=== PATIENT | male | born 1965 | race Caucasian/White ===

== ENCOUNTER → 2019-11-09 10:27 | Outpatient (BNVA) | payer MEDICARE, MEDICAID, SELFPAY | PROVIDERS: Family Provider Internal Medicine; PCP Internal Medicine; Visit Provider Nurse Practitioner | DX: G89.29 Other chronic pain (principal); M54.5 Low back pain; F17.290 Nicotine dependence, other tobacco product, uncomplicated; Z79.891 Long term (current) use of opiate analgesic; Z71.6 Tobacco abuse counseling | CPT/HCPCS: 99215 ==

== ENCOUNTER 2019-11-17 16:16 | Outpatient (REF) | payer MEDICARE, MEDICAID, SELFPAY ==
[2019-11-17 16:27] LABS: Basophils # 0.1 10^3/uL (0.0-0.1); Basophils % 0.8 %; Eosinophils # 0.1 10^3/uL (0.0-0.8); Eosinophils % 2.2 %; Hemoglobin 8.8 g/dL (11.7-16.6); Lymphocytes # 1.2 10^3/uL (0.8-4.8); Mean Corpuscular HGB Conc 28.4 g/dL (30.0-36.0); Mean Corpuscular Hemoglobin 22.7 pg (28.0-34.0); Mean Corpuscular Volume 79.9 fL (80-94); Mean Platelet Volume 8.8 fL (7.4-10.4); Monocytes # 0.3 10^3/uL (0.2-0.9); Monocytes % 4.3 %; Neutrophils # 4.6 10^3/uL (1.8-7.7); Neutrophils % 73.4 %; Nucleated Red Blood Cells % 0 %; Platelet Count 466 10^3/cmm (130-400); Red Blood Count 3.88 10^6/uL (4.1-5.3); Red Cell Distribution Width 21.4 % (12.1-15.1); White Blood Count 6.3 10^3/uL (4.0-10.0)
[2019-11-17 16:45] LABS: INR 1.06 (0.8-1.2)
[2019-11-17 18:12] LABS: Alanine Aminotransferase < 5 U/L (0-41); Albumin Level 2.9 g/dL (3.5-5.2); Alkaline Phosphatase 93 IU/L (40-130); Anion Gap 15.5 (5-19); Aspartate Amino Transferase 6 U/L (0-40); Blood Urea Nitrogen 9 mg/dL (6-20); Calcium 9.3 mg/dL (8.5-10.5); Carbon Dioxide 22 mmol/L (22-29); Chloride 102 mmol/L (98-107); Glomerular Filtration Rate 117.5 mL/min (90-130); Glucose 99 mg/dL (65-115); Potassium 4.5 mmol/L (3.5-5.1); Sodium 135 mmol/L (136-145); Total Bilirubin 0.2 mg/dL (0.15-1.2); Total Protein 7.9 g/dL (6.6-8.7)
[2019-11-17 21:22] LABS: Estmated Average Glucose 94; Hemoglobin A1C 4.9 % (4.0-6.0)
== END 2019-11-17 16:17 | disposition home or self-care (01) ==
LOC: LAB 16:16
PROVIDERS: Family Provider Internal Medicine; PCP Internal Medicine; Visit Provider Internal Medicine
DX: Z01.89 Encounter for other specified special examinations (principal)
CPT/HCPCS: 80053; 83036; 85025; 85610

== ENCOUNTER 2020-01-18 15:11 | Outpatient (CLI) | payer MEDICARE, MEDICAID, SELFPAY ==
[2020-01-18 17:14] LABS: Bilirubin Urine Neg (NEGATIVE); Blood Urine 2+ (Negative); Glucose Urine UA Norm (Normal); Ketones Urine Negative (Negative); Nitrate Urine Positive (Negative); Protein Urine Neg (Negative); Sulfosalicylic Acid Urine Positive (Negative); Urine Appearance Cloudy (CLEAR); Urine Color Yellow (Yellow); pH Urine 9 (5-7)
[2020-01-18 17:15] LABS: Add Urine Microscopic? YES; Leukocyte Esterase Urine 2+ (Negative); Urobilinogen Urine Norm (Negative)
[2020-01-18 17:18] LABS: Add Urine Culture? Yes; Amorphous Sediment Urine 4+; Bacteria Urine 2+; RBC Urine 0-4 /hpf (0-2); Squamous Epithelial Cell Urine 0-4 (0-5)
== END 2020-01-18 15:12 | disposition home or self-care (01) ==
LOC: LAB 15:14
PROVIDERS: Family Provider Internal Medicine; PCP Internal Medicine; Visit Provider Internal Medicine
DX: N39.0 Urinary tract infection, site not specified (principal)
CPT/HCPCS: 81001; 87086

== ENCOUNTER → 2020-02-22 13:38 | Outpatient (BNVA) | payer MEDICARE, MEDICAID, SELFPAY | PROVIDERS: Family Provider Internal Medicine; PCP Internal Medicine; Visit Provider Nurse Practitioner | DX: G89.29 Other chronic pain (principal); M54.5 Low back pain; F17.290 Nicotine dependence, other tobacco product, uncomplicated; Z79.891 Long term (current) use of opiate analgesic | CPT/HCPCS: 99213 ==

== ENCOUNTER 2020-03-14 11:02 | Outpatient (CLI) | payer MEDICARE, MEDICAID, SELFPAY ==
[2020-03-14 23:22] LABS: Add Urine Microscopic? YES; Bilirubin Urine Neg (NEGATIVE); Blood Urine 3+ (Negative); Glucose Urine UA Norm (Normal); Ketones Urine Negative (Negative); Leukocyte Esterase Urine 2+ (Negative); Nitrate Urine Negative (Negative); Protein Urine 1+ (Negative); Urine Appearance Cloudy (CLEAR); Urine Color Dark Yellow (Yellow); Urobilinogen Urine Norm (Negative); pH Urine 7 (5-7)
[2020-03-14 23:23] LABS: Bacteria Urine 2+; RBC Urine 0-4 /hpf (0-2); Squamous Epithelial Cell Urine 0-4 (0-5); WBC Urine 55-80 /hpf (0-5)
== END 2020-03-14 11:03 | disposition home or self-care (01) ==
PROVIDERS: Family Provider Internal Medicine; PCP Internal Medicine; Visit Provider Internal Medicine
DX: N39.0 Urinary tract infection, site not specified (principal); Z96.0 Presence of urogenital implants; Z79.899 Other long term (current) drug therapy
CPT/HCPCS: 81001; 87077; 87086; 87186

== ENCOUNTER 2020-03-28 13:50 | Outpatient (CLI) | payer MEDICARE, MEDICAID, SELFPAY ==
--- NOTE | 2020-03-28 13:30 | XRR_ITS ---
PROCEDURE INFORMATION: Exam: XR Abdomen, 1 View Exam date and time: 03/28/2020 2:29 PM Age: 55 years old Clinical indication: Condition or disease; Other: HX of staghorn calculus; Prior surgery; Surgery type: Bowel TECHNIQUE: Imaging protocol: XR of the abdomen. Views: Frontal supine view of the abdomen. 1 View. COMPARISON: [facility] KUB [id number] 11/19/2016 8:09 AM FINDINGS: Tubes, catheters and devices: A urinary bladder catheter is in place Gastrointestinal tract: Normal. No bowel dilation. Intraperitoneal space: Multiple densities seen in the right lower quadrant new since prior examination. Vasculature: There is a metallic aortic stent in place. The aorta is ectatic. There is a vena cava filter in place in good position. Bones/joints: Unremarkable. XR/XR KUB [id number] IMPRESSION: 1. No acute findings. 2. Ectatic aorta status post vascular stent placement. 3. IVC filter in good position 4. Multiple densities right lower quadrant. 5. Urinary bladder catheter in place.
== END 2020-03-28 13:51 | disposition home or self-care (01) ==
LOC: RAD 13:54
PROVIDERS: PCP Internal Medicine; Visit Provider Urology
DX: Z87.442 Personal history of urinary calculi (principal); Z96.0 Presence of urogenital implants
CPT/HCPCS: 74018

== ENCOUNTER → 2020-05-01 10:07 | Outpatient (BNVA) | payer MEDICARE, MEDICAID, SELFPAY | PROVIDERS: PCP Internal Medicine; Visit Provider Anesthesiology | DX: G89.29 Other chronic pain (principal); M54.41 Lumbago with sciatica, right side; M54.42 Lumbago with sciatica, left side; G54.6 Phantom limb syndrome with pain; R10.9 Unspecified abdominal pain; G25.81 Restless legs syndrome; F17.290 Nicotine dependence, other tobacco product, uncomplicated; Z79.891 Long term (current) use of opiate analgesic | CPT/HCPCS: 99214 ==

== ENCOUNTER 2020-05-11 21:56 | Inpatient (IN) | payer MEDICARE, MEDICAID, SELFPAY ==
[2020-05-11 22:11] VITALS: RESP 20; TEMP 36.6; BMI 25.0
[2020-05-11] MEDS: sodium chloride 0.9% 500 ML IV (22:30)
[2020-05-11 22:54] LABS: Basophils # 0.1 10^3/uL (0.0-0.1); Basophils % 0.5 %; Eosinophils # 0.1 10^3/uL (0.0-0.8); Eosinophils % 1.2 %; Hematocrit 34.8 % (42.0-52.0); Hemoglobin 10.7 g/dL (11.7-16.6); Lymphocytes # 1.4 10^3/uL (0.8-4.8); Lymphocytes % 12.8 %; Mean Corpuscular HGB Conc 30.7 g/dL (30.0-36.0); Mean Corpuscular Hemoglobin 22.2 pg (28.0-34.0); Mean Corpuscular Volume 72.2 fL (80-94); Mean Platelet Volume 8.6 fL (7.4-10.4); Monocytes # 0.6 10^3/uL (0.2-0.9); Neutrophils # 8.86 10^3/uL (1.8-7.7); Neutrophils % 80.2 %; Nucleated Red Blood Cells % 0 %; Platelet Count 472 10^3/cmm (130-400); Red Blood Count 4.82 10^6/uL (4.1-5.3)
--- NOTE | 2020-05-11 23:00 | CTR_ITS ---
PROCEDURE INFORMATION: Exam: CT Abdomen And Pelvis With Contrast Exam date and time: 05/11/2020 11:16 PM Age: 55 years old Clinical indication: Vomiting and other: Abd distention; Prior surgery; Surgery type: Colon, colostomy; Additional info: Abdominal distension, vomiting TECHNIQUE: Imaging protocol: Computed tomography of the abdomen and pelvis with intravenous contrast. Radiation optimization: All CT scans at this facility use at least one of these dose optimization techniques: automated exposure control; mA and/or kV adjustment per patient size (includes targeted exams where dose is matched to clinical indication); or iterative reconstruction. Contrast material: OMNI 300; Contrast volume: 95 ml; Contrast route: INTRAVENOUS (IV); COMPARISON: 1. CT abdomen pelvis w con* [id number] 10/12/2017 7:22:[address] abdomen pelvis w con* [id number] 09/08/2018 5:10:32 AM RADIATION DOSE METRICS: Total DLP (mGy-cm): 461.75 FINDINGS: Tubes, catheters and devices: Suprapubic catheter is in place draining the urinary bladder. Liver: There is no focal abnormality within the liver. Gallbladder and bile ducts: Multiple calcified gallstones are present. There is IVC filter in place with its tip in the intrahepatic IVC. This is higher than usual position for IVC filters but this is not changed from previous. Pancreas: Normal. No ductal dilation. Spleen: Normal. No splenomegaly. Adrenals: Normal. No mass. Kidneys and ureters: There is nonobstructing stone in the lower pole of the right kidney. Kidneys are otherwise unremarkable. There is no hydronephrosis. Stomach and bowel: There is colostomy in the left lower quadrant of the abdomen. Parastomal hernia is again identified. Without evidence for incarceration. There is fluid distention of proximal small bowel loops. There is some distal small bowel loops in the right lower quadrant which are nondilated. The exact point of transition is not identified but this does appear to be in the mid abdomen. There is some fluid distending the colon. These findings are concerning for the possibility of partial small bowel obstruction. Correlation with clinical findings is suggested. Appendix: No evidence of appendicitis. Intraperitoneal space: There is no evidence of free intraperitoneal fluid. Vasculature: Abdominal aortic aneurysm is again identified with maximum diameter approximately 8.5 cm not significantly changed from the previous examination. Some calcification is again seen in the wall of the aneurysm. There is aorta iliac stent graft repair unchanged from the prior study without evidence for endoleak. Lymph nodes: Unremarkable. No enlarged lymph nodes. Bladder: Unremarkable as visualized. Reproductive: Unremarkable as visualized. Bones/joints: Compared with 10/12/2017, there has been partial resection of the distal sacrum at the S3-S4 level. Soft tissues: Sacral decubitus ulcer is again identified. CT/CT abdomen pelvis w con* [id number] IMPRESSION: 1. Findings worrisome for small bowel obstruction. 2. No change in abdominal aortic aneurysm. 3. Decubitus ulcer with postsurgical changes in the sacrum. 4. Cholelithiasis 5. Right nephrolithiasis. 6. Parastomal hernia not significantly changed. Radiation Dose CTDIVOL = (mGy): DLP = 461.75 (mGy-cm)
[2020-05-11 23:01] LABS: Bilirubin Urine Neg (NEGATIVE); Blood Urine 3+ (Negative); Glucose Urine UA Norm (Normal); Ketones Urine Negative (Negative); Leukocyte Esterase Urine 2+ (Negative); Nitrate Urine Negative (Negative); Protein Urine Trace (Negative); Specific Gravity, Urine 1.005 (1.005-1.030); Urine Color Yellow (Yellow); Urobilinogen Urine Norm (Negative); pH Urine 8 (5-7)
[2020-05-11 23:10] LABS: Add Urine Microscopic? YES; Sulfosalicylic Acid Urine Positive (Negative)
[2020-05-11 23:12] LABS: Amorphous Sediment Urine 1+; Bacteria Urine 2+; Squamous Epithelial Cell Urine 0-4 (0-5); WBC Urine 15-25 /hpf (0-5)
[2020-05-11 23:13] LABS: Add Urine Culture? Yes
[2020-05-11 23:17] LABS: Lactate (Lactic Acid level) 0.7 mmol/L (0.5-2.2)
[2020-05-11 23:18] LABS: Alanine Aminotransferase < 5 U/L (0-41); Albumin Level 3.4 g/dL (3.5-5.2); Alkaline Phosphatase 95 IU/L (40-130); Anion Gap 15.2 (5-19); Aspartate Amino Transferase 5 U/L (0-40); Blood Urea Nitrogen 6 mg/dL (6-20); Calcium 8.6 mg/dL (8.5-10.5); Carbon Dioxide 21 mmol/L (22-29); Chloride 95 mmol/L (98-107); Globulin 5.2 g/dL (1.3-4.6); Glomerular Filtration Rate 139.9 mL/min (90-130); Glucose 109 mg/dL (65-115); Lipase 59 U/L (13-60); Osmolality Calculated 262 mOsm/kg (285-295); Potassium 3.2 mmol/L (3.5-5.1); Sodium 128 mmol/L (136-145); Total Bilirubin 0.2 mg/dL (0.15-1.2); Total Protein 8.6 g/dL (6.6-8.7)
[2020-05-12] VITALS (12 sets, daily range): BP systolic 102–142; BP diastolic 63–88; PULSE 64–92; RESP 18–20; TEMP 36.5–36.8; O2SAT 93–99
[2020-05-12] MEDS: iohexol 300 mg/mL 100 mL Btl IV (00:13)
--- NOTE | 2020-05-12 01:34 | ED_ITS ---
HPI - General Adult General: Chief complaint: General Medical Stated complaint: abd pain Time Seen by Provider: 05/11/20 22:15 History of Present Illness: HPI narrative: 55-year-old male with a history of partial quadriplegia. He has a chronic indwelling Shore catheter, and a colostomy in the left lower quadrant. He presents with episodes of vomiting, some nausea, and a change in his stool output over the last 3 days or so. He notes some hard pellets . He saw his doctor on Thursday, and was given lactulose, and has had some liquid creamy output through the ostomy today. He does not have good sensation to his abdomen, so he cannot tell us about pain. Associated symptoms: Reports nausea and vomiting; Deny chest pain, confusion, dyspnea, headache(s), rash or palpitations Review of Systems Const: Denies: fever(s) or chills Eyes: Denies: change in vision or blurry vision ENMT: Denies: swelling of lips/tongue or sinus pain Card: Denies: chest pain, palpitations or irregular heart rhythm Resp: Denies: dyspnea, productive cough, non-productive cough or wheezing GI: Reports: nausea and vomiting; Denies: abdominal pain or melena : Denies: hematuria Musc: Denies: neck pain or joint warmth Skin/Breast: Denies: rash, pruritus or erythema Neuro: Denies: headache(s), dizziness, vertigo, confusion or seizure-like activity Psych: Denies: anxiety, visual hallucinations or auditory hallucinations PFS ED PFSH: Medical History (Updated 05/12/20 @ 03:13 by Chris Stock DO) Chronic abdominal pain Chronic indwelling Shore catheter Chronic pain of lower extremity, bilateral Decubitus ulcer Encounter for long-term opiate analgesic use Foot amputation status Bilateral forefoot amputation History of amputation of toe (~02/2015) LEFT FOOT/ TOES RIGHT FOOT TOES History of uric acid staghorn calculus 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 Long-term use of high-risk medication Neurogenic bladder Phantom pain Restless leg syndrome Tobacco use disorder Surgical History (Updated 05/12/20 @ 01:46 by Lorna Fenton MD) Hx of resection of large bowel (~01/2015) S/P abdominal aortic aneurysm repair Family History Unknown Anesthesia complication Denies family history of Bleeding disorder Social History (Updated 05/01/20 @ 10:27 by Alicia Delgado LPN) Smoking and tobacco status: current every day smoker cigars Alcohol intake: current Alcohol intake frequency: holidays/special occasions only Adopted: Yes Lives independently: Yes Household members: spouse Marital status: Current occupational status: disabled History of recent travel: No Physical Exam Const: GENERAL APPEARANCE: well developed ORIENTATION/CONSCIOUSNESS: Yes oriented to person, Yes oriented to place and Yes oriented to time HENMT: COMMON NORMALS: normocephalic, external ears normal and Normal external nose present HEAD & SCALP: normocephalic FACE & SINUS: normal facial exam NOSE: Normal external nose present and No nasal discharge present EXTERNAL EAR: Yes external ears normal Eye: COMMON NORMALS: Equal, round and reactive pupils present, EOMs intact bilaterally and conjunctivae normal EYELID: eyelids normal CONJUNCTIVA: Yes conjunctivae normal PUPIL: Yes Equal, round and reactive pupils present Neck/C-Spine: GENERAL: No tracheal deviation Chest: COMMONS NORMALS: normal inspection of the chest CHEST: No tenderness Resp: COMMON NORMALS: clear to auscultation bilaterally EFFORT & INSPECTION: No tachypneic, No respiratory distress, No retractions, No uses accessory muscles and No tracheal deviation AUSCULTATION: clear to auscultation bilaterally, no rhonchi, no wheezes and lung sounds not diminished Cardio: COMMON NORMALS: regular rhythm RATE: tachycardic RHYTHM: regular rhythm HEART SOUNDS: no murmurs PERIPHERAL PULSES: radial pulses present GI: INSPECTION: No abdominal distension AUSCULTATION: No Hyperactive bowel sounds present and No Hypoactive bowel sounds present PALPATION: No Guarding due to palpation present (GI) and Yes Rigid due to palpation PERCUSSION: no dullness to percussion and tympanic to percussion Neuro: SENSORIUM/ORIENTATION: Yes oriented to person, Yes oriented to place and Yes oriented to time Psych: COMMON NORMALS: mental status grossly normal Course Vital Signs: Vital signs: Vital Signs Temperature 97.9 F 05/11/20 22:11 Pulse Rate 66 05/12/20 02:37 Respiratory Rate 18 05/12/20 02:37 Blood Pressure 116/79 05/12/20 02:37 Pulse Oximetry 97 08/22/20 02:37 MDM - General Adult MDM Narrative: Medical decision making narrative: 55-year-old male with abdominal distention, change in ostomy output, and vomiting. He is a mild leukocytosis. His potassium is down. His bicarbonate is down. He has distention with some rigidity. On CT, he has distended loops of small bowel with collapse more distally. An NG tube is placed in the ER. He will come in for small bowel obstruction. Lab Data: Labs: Lab Results 05/11/20 05/11/20 05/11/20 Range/Units 22:45 22:48 22:48 WBC 11.0 H (4.0-10.0) 10^3/ uL RBC 4.82 (4.1-5.3) 10^6/u L Hgb 10.7 L (11.7-16.6) g/dL Hct 34.8 L (42.0-52.0) % MCV 72.2 L (80-94) fL MCH 22.2 L (28.0-34.0) pg MCHC 30.7 (30.0-36.0) g/dL RDW 19.0 H (12.1-15.1) % Plt Count 472 H (130-400) 10^3/c mm MPV 8.6 (7.4-10.4) fL Neut % (Auto) 80.2 % Lymph % (Auto) 12.8 % [place] % (Auto) 5.0 % Eos % (Auto) 1.2 % Baso % (Auto) 0.5 % Neut # (Auto) 8.86 H (1.8-7.7) 10^3/u L Lymph # (Auto) 1.4 (0.8-4.8) 10^3/u L [place] # (Auto) 0.6 (0.2-0.9) 10^3/u L Eos # (Auto) 0.1 (0.0-0.8) 10^3/u L Baso # (Auto) 0.1 (0.0-0.1) 10^3/u L Nucleated RBC % (a uto) 0 % Nucleated RBCs # 0.0 /100WBC Sodium 128 L (136-145) mmol/L Potassium 3.2 L (3.5-5.1) mmol/L Chloride 95 L (98-107) mmol/L Carbon Dioxide 21 L (22-29) mmol/L Anion Gap 15.2 (5-19) BUN 6 (6-20) mg/dL Creatinine 0.6 L (0.7-1.2) mg/dL GFR Calculation 139.9 H (90-130) mL/min Glucose 109 (65-115) mg/dL Calculated Osmolal ity 262 L (285-295) mOsm/k g Lactate (0.5-2.2) mmol/L Calcium 8.6 (8.5-10.5) mg/dL Total Bilirubin 0.2 (0.15-1.2) mg/dL AST 5 (0-40) U/L ALT < 5 (0-41) U/L Alkaline Phosphata se 95 (40-130) IU/L C-Reactive Protein 149.0 H (0.0-4.9) mg/L Total Protein 8.6 (6.6-8.7) g/dL Albumin 3.4 L (3.5-5.2) g/dL Globulin 5.2 H (1.3-4.6) g/dL Lipase 59 (13-60) U/L Urine Color Yellow (Yellow) Urine Appearance Sl cloudy A (CLEAR) Urine pH 8 H (5-7) Ur Specific Gravit y 1.005 (1.005-1.030) Urine Protein Trace (Negative) Urine Glucose (UA) Norm (Normal) Urine Ketones Negative (Negative) Urine Blood 3+ H (Negative) Urine Nitrate Negative (Negative) Urine Bilirubin Neg (NEGATIVE) Prot Sulfosalicyli c Acd Positive (Negative) Urine Urobilinogen Norm (Negative) mg/dL Ur Leukocyte Jimena ase 2+ H (Negative) Urine RBC 10-15 H (0-2) /hpf Urine WBC 15-25 H (0-5) /hpf Ur Squamous Epith Cells 0-4 H (0-5) Amorphous Sediment 1+ Urine Bacteria 2+ H (NONE) 05/11/20 Range/Units 22:48 WBC (4.0-10.0) 10^3/ uL RBC (4.1-5.3) 10^6/u L Hgb (11.7-16.6) g/dL Hct (42.0-52.0) % MCV (80-94) fL MCH (28.0-34.0) pg MCHC (30.0-36.0) g/dL RDW (12.1-15.1) % Plt Count (130-400) 10^3/c mm MPV (7.4-10.4) fL Neut % (Auto) % Lymph % (Auto) % [place] % (Auto) % Eos % (Auto) % Baso % (Auto) % Neut # (Auto) (1.8-7.7) 10^3/u L Lymph # (Auto) (0.8-4.8) 10^3/u L [place] # (Auto) (0.2-0.9) 10^3/u L Eos # (Auto) (0.0-0.8) 10^3/u L Baso # (Auto) (0.0-0.1) 10^3/u L Nucleated RBC % (a uto) % Nucleated RBCs # /100WBC Sodium (136-145) mmol/L Potassium (3.5-5.1) mmol/L Chloride (98-107) mmol/L Carbon Dioxide (22-29) mmol/L Anion Gap (5-19) BUN (6-20) mg/dL Creatinine (0.7-1.2) mg/dL GFR Calculation (90-130) mL/min Glucose (65-115) mg/dL Calculated Osmolal ity (285-295) mOsm/k g Lactate 0.7 (0.5-2.2) mmol/L Calcium (8.5-10.5) mg/dL Total Bilirubin (0.15-1.2) mg/dL AST (0-40) U/L ALT (0-41) U/L Alkaline Phosphata se (40-130) IU/L C-Reactive Protein (0.0-4.9) mg/L Total Protein (6.6-8.7) g/dL Albumin (3.5-5.2) g/dL Globulin (1.3-4.6) g/dL Lipase (13-60) U/L Urine Color (Yellow) Urine Appearance (CLEAR) Urine pH (5-7) Ur Specific Gravit y (1.005-1.030) Urine Protein (Negative) Urine Glucose (UA) (Normal) Urine Ketones (Negative) Urine Blood (Negative) Urine Nitrate (Negative) Urine Bilirubin (NEGATIVE) Prot Sulfosalicyli c Acd (Negative) Urine Urobilinogen (Negative) mg/dL Ur Leukocyte Jimena ase (Negative) Urine RBC (0-2) /hpf Urine WBC (0-5) /hpf Ur Squamous Epith Cells (0-5) Amorphous Sediment Urine Bacteria (NONE) Discharge Plan Discharge Patient Disposition: Admitted As Inpatient Admit Provider: Lorna Fenton Clinical Impression: Small bowel obstruction Condition: Stable Coding Level of Care Code ED Welding Machine Tender for Chg Fwd Exam Comprehensive
--- NOTE | 2020-05-12 01:42 | PM.HP ---
Providers/Chief Complaint Primary Care Provider: Jacoby Jon DO Chief Complaint: abd pain History of Present Illness Maicol Reid is a 55 year old male who carries history of paraplegia after development of complications with abdominal aortic aneurysm repair with showering of embolism to spine and lower extremity vasculature, DVT, chronic anticoagulation, colostomy versus colectomy, chronic indwelling catheterization for neurogenic bladder came in for chief complaint of abdominal pain and vomiting. Patient is stating that his symptoms started on Thursday when he noticed that he was not getting enough output through his colostomy bag, before Thursday he was very constipated but was able to tolerate p.o. diet, on Thursday he started getting abdominal pain with excessive belching and cramping. He has tried lactulose which improved some output from his colostomy bag but he is still experiencing intractable nausea vomiting, hence decided to come to the hospital for further evaluation. Diagnostics in the ER revealed small bowel obstruction. Patient is denying recent use of antibiotics, fever, blood in the colostomy bag, dysuria. His Shore catheter gets changed every 3 weeks. Diagnosis in the ER revealed normal hemodynamics, white count 11, no active signs of sepsis, CT abdomen revealed small bowel obstruction, hyponatremia, hypokalemia, lactic 0.7, CT abdomen pelvis with contrast: IMPRESSION: 1. Findings worrisome for small bowel obstruction. 2. No change in abdominal aortic aneurysm. 3. Decubitus ulcer with postsurgical changes in the sacrum. 4. Cholelithiasis 5. Right nephrolithiasis. 6. Parastomal hernia not significantly changed. Review of Systems Const: Reports: chills, body aches and fatigue; Denies: fever(s) Eyes: Denies: change in vision ENMT: Denies: throat pain Card: Denies: chest pain Resp: Denies: dyspnea GI: Reports: abdominal pain, nausea, vomiting and constipation : Denies: flank pain Musc: Denies: neck pain Skin/Breast: Reports: rash and lesions (Decubitus ulcer) Neuro: Reports: weakness in extremities; Denies: headache(s) Psych: Denies: anxiety Endo: Denies: polyuria Justice/Lymph: Denies: easy bruising All/Imm: Denies: urticaria Medications/Allergies Home Medications Medication Instructions Recorded Confirmed Last Taken Type apixaban 2.5 mg tablet 2.5 mg PO BID 10/17/19 05/01/20 Unknown History levothyroxine 88 mcg tablet 88 mcg PO QDAY 10/17/19 05/01/20 Unknown History metformin 500 mg tablet 1,000 mg PO QDAY tab 10/17/19 05/01/20 Unknown History ondansetron HCl 8 mg tablet 8 mg PO QDAY PRN tab 10/17/19 05/01/20 Unknown History citric ac 1980.6 mg-glucono 59.4 30 ml IRRIGATION TID #900 ml 03/28/20 05/01/20 Unknown Rx mg-mag carb 980.4 mg/30 mL irrig.soln docusate sodium 100 mg capsule 100 mg PO BID PRN 03/28/20 05/01/20 Unknown History omeprazole 20 mg capsule,delayed 20 mg PO DAILY 03/28/20 05/01/20 Unknown History release oxybutynin chloride 5 mg tablet 5 mg PO BID #60 tab 03/28/20 05/01/20 Unknown Rx oxycodone 10 mg tablet 10 - 15 mg PO QID PRN 30 Days #180 05/01/20 05/01/20 Unknown Rx tab ropinirole 0.5 mg tablet 0.5 mg PO .HS 30 Days #60 tab 05/01/20 05/01/20 Unknown Rx tizanidine 4 mg tablet 4 mg PO TID PRN #90 tab 05/01/20 05/01/20 Unknown Rx zonisamide 100 mg capsule 400 mg PO .Q HS #120 cap 05/01/20 05/01/20 Unknown Rx Allergies Allergy/AdvReac Type Severity Reaction Status Date / Time aspirin Allergy ALGY-Anaphy Verified 05/01/20 10:22 laxis meropenem Allergy SWELLING/ Verified 05/01/20 10:22 HIVES cefixime AdvReac UNKNOWN Verified 05/01/20 10:22 vancomycin AdvReac ADR-Itching Verified 05/01/20 10:22 PFSH Acute PFSH: Medical History Chronic abdominal pain Chronic indwelling Shore catheter Chronic pain of lower extremity, bilateral Decubitus ulcer Encounter for long-term opiate analgesic use Foot amputation status Bilateral forefoot amputation History of amputation of toe (~02/2015) LEFT FOOT/ TOES RIGHT FOOT TOES History of uric acid staghorn calculus 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 Long-term use of high-risk medication Neurogenic bladder Phantom pain Restless leg syndrome Tobacco use disorder Surgical History Hx of resection of large bowel (~01/2015) S/P abdominal aortic aneurysm repair Family History Unknown Anesthesia complication Denies family history of Bleeding disorder Social History Smoking and tobacco status: current every day smoker cigars Alcohol intake: current Alcohol intake frequency: holidays/special occasions only Adopted: Yes Lives independently: Yes Household members: spouse Marital status: Current occupational status: disabled History of recent travel: No Vitals/I&O/Wt Last Vital Signs Temp 97.9 F 05/11/20 22:11 Pulse 92 05/12/20 00:30 Resp 18 05/12/20 00:30 BP 109/63 05/12/20 00:30 Pulse Ox 98 05/12/20 00:30 Weight last 48 hrs Weight 74.843 kg Physical Exam Narrative: EXAM NARRATIVE: Mr. Reid is a paraplegic who is currently laying comfortable in his bed saturating well on room air Colostomy bag is draining semisolid brown feculent material No active abdominal pain S1, S2 no tachycardia or heart failure Clinically dehydrated Awake alert oriented x3, Bilateral forefoot amputation Decubitus ulcer around lower buttocks area grade 2 decubitus ulcer with exposure to fat layer without tunneling Appropriate mood and affect Shore catheter draining cloudy urine Data : 05/11/20 22:48 05/11/20 22:48 A&P Assessment and plan (1) Small bowel obstruction: Status: Acute (2) Hyponatremia: Status: Acute (3) Hypokalemia: Status: Acute (4) Dehydration: Status: Acute Additional A&P Information Small bowel obstruction N.p.o., NG to suction Morphine for analgesia Colostomy bag is draining feculent material Distended small bowel loops noted on CT abdomen, I do suspect partial small bowel obstruction because of output from his colostomy bag, No acute indication for surgical intervention Kindly consult general surgery in the morning Abdominal aortic aneurysm 8.5 cm same as the last CT scan findings, no vascular compromise Parastomal hernia without incarceration, cholelithiasis noted without signs of cholecystitis Hyponatremia/hypokalemia secondary to dehydration Fluid resuscitation, electrolyte replenishment Paraplegia after abdominal aortic aneurysm repair Decubitus ulcer, follows up with wound care, Neurogenic bladder with chronic indwelling Shore catheter Abnormal UA without active symptoms, For DVT he is on Eliquis 2.5 mg twice a day DVT prophylaxis not needed as he is on Eliquis N.p.o. Full code Attestations Medical Necessity Statement*: Anticipating stay in the hospital cross more than 2 midnights continue monitoring for small bowel obstruction, need IV fluids agitation for dehydration and electrolyte imbalance Time Spent in Patient Care: (>than 50% of time spent in counselling and/or direct pt care on unit). 40mins Coding Level of Care Code Acute Communications Systems Engineer for Chg Fwd Diagnoses Small bowel obstruction K56.609 Hyponatremia E87.1 Hypokalemia E87.6 Dehydration E86.0
--- NOTE | 2020-05-12 02:33 | XR_ITS ---
WS: [id number] EXAM: AP CHEST: PORTABLE UPRIGHT DATE OF EXAM: 05/12/2020, 0327 hours COMPARISON: Chest x-ray from 02/04/2018 HISTORY: Patient is 55 years old with nasogastric tube placement. FINDINGS: The cardiac silhouette is normal in size. The mediastinal contours show calcified plaque in the ao rta. Enteric tube has been placed crossing the thoracic esophagus and coiled in the left upper abdome n felt to be ending in the stomach. IVC filter is in place in the abdomen. There appears to be endova scular stenting overlying the distal aorta. The pulmonary vascularity is normal. The lungs are louise ar of infiltrate. No effusion is seen. Top of the lungs have been excluded from the image. No pneumo thorax as visualized. No acute bony abnormality is seen. XR/XR chest 1V portable [id number] IMPRESSION: Enteric tube ends in the area of the stomach. No pulmonary infiltrate.
[2020-05-12] MEDS: ondansetron 2 mg/ML SDV 2 mL 4 MG IVP (03:10)
[2020-05-12] MEDS: HYDROmorphone 1 mg/mL INJ 1 mL IVP (03:15)
--- NOTE | 2020-05-12 03:28 | PC.NURSE ---
pt refusing morphine due to causing vomiting. Dr notified, vo obtained for 4mg of zofran and 1mg of dilaudid IVP
[2020-05-12] MEDS: sodium chlor 0.9% + KCl 20 mEq 20 MEQ/1,000 ML BAG 30 MEQ IV (06:25)
[2020-05-12] MEDS: lactulose oral liq 20 gm/30 mL UDC NG-TUBE (06:40)
[2020-05-12] MEDS: pantoprazole 40 mg SDV IVP (09:31)
[2020-05-12] MEDS: HYDROcodone-acetaminophen 10-325 mg Tablet 1.5 TAB PO (15:12)
--- NOTE | 2020-05-12 15:24 | PC.CHAP ---
Pastoral Care Encounter/Spiritual Assessment Type of Contact [] Declined varnish maker helper visit [] Patient/Family/Request visit [] Outpatient visit [] Follow-up visit [] Physician referral [] Code/Alert [X] Routine visit [] Staff referral [] Actively dying [] Patient sleeping [] Family support [] [] Out of room [] Palliative care [] [] Receiving care in room [] Pre-surgical visit [] Trauma [] Long length of stay [] ICU visit [] Other: Relational/Emotional Strength [X] Patient feels connected with others/family/visitors/staff [] Distress [] Loneliness/isolation [] Abandonment Spirituality of Patient [] Person of Ivelisse [] Attends Sikhism of their Ivelisse [X] Believes in Prayer [] Reads Bible or Mosque materials [] There are Spiritual issues to be addressed Levers Lace Machine Operator Interventions [X] Prayer [X] Active listening [X] Non-anxious presence [] Spiritual/emotional support [] Crisis/trauma care [] Spiritual counseling [] Bereavement support [] Provided bereavement packet [] Provided Bible/devotional materials [] Provided toy/stuffed animal, coloring book to patient or family member [] Provided Communion [] Anointing/[place] [] Salvation [X] Completed spiritual assessment [X] Other: requested nurse because suction tube became disconnected Impact on Illness or Injury [] Angry [] Fearful [] Anxious [] Often cries [] Exhaustion [] Unable to work [] Unable to attend jainism [] Unable to walk/stand [] Unable to read [] Unable to drive [] Unable to eat/drink [] Unable to sleep [] Unable to be with family [] Patient intubated [] Other: Summary: Pt is paralyzed (I could not understand what he was describing as the source of his paralysis). He informed his physician that he had not had a bowel movement in several days (he has a colostomy bag), so he was brought in and determined to have a bowel blockage. He has a at home. It was effortful for him to speak because of the NG tube, but he wanted to visit. We had prayer, and I'll stop by to visit again tomorrow. Time spent with patient: 10 mins
--- NOTE | 2020-05-12 16:28 | PM.PN ---
Subjective Subjective: Interval history: Patient reports feeling okay. Denies shortness of breath or chest pain. Denies abdominal pain. It appears that the patient's ostomy started to work. His nasogastric tube was clamped after patient was given laxative. Several hours after he developed nausea and had 100 mL out when tube was unclamped. Vitals/I&O/Wt Last Vital Signs Temp 98.1 F 05/12/20 15:35 Pulse 84 05/12/20 15:35 Resp 18 05/12/20 15:35 BP 103/70 05/12/20 15:35 Pulse Ox 99 05/12/20 15:35 05/12/20 05/12/20 05/12/20 06:59 14:59 22:59 Intake Total 0 / 0 480 / 480 Output Total 1000 / 1000 Balance 0 / 0 -520 / -520 Weight last 48 hrs Weight 74.843 kg Physical Exam Const: COMMON NORMALS: no acute distress and patient oriented x3 Resp: COMMON NORMALS: normal respiratory effort and clear to auscultation bilaterally AUSCULTATION: clear to auscultation bilaterally Cardio: COMMON NORMALS: regular rate, regular rhythm and S2 normal heart sound present RATE: regular rate RHYTHM: regular rhythm HEART SOUNDS: S2 normal heart sound present OTHER: No lower extremity edema GI: COMMON NORMALS: Normal to inspection, nondistended, normoactive bowel sounds present, Soft to palpation and non-tender PALPATION: Yes Soft to palpation OTHER: Ostomy with light brown liquid stool. Neuro: COMMON NORMALS: patient oriented x3 Data : 05/11/20 22:48 05/11/20 22:48 A&P Assessment and plan (1) Small bowel obstruction: Status: Acute (2) Hyponatremia: Status: Acute (3) Hypokalemia: Status: Acute (4) Dehydration: Status: Acute Additional A&P Information Small bowel obstruction N.p.o., NG to suction Morphine for analgesia Colostomy bag is draining feculent material Distended small bowel loops noted on CT abdomen, I do suspect partial small bowel obstruction because of output from his colostomy bag, No acute indication for surgical intervention Kindly consult general surgery in the morning Abdominal aortic aneurysm 8.5 cm same as the last CT scan findings, no vascular compromise 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 UA is not helpful but if white blood cell count continues to increase or he becomes febrile we will start empiric antibiotics. Check iron studies in a.m. DVT prophylaxis not needed as he is on Eliquis N.p.o. Full code Attestations Medical Necessity Statement*: Patient with signs and symptoms of small bowel obstruction requires close inpatient monitoring and treatment. Time Spent in Patient Care: 16 - 35 minutes Coding Level of Care Code Acute Coding File Clerk for [facility] Diagnoses Small bowel obstruction K56.609 Hyponatremia E87.1 Hypokalemia E87.6 Dehydration E86.0
[2020-05-12] MEDS: magnesium citrate Btl 296 mL 150 ML PO ×2 (17:33→22:49)
[2020-05-13 03:00] VITALS: BP 126/80; PULSE 76; RESP 20; TEMP 36.7; O2SAT 94
[2020-05-13 03:56] LABS: Basophils % 0.4 %; Eosinophils # 0.2 10^3/uL (0.0-0.8); Eosinophils % 1.7 %; Hematocrit 30.9 % (42.0-52.0); Hemoglobin 9.5 g/dL (11.7-16.6); Lymphocytes # 1.3 10^3/uL (0.8-4.8); Lymphocytes % 14.1 %; Mean Corpuscular HGB Conc 30.7 g/dL (30.0-36.0); Mean Corpuscular Hemoglobin 22.1 pg (28.0-34.0); Mean Corpuscular Volume 71.9 fL (80-94); Monocytes # 0.5 10^3/uL (0.2-0.9); Monocytes % 5.6 %; Neutrophils # 7.25 10^3/uL (1.8-7.7); Nucleated Red Blood Cells % 0 %; Platelet Count 445 10^3/cmm (130-400); Red Cell Distribution Width 18.8 % (12.1-15.1); White Blood Count 9.3 10^3/uL (4.0-10.0)
[2020-05-13 04:17] LABS: Alanine Aminotransferase < 5 U/L (0-41); Alkaline Phosphatase 79 IU/L (40-130); Anion Gap 12.3 (5-19); Aspartate Amino Transferase 5 U/L (0-40); Blood Urea Nitrogen 5 mg/dL (6-20); Calcium 8.1 mg/dL (8.5-10.5); Carbon Dioxide 23 mmol/L (22-29); Chloride 104 mmol/L (98-107); Ferritin 146 ng/mL (30-400); Globulin 3.9 g/dL (1.3-4.6); Glomerular Filtration Rate 172.6 mL/min (90-130); Glucose 115 mg/dL (65-115); Iron 17 ug/dL (59-158); Magnesium 1.9 mg/dL (1.7-2.3); Osmolality Calculated 279 mOsm/kg (285-295); Percent Saturation 12.1 % (20-50); Potassium 3.3 mmol/L (3.5-5.1); Sodium 136 mmol/L (136-145); Total Bilirubin 0.2 mg/dL (0.15-1.2); Total Iron Binding Capacity 140 mcg/dl; Total Protein 6.9 g/dL (6.6-8.7); Unsaturated Iron Binding 123 ug/dL (112-347)
[2020-05-13] MEDS: magnesium citrate Btl 296 mL 150 ML PO ×2 (05:25→11:00)
[2020-05-13 06:23] LABS: Glucose Point of Care 160 mg/dL (70-110)
[2020-05-13 07:00] VITALS: BP 107/71; PULSE 87; RESP 18; TEMP 37.2; O2SAT 98
[2020-05-13] MEDS: pantoprazole 40 mg SDV IVP (08:10)
--- NOTE | 2020-05-13 09:59 | P.CONIM_ITS ---
Providers/Reason For Consult Consulting Physican/Specialty*: Handy Bhatia MD Reason for Consult*: Concern for bowel obstruction Attending Physician: Demond Harding MD Primary Care Provider: Jacoby Jon DO History of Present Illness History of Present Illness Chief Complaint: I have loose stools History of present illness: Mr. Maicol Reid is a 55 year old male with history of paraplegia after development of complications with abdominal aortic aneurysm repair with showering of embolism to spine and lower extremity vasculature, DVT, chronic anticoagulation, colostomy versus colectomy, chronic indwelling catheterization for neurogenic bladder had previous AAA aneurysm repair back in 2014 and did develop bowel ischemia ended up by a diverting colostomy and patient in the interim developed pressure injury stage IV ulcers occupying bilateral gluteal and lower back regions.Patient has been having alternating bowel habits whenever he gets iron supplements he gets constipated and when he uses laxatives to get loose stools, apparently the patient has been admitted to the hospitalist service and a CT scan of the abdomen pelvis was done that showed; CT abdomen pelvis with contrast: IMPRESSION: 1. Findings worrisome for small bowel obstruction. 2. No change in abdominal aortic aneurysm. 3. Decubitus ulcer with postsurgical changes in the sacrum. 4. Cholelithiasis 5. Right nephrolithiasis. 6. Parastomal hernia not significantly changed. General surgery was consulted for further evaluation and potential management, patient had an NG and was clamped since yesterday and has been tolerating clear liquid diet and having looser stools per stoma in addition to passage of gas. Review of Systems General: Reports: 10 or more systems reviewed and unremarkable except in HPI and below Meds/Allergies Home Medications and Allergies Home Medications Medication Instructions Recorded Confirmed Last Taken Type apixaban 2.5 mg tablet 2.5 mg PO BID 10/17/19 05/12/20 05/11/20 08:00 History levothyroxine 88 mcg tablet 88 mcg PO QDAY 10/17/19 05/12/20 05/11/20 08:00 History ondansetron HCl 8 mg tablet 8 mg PO QID PRN tab 10/17/19 05/12/20 Unknown History docusate sodium 100 mg capsule 100 mg PO BID PRN 03/28/20 05/12/20 05/11/20 History omeprazole 20 mg capsule,delayed 20 mg PO DAILY 03/28/20 05/12/20 05/11/20 08:00 History release oxycodone 10 mg tablet 10 - 15 mg PO QID PRN 30 Days #180 05/01/20 05/12/20 05/11/20 Rx tab ropinirole 0.5 mg tablet 0.5 mg PO .HS 30 Days #60 tab 05/01/20 05/12/20 05/11/20 Rx tizanidine 4 mg tablet 4 mg PO TID PRN #90 tab 05/01/20 05/12/20 05/11/20 Rx zonisamide 100 mg capsule 400 mg PO .Q HS #120 cap 05/01/20 05/12/20 05/10/20 20:00 Rx oxycodone 10 - 15 mg PO QID PRN 05/13/20 05/13/20 05/11/20 History senna leaf extract 10 ml PO BID PRN #237 ml 05/13/20 Unknown Rx Allergies Allergy/AdvReac Type Severity Reaction Status Date / Time aspirin Allergy ALGY-Anaphy Verified 05/13/20 10:16 laxis meropenem Allergy SWELLING/ Verified 05/13/20 10:16 HIVES cefixime AdvReac UNKNOWN Verified 05/13/20 10:16 vancomycin AdvReac ADR-Itching Verified 05/13/20 10:16 Current Medications Current Medications Generic Name Dose Route Start Last Admin Trade Name Freq PRN Reason Stop Dose Admin Potassium Chloride/Sodium Chloride 20 meq in 1,000 mls @ 30 mls/hr 05/12/20 05:08 05/12/20 06:25 Sodium Chlor 0.9% + Kcl 20 Meq IV 30 mls/hr .Q24H FUENTES Administration Magnesium Citrate 150 ml 05/12/20 16:45 05/13/20 05:25 Magnesium Citrate PO 05/13/20 16:44 150 ml Q6H FUENTES Administration Pantoprazole Sodium 40 mg 05/12/20 09:00 05/13/20 08:10 Protonix IVP 40 mg DAILY FUENTES Administration PFSH Acute PFSH: Medical History Chronic abdominal pain Chronic indwelling Shore catheter Chronic pain of lower extremity, bilateral Decubitus ulcer Encounter for long-term opiate analgesic use Foot amputation status Bilateral forefoot amputation History of amputation of toe (~02/2015) LEFT FOOT/ TOES RIGHT FOOT TOES History of uric acid staghorn calculus 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 Long-term use of high-risk medication Neurogenic bladder Phantom pain Restless leg syndrome Tobacco use disorder Surgical History Hx of resection of large bowel (~01/2015) S/P abdominal aortic aneurysm repair Family History Unknown Anesthesia complication Denies family history of Bleeding disorder Social History Smoking and tobacco status: current every day smoker cigars Alcohol intake: current Alcohol intake frequency: holidays/special occasions only Adopted: Yes Lives independently: Yes Household members: spouse Marital status: Current occupational status: disabled History of recent travel: No Vitals/I&O/Wt Last Vital Signs Temp 98.9 F 05/13/20 07:00 Pulse 87 05/13/20 07:00 Resp 18 05/13/20 07:00 BP 107/71 05/13/20 07:00 Pulse Ox 98 05/13/20 07:00 05/12/20 05/13/20 05/13/20 22:59 06:59 14:59 Intake Total 550 / 1030 480 / 1510 640 / 640 Output Total 200 / 1200 1290 / 2490 900 / 900 Balance 350 / -170 -810 / -980 -260 / -260 Weight last 48 hrs Weight 165 lb Physical Exam Narrative: EXAM NARRATIVE: Patient is conscious alert oriented X3 BMI 25 Head and neck examination PERRLA no masses no cervical lymphadenopathy no jaundice NG in place clamped Cardiac examination audible S1-S2 no murmurs no gallops no arrhythmias Chest is clear bilateral,abscence of Rhonchi or wheezes,no surgical emphysema Abdomen nontender nondistended soft no organomegaly guarding or rigidity/no signs of peritonitis Colostomy at the left side of the abdomen with functioning loose stools and passage of gas Extensive pressure injury ulcers located on bilateral gluteal and lower back w ith no evidence of necrotic tissue Chronic indwelling catheter Data Micro: Micro: Microbiology 05/11/20 22:45 Urine Culture - Pr eliminary Urine Catheterize d Gram Negative R ods Gram Negative R ods#2 A&P Assessment and plan (1) Small bowel obstruction: From surgical standpoint of view after history taking physical examination and reviewing the chart and images with my personal interpretation, my recommendation to DC NG tube and advance diet as tolerated. Patient does have a chronic parastomal hernia I do not believe that is causing his current problem Local wound care Optimize nutrition by focus on protein shakes No acute surgical intervention indicated at this point. Assurance and education All questions have been answered and all concerns have been addressed to stevan salazar's satisfaction. Thank you for consulting general surgery to participate taking care Mr. Reid Status: Resolved Consult Attestations Medical Necessity Statement: Per hospitalist service Time Spent in Patient Care: (>than 50% of time spent in counselling and/or direct pt care on unit) . Coding Level of Care Code Acute General Worker for [facility] Diagnoses Small bowel obstruction K56.609
--- NOTE | 2020-05-13 10:49 | P.DS_ITS ---
Discharge Providers Date of Admission: 05/12/20 01:49 Date of Discharge: May 13, 2020 Attending Provider at Admission: Lorna Fenton MD Attending Provider at Discharge: Demond Harding MD Primary Care Provider: Jacoby Jon DO Diagnoses at Discharge Discharge Diagnosis (1) Small bowel obstruction: Status: Resolved Reason for Visit Reason for Visit: abd pain Hospital Course Discharge Summary: Patient presented with concern for partial small bowel obstruction. This appears to be related to medications including oxybutynin and opioids. Patient was given magnesium citrate and had good ostomy output. This morning patient denies any complaints including shortness of breath or chest pain. Denies being nauseous. He was seen by Dr. Garcia and NG tube was removed. If patient tolerates oral intake we will dismiss patient home. Patient will need to continue with wound care by home health. Oxybutynin will be discontinued as it could possibly cause decreased peristalsis and will request senna to be used as needed for constipation. Physical Exam Const: COMMON NORMALS: no acute distress, patient oriented x3 and alert Resp: COMMON NORMALS: No use of accessory muscles and clear to auscultation bilaterally AUSCULTATION: clear to auscultation bilaterally Cardio: COMMON NORMALS: regular rate, regular rhythm and No murmurs present (Cardio) RATE: regular rate RHYTHM: regular rhythm OTHER: No lower extremity edema GI: COMMON NORMALS: Soft to palpation and non-tender PALPATION: Yes Soft to palpation RECTAL EXAM: Yes deferred OTHER: Ostomy is functioning. Neuro: COMMON NORMALS: patient oriented x3 and no focal motor deficits SENSORIUM/ORIENTATION: Yes alert Psych: COMMON NORMALS: mental status grossly normal, Normal thought process present and cooperative THOUGHT PROCESS: Normal thought process present Discharge Data Data Completed and Pending: Completed Studies During Hospitalization Category Date Time Status CT abdomen pelvis w con* [id number] Urge nt Cat Scan 05/11/20 23:00 Completed XR chest 1V mitchell ble [id number] Routine Exams 05/12/20 02:33 Completed Pending at discharge Category Date Time Status Complete Blood Co unt w/Auto AM LABS Lab 05/14/20 04:00 Ordered Complete Blood Co unt w/Auto AM LABS Lab 05/15/20 04:00 Ordered Comprehensive Met abolic Panel AM LA BS Lab 05/14/20 04:00 Ordered Comprehensive Met abolic Panel AM LA BS Lab 05/15/20 04:00 Ordered Magnesium AM LABS Lab 05/14/20 04:00 Ordered Magnesium AM LABS Lab 05/15/20 04:00 Ordered Urine Culture Sta t Lab 05/11/20 22:45 Results Labs from last 24 hours 05/13/20 05/13/20 05/13/20 06:15 03:32 03:32 WBC 9.3 RBC 4.30 Hgb 9.5 L Hct 30.9 L MCV 71.9 L MCH 22.1 L MCHC 30.7 RDW 18.8 H Plt Count 445 H MPV 9.0 Neut % (Auto) 78.0 Lymph % (Auto) 14.1 [place] % (Auto) 5.6 Eos % (Auto) 1.7 Baso % (Auto) 0.4 Neut # (Auto) 7.25 Lymph # (Auto) 1.3 [place] # (Auto) 0.5 Eos # (Auto) 0.2 Baso # (Auto) 0.0 Nucleated RBC % (a uto) 0 Nucleated RBCs # 0.0 Sodium 136 Potassium 3.3 L Chloride 104 Carbon Dioxide 23 Anion Gap 12.3 BUN 5 L Creatinine 0.5 L GFR Calculation 172.6 H Glucose 115 POC Glucose 160 Calculated Osmolal ity 279 L Calcium 8.1 L Magnesium 1.9 Iron TIBC % Saturation Unsat Iron Binding Ferritin Total Bilirubin 0.2 AST 5 ALT < 5 Alkaline Phosphata se 79 Total Protein 6.9 Albumin 3.0 L Globulin 3.9 05/13/20 03:32 WBC RBC Hgb Hct MCV MCH MCHC RDW Plt Count MPV Neut % (Auto) Lymph % (Auto) [place] % (Auto) Eos % (Auto) Baso % (Auto) Neut # (Auto) Lymph # (Auto) [place] # (Auto) Eos # (Auto) Baso # (Auto) Nucleated RBC % (a uto) Nucleated RBCs # Sodium Potassium Chloride Carbon Dioxide Anion Gap BUN Creatinine GFR Calculation Glucose POC Glucose Calculated Osmolal ity Calcium Magnesium Iron 17 L TIBC 140 % Saturation 12.1 L Unsat Iron Binding 123 Ferritin 146 Total Bilirubin AST ALT Alkaline Phosphata se Total Protein Albumin Globulin Vitals: Last Vital Signs Temp 98.9 F 05/13/20 07:00 Pulse 87 05/13/20 07:00 Resp 18 05/13/20 07:00 BP 107/71 05/13/20 07:00 Pulse Ox 98 05/13/20 07:00 Discharge Plan Discharge Patient Disposition: Home Health Service Condition: Stable Prescriptions: New senna leaf extract 176 mg/5 mL syrup 10 ml PO BID PRN (Reason: constipation) Qty: 237 RF: 0 Continued Eliquis 2.5 mg tablet 2.5 mg PO BID RF: 0 levothyroxine 88 mcg tablet 88 mcg PO QDAY RF: 0 ondansetron HCl [Zofran] 8 mg tablet 8 mg PO QID PRN (Reason: Nausea) RF: 0 docusate sodium [Colace] 100 mg capsule 100 mg PO BID PRN (Reason: consstipation) RF: 0 omeprazole 20 mg capsule,delayed release(DR/EC) 20 mg PO DAILY RF: 0 oxycodone 10 mg tablet 10 - 15 mg PO QID PRN (Reason: pain) 30 Days Qty: 180 RF: 0 zonisamide [Zonegran] 100 mg capsule 400 mg PO .Q HS Qty: 120 RF: 0 tizanidine 4 mg tablet 4 mg PO TID PRN (Reason: muscle spasticity) Qty: 90 RF: 0 ropinirole 0.5 mg tablet 0.5 mg PO .HS 30 Days Qty: 60 RF: 0 oxycodone 10 mg Tablet 10 - 15 mg PO QID PRN (Reason: Pain) RF: 0 Discontinued oxybutynin chloride 5 mg tablet 5 mg PO BID Qty: 60 RF: 3 Discharge Orders: Discharge Order (Routine); Ordered 05/13/20 Ordered By: Demond Harding Referrals: Jacoby Jon DO [Primary Care Provider] - 4-7 days Discharge Diet: Advance as tolerated Discharge Activity: Increase activity as tolerated Activity Restrictions/Additional Instructions: Please call your doctor or present to emergency department if your condition worsens. Please continue with wound care. Please note that the oxybutynin is discontinued as it could possibly cause decreased bowel peristalsis potentially presenting as partial small bowel obstruction. Discharge Attestations Time Spent in Discharge Care*: greater than 30 min Quality Metrics Clinical Quality Measures During this hospital stay, did patient experience: None Coding Level of Care Code Acute Automotive Tire Technician for [facility] Diagnoses Small bowel obstruction K56.609
[2020-05-13 10:57] LABS: Glucose Point of Care 128 mg/dL (70-110)
[2020-05-13 11:00] VITALS: BP 109/71; PULSE 68; RESP 22; TEMP 36.8; O2SAT 98
[2020-05-13] MEDS: potassium chloride premix 40 MEQ/100 ML PREMIX 25 MEQ IV (11:00)
[2020-05-13 11:09] VITALS: BP 107/71; PULSE 87; RESP 18; TEMP 37.2; O2SAT 98
[2020-05-13] MEDS: lidocaine 1% INJ 20 mL 5 ML IV (11:41)
[2020-05-13 15:00] VITALS: BP 108/60; PULSE 64; RESP 20; TEMP 37.1; O2SAT 95
--- NOTE | 2020-05-14 12:47 | PC.SOCIAL ---
Cindy called micro report on urine culture to this nurse. This nurse updated Dr Harding via [email or web address] secure message elsi regarding the two different organisms. Proteus Mirabilis ESBL and Pseudomonas Aeruginosa. Per Dr Harding no further orders at this time has chronic indwelling jameson and likely contaminant. Was asked by provider to follow up to ensure patient not having symptoms such as N/V and/ or fever. indicates none of those symptoms however very little urine output and feels tube may be clogged. She attempted flushing the catheter with no improvement. She will call nurse to try and obtain order to change out jameson. Was advised whether this is done or not if patient continues to have little output will need to get in with Dr Gomez within in next 1-2 days or come to ED if starts showing more symptoms. Provided this nurse phone number and also sent Dr Gomez, housing assistant property manager Melissa Shoemaker and Dr Harding an email with this updated information.
--- NOTE | 2020-05-14 16:03 | PC.RESP ---
SMOKING CESSATION INFORMATION SENT TO PATIENT.
== END 2020-05-13 16:10 | disposition home health service (06) | DRG 389 ==
LOC: ER 22:15 → MEDSURG 05-12 02:10
PROVIDERS: Emergency Medicine; Admitting Provider Internal Medicine; PCP Internal Medicine; Visit Provider Internal Medicine
DX: K56.609 Unspecified intestinal obstruction, unspecified as to partial versus complete obstruction (principal); G82.20 Paraplegia, unspecified; E87.1 Hypo-osmolality and hyponatremia; Z86.718 Personal history of other venous thrombosis and embolism; Z79.01 Long term (current) use of anticoagulants; Z93.3 Colostomy status; Z96.0 Presence of urogenital implants; N31.8 Other neuromuscular dysfunction of bladder; K80.20 Calculus of gallbladder without cholecystitis without obstruction; N20.0 Calculus of kidney; K43.5 Parastomal hernia without obstruction or gangrene; G89.29 Other chronic pain; Z89.432 Acquired absence of left foot; Z89.431 Acquired absence of right foot; G25.81 Restless legs syndrome; F17.210 Nicotine dependence, cigarettes, uncomplicated; E87.6 Hypokalemia; E86.0 Dehydration; Z79.891 Long term (current) use of opiate analgesic; L89.159 Pressure ulcer of sacral region, unspecified stage
CPT/HCPCS: 12345; 36415; 36416; 71045; 74177; 80053; 81001; 82728; 82962; 83540; 83550; 83605; 83690; 83735; 85025; 86140; 87077; 87086; 87186; 96375; 99283; C9113; J1170; J2405; J3480; J7040; Q9967

== ENCOUNTER 2020-06-04 15:54 | Inpatient (IN) | payer MEDICARE, MEDICAID, SELFPAY ==
[2020-06-04 15:54] VITALS: BP 95/53; PULSE 125; RESP 12; TEMP 37.1; O2SAT 98; BMI 19.8
--- NOTE | 2020-06-04 16:11 | ED_ITS ---
HPI - Overdose General: Chief Complaint: Overdose Stated Complaint: accidental overdose Time Seen by Provider: 06/04/20 15:57 History of Present Illness: HPI Narrative: 55-year-old male presents emergency room after having taken 2 doses approximately 2 and half hours apart of his oxycodone usually takes 15 mg every 6 hours today he took a dose at 1115 and another at 115. He is a little bit drowsy but otherwise he has been doing well he thought his blood pressure dropped for short time but it is better now he denies any discomfort he is awake and alert answers all questions appropriately complaint: accidental overdose Onset (ago): hour(s) Timing confirmed by: spouse Review of Systems Const: Denies: fever(s), chills, body aches, change in appetite, fatigue or malaise ENMT: Denies: throat pain, ear or mastoid pain, nasal discharge or nasal congestion Card: Denies: chest pain, edema, dyspnea on exertion or orthopnea Resp: Denies: dyspnea, productive cough or non-productive cough GI: Denies: abdominal pain, nausea, vomiting, hematemesis, coffee ground emesis, diarrhea, constipation, bloating, hematochezia or melena : Denies: flank pain, dysuria, urinary frequency or urinary urgency Skin/Breast: Denies: rash or pruritus PFSH ED PFSH: Medical History (Updated 06/06/20 @ 06:26 by Ryan Rivera DO) Cholelithiasis Chronic abdominal pain Chronic indwelling Shore catheter Chronic pain of lower extremity, bilateral Decubitus ulcer Encounter for long-term opiate analgesic use Foot amputation status Bilateral forefoot amputation History of amputation of toe (~02/2015) LEFT FOOT/ TOES RIGHT FOOT TOES History of uric acid staghorn calculus 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 Long-term use of high-risk medication Neurogenic bladder Parastomal hernia Phantom pain Restless leg syndrome Tobacco use disorder Surgical History Hx of resection of large bowel (~01/2015) My colon S/P abdominal aortic aneurysm repair Family History Unknown Anesthesia complication Denies family history of Bleeding disorder Social History Smoking and tobacco status: current every day smoker cigars Alcohol intake: current Alcohol intake frequency: holidays/special occasions only Adopted: Yes Lives independently: Yes Household members: spouse Marital status: Current occupational status: disabled History of recent travel: No Physical Exam Const: COMMON NORMALS: no acute distress GENERAL APPEARANCE: cooperative and comfortable ORIENTATION/CONSCIOUSNESS: Yes awake, Yes oriented to person, Yes oriented to place and Yes oriented to time HENMT: COMMON NORMALS: normocephalic, atraumatic and hearing grossly normal bilaterally HEAD & SCALP: normocephalic and atraumatic Eye: COMMON NORMALS: Equal, round and reactive pupils present, EOMs intact bilaterally, conjunctivae normal and no scleral icterus CONJUNCTIVA: Yes conjunctivae normal PUPIL: Yes Equal, round and reactive pupils present Neck/C-Spine: COMMON NORMALS: full ROM, no lymphadenopathy, supple and no JVD Lymph: LYMPHATIC: no lymphadenopathy noted and no lymphedema noted Resp: COMMON NORMALS: normal respiratory effort, No retractions, No use of accessory muscles and clear to auscultation bilaterally AUSCULTATION: clear to auscultation bilaterally Cardio: COMMON NORMALS: no JVD, regular rate, regular rhythm and No murmurs present (Cardio) RATE: regular rate RHYTHM: regular rhythm GI: COMMON NORMALS: Soft to palpation and No hepatosplenomegaly present AUSCULTATION: Yes normoactive bowel sounds PALPATION: Yes Soft to palpation, No Tenderness to palpation present (GI), No Guarding due to palpation present (GI) and Yes No hepatosplenomegaly present Neuro: SENSORIUM/ORIENTATION: Yes oriented to person, Yes oriented to place and Yes oriented to time Skin: COMMON NORMALS: no rashes or lesions noted GENERAL SKIN EXAM: no rashes or lesions noted Course Vital Signs: Vital signs: Vital Signs Temperature 98.7 F 06/06/20 03:00 Pulse Rate 61 06/06/20 03:00 Respiratory Rate 18 06/06/20 03:00 Blood Pressure 131/71 06/06/20 03:00 Pulse Oximetry 97 06/06/20 03:00 MDM - Overdose MDM Narrative: Medical decision making narrative: Patient awake and warm doing well we will give him a small normal saline bolus. Reviewed labs the fine he has pretty significant hypokalemia as well as new progressive anemia. He probably will need an EGD as well as resuscitation and supplementation of his potassium. Discussed with him and I think any of this is related to his taking the extra dose of narcotics. Discussed with the hospitalist will place on observation. Lab Data: Labs: Lab Results 06/04/20 06/04/20 06/04/20 Range/Units 16:18 16:18 16:32 WBC 15.4 H (4.0-10.0) 10^3/ uL RBC 3.37 L (4.1-5.3) 10^6/u L Hgb 7.8 L (11.7-16.6) g/dL Hct 24.9 L (42.0-52.0) % MCV 73.9 L (80-94) fL MCH 23.1 L (28.0-34.0) pg MCHC 31.3 (30.0-36.0) g/dL RDW 21.8 H (12.1-15.1) % Plt Count 412 H (130-400) 10^3/c mm MPV 8.7 (7.4-10.4) fL Neut % (Auto) 87.4 % Lymph % (Auto) 7.7 % [place] % (Auto) 4.0 % Eos % (Auto) 0.2 % Baso % (Auto) 0.3 % Neut # (Auto) 13.48 H (1.8-7.7) 10^3/u L Lymph # (Auto) 1.2 (0.8-4.8) 10^3/u L [place] # (Auto) 0.6 (0.2-0.9) 10^3/u L Eos # (Auto) 0.0 (0.0-0.8) 10^3/u L Baso # (Auto) 0.1 (0.0-0.1) 10^3/u L Nucleated RBC % (a uto) 0 % Nucleated RBCs # 0.0 /100WBC Sodium (136-145) mmol/L Potassium (3.5-5.1) mmol/L Chloride (98-107) mmol/L Carbon Dioxide (22-29) mmol/L Anion Gap (5-19) BUN (6-20) mg/dL Creatinine (0.7-1.2) mg/dL GFR Calculation (90-130) mL/min Glucose (65-115) mg/dL Calculated Osmolal ity (285-295) mOsm/k g Calcium (8.5-10.5) mg/dL Urine Color Yellow (Yellow) Urine Appearance Cloudy (CLEAR) Urine pH 8 H (5-7) Ur Specific Gravit y 1.015 (1.005-1.030) Urine Protein 1+ H (Negative) Urine Glucose (UA) Norm (Normal) Urine Ketones Negative (Negative) Urine Blood 3+ H (Negative) Urine Nitrate Negative (Negative) Urine Bilirubin Neg (Negative) Prot Sulfosalicyli c Acd Positive (Negative) Urine Urobilinogen Norm (Negative) mg/dL Ur Leukocyte Jimena ase 2+ H (Negative) Urine RBC 80-100 H (0-2) /hpf Urine WBC Too numerous to c nt H (0-5) /hpf Ur Squamous Epith Cells 5-10 H (0-5) /hpf Amorphous Sediment Not Reportable Urine Bacteria 3+ H (NONE) /hpf Salicylates (3-10) mg/dL Urine Opiates Scre en Negative (Negative) ng/mL Acetaminophen (10-30) ug/mL Ur Barbiturates Sc reen Negative (Negative) ng/mL Ur Phencyclidine S crn Negative (Negative) ng/mL Ur Amphetamines Sc reen Negative (Negative) ng/mL U Benzodiazepines Scrn Negative (Negative) ng/mL Urine Cocaine Scre en Negative (Negative) ng/mL U Marijuana (THC) Screen Negative (Negative) ng/mL Ethyl Alcohol (0-10) mg/dL Blood Type Rho(D) Type Antibody Screen Crossmatch 06/04/20 06/04/20 06/05/20 Range/Units 16:32 22:49 05:04 WBC 14.0 H (4.0-10.0) 10^3/ uL RBC 3.03 L (4.1-5.3) 10^6/u L Hgb 6.9 L (11.7-16.6) g/dL Hct 22.5 L (42.0-52.0) % MCV 74.3 L (80-94) fL MCH 22.8 L (28.0-34.0) pg MCHC 30.7 (30.0-36.0) g/dL RDW 21.8 H (12.1-15.1) % Plt Count 398 (130-400) 10^3/c mm MPV 9.0 (7.4-10.4) fL Neut % (Auto) 88.4 % Lymph % (Auto) 6.8 % [place] % (Auto) 4.0 % Eos % (Auto) 0.0 % Baso % (Auto) 0.2 % Neut # (Auto) 12.40 H (1.8-7.7) 10^3/u L Lymph # (Auto) 1.0 (0.8-4.8) 10^3/u L [place] # (Auto) 0.6 (0.2-0.9) 10^3/u L Eos # (Auto) 0.0 (0.0-0.8) 10^3/u L Baso # (Auto) 0.0 (0.0-0.1) 10^3/u L Nucleated RBC % (a uto) 0 % Nucleated RBCs # 0.0 /100WBC Sodium 131 L (136-145) mmol/L Potassium 2.6 L* (3.5-5.1) mmol/L Chloride 98 (98-107) mmol/L Carbon Dioxide 23 (22-29) mmol/L Anion Gap 12.6 (5-19) BUN 9 (6-20) mg/dL Creatinine 0.8 (0.7-1.2) mg/dL GFR Calculation 100.4 (90-130) mL/min Glucose 127 H (65-115) mg/dL Calculated Osmolal ity 270 L (285-295) mOsm/k g Calcium 7.0 L (8.5-10.5) mg/dL Urine Color (Yellow) Urine Appearance (CLEAR) Urine pH (5-7) Ur Specific Gravit y (1.005-1.030) Urine Protein (Negative) Urine Glucose (UA) (Normal) Urine Ketones (Negative) Urine Blood (Negative) Urine Nitrate (Negative) Urine Bilirubin (Negative) Prot Sulfosalicyli c Acd (Negative) Urine Urobilinogen (Negative) mg/dL Ur Leukocyte Jimena ase (Negative) Urine RBC (0-2) /hpf Urine WBC (0-5) /hpf Ur Squamous Epith Cells (0-5) /hpf Amorphous Sediment Urine Bacteria (NONE) /hpf Salicylates < 0.3 L (3-10) mg/dL Urine Opiates Scre en (Negative) ng/mL Acetaminophen < 5.0 L (10-30) ug/mL Ur Barbiturates Sc reen (Negative) ng/mL Ur Phencyclidine S crn (Negative) ng/mL Ur Amphetamines Sc reen (Negative) ng/mL U Benzodiazepines Scrn (Negative) ng/mL Urine Cocaine Scre en (Negative) ng/mL U Marijuana (THC) Screen (Negative) ng/mL Ethyl Alcohol < 10 (0-10) mg/dL Blood Type O Negative Rho(D) Type Negative Antibody Screen Negative Crossmatch See Detail 06/05/20 06/05/20 Range/Units 05:04 12:58 WBC 13.6 H (4.0-10.0) 10^3/ uL RBC 3.60 L (4.1-5.3) 10^6/u L Hgb 8.6 L (11.7-16.6) g/dL Hct 27.2 L (42.0-52.0) % MCV 75.6 L (80-94) fL MCH 23.9 L (28.0-34.0) pg MCHC 31.6 (30.0-36.0) g/dL RDW 22.6 H (12.1-15.1) % Plt Count 390 (130-400) 10^3/c mm MPV 8.7 (7.4-10.4) fL Neut % (Auto) 87.3 % Lymph % (Auto) 7.2 % [place] % (Auto) 4.7 % Eos % (Auto) 0.1 % Baso % (Auto) 0.3 % Neut # (Auto) 11.90 H (1.8-7.7) 10^3/u L Lymph # (Auto) 1.0 (0.8-4.8) 10^3/u L [place] # (Auto) 0.6 (0.2-0.9) 10^3/u L Eos # (Auto) 0.0 (0.0-0.8) 10^3/u L Baso # (Auto) 0.0 (0.0-0.1) 10^3/u L Nucleated RBC % (a uto) 0 % Nucleated RBCs # 0.0 /100WBC Sodium 134 L (136-145) mmol/L Potassium 2.9 L (3.5-5.1) mmol/L Chloride 103 (98-107) mmol/L Carbon Dioxide 20 L (22-29) mmol/L Anion Gap 13.9 (5-19) BUN 8 (6-20) mg/dL Creatinine 0.7 (0.7-1.2) mg/dL GFR Calculation 117.1 (90-130) mL/min Glucose 132 H (65-115) mg/dL Calculated Osmolal ity 276 L (285-295) mOsm/k g Calcium 6.7 L (8.5-10.5) mg/dL Urine Color (Yellow) Urine Appearance (CLEAR) Urine pH (5-7) Ur Specific Gravit y (1.005-1.030) Urine Protein (Negative) Urine Glucose (UA) (Normal) Urine Ketones (Negative) Urine Blood (Negative) Urine Nitrate (Negative) Urine Bilirubin (Negative) Prot Sulfosalicyli c Acd (Negative) Urine Urobilinogen (Negative) mg/dL Ur Leukocyte Jimena ase (Negative) Urine RBC (0-2) /hpf Urine WBC (0-5) /hpf Ur Squamous Epith Cells (0-5) /hpf Amorphous Sediment Urine Bacteria (NONE) /hpf Salicylates (3-10) mg/dL Urine Opiates Scre en (Negative) ng/mL Acetaminophen (10-30) ug/mL Ur Barbiturates Sc reen (Negative) ng/mL Ur Phencyclidine S crn (Negative) ng/mL Ur Amphetamines Sc reen (Negative) ng/mL U Benzodiazepines Scrn (Negative) ng/mL Urine Cocaine Scre en (Negative) ng/mL U Marijuana (THC) Screen (Negative) ng/mL Ethyl Alcohol (0-10) mg/dL Blood Type Rho(D) Type Antibody Screen Crossmatch Discharge Plan Discharge Patient Disposition: Placed in Observation Admit Provider: Lorna Fenton Clinical Impression: Acute blood loss anemia, Accidental overdose, Hypokalemia, Iron deficiency anemia, Heme positive stool Condition: Stable Referrals: Jacoby Jon DO [Primary Care Provider] - Interventions: ED Discharge Assessment Last Done: 06/04/20 22:10 ED Charges Last Done: 06/04/20 22:10 Discharge Date/Time: 06/04/20 22:12 Coding Level of Care Code ED Body Engineer for Chg Fwd Exam Comprehensive
[2020-06-04 16:53] LABS: Basophils # 0.1 10^3/uL (0.0-0.1); Basophils % 0.3 %; Eosinophils % 0.2 %; Hematocrit 24.9 % (42.0-52.0); Hemoglobin 7.8 g/dL (11.7-16.6); Lymphocytes # 1.2 10^3/uL (0.8-4.8); Lymphocytes % 7.7 %; Mean Corpuscular HGB Conc 31.3 g/dL (30.0-36.0); Mean Corpuscular Hemoglobin 23.1 pg (28.0-34.0); Mean Corpuscular Volume 73.9 fL (80-94); Mean Platelet Volume 8.7 fL (7.4-10.4); Monocytes # 0.6 10^3/uL (0.2-0.9); Neutrophils # 13.48 10^3/uL (1.8-7.7); Neutrophils % 87.4 %; Nucleated Red Blood Cells % 0 %; Platelet Count 412 10^3/cmm (130-400); Red Blood Count 3.37 10^6/uL (4.1-5.3); Red Cell Distribution Width 21.8 % (12.1-15.1); White Blood Count 15.4 10^3/uL (4.0-10.0)
[2020-06-04 17:17] LABS: Anion Gap 12.6 (5-19); Blood Urea Nitrogen 9 mg/dL (6-20); Carbon Dioxide 23 mmol/L (22-29); Chloride 98 mmol/L (98-107); Glomerular Filtration Rate 100.4 mL/min (90-130); Glucose 127 mg/dL (65-115); Osmolality Calculated 270 mOsm/kg (285-295); Sodium 131 mmol/L (136-145)
[2020-06-04 17:24] LABS: Acetaminophen < 5.0 ug/mL (10-30); Alcohol Level < 10 mg/dL (0-10); Potassium 2.6 mmol/L (3.5-5.1); Salicylate < 0.3 mg/dL (3-10)
[2020-06-04 17:34] LABS: Amphetamines Screen Urine Negative (Negative); Barbiturates Screen Urine Negative (Negative); Benzodiazepines Screen Urine Negative (Negative); Cocaine Screen Urine Negative (Negative); Opiate Screen Urine Negative (Negative); PCP Screen Urine Negative (Negative); THC Screen Urine Negative (Negative)
[2020-06-04 17:37] LABS: Bilirubin Urine Neg (Negative); Blood Urine 3+ (Negative); Glucose Urine UA Norm (Normal); Ketones Urine Negative (Negative); Nitrate Urine Negative (Negative); Protein Urine 1+ (Negative); Specific Gravity, Urine 1.015 (1.005-1.030); Sulfosalicylic Acid Urine Positive (Negative); Urine Appearance Cloudy (CLEAR); Urine Color Yellow (Yellow); Urobilinogen Urine Norm (Negative); pH Urine 8 (5-7)
[2020-06-04 17:38] LABS: Add Urine Microscopic? YES; Leukocyte Esterase Urine 2+ (Negative)
[2020-06-04 17:53] LABS: Add Urine Culture? Yes; Bacteria Urine 3+ /hpf; RBC Urine 80-100 /hpf (0-2); WBC Urine TOO NUMEROUS TO CNT /hpf (0-5)
--- NOTE | 2020-06-04 17:54 | XR_ITS ---
WS: [id number] EXAM: AP CHEST: PORTABLE UPRIGHT DATE OF EXAM: 06/04/2020, 1813 hours COMPARISON: Chest x-ray from 05/12/2020. HISTORY: Patient is 55 years old with cough and dyspnea. FINDINGS: The cardiac silhouette is normal in size. The mediastinal contours are normal. The pulmonary vas cularity is normal. The lungs are clear of infiltrate. There is no effusion or pneumothorax. No ac [place] bony abnormality is seen. IVC filter again demonstrated within the upper abdomen. XR/XR chest 1V portable [id number] IMPRESSION: No acute pulmonary disease.
[2020-06-04] MEDS: potassium chloride premix 40 MEQ/100 ML PREMIX 25 MEQ IV (18:25)
[2020-06-04] MEDS: sodium chloride 0.9% 1,000 ML 999 ML IV (18:26)
[2020-06-04 18:37] VITALS: BP 105/60; PULSE 60; RESP 14; O2SAT 96
[2020-06-04] MEDS: lidocaine 1% INJ 20 mL INJECTION (19:10)
--- NOTE | 2020-06-04 19:22 | P.HP_ITS ---
Providers/Chief Complaint Primary Care Provider: Jacoby Jon DO Chief Complaint: accidental overdose History of Present Illness Maicol Reid is a 55 year old male who carries history of paraplegia after development of complications with abdominal aortic aneurysm repair with showering of embolism to spine and lower extremity vasculature, DVT, chronic anticoagulation with eliquis, s/p colectomy, chronic indwelling catheterization for neurogenic bladder, recently got discharged after medical management of partial small bowel obstruction came in for chief complaint of lethargy, generalized weakness. Patient came to the hospital today after overdosing on his oxycodone. He took first dose at 11 AM and then second 1 around 1 PM, after that he became really lethargic and confused, nurse was notified, he was asked to go to the ER for further evaluation. He was hypotensive 95/53mmhg, received 2 L of normal saline in the ER at the time of my evaluation blood pressure was 102/61, he was awake alert and oriented was able to give me above-mentioned details. is at the bedside. Is denying fever, chest pain. He is stating that every time his Shore catheter gets changed there is ample amount of blood which collects in the urine bag. He has been compliant with his Eliquis for DVT. He has not noticed any active bleeding from his stoma. On previous visit oxybutynin was discontinued because of partial small bowel obstruction and bowel regimen was added. He thinks he is constipated because he is only emptying his colostomy bag once a day instead of 3-4 times a day which was his routine in the past. Diagnosis in the ER revealed fluid responsive hypotension, anemia microcytic hemoglobin 7.8 Patient awake alert, occult blood test from colostomy output was positive Hypokalemia potassium 2.6 Gross hematuria He was given 2 L of normal saline along 40 mEq of potassium Review of Systems Const: Reports: body aches; Denies: fever(s) or chills Eyes: Denies: change in vision ENMT: Denies: throat pain Card: Denies: chest pain Resp: Reports: productive cough GI: Reports: abdominal pain and constipation; Denies: nausea or vomiting : Reports: hematuria; Denies: flank pain Musc: Reports: limited range of motion, muscle cramps, muscle weakness, d ecrease in muscle mass and deformity; Denies: neck pain or extremity swelling Skin/Breast: Reports: lesions (decubitus sacral ulcer, muscle exposure without active drainage) Neuro: Denies: headache(s) Psych: Reports: anxiety and depression Endo: Denies: polyuria Justice/Lymph: Denies: easy bruising All/Imm: Denies: urticaria Medications/Allergies Home Medications Medication Instructions Recorded Confirmed Last Taken Type apixaban 2.5 mg tablet 2.5 mg PO BID 10/17/19 06/04/20 06/04/20 History levothyroxine 88 mcg tablet 88 mcg PO DAILY 10/17/19 06/04/20 06/04/20 History docusate sodium 100 mg capsule 100 mg PO BID PRN 03/28/20 06/04/20 05/11/20 History omeprazole 20 mg capsule,delayed 20 mg PO DAILY 03/28/20 06/04/20 06/04/20 History release tizanidine 4 mg tablet 4 mg PO TID PRN #90 tab 05/01/20 06/04/20 06/04/20 Rx oxycodone 10 - 15 mg PO QID PRN 05/13/20 06/04/20 06/04/20 History senna leaf extract 10 ml PO BID PRN #237 ml 05/13/20 06/04/20 06/04/20 Rx Zonegran 400 mg PO BEDTIME 06/04/20 06/04/20 06/03/20 History Allergies Allergy/AdvReac Type Severity Reaction Status Date / Time aspirin Allergy ALGY-Anaphy Verified 06/04/20 15:59 laxis meropenem Allergy SWELLING/ Verified 06/04/20 15:59 HIVES cefixime AdvReac UNKNOWN Verified 06/04/20 15:59 vancomycin AdvReac ADR-Itching Verified 06/04/20 15:59 PFSH Acute PFSH: Medical History Chronic abdominal pain Chronic indwelling Shore catheter Chronic pain of lower extremity, bilateral Decubitus ulcer Encounter for long-term opiate analgesic use Foot amputation status Bilateral forefoot amputation History of amputation of toe (~02/2015) LEFT FOOT/ TOES RIGHT FOOT TOES History of uric acid staghorn calculus 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 Long-term use of high-risk medication Neurogenic bladder Phantom pain Restless leg syndrome Tobacco use disorder Surgical History Hx of resection of large bowel (~01/2015) S/P abdominal aortic aneurysm repair Family History Unknown Anesthesia complication Denies family history of Bleeding disorder Social History Smoking and tobacco status: current every day smoker cigars Alcohol intake: current Alcohol intake frequency: holidays/special occasions only Adopted: Yes Lives independently: Yes Household members: spouse Marital status: Current occupational status: disabled History of recent travel: No Vitals/I&O/Wt Last Vital Signs Temp 98.8 F 06/04/20 15:54 Pulse 60 06/04/20 18:37 Resp 14 06/04/20 18:37 BP 105/60 06/04/20 18:37 Pulse Ox 96 06/04/20 18:37 Weight last 48 hrs Weight 58.967 kg Physical Exam Narrative: EXAM NARRATIVE: Malnourished male currently lying comfortable in his bed Able to give me above-mentioned detail Clinically looks dehydrated He has been spitting up green-colored sputum since he has quit smoking No active respiratory distress S1, S2 no tachycardia heart failure Mild abdominal tenderness to deep palpation around right lower quadrant area however colostomy output does not show any gross blood in it, positive occult blood test, semisolid colostomy output Chronic indwelling catheter draining blood-tinged urine Lower extremity muscle mass loss Bilateral foot amputation Chronic stasis dermatitis Chronic decubitus ulcer, no active drainage, dressing is soaked with mild blood- tinged drainage, muscle & bone exposed, Hyperkeratosis dermatitis of left thigh area Data : 06/04/20 16:32 06/04/20 16:32 A&P Assessment and plan (1) Acute blood loss anemia: Status: Acute (2) Accidental overdose: Status: Acute (3) Hypokalemia: Status: Acute (4) Hypotension: Status: Acute (5) Therapeutic opioid induced constipation: Status: Acute (6) Colostomy in place: Status: Acute (7) Chronic indwelling Shore catheter: Status: Acute (8) Microcytic anemia: Status: Acute Additional A&P Information Accidental overdose on oxycodone Patient did not require Narcan, he is endorsing to taking oxycodone 15 mg 4 times a day He did experience one episode of confusion after taking his oxycodone this morning, currently he is awake alert oriented x3 GCS 15, systolic blood pressure around 110 mmHg Required 2 L of normal saline which improved his blood pressure No suicidal attempt or thoughts Acute on chronic blood loss anemia Occult blood test positive from the colostomy bag stool sample Chronic hematuria I will give him 1 unit of PRBC because of significant blood loss, on last admission his hemoglobin was 9.5, current hemoglobin 7.8, I will repeat his urinalysis in the morning for hematuria, will keep him n.p.o. after midnight in case he would require an EGD to look for other potential sources of anemia Hold Eliquis Hypokalemia: Patient is endorsing constipation, he is not endorsing high output from his colostomy Potassium repleted Chronic decubitus ulcer Stage IV Following up with wound care, no profuse bleeding however dressing is soaked with blood tinged drainage Chronic indwelling Shore catheter in place, diverting colostomy without any acute decompensation Opioid-induced constipation Because of his multiple comorbid conditions and large decubitus ulcer he requires opioids, will continue his home regimen for now and titrate according to his tolerability, use senna S, currently evaluate if he would benefit from methylnaltrexone Full code DVT prophylaxis: Eliquis on hold, SCDs N.p.o. Attestations Medical Necessity Statement*: I am anticipating he will be discharged in less than 48 hours currently requires blood transfusion for acute blood loss anemia Overnight monitoring in case he requires any further investigation such as endoscopy Time Spent in Patient Care: (>than 50% of time spent in counselling and/or direct pt care on unit) . 50mins Coding Level of Care Code Acute Billet Bed Operator for Chg Fwd Diagnoses Acute blood loss anemia D62 Accidental overdose T50.901A Hypokalemia E87.6 Hypotension I95.9 Therapeutic opioid induced constipation K59.03; T40.2X5A Colostomy in place Z93.3 Chronic indwelling Shore catheter Z97.8 Microcytic anemia D50.9
[2020-06-04 20:06] VITALS: BP 105/59; PULSE 66; RESP 18; O2SAT 99
[2020-06-04 21:20] VITALS: BP 102/61; PULSE 78; RESP 14; O2SAT 99
[2020-06-04 22:10] VITALS: BP 102/61; PULSE 78; RESP 14; TEMP 36.8; O2SAT 99
[2020-06-04 22:40] VITALS: BP 94/59; PULSE 87; RESP 19; TEMP 37.8; O2SAT 99
[2020-06-04] MEDS: zonisamide 100 MG Capsule 400 MG PO (23:47)
[2020-06-04] MEDS: D5-NS 0.45% + KCL 20 mEq 20 MEQ/1,000 ML BAG 150 MEQ IV (23:47)
[2020-06-05] VITALS (16 sets, daily range): BP systolic 110–127; BP diastolic 64–79; PULSE 74–105; RESP 16–20; TEMP 36.7–37.5; O2SAT 97–100
[2020-06-05] MEDS: oxyCODONE 5 mg IR Tab/Cap 15 MG PO ×3 (00:03→19:26)
[2020-06-05] MEDS: sodium chloride 0.9% 1,000 ML 999 ML IV (00:19)
[2020-06-05 05:45] LABS: Basophils % 0.2 %; Hematocrit 22.5 % (42.0-52.0); Hemoglobin 6.9 g/dL (11.7-16.6); Lymphocytes % 6.8 %; Mean Corpuscular HGB Conc 30.7 g/dL (30.0-36.0); Mean Corpuscular Hemoglobin 22.8 pg (28.0-34.0); Mean Corpuscular Volume 74.3 fL (80-94); Monocytes # 0.6 10^3/uL (0.2-0.9); Neutrophils % 88.4 %; Nucleated Red Blood Cells % 0 %; Platelet Count 398 10^3/cmm (130-400); Red Blood Count 3.03 10^6/uL (4.1-5.3); Red Cell Distribution Width 21.8 % (12.1-15.1)
[2020-06-05 06:14] LABS: Anion Gap 13.9 (5-19); Blood Urea Nitrogen 8 mg/dL (6-20); Calcium 6.7 mg/dL (8.5-10.5); Carbon Dioxide 20 mmol/L (22-29); Chloride 103 mmol/L (98-107); Glomerular Filtration Rate 117.1 mL/min (90-130); Glucose 132 mg/dL (65-115); Osmolality Calculated 276 mOsm/kg (285-295); Sodium 134 mmol/L (136-145)
[2020-06-05 06:22] LABS: Potassium 2.9 mmol/L (3.5-5.1)
[2020-06-05] MEDS: sennosides-docusate Tablet 1 TAB PO ×2 (09:22→18:46)
[2020-06-05] MEDS: sodium chloride 0.9% (100 ml) 100 ML 50 ML (09:22)
[2020-06-05] MEDS: pantoprazole 40 mg SDV IVP ×2 (09:22→18:46)
[2020-06-05] MEDS: levothyroxine 88 mcg Tablet PO (09:22)
--- NOTE | 2020-06-05 09:45 | PM.PN ---
Subjective Subjective: Interval history: Patient was alert oriented x3 this morning. His vitals and labs were reviewed. He received 1 unit PRBC today and status post 1 unit PRBC transfusion his hemoglobin is 8.6. Gokul Crowell was consult evaluate him for possible EGD and colonoscopy in the view of possible chronic anemia due to chronic blood. Patient has agreed to this and Gokul Crowell has dicussed in detail with the patient and the plan is to go ahead with EGD and colonoscopy. Patient is n.p.o. Vitals/I&O/Wt Last Vital Signs Temp 98.6 F 06/05/20 09:29 Pulse 87 06/05/20 09:29 Resp 18 06/05/20 09:29 BP 123/71 06/05/20 09:29 Pulse Ox 100 06/05/20 09:29 06/04/20 06/05/20 06/05/20 22:59 06:59 14:59 Intake Total 0 / 0 Output Total 250 / 250 Balance -250 / -250 0 / 0 Weight last 48 hrs Weight 58.967 kg Physical Exam Narrative: EXAM NARRATIVE: The pupils seem equal. No carotid bruits are heard. Lungs are clear anteriorly. The heart seems regular. The abdomen is soft. There is a stoma in the left lower quadrant that is draining liquid stool into his appliance bag. The extremities are somewhat pigmented and the skin has some early woody changes. Data : 06/05/20 12:58 06/05/20 05:04 A&P Assessment and plan (1) Acute blood loss anemia: Status: Acute (2) Accidental overdose: Status: Acute (3) Hypokalemia: Status: Acute (4) Hypotension: Status: Acute (5) Therapeutic opioid induced constipation: Status: Acute (6) Colostomy in place: Status: Acute (7) Chronic indwelling Shore catheter: Status: Acute (8) Microcytic anemia: Status: Acute Additional A&P Information Accidental overdose on oxycodone Patient did not require Narcan, he is endorsing to taking oxycodone 15 mg 4 times a day He did experience one episode of confusion after taking his oxycodone this morning, currently he is awake alert oriented x3 GCS 15, systolic blood pressure around 110 mmHg Required 2 L of normal saline which improved his blood pressure No suicidal attempt or thoughts Acute on chronic blood loss anemia Occult blood test positive from the colostomy bag stool sample Chronic hematuria I will give him 1 unit of PRBC because of significant blood loss, on last admission his hemoglobin was 9.5, current hemoglobin 7.8, I will repeat his urinalysis in the morning for hematuria, will keep him n.p.o. after midnight in case he would require an EGD to look for other potential sources of anemia Hold Eliquis Hypokalemia: Patient is endorsing constipation, he is not endorsing high output from his colostomy Potassium repleted Chronic decubitus ulcer Stage IV Following up with wound care, no profuse bleeding however dressing is soaked with blood tinged drainage Chronic indwelling Shore catheter in place, diverting colostomy without any acute decompensation Opioid-induced constipation Because of his multiple comorbid conditions and large decubitus ulcer he requires opioids, will continue his home regimen for now and titrate according to his tolerability, use senna S, currently evaluate if he would benefit from methylnaltrexone Full code DVT prophylaxis: Eliquis on hold, SCDs N.p.o. Attestations Medical Necessity Statement*: Patient needs to be in hospital for management chronic anemia likely due to chronic blood loss. Coding Level of Care Code Acute Exhaust Equipment Operator for [facility] Fwcatalino Diagnoses Acute blood loss anemia D62 Accidental overdose T50.901A Hypokalemia E87.6 Hypotension I95.9 Therapeutic opioid induced constipation K59.03; T40.2X5A Colostomy in place Z93.3 Chronic indwelling Shore catheter Z97.8 Microcytic anemia D50.9
--- NOTE | 2020-06-05 11:22 | PC.NURSE ---
This nurse notified pt temp 99.0 during blood transfusion. This nurse reassessed temp, which was 98.4. Vital signs documented in [facility].
[2020-06-05 13:08] LABS: Basophils % 0.3 %; Eosinophils % 0.1 %; Hematocrit 27.2 % (42.0-52.0); Hemoglobin 8.6 g/dL (11.7-16.6); Lymphocytes % 7.2 %; Mean Corpuscular HGB Conc 31.6 g/dL (30.0-36.0); Mean Corpuscular Hemoglobin 23.9 pg (28.0-34.0); Mean Corpuscular Volume 75.6 fL (80-94); Mean Platelet Volume 8.7 fL (7.4-10.4); Monocytes # 0.6 10^3/uL (0.2-0.9); Monocytes % 4.7 %; Neutrophils % 87.3 %; Nucleated Red Blood Cells % 0 %; Platelet Count 390 10^3/cmm (130-400); Red Cell Distribution Width 22.6 % (12.1-15.1); White Blood Count 13.6 10^3/uL (4.0-10.0)
[2020-06-05] MEDS: magnesium citrate Btl 296 mL PO (13:35)
[2020-06-05] MEDS: D5-NS 0.45% + KCL 20 mEq 20 MEQ/1,000 ML BAG 150 MEQ IV ×2 (13:37→22:28)
--- NOTE | 2020-06-05 16:30 | PM.CONSULT ---
Providers/Reason For Consult Consulting Physican/Specialty*: General Surgery Gokul Skinner MD Reason for Consult*: Iron deficiency anemia with heme positive stool. Attending Physician: Juan Jones MD Primary Care Provider: Jacoby Jon DO History of Present Illness History of Present Illness Maicol Reid is a 55 year old male admitted recently which is what was felt to be prescription medication (narcotic) overdose. He apparently is much better from that, but he was scheduled to see me in the office next week for an ongoing history of iron deficiency anemia; his hospitalist contacted me and asked if I wanted to evaluate him while he was in the hospital. His stool has also now been found to be heme positive. He denies any evidence of melena, hematochezia, hematemesis, etc. He has never had endoscopy before. He has never been diagnosed with peptic ulcer disease or gastritis, but does have a history of PPI use for nausea and vomiting. 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 He has no known family history of upper or lower GI neoplasia. He is normally on Eliquis for his history of his embolisms. Review of Systems General: Reports: 10 or more systems reviewed and unremarkable except in HPI and below Const: Denies: fever(s) Resp: Reports: productive cough GI: Reports: abdominal pain, nausea, vomiting (Chronic) and constipation : Reports: hematuria (Chronic, patient has indwelling Shore catheter and is following up with Dr. Gomez next month) Psych: Reports: anxiety and depression Meds/Allergies Home Medications and Allergies Home Medications Medication Instructions Recorded Confirmed Last Taken Type apixaban 2.5 mg tablet 2.5 mg PO BID 10/17/19 06/04/20 06/04/20 History levothyroxine 88 mcg tablet 88 mcg PO DAILY 10/17/19 06/04/20 06/04/20 History docusate sodium 100 mg capsule 100 mg PO BID PRN 03/28/20 06/04/20 05/11/20 History omeprazole 20 mg capsule,delayed 20 mg PO DAILY 03/28/20 06/04/20 06/04/20 History release tizanidine 4 mg tablet 4 mg PO TID PRN #90 tab 08/08/1006/04/20 06/04/20 Rx oxycodone 10 - 15 mg PO QID PRN 05/13/20 06/04/20 06/04/20 History senna leaf extract 10 ml PO BID PRN #237 ml 05/13/20 06/04/20 06/04/20 Rx Zonegran 400 mg PO BEDTIME 06/04/20 06/04/20 06/03/20 History Allergies Allergy/AdvReac Type Severity Reaction Status Date / Time aspirin Allergy ALGY-Anaphy Verified 06/04/20 15:59 laxis meropenem Allergy SWELLING/ Verified 06/04/20 15:59 HIVES cefixime AdvReac UNKNOWN Verified 06/04/20 15:59 vancomycin AdvReac ADR-Itching Verified 06/04/20 15:59 Current Medications Current Medications Generic Name Dose Route Start Last Admin Trade Name Freq PRN Reason Stop Dose Admin Potassium Chloride/Dextrose/Sod Cl 20 meq in 1,000 mls @ 150 mls/hr 06/04/20 22:35 06/05/20 13:37 D5-Ns 0.45% + Kcl 20 Meq IV 150 mls/hr .Q6H40M FUENTES Administration Levothyroxine Sodium 88 mcg 06/05/20 09:00 06/05/20 09:22 Synthroid PO 88 mcg DAILY FUENTES Administration Oxycodone HCl 15 mg 06/04/20 22:35 06/05/20 10:01 Oxycodone Ir PO 15 mg QID PRN Administration Pain Pantoprazole Sodium 40 mg 06/05/20 09:00 06/05/20 09:22 Protonix IVP 40 mg BID FUENTES Administration Senna/Docusate Sodium 1 tab 06/05/20 09:00 06/05/20 09:22 Senna-S PO 1 tab BID FUENTES Administration Zonisamide 400 mg 06/04/20 22:35 06/04/20 23:47 Zonegran PO 400 mg BEDTIME FUENTES Administration PFSH Acute PFSH: Medical History (Updated 06/05/20 @ 16:45 by Gokul Skinner MD) Cholelithiasis Chronic abdominal pain Chronic indwelling [place] catheter Chronic pain of lower extremity, bilateral Decubitus ulcer Encounter for long-term opiate analgesic use Foot amputation status Bilateral forefoot amputation History of amputation of toe (~02/2015) LEFT FOOT/ TOES RIGHT FOOT TOES History of uric acid staghorn calculus 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 Long-term use of high-risk medication Neurogenic bladder Parastomal hernia Phantom pain Restless leg syndrome Tobacco use disorder Surgical History Hx of resection of large bowel (~01/2015) My colon S/P abdominal aortic aneurysm repair Family History Unknown Anesthesia complication Denies family history of Bleeding disorder Social History Smoking and tobacco status: current every day smoker cigars Alcohol intake: current Alcohol intake frequency: holidays/special occasions only Adopted: Yes Lives independently: Yes Household members: spouse Marital status: Current occupational status: disabled History of recent travel: No Vitals/I&O/Wt Last Vital Signs Temp 99.5 F 06/05/20 15:00 Pulse 83 06/05/20 15:00 Resp 18 06/05/20 15:00 BP 115/68 06/05/20 15:00 Pulse Ox 99 06/05/20 15:00 06/05/20 06/05/20 06/05/20 06:59 14:59 22:59 Intake Total 1000 / 1000 2550 / 2550 Output Total 250 / 250 Balance 750 / 750 2550 / 2550 Weight last 48 hrs Weight 130 lb Physical Exam Narrative: EXAM NARRATIVE: The patient was encountered in his hospital room. He does not appear to be in any distress. The pupils seem equal. No carotid bruits are heard. Lungs are clear anteriorly. The heart seems regular. The abdomen is soft. There is a stoma in the left lower quadrant that is draining liquid stool into his appliance bag. The extremities are somewhat pigmented and the skin has some early woody changes. Data Imaging^: CT Abd/Pel: Radiologist's impression: CT abdomen/pelvis 05/11/2020 iMPRESSION: 1. Findings worrisome for small bowel obstruction. 2. No change in abdominal aortic aneurysm. 3. Decubitus ulcer with postsurgical changes in the sacrum. 4. Cholelithiasis 5. Right nephrolithiasis. 6. Parastomal hernia not significantly changed. A&P Assessment and plan (1) Heme positive stool: We discussed EGDs and colonoscopy. Endoscopic risks of bleeding, perforation, possible need for surgical intervention, etc. were all gone over. The patient seems to understand and would like to proceed with upper and lower endoscopy tomorrow morning. The patient seems to be under the impression that he had part of his colon and part of his small intestine removed during surgery. I do not know how much of his colon he has left, but his CAT scan last month appears to show a surgical staple line in the right upper quadrant with apparent remaining colon distally to his stoma, so I suspect he has had a right hemicolectomy. The patient drank some magnesium citrate earlier today, but it made him nauseated and he said he vomited afterwards. It appears as if his stoma is emptying very well currently, but I am going to give the patient some Dulcolax tablets to see if we can get him better prepped without having to use more magnesium citrate. He is agreeable. Status: Acute (2) Iron deficiency anemia: Status: Acute Consult Attestations Medical Necessity Statement: See admitting service's notation. Coding Level of Care Code Acute Supervisor [employer] Education for g Fwd Diagnoses Heme positive stool R19.5 Iron deficiency anemia D50.9
[2020-06-05] MEDS: bisacodyl 5 mg Tablet 50 MG PO (18:46)
[2020-06-05] MEDS: zonisamide 100 MG Capsule 400 MG PO (22:29)
[2020-06-06] VITALS (7 sets, daily range): BP systolic 115–141; BP diastolic 61–76; PULSE 61–111; RESP 16–20; TEMP 36.9–38.8; O2SAT 91–100
[2020-06-06] MEDS: oxyCODONE 5 mg IR Tab/Cap 15 MG PO ×3 (02:53→16:54)
--- NOTE | 2020-06-06 03:16 | PC.NURSE ---
Jameson. Pt stats that when he coughs he leaks from around his jameson . Applied brief to keep pt wounds dry.
--- NOTE | 2020-06-06 06:44 | P.PN_ITS ---
Subjective Subjective: Interval history: The patient was scheduled for endoscopy this morning but he has a significant fever, is coughing, still vomiting, and is COVID status is still pending. The decision has been made to postpone his endoscopy until tomorrow pending his clinical status at that time. Vitals/I&O/Wt Last Vital Signs Temp 98.7 F 06/06/20 03:00 Pulse 61 06/06/20 03:00 Resp 18 06/06/20 03:00 BP 131/71 06/06/20 03:00 Pulse Ox 97 06/06/20 03:00 06/05/20 06/05/20 06/06/20 14:59 22:59 06:59 Intake Total 2550 / 3910 1360 / 3910 Output Total 300 / 800 500 / 800 Balance 2550 / 3110 1060 / 3110 -500 / 3110 Weight last 48 hrs Weight 130 lb Physical Exam Narrative: EXAM NARRATIVE: The contents of the patient's colostomy bag are fairly watery, but still has significant color. Data : 06/05/20 12:58 06/05/20 05:04 Micro: Microbiology 06/06/20 02:35 Occult Blood (FIT) - Final Stool - Stool Aspirate A&P Assessment and plan (1) Heme positive stool: We discussed EGDs and colonoscopy. Endoscopic risks of bleeding, perforation, possible need for surgical intervention, etc. were all gone over. The patient seems to understand and would like to proceed with upper and lower endoscopy tomorrow morning. The patient seems to be under the impression that he had part of his colon and part of his small intestine removed during surgery. I do not know how much of his colon he has left, but his CAT scan last month appears to show a surgical staple line in the right upper quadrant with apparent remaining colon distally to his stoma, so I suspect he has had a right hemicolectomy. COVID status pending. Reschedule endoscopy for tomorrow pending the patient's clinical status at that time. Continue slow bowel prep today, clear liquid diet, etc. Status: Acute (2) Iron deficiency anemia: Status: Acute Attestations Medical Necessity Statement*: See admitting service's notation. Coding Level of Care Code Acute Scudding Inspector for Chg Fwd Diagnoses Heme positive stool R19.5 Iron deficiency anemia D50.9
[2020-06-06 10:04] LABS: Basophils # 0.1 10^3/uL (0.0-0.1); Basophils % 0.3 %; Eosinophils # 0.3 10^3/uL (0.0-0.8); Eosinophils % 1.3 %; Hematocrit 32.3 % (42.0-52.0); Hemoglobin 10.3 g/dL (11.7-16.6); Lymphocytes # 0.5 10^3/uL (0.8-4.8); Lymphocytes % 2.7 %; Mean Corpuscular HGB Conc 31.9 g/dL (30.0-36.0); Mean Corpuscular Hemoglobin 23.8 pg (28.0-34.0); Mean Corpuscular Volume 74.6 fL (80-94); Mean Platelet Volume 8.5 fL (7.4-10.4); Monocytes # 0.4 10^3/uL (0.2-0.9); Monocytes % 1.9 %; Neutrophils # 17.27 10^3/uL (1.8-7.7); Neutrophils % 93.2 %; Nucleated Red Blood Cells % 0 %; Platelet Count 365 10^3/cmm (130-400); Red Blood Count 4.33 10^6/uL (4.1-5.3); Red Cell Distribution Width 22.5 % (12.1-15.1); White Blood Count 18.6 10^3/uL (4.0-10.0)
[2020-06-06 10:23] LABS: Anion Gap 13.8 (5-19); Blood Urea Nitrogen 5 mg/dL (6-20); Carbon Dioxide 18 mmol/L (22-29); Chloride 105 mmol/L (98-107); Glomerular Filtration Rate 100.4 mL/min (90-130); Glucose 132 mg/dL (65-115); Osmolality Calculated 276 mOsm/kg (285-295); Sodium 134 mmol/L (136-145)
[2020-06-06 10:31] LABS: Magnesium 0.8 mg/dL (1.7-2.3); Potassium 2.8 mmol/L (3.5-5.1)
[2020-06-06] MEDS: pantoprazole 40 mg SDV IVP ×2 (10:35→18:16)
[2020-06-06] MEDS: sennosides-docusate Tablet 1 TAB PO (10:35)
[2020-06-06] MEDS: levothyroxine 88 mcg Tablet PO (10:36)
--- NOTE | 2020-06-06 10:45 | XR_ITS ---
WS: [id number] EXAM: AP CHEST: PORTABLE UPRIGHT DATE OF EXAM: 06/06/2020, 1111 hours COMPARISON: Chest x-ray from 06/04/2020 HISTORY: Patient is 55 years old with a fever. FINDINGS: The cardiac silhouette is normal in size. The mediastinal contours are similar. Slight calcified p laque in the aorta. The pulmonary vascularity is normal. Calcified calcified granulomatous changes seen in the left lung and right lung base. Lungs are clear of consolidation. There is no effusion o r pneumothorax. No acute bony abnormality is seen. XR/XR chest 1V portable [id number] IMPRESSION: No acute pulmonary disease.
[2020-06-06] MEDS: magnesium sulfate premix 2 GM/50 ML PIGGYBACK IV (11:50)
--- NOTE | 2020-06-06 14:10 | PC.RESP ---
Smoking Cessation information sent to patient.
--- NOTE | 2020-06-06 14:12 | PM.PN ---
Subjective Subjective: Interval history: History and physical and progress notes reviewed. Apparently upon arrival to GI lab for procedure he had a temperature of 102 ?F. When brought back up to the floor no temperature was noted. From my understanding they are awaiting COVID testing. Patient reports he has a cough, but this is been chronic for the last 2 to 3 weeks after stopping smoking. Of note, urinalysis is growing 2 gram-negative rods and he has a past history of ESBL. Medications: Reviewed: Yes Vitals/I&O/Wt Last Vital Signs Temp 98.7 F 06/06/20 11:21 Pulse 77 06/06/20 11:21 Resp 18 06/06/20 11:21 BP 119/76 06/06/20 11:21 Pulse Ox 94 06/06/20 11:21 06/05/20 06/06/20 06/06/20 22:59 06:59 14:59 Intake Total 1360 / 3910 240 / 240 Output Total 300 / 300 500 / 800 Balance 1060 / 3610 -500 / 3110 240 / 240 Weight last 48 hrs Weight 58.967 kg Physical Exam Narrative: EXAM NARRATIVE: General exam no apparent distress Cardiovascular regular rate and rhythm without murmur Lungs slightly coarse bibasilar Abdomen is soft with positive bowel sounds Extremities no cyanosis., Clubbing Data : 06/06/20 09:47 06/06/20 09:47 Micro: Microbiology 06/04/20 16:18 Urine Culture - Preliminary Urine,Clean Catch 06/06/20 00:30 Gram Stain - Final Sputum - Expectorated Sputum 06/06/20 02:35 Occult Blood (FIT) - Final Stool - Stool Aspirate A&P Assessment and plan (1) Acute blood loss anemia: EGD and colonoscopy planned. Febrile today so this was canceled until his COVID PCR has returned Status: Acute (2) Accidental overdose: Resolved. Secondary to oxycodone Status: Acute (3) Hypokalemia: Still present. Supplement today. Status: Acute (4) Hypotension: Resolved Status: Acute (5) Therapeutic opioid induced constipation: Status: Acute (6) Colostomy in place: Status: Acute (7) Chronic indwelling Shore catheter: With fever noted in the GI lab, and organisms growing on culture will initiate carboplatinum. Urine culture last month demonstrated ESBL and Pseudomonas. There was some question of allergy to this in [place] so monitoring closely for any allergy with the initiation of Primaxin. Status: Acute (8) Microcytic anemia: Hemoglobin currently stable. Awaiting EGD and colonoscopy Heme positive Status: Acute Additional A&P Information Leukocytosis. Concern exists for symptomatic UTI with his development of fever.. I will also visualize his decubiti today. Chest x-ray negative for infiltrate. Hypomagnesemia, supplement History of DVT. Holding Eliquis currently secondary to anemia. He reports significantly large burden of clot but does not specifically remember pulmonary embolism. Chronic decubitus ulcer stage IV. Continue dressing changes SCDs for DVT prophylaxis. Anticoagulation currently on hold pending EGD and colonoscopy Full code Attestations Medical Necessity Statement*: Needs continued hospitalization for definitive evaluation of anemia. Coding Level of Care Code Acute Sap Payroll Consultant for g Fwd Diagnoses Acute blood loss anemia D62 Accidental overdose T50.901A Hypokalemia E87.6 Hypotension I95.9 Therapeutic opioid induced constipation K59.03; T40.2X5A Colostomy in place Z93.3 Chronic indwelling Shore catheter Z97.8 Microcytic anemia D50.9
--- NOTE | 2020-06-06 14:15 | PC.NURSE ---
Dr Montague ordered for pt to have benadryl 25mg prn one time incase of a reaction to antibiotic.
[2020-06-06] MEDS: potassium chloride premix 40 MEQ/100 ML PREMIX 25 MEQ IV ×2 (15:06→20:25)
[2020-06-06] MEDS: lidocaine 1% INJ 20 mL 5 ML IV ×2 (15:16→22:37)
[2020-06-06] MEDS: D5-NS 0.45% + KCL 20 mEq 20 MEQ/1,000 ML BAG 150 MEQ IV (16:57)
[2020-06-06] MEDS: lidocaine 1% INJ 20 mL 10 ML INJECTION (20:25)
[2020-06-06 21:00] LABS: Coronavirus Lab Test PTC Negative
[2020-06-06] MEDS: zonisamide 100 MG Capsule 400 MG PO (22:38)
[2020-06-07 00:16] VITALS: RESP 16
[2020-06-07] MEDS: oxyCODONE 5 mg IR Tab/Cap 15 MG PO ×2 (00:16→12:51)
[2020-06-07] MEDS: D5-NS 0.45% + KCL 20 mEq 20 MEQ/1,000 ML BAG 150 MEQ IV (00:17)
[2020-06-07 02:33] LABS: Basophils % 0.2 %; Eosinophils # 0.2 10^3/uL (0.0-0.8); Eosinophils % 0.9 %; Hematocrit 33.9 % (42.0-52.0); Hemoglobin 10.5 g/dL (11.7-16.6); Lymphocytes # 0.3 10^3/uL (0.8-4.8); Lymphocytes % 1.3 %; Mean Corpuscular Hemoglobin 23.8 pg (28.0-34.0); Mean Corpuscular Volume 76.7 fL (80-94); Mean Platelet Volume 8.7 fL (7.4-10.4); Monocytes # 0.2 10^3/uL (0.2-0.9); Neutrophils # 18.85 10^3/uL (1.8-7.7); Nucleated Red Blood Cells % 0 %; Platelet Count 371 10^3/cmm (130-400); Red Blood Count 4.42 10^6/uL (4.1-5.3); Red Cell Distribution Width 22.4 % (12.1-15.1); White Blood Count 19.6 10^3/uL (4.0-10.0)
[2020-06-07] MEDS: ondansetron 2 mg/ML SDV 2 mL 4 MG IVP (02:55)
[2020-06-07 02:59] LABS: Alanine Aminotransferase < 5 U/L (0-41); Alkaline Phosphatase 136 IU/L (40-130); Aspartate Amino Transferase 5 U/L (0-40); Blood Urea Nitrogen 7 mg/dL (6-20); Calcium 7.3 mg/dL (8.5-10.5); Carbon Dioxide 17 mmol/L (22-29); Chloride 106 mmol/L (98-107); Globulin 4.4 g/dL (1.3-4.6); Glomerular Filtration Rate 69.5 mL/min (90-130); Glucose 188 mg/dL (65-115); Magnesium 1.4 mg/dL (1.7-2.3); Osmolality Calculated 275 mOsm/kg (285-295); Sodium 131 mmol/L (136-145); Total Bilirubin 0.3 mg/dL (0.15-1.2); Total Protein 6.4 g/dL (6.6-8.7)
[2020-06-07] MEDS: LORazepam 2 mg/mL INJ 1 mL IVP (03:22)
--- NOTE | 2020-06-07 03:28 | CTR_ITS ---
PROCEDURE INFORMATION: Exam: CT Abdomen And Pelvis Without Contrast Exam date and time: 06/07/2020 3:29 AM Age: 55 years old Clinical indication: Abdominal pain; Generalized; Prior surgery; Surgery type: Colostomy; Additional info: Abd pain TECHNIQUE: Imaging protocol: Computed tomography of the abdomen and pelvis without contrast. Radiation optimization: All CT scans at this facility use at least one of these dose optimization techniques: automated exposure control; mA and/or kV adjustment per patient size (includes targeted exams where dose is matched to clinical indication); or iterative reconstruction. COMPARISON: CT abdomen pelvis w con* [id number] 05/12/2020 12:01 AM RADIATION DOSE METRICS: Total DLP (mGy-cm): 651.84 FINDINGS: Lungs: Mild dependent atelectasis posterior right lower lobe and to a lesser extent left lower lobe. Liver: Normal. No mass. Gallbladder and bile ducts: Cholelithiasis. Pancreas: Normal. No ductal dilation. Spleen: Normal. No splenomegaly. Adrenals: Normal. No mass. Kidneys and ureters: Interval development of bilateral moderate hydronephrosis with pelvicaliectasis and bilateral ureterectasis. Right intrarenal calculus. Stomach and bowel: Moderate distension with air-fluid level in the stomach. Ostomy left abdomen with peristomal herniation of bowel segments with questionable partial involvement of wall thickening of bowel within the peristomal hernia. Abnormal fluid collection in the pelvis and surrounding bowel entering the left ostomy site. There is significant soft tissue inflammatory stranding in the pelvis. Incompletely included at the lower pelvis are abnormal soft tissue collections of gas with fluid levels caudad 2 and surrounding presumed bladder catheter. There is collection of debris and gas within the bladder with thickening of the bladder wall and indistinction superiorly. Due to the lack of contrast media confirmation of air collections in the low pelvis within the lumen of bowel cannot be ascertained. There is suspected wall thickening of several partially confluent bowel segments positioned in the pelvis. Small collection of hyperdense material is contained within the partially visualized abnormal gas and fluid collection low within the pelvis or perineum. Scattered intraluminal bowel gas with mild fluid expansion of bowel in the right upper quadrant containing residual small collection of gastrointestinal contrast media. There is moderate gaseous distention of a segment of bowel transversely in the upper abdomen probably transverse colon with focal area of narrowing of the midportion probably nonpathologic which was not present on the prior comparison CT. Appendix: No evidence of appendicitis. The appendix is not visualized. Intraperitoneal space: As discussed above. Vasculature: Aortoiliac endovascular graft with aneurysmal dilatation of the [place] abdominal aorta maximum diameter 8.5 by 5.0 cm which is of similar diameter compared to previous with thickening of the aortic wall. Inferior vena cava stent is positioned cranial to the renal veins near the hepatic IVC. Lymph nodes: Unremarkable. No enlarged lymph nodes. Bladder: See Stomach and bowel finding. Reproductive: Unremarkable as visualized. Bones/joints: Degenerative change of the spine. Diastasis of the symphysis pubis. Soft tissues: Subcutaneous soft tissue stranding of the suprapubic soft tissues. There is prominent subcutaneous soft tissue stranding of the included proximal lower extremities. Resection of the distal sacrum with posterior low pelvic superficial soft tissue thickening/stranding and suspected decubitus ulceration. CT/CT abdomen pelvis wo con [id number] IMPRESSION: 1. Low perineal incompletely included collections of fluid in gas are suspicious for peroneal or scrotal abscess. Findings raises the possibility of underlying condition of necrotizing fasciitis Suspected small amount of hyperdense material or contrast media is unclear as to the origin and enterocutaneous or entero-soft tissue fistulous communication of previously administered bowel contrast is not excluded. 2. Interval development of diffuse abdominal wall, pelvic superficial soft tissue and proximal by stranding which could reflect edema related anasarca versus infection origin of cellulitis. 3. Segment of moderate to prominent gas distended bowel transversely in the upper abdomen possibly containing focal short segment of peristalsis. Abnormal narrowing is less likely consideration as this finding was not demonstrated on the recent CT comparison. 4. [place] of multiple bowel segments low within the pelvis with multiple collections of fluid and gas which are difficult to ascertain as origin of location and could not be confirmed as intraluminal within bowel. 5. Peristomal hernia with development of wall thickening of portions of bowel incorporated within the stoma which could be secondary to enteritis, infectious origin versus development of incarceration or strangulated bowel. 6. Development of bilateral hydronephrosis and ureterectasis to the level of the pelvis inflammatory process. 7. Prominent bladder wall thickening and prominent collection of debris and gas within the bladder which could be catheter related although the integrity of the superior bladder is in question and findings could reflect enterovesical or vesical- enteric or vesical-peritoneal fistulous communication. 8. Likely surgical absence of the lower portion of the sacrum with superficial soft tissue thickening and decubitus changes of the posterior low pelvis. The extent of involvement and soft tissue destruction extends to the posterior bone margin of the posterior diastatic symphysis and the posterior acetabular iliac bones with underlying sclerosis suspicious for osteomyelitis. 9. Aneurysmal dilatation of [place] abdominal aorta is similar. 10. Right intrarenal calculus. 11. Cholelithiasis. Radiation Dose CTDIVOL = (mGy): DLP = 651.84 (mGy-cm)
--- NOTE | 2020-06-07 05:40 | PC.NURSE ---
time Temp resp o2 bp hr 1999 98.3 18 90 169/99 114 000 98.3 18 93 107/68 114 0400 98.2 18 97 111/73 99
--- NOTE | 2020-06-07 06:19 | PM.EVENT ---
Event Note Event Note: Overnight patient developed recurrent episode of emesis which was not being relieved by antiemetics, abdomen was tender and getting rigid hence CT abdomen was obtained he could not tolerate oral contrast, radiologist called me regarding significant findings on the CT abdomen and pelvis which I have relayed to Dr. Skinner and Dr. Garcia. NG tube has been placed
--- NOTE | 2020-06-07 06:49 | PM.PN ---
Subjective Subjective: Interval history: The patient's endoscopy was postponed yesterday morning due to the fact that he had a fever and his COVID-19 test was still pending. This turned out to be negative. Unfortunately, the patient continued to have problems with vomiting yesterday and into the night. Even though this is not a new problem for him overall, as he says he does this outside of the hospital frequently, a CAT scan was performed in the night and showed several changes of concern. 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 Vitals/I&O/Wt Last Vital Signs Temp 98.7 F 06/06/20 11:21 Pulse 77 06/06/20 11:21 Resp 16 06/07/20 00:16 BP 119/76 06/06/20 11:21 Pulse Ox 94 06/06/20 11:21 06/06/20 06/06/20 06/07/20 14:59 22:59 06:59 Intake Total 240 / 1780 440 / 1780 1100 / 1780 Balance 240 / 1780 440 / 1780 1100 / 1780 Physical Exam Narrative: EXAM NARRATIVE: On exam, the patient has a nasogastric tube in place which is draining some thin bilious colored material. Bowel sounds seem to be hypoactive. He has some bilious watery fluid in his colostomy bag but there still appears to be some more solid stool at the stoma itself. He has some mild scattered tenderness, including the parastomal hernia contents but this area does not seem to be tense. The patient's scrotum shows no evidence of crepitus or tenderness. He has some very superficial but small abrasions present. Data : 06/07/20 02:15 06/07/20 02:15 Micro: Microbiology 06/04/20 16:18 Urine Culture - Preliminary Urine,Clean Catch 06/06/20 00:30 Gram Stain - Final Sputum - Expectorated Sputum 06/06/20 02:35 Occult Blood (FIT) - Final Stool - Stool Aspirate CT Abd/Pel: Radiologist's impression: CT scan abdomen/pelvis 06/07/2020 IMPRESSION: 1. Low perineal incompletely included collections of fluid in gas are suspicious for peroneal or scrotal abscess. Findings raises the possibility of underlying condition of necrotizing fasciitis Suspected small amount of hyperdense material or contrast media is unclear as to the origin and enterocutaneous or entero-soft tissue fistulous communication of previously administered bowel contrast is not excluded. 2. Interval development of diffuse abdominal wall, pelvic superficial soft tissue and proximal by stranding which could reflect edema related anasarca versus infection origin of cellulitis. 3. Segment of moderate to prominent gas distended bowel transversely in the upper abdomen possibly containing focal short segment of peristalsis. Abnormal narrowing is less likely consideration as this finding was not demonstrated on the recent CT comparison. 4. [place] of multiple bowel segments low within the pelvis with multiple collections of fluid and gas which are difficult to ascertain as origin of location and could not be confirmed as intraluminal within bowel. 5. Peristomal hernia with development of wall thickening of portions of bowel incorporated within the stoma which could be secondary to enteritis, infectious origin versus development of incarceration or strangulated bowel. 6. Development of bilateral hydronephrosis and ureterectasis to the level of the pelvis inflammatory process. 7. Prominent bladder wall thickening and prominent collection of debris and gas within the bladder which could be catheter related although the integrity of the superior bladder is in question and findings could reflect enterovesical or vesical- enteric or vesical-peritoneal fistulous communication. 8. Likely surgical absence of the lower portion of the sacrum with superficial soft tissue thickening and decubitus changes of the posterior low pelvis. The extent of involvement and soft tissue destruction extends to the posterior bone margin of the posterior diastatic symphysis and the posterior acetabular iliac bones with underlying sclerosis suspicious for osteomyelitis. 9. 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 10. Right intrarenal calculus. 11. Cholelithiasis. A&P Assessment and plan (1) Heme positive stool: Endoscopy has been canceled again, this time indefinitely. The patient appears to be having some obstructive symptoms again (he was hospitalized for the same thing several weeks ago) but also has some findings on his CAT scan that may indicate other developing issues. I suspect the perineal/scrotal changes have more to do with his stage IV decubitus ulcers then necrotizing fasciitis, etc. I am afraid I have to be away intermittently over the next couple of days. Dr. Bhatia is aware of the patient and will follow in my absence for these newly developed issues. Status: Acute (2) Iron deficiency anemia: Status: Acute Attestations Medical Necessity Statement*: See admitting service's notation. Coding Level of Care Code Acute Purchasing Contracting Clerk for Allan Rosalesd Diagnoses Heme positive stool R19.5 Iron deficiency anemia D50.9
[2020-06-07 07:44] VITALS: BP 118/80; PULSE 99; RESP 14; TEMP 36.9; O2SAT 100
--- NOTE | 2020-06-07 08:39 | P.PN_ITS ---
Subjective Subjective: Interval history: Overall patient is stable had nausea and vomiting and required an NG tube placement overnight shift. Apparently the patient had worsening abdominal pain and undergone a CT scan of the abdomen and pelvis that showed concerning for necrotizing soft tissue infection of the perineal area involving the scrotum as well. I was asked to see the patient as Dr. Skinner my partner is going to be out of town today, yet he did evaluate the patient earlier. Vitals/I&O/Wt Last Vital Signs Temp 98.4 F 06/07/20 07:44 Pulse 99 06/07/20 07:44 Resp 14 06/07/20 07:44 BP 118/80 06/07/20 07:44 Pulse Ox 100 06/07/20 07:44 06/06/20 06/07/20 06/07/20 22:59 06:59 14:59 Intake Total 440 / 680 1100 / 1780 Balance 440 / 680 1100 / 1780 Physical Exam Narrative: EXAM NARRATIVE: Patient is conscious alert oriented X3 BMI 20 Head and neck examination PERRLA no masses no cervical lymphadenopathy no jaundice Cardiac examination audible S1-S2 no murmurs no gallops no arrhythmias Chest fair air entry bilateral Abdomen diffusely tender particularly on the right side nondistended soft no organomegaly guarding or rigidity/no signs of peritonitis. Parastomal hernia chronically incarcerated and stomal contents showing nonbloody enteric contents light brown liquidy stool Lower back multiple and extensive pressure injury ulcers stage IV with no evidence of pus at the wound bed or necrotic tissues. The perineum is swollen but no evidence of crepitus yet there is cellulitic changes of the scrotum with a bleb about 2 cm in diameter created at the base of the scrotum(cannot evaluate for any tenderness as the patient does not have much of sensation over this area) Data : 06/07/20 02:15 06/07/20 02:15 Micro: Microbiology 06/04/20 16:18 Urine Culture - Preliminary Urine,Clean Catch 06/06/20 00:30 Gram Stain - Final Sputum - Expectorated Sputum 06/06/20 02:35 Occult Blood (FIT) - Final Stool - Stool Aspirate A&P Assessment and plan (1) Decubitus ulcer: After history taking physical examination and reviewing the chart and images with my personal interpretation, with regard to the pressure injury ulcers the do look clean there is no indication for surgical debridement at this point yet there is a concerning swelling of the scrotal area with evidence of bilateral hydrocele that likely would warrant further urological evaluation. I do not see an evidence of crepitus at this point or clear signs for necrotizing soft tissue infection, as the evidence of gas in the perineum likely due to the open pressure decubitus injury ulcers. Also the patient does have developing hydronephrosis which is new per CT scan description and this would warrant urology evaluation. For the time being continue daily dressing change using Xeroform of the wound beds of the pressure injury ulcers and followed by ABDs Status: Chronic (2) Chronic abdominal pain: Continue NG to low intermittent wall suction likely the patient does have chronic partial small bowel obstruction. Patient should get the benefit of endoscopies as planned by Dr. Skinner before at some point but I do not see an urgency for it at this point Optimize nutrition Status: Chronic Attestations Medical Necessity Statement*: Patient will require continues hospitalization past 2 midnights for medical optimization and surgical care of patient's press ure injury ulcer also will require urology consultation Time Spent in Patient Care: (>than 50% of time spent in counselling and/or direct pt care on unit) . Coding Level of Care Code Acute General Service Technician for Allan Blanco Diagnoses Decubitus ulcer L89.90 Chronic abdominal pain R10.9; G89.29
--- NOTE | 2020-06-07 09:49 | PC.NURSE ---
Due to pt having decreasing urine output, pt jameson catheter is to be flushed per Dr. Montague.
--- NOTE | 2020-06-07 09:58 | P.TS_ITS ---
Transfer Summary Providers Date of Admission: 06/05/20 18:28 Date of Discharge: 06/07/20 Attending Provider at Admission: Lorna Fenton MD Attending Provider at Transfer: Ramin Montague MD Primary Care Provider: Jacoby Jon DO Anticipated Date of Transfer: Anticipated date of transfer: 06/07/20 Receiving Facility & Provider: Receiving Provider: [] Receiving facility: [] Diagnoses at Discharge Discharge Diagnosis (1) Decubitus ulcer: Status: Chronic (2) Chronic abdominal pain: Status: Chronic Reason for Visit Reason for Visit: accidental overdose Hospital Course Hospital Course: Maicol is a 55-year-old white male with history of abdominal aortic aneurysm repair, with showering during the procedure causing paraplegia, ischemic bowel requiring colostomy, subsequent DVTs, neurogenic bladder causing need for chronic [place] admitted June 04 for concern of lethargy following oxycodone, within a 2-hour period where he usually takes it every 6-8 hours. This was deemed to be an accidental overdose. It was noted on his arrival that hemoglobin was low. Stool was heme positive in his ostomy bag. He has been on Eliquis long-term for history of DVT. In the emergency department his hemoglobin was 7.8. He received a blood transfusion. This prompted surgical consultation and EGD and colonoscopy was planned. When he went down for procedure on June 06 he was found to have a temperature of 102 ?F. Chest x-ray did not show any infiltrate. Urinalysis from admission was growing 2 organisms(not unexpected as patient has chronic indwelling catheter). Antibiotics were started consisting of Primaxin, and linezolid was later added. Laboratory demonstrated elevated white blood cell count. Surgery reviewed his multiple decubiti, and did not believe they were likely a source of infection. That night he developed a vomiting, and a CT scan of abdomen and pelvis was obtained. This was concerning for small bowel obstruction and an NG was placed. Other findings included hydronephrosis, bilateral and multiple low peritoneal gas and fluid collections suspicious for peritoneal abscess. Christiano's gangrene could not be ruled out. Surgery evaluated the patient scrotum regarding this and found to have some edema and cellulitic changes with a small bleb at the base. They believed urology evaluation was needed to clarify these conditions. Therefore transfer was arranged to [facility], care of Dr. Bao who graciously accepted the patient. Physical Exam Narrative: EXAM NARRATIVE: General exam no apparent distress Cardiovascular regular rate and rhythm Lungs clear Abdomen is soft and positive bowel sounds Back demonstrates multiple decubiti, many of which are stage IV. Scrotum demonstrates edema, erythema of the base of the scrotum and a small bleb. Extremities atrophy, amputations of the feet bilaterally TS Data Data Completed and Pending: Completed Studies During Hospitalization Category Date Time Status CT abdomen pelvis wo con [id number] Stat Cat Scan 06/07/20 03:28 Completed XR chest 1V mitchell ble [id number] Routine Exams 06/06/20 10:45 Completed XR chest 1V mitchell ble [id number] Stat Exams 06/04/20 17:54 Completed Pending at discharge Category Date Time Status Sputum Culture an d Gram Stain Stat Lab 06/06/20 00:30 Results Urine Culture Sta t Lab 06/04/20 16:18 Results Labs from last 24 hours 06/07/20 06/07/20 06/06/20 02:15 02:15 09:47 WBC 19.6 H RBC 4.42 Hgb 10.5 L Hct 33.9 L MCV 76.7 L MCH 23.8 L MCHC 31.0 RDW 22.4 H Plt Count 371 MPV 8.7 Neut % (Auto) 96.0 Lymph % (Auto) 1.3 Mcleod % (Auto) 1.0 Eos % (Auto) 0.9 Baso % (Auto) 0.2 Neut # (Auto) 18.85 H Lymph # (Auto) 0.3 L Mcleod # (Auto) 0.2 Eos # (Auto) 0.2 Baso # (Auto) 0.0 Nucleated RBC % (a uto) 0 Nucleated RBCs # 0.0 Sodium 131 L 134 L Potassium 4.0 2.8 L* Chloride 106 105 Carbon Dioxide 17 L 18 L Anion Gap 12.0 13.8 BUN 7 5 L Creatinine 1.1 0.8 GFR Calculation 69.5 L 100.4 Glucose 188 H 132 H Calculated Osmolal ity 275 L 276 L Calcium 7.3 L 7.0 L Magnesium 1.4 L 0.8 L* Total Bilirubin 0.3 AST 5 ALT < 5 Alkaline Phosphata se 136 H Total Protein 6.4 L Albumin 2.0 L Globulin 4.4 Nasal/Oral COVID-1 9 PCR 06/06/20 06/05/20 09:47 15:34 WBC 18.6 H RBC 4.33 Hgb 10.3 L Hct 32.3 L MCV 74.6 L MCH 23.8 L MCHC 31.9 RDW 22.5 H Plt Count 365 MPV 8.5 Neut % (Auto) 93.2 Lymph % (Auto) 2.7 Mcleod % (Auto) 1.9 Eos % (Auto) 1.3 Baso % (Auto) 0.3 Neut # (Auto) 17.27 H Lymph # (Auto) 0.5 L Mcleod # (Auto) 0.4 Eos # (Auto) 0.3 Baso # (Auto) 0.1 Nucleated RBC % (a uto) 0 Nucleated RBCs # 0.0 Sodium Potassium Chloride Carbon Dioxide Anion Gap BUN Creatinine GFR Calculation Glucose Calculated Osmolal ity Calcium Magnesium Total Bilirubin AST ALT Alkaline Phosphata se Total Protein Albumin Globulin Nasal/Oral COVID-1 9 PCR Negative Vitals: Last Vital Signs Temp 98.4 F 06/07/20 07:44 Pulse 99 06/07/20 07:44 Resp 14 06/07/20 07:44 BP 118/80 06/07/20 07:44 Pulse Ox 100 06/07/20 07:44 TS Medications Medications Home Medications apixaban 2.5 mg tablet 2.5 mg PO BID 10/17/19 [History Confirmed 06/04/20] levothyroxine 88 mcg tablet 88 mcg PO DAILY 10/17/19 [History Confirmed 06/04/20] docusate sodium 100 mg capsule 100 mg PO BID PRN 03/28/20 [History Confirmed 06/04/20] omeprazole 20 mg capsule,delayed release 20 mg PO DAILY 03/28/20 [History Confirmed 06/04/20] tizanidine 4 mg tablet 4 mg PO TID PRN #90 tab 05/01/20 [Rx Confirmed 06/04/20] oxycodone 10 - 15 mg PO QID PRN 05/13/20 [History Confirmed 06/04/20] senna leaf extract 10 ml PO BID PRN #237 ml 05/13/20 [Rx Confirmed 06/04/20] Zonegran 400 mg PO BEDTIME 06/04/20 [History Confirmed 06/04/20] Active Medications Diphenhydramine HCl (Benadryl) 25 mg PO NOW PRN PRN Reason: ALLERGIC REACTION Imipenem/Cilastatin Sodium 500 (mg/ Sodium Chloride) 100 mls @ 100 mls/hr IV Q8H [facility] Last Admin: 06/07/20 04:54 Dose: 100 mls/hr Documented by: Sodium Chloride (Sodium Chloride 0.9%) 1,000 mls @ 75 mls/hr IV .[id number] [facility] Linezolid (Zyvox Premix) 600 mg in 300 mls @ 300 mls/hr IV Q12H [facility]; Protocol Levothyroxine Sodium (Synthroid) 88 mcg PO DAILY [facility] Last Admin: 06/07/20 07:53 Dose: Not Given Documented by: Ondansetron HCl (Zofran) 4 mg IVP Q6H PRN PRN Reason: NAUSEA AND VOMITING Last Admin: 06/07/20 02:55 Dose: 4 mg Documented by: Oxycodone HCl (Oxycodone Ir) 15 mg PO QID PRN PRN Reason: Pain Last Admin: 06/07/20 00:16 Dose: 15 mg Documented by: Pantoprazole Sodium (Protonix) 40 mg IVP BID [facility] Last Admin: 06/06/20 18:16 Dose: 40 mg Documented by: Phenol (Phenaseptic) 3 spray MUCOUS MEM Q2H PRN PRN Reason: SORE THROAT Senna/Docusate Sodium (Senna-S) 1 tab PO BID [facility] Last Admin: 06/07/20 07:53 Dose: Not Given Documented by: Tizanidine HCl (Zanaflex) 4 mg PO TID PRN PRN Reason: muscle spasticity Zonisamide (Zonegran) 400 mg PO BEDTIME [facility] Last Admin: 06/06/20 22:38 Dose: 400 mg Documented by: Discharge Plan Discharge Patient Disposition: Home Condition: Stable Prescriptions: No Action Eliquis 2.5 mg tablet 2.5 mg PO BID RF: 0 levothyroxine 88 mcg tablet 88 mcg PO DAILY RF: 0 docusate sodium [Colace] 100 mg capsule 100 mg PO BID PRN (Reason: consstipation) RF: 0 omeprazole 20 mg capsule,delayed release(DR/EC) 20 mg PO DAILY RF: 0 tizanidine 4 mg tablet 4 mg PO TID PRN (Reason: muscle spasticity) Qty: 90 RF: 0 oxycodone 10 mg Tablet 10 - 15 mg PO QID PRN (Reason: Pain) RF: 0 senna leaf extract 176 mg/5 mL syrup 10 ml PO BID PRN (Reason: constipation) Qty: 237 RF: 0 Zonegran 100 mg capsule 400 mg PO BEDTIME RF: 0 Discharge Orders: Transfer Out of Facility (Order); Ordered 06/07/20 Ordered By: Ramin Montague Referrals: Jacoby Jon, [Primary Care Provider] - Transfer Attestations Time Spent in Transfer Care*: greater than 30 min Quality Metrics Clinical Quality Measures: During this hospital stay, did patient experience: None Coding Level of Care Code Acute City Driver for g Fwd Diagnoses Decubitus ulcer L89.90 Chronic abdominal pain R10.9; G89.29
[2020-06-07] MEDS: sodium chloride 0.9% 1,000 ML 75 ML IV (10:15)
[2020-06-07] MEDS: linezolid premix 600 MG/300 ML PREMIX 300 MG IV (10:18)
[2020-06-07 11:11] VITALS: BP 128/78; PULSE 87; RESP 16; TEMP 37.1; O2SAT 92
[2020-06-07] MEDS: pantoprazole 40 mg SDV IVP (11:22)
[2020-06-07 12:51] VITALS: RESP 18
--- NOTE | 2020-06-07 14:37 | PC.NURSE ---
report given to katherine holland RN, pt left to [facility] via transport at 1220 pm. pt medicated before transport for pain. all belongings taken with pt in blue personal bag per pt request.
[2020-06-07 14:40] VITALS: RESP 18
== END 2020-06-07 12:30 | disposition short-term general hospital (02) | DRG 917 ==
LOC: ER 19:02 → MEDSURG 21:11
PROVIDERS: Family Medicine; Internal Medicine; Admitting Provider Internal Medicine; PCP Internal Medicine; Visit Provider Internal Medicine
DX: T40.2X1A Poisoning by other opioids, accidental (unintentional), initial encounter (principal); L89.314 Pressure ulcer of right buttock, stage 4; L89.324 Pressure ulcer of left buttock, stage 4; L89.154 Pressure ulcer of sacral region, stage 4; D62 Acute posthemorrhagic anemia; G82.20 Paraplegia, unspecified; T40.2X5A Adverse effect of other opioids, initial encounter; Y92.009 Unspecified place in unspecified non-institutional (private) residence as the place of occurrence of the external cause; Z79.899 Other long term (current) drug therapy; E87.6 Hypokalemia; R19.5 Other fecal abnormalities; Z97.8 Presence of other specified devices; Z93.3 Colostomy status; K59.03 Drug induced constipation; I95.9 Hypotension, unspecified; Z79.01 Long term (current) use of anticoagulants; G89.29 Other chronic pain; R10.9 Unspecified abdominal pain; Z89.422 Acquired absence of other left toe(s); Z89.421 Acquired absence of other right toe(s); G25.81 Restless legs syndrome; F17.210 Nicotine dependence, cigarettes, uncomplicated
CPT/HCPCS: 12345; 36415; 36430; 71045; 74176; 80048; 80053; 80306; 80307; 81001; 82274; 83735; 85025; 86850; 86900; 86920; 87070; 87077; 87086; 87186; 87205; 87635; 96375; 99283; C9113; G0378; J0743; J2020; J2060; J2405; J3475; J3480; J7030; P9016

== ENCOUNTER 2020-06-26 19:15 | Outpatient (CLI) | payer MEDICARE, MEDICAID, SELFPAY ==
[2020-06-26 19:35] LABS: Basophils # 0.1 10^3/uL (0.0-0.1); Basophils % 0.9 %; Eosinophils # 0.3 10^3/uL (0.0-0.8); Hematocrit 27.5 % (42.0-52.0); Hemoglobin 8.1 g/dL (11.7-16.6); Lymphocytes # 1.6 10^3/uL (0.8-4.8); Lymphocytes % 24.8 %; Mean Corpuscular HGB Conc 29.5 g/dL (30.0-36.0); Mean Corpuscular Hemoglobin 25.9 pg (28.0-34.0); Mean Corpuscular Volume 87.9 fL (80-94); Mean Platelet Volume 9.7 fL (7.4-10.4); Monocytes # 0.5 10^3/uL (0.2-0.9); Monocytes % 8.2 %; Neutrophils # 3.98 10^3/uL (1.8-7.7); Neutrophils % 61.3 %; Nucleated Red Blood Cells % 0 %; Platelet Count 319 10^3/cmm (130-400); Red Blood Count 3.13 10^6/uL (4.1-5.3); Red Cell Distribution Width 25.6 % (12.1-15.1); White Blood Count 6.5 10^3/uL (4.0-10.0)
[2020-06-26 19:46] LABS: Alanine Aminotransferase 7 U/L (0-41); Alkaline Phosphatase 128 IU/L (40-130); Anion Gap 11.8 (5-19); Aspartate Amino Transferase 8 U/L (0-40); Blood Urea Nitrogen 16 mg/dL (6-20); Calcium 8.2 mg/dL (8.5-10.5); Carbon Dioxide 23 mmol/L (22-29); Chloride 102 mmol/L (98-107); Globulin 5.1 g/dL (1.3-4.6); Glomerular Filtration Rate 117.1 mL/min (90-130); Glucose 77 mg/dL (65-115); Osmolality Calculated 276 mOsm/kg (285-295); Potassium 3.8 mmol/L (3.5-5.1); Sodium 133 mmol/L (136-145); Total Bilirubin 0.2 mg/dL (0.15-1.2); Total Protein 8.1 g/dL (6.6-8.7)
== END 2020-06-26 19:16 | disposition home or self-care (01) ==
LOC: LAB 19:18
PROVIDERS: PCP Internal Medicine; Visit Provider Internal Medicine Infectious Disease
DX: Z45.2 Encounter for adjustment and management of vascular access device (principal)
CPT/HCPCS: 80053; 85025

== ENCOUNTER 2020-07-03 15:45 | Outpatient (CLI) | payer MEDICARE, MEDICAID, SELFPAY ==
[2020-07-03 16:28] LABS: Basophils # 0.1 10^3/uL (0.0-0.1); Basophils % 0.9 %; Eosinophils # 0.4 10^3/uL (0.0-0.8); Eosinophils % 6.3 %; Hematocrit 37.1 % (42.0-52.0); Hemoglobin 11.1 g/dL (11.7-16.6); Lymphocytes # 1.4 10^3/uL (0.8-4.8); Lymphocytes % 20.8 %; Mean Corpuscular HGB Conc 29.9 g/dL (30.0-36.0); Mean Corpuscular Hemoglobin 26.4 pg (28.0-34.0); Mean Corpuscular Volume 88.3 fL (80-94); Mean Platelet Volume 9.7 fL (7.4-10.4); Monocytes # 0.3 10^3/uL (0.2-0.9); Monocytes % 4.4 %; Neutrophils # 4.59 10^3/uL (1.8-7.7); Neutrophils % 67.3 %; Nucleated Red Blood Cells % 0 %; Platelet Count 669 10^3/cmm (130-400); Red Cell Distribution Width 25.8 % (12.1-15.1); White Blood Count 6.8 10^3/uL (4.0-10.0)
[2020-07-03 16:43] LABS: Alanine Aminotransferase 7 U/L (0-41); Alkaline Phosphatase 147 IU/L (40-130); Anion Gap 16.1 (5-19); Aspartate Amino Transferase 13 U/L (0-40); Blood Urea Nitrogen 12 mg/dL (6-20); Calcium 9.4 mg/dL (8.5-10.5); Carbon Dioxide 20 mmol/L (22-29); Chloride 100 mmol/L (98-107); Globulin 6.1 g/dL (1.3-4.6); Glomerular Filtration Rate 100.4 mL/min (90-130); Glucose 79 mg/dL (65-115); Osmolality Calculated 273 mOsm/kg (285-295); Potassium 4.1 mmol/L (3.5-5.1); Sodium 132 mmol/L (136-145); Total Bilirubin 0.3 mg/dL (0.15-1.2); Total Protein 9.1 g/dL (6.6-8.7)
== END 2020-07-03 15:46 | disposition home or self-care (01) ==
LOC: LAB 15:48
PROVIDERS: PCP Internal Medicine; Visit Provider Internal Medicine
DX: Z45.2 Encounter for adjustment and management of vascular access device (principal)
CPT/HCPCS: 80053; 85025

== ENCOUNTER → 2020-07-11 09:54 | Outpatient (BNVA) | payer MEDICARE, MEDICAID, SELFPAY | PROVIDERS: PCP Internal Medicine; Visit Provider Anesthesiology | DX: G89.29 Other chronic pain (principal); M54.5 Low back pain; G54.6 Phantom limb syndrome with pain; F17.210 Nicotine dependence, cigarettes, uncomplicated; Z79.891 Long term (current) use of opiate analgesic | CPT/HCPCS: 99213; 99214 ==

== ENCOUNTER 2020-07-12 13:26 | Outpatient (CLI) | payer MEDICARE, MEDICAID, SELFPAY ==
[2020-07-12 13:59] LABS: Basophils % 0.6 %; Eosinophils # 0.7 10^3/uL (0.0-0.8); Eosinophils % 10.4 %; Hematocrit 33.6 % (42.0-52.0); Hemoglobin 10.4 g/dL (11.7-16.6); Lymphocytes # 1.5 10^3/uL (0.8-4.8); Lymphocytes % 23.6 %; Mean Corpuscular Hemoglobin 27.7 pg (28.0-34.0); Mean Corpuscular Volume 89.4 fL (80-94); Mean Platelet Volume 10.3 fL (7.4-10.4); Monocytes # 0.4 10^3/uL (0.2-0.9); Monocytes % 5.9 %; Neutrophils % 59.2 %; Nucleated Red Blood Cells % 0 %; Platelet Count 301 10^3/cmm (130-400); Red Blood Count 3.76 10^6/uL (4.1-5.3); Red Cell Distribution Width 23.2 % (12.1-15.1); White Blood Count 6.3 10^3/uL (4.0-10.0)
[2020-07-12 14:20] LABS: Alanine Aminotransferase 13 U/L (0-41); Albumin Level 2.4 g/dL (3.5-5.2); Alkaline Phosphatase 158 IU/L (40-130); Anion Gap 10.5 (5-19); Aspartate Amino Transferase 12 U/L (0-40); Blood Urea Nitrogen 16 mg/dL (6-20); Calcium 8.3 mg/dL (8.5-10.5); Carbon Dioxide 23 mmol/L (22-29); Chloride 104 mmol/L (98-107); Globulin 4.5 g/dL (1.3-4.6); Glomerular Filtration Rate 117.1 mL/min (90-130); Glucose 144 mg/dL (65-115); Osmolality Calculated 280 mOsm/kg (285-295); Potassium 4.5 mmol/L (3.5-5.1); Sodium 133 mmol/L (136-145); Total Bilirubin 0.2 mg/dL (0.15-1.2); Total Protein 6.9 g/dL (6.6-8.7)
== END 2020-07-12 13:27 | disposition home or self-care (01) ==
LOC: LAB 13:30
PROVIDERS: PCP Internal Medicine; Visit Provider Internal Medicine Infectious Disease
DX: Z45.2 Encounter for adjustment and management of vascular access device (principal)
CPT/HCPCS: 80053; 85025

== ENCOUNTER → 2020-07-13 12:33 | Outpatient (BNVA) | payer MEDICARE, MEDICAID, SELFPAY | PROVIDERS: PCP Internal Medicine; Visit Provider Urology | DX: Z11.59 Encounter for screening for other viral diseases (principal); Z97.8 Presence of other specified devices | CPT/HCPCS: 87635 ==

== ENCOUNTER 2020-07-15 13:32 | Inpatient (IN) | payer MEDICARE, MEDICAID, SELFPAY ==
[2020-07-15] VITALS (11 sets, daily range): BP systolic 126–153; BP diastolic 63–81; PULSE 70–88; RESP 12–22; TEMP 36.8–37.1; O2SAT 96–100; BMI 23.5
--- NOTE | 2020-07-15 13:53 | ECG_ITS ---
[facility] Test Date: 2020-07-15 Pat Name: Maicol Reid Department: Room: Gender: Male Scrub Tech: : 1965 Requested By: Obdulio Vick I Order Number: [id number] Veronika MD: Rody Corbin M.D. Measurements Intervals [place] Rate: 87 P: 65 [place]: 178 QRS: 105 QRSD: 102 T: 69 QT: 350 QTc: 422 Interpretive Statements SINUS RHYTHM WITH FREQUENT SUPRAVENTRICULAR PREMATURE COMPLEXES IN A BIGEMINAL PATTERN RIGHT AXIS DEVIATION [QRS AXIS > 100] Compared to ECG 01/29/2018 11:29:33 Right-axis deviation now present Ventricular premature complex(es) no longer present Electronically Signed On 07-17-2020 7:23:04 CDT by Rody Corbin M.D. [email or web address]
--- NOTE | 2020-07-15 14:01 | ED_ITS ---
HPI - Chest Pain General: Chief Complaint: Chest Pain Stated Complaint: BURNING CHEST PAIN Time Seen by Provider: 07/15/20 13:36 Source: patient Mode of arrival: EMS Limitations: no limitations History of Present Illness: HPI narrative: Patient is a 55-year-old paraplegic with a chronic indwelling catheter and is on current treatment for osteomyelitis of the sacral region. He presents to the emergency department with chest pain that started last night. The chest pain is retrosternal and radiates to the back. There is associated nausea and vomiting. No diaphoresis, he does have some dizziness. Chest pain started at rest and no known aggravating or relieving factors. He still has pain at 8/10. He is allergic to aspirin so he cannot take aspirin and in the ambulance he received 2 doses of sublingual nitroglycerin which did not help his pain. complaint: chest pain Onset (ago): hour(s) (18) Timing of current episode: constant Prior episodes: No Onset: during rest Pain location: substernal Pain radiation: back Severity: severe Quality: sharp Relieving factors: nothing Exacerbating factors: nothing Associated symptoms: Reports nausea and vomiting; Deny abdominal pain, diaphoresis, dyspnea, fever(s), leg edema, palpitations, sense of impending doom or syncope Treatment prior to arrival: nitroglycerin Review of Systems General: Reports: 10 or more systems reviewed and unremarkable except in HPI and below Const: Denies: fever(s) or diaphoresis Eyes: Denies: change in vision or blurry vision ENMT: Denies: throat pain, enlarged tonsils, odynophagia, hoarseness, mouth pain or swelling of lips/tongue Card: Denies: palpitations or syncope Resp: Denies: dyspnea GI: Reports: nausea and vomiting; Denies: abdominal pain : Denies: flank pain, dysuria, urinary frequency, urinary urgency or urinary hesitancy Musc: Denies: neck pain, back pain or extremity swelling Skin/Breast: Denies: rash, pruritus or erythema Neuro: Denies: headache(s), numbness in extremities or weakness in extremities Endo: Denies: polyuria, polydipsia or tired all the time PFS ED PFSH: Medical History (Updated 07/15/20 @ 22:44 by Obdulio Vick MD, [facility] [place]) Accidental overdose Cholelithiasis Chronic abdominal pain Chronic indwelling [place] catheter Suprapubic catheter placed 06/07 [facility] after incision and drainage of uretheral abscess Chronic pain of lower extremity, bilateral Decubitus ulcer Encounter for long-term opiate analgesic use Foot amputation status Bilateral forefoot amputation History of amputation of toe (~02/2015) LEFT FOOT/ TOES RIGHT FOOT TOES History of uric acid staghorn calculus 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 Long-term use of high-risk medication Neurogenic bladder Parastomal hernia Periurethral abscess Phantom pain Restless leg syndrome Tobacco use disorder Surgical History (Updated 07/15/20 @ 21:15 by Lorna Fenton MD) Hx of resection of large bowel (~01/2015) My colon S/P abdominal aortic aneurysm repair S/P PICC central line placement PICC line placement for sacral osteomyelitis, placed 06/21/2020 Family History Unknown Anesthesia complication Denies family history of Bleeding disorder Social History Smoking and tobacco status: current every day smoker cigars Alcohol intake: current Alcohol intake frequency: holidays/special occasions only Adopted: Yes Lives independently: Yes Household members: spouse Marital status: Current occupational status: disabled History of recent travel: No Physical Exam Const: COMMON NORMALS: no acute distress, average body habitus, patient oriented x3, no limitations, healthy appearing, alert and well nourished HENMT: COMMON NORMALS: normocephalic, atraumatic and moist oral mucous membranes HEAD & SCALP: normocephalic and atraumatic Eye: COMMON NORMALS: Equal, round and reactive pupils present, EOMs intact bilaterally, conjunctivae normal and no scleral icterus CONJUNCTIVA: Yes conjunctivae normal PUPIL: Yes Equal, round and reactive pupils present Neck/C-Spine: COMMON NORMALS: no meningeal signs and no JVD Resp: COMMON NORMALS: normal respiratory effort, No retractions, No use of accessory muscles, clear to auscultation bilaterally and percussion normal AUSCULTATION: clear to auscultation bilaterally PERCUSSION: percussion normal Cardio: COMMON NORMALS: no JVD, regular rate, regular rhythm, S1 normal heart sound present, S2 normal heart sound present, No gallops present (Cardio), No clicks present (Cardio), No murmurs present (Cardio), No rub (Cardio) and Peripheral pulses 2+ throughout RATE: regular rate RHYTHM: regular rhythm HEART SOUNDS: S1 normal heart sound present and S2 normal heart sound present PERIPHERAL PULSES: Peripheral pulses 2+ throughout GI: COMMON NORMALS: Normal to inspection, nondistended, normoactive bowel sounds present, Soft to palpation, No hepatosplenomegaly present, no masses and no bruits PALPATION: Yes Soft to palpation, Yes Tenderness to palpation present (GI) (epigastric) and Yes No hepatosplenomegaly present OTHER: Colostomy and suprapubic cystostomy site is clean and dry Extremity: COMMON NORMALS: normal to inspection, full ROM, capillary refill normal, no calf tenderness and no pedal edema Neuro: COMMON NORMALS: patient oriented x3 SENSORIUM/ORIENTATION: Yes alert MENINGEAL SIGNS: Yes no meningeal signs Skin: COMMON NORMALS: no rashes or lesions noted, no wounds, turgor normal, no jaundice, no petechiae and no mottling GENERAL SKIN EXAM: no rashes or lesions noted and turgor normal Course ED course: 55 year old male who presented with what he describes as substernal chest pain. On evaluation he had epigastric tenderness and evaluation was consistent with acute pancreatitis. CT scan did not show any complications of the pancreatitis. He however had several episodes of vomiting in the ED and required multiple doses of IV narcotics because of ongoing pain. He is admitted to the hospital for further evaluation and management. Consultations: Consultation #1: Dr. Fenton, hospitalist. He kindly accepted the patient to his service. Time: 19:15 Vital Signs: Vital signs: Vital Signs Temperature 98.2 F 07/15/20 21:49 Pulse Rate 75 07/15/20 21:49 Respiratory Rate 17 07/15/20 21:51 Blood Pressure 131/75 07/15/20 21:49 Pulse Oximetry 100 07/15/20 21:49 MDM - Chest Pain MDM Narrative: Medical decision making narrative: Patient with acute pancreatitis. He is requiring multiple doses of IV narcotics and he also had several episodes of vomiting. 2 hour delta troponin was flat. He is admitted to the hospital for further evaluation and management Medical Records: Attestation: I reviewed the patient's medical records. Lab Data: Attestation: I reviewed the patient's lab results. Labs: Lab Results 07/15/20 07/15/20 07/15/20 Range/Units 14:20 14:20 14:20 WBC 8.9 (4.0-10.0) 10^3/ uL RBC 3.87 L (4.1-5.3) 10^6/u L Hgb 10.7 L (11.7-16.6) g/dL Hct 33.6 L (42.0-52.0) % MCV 86.8 (80-94) fL MCH 27.6 L (28.0-34.0) pg MCHC 31.8 (30.0-36.0) g/dL RDW 22.0 H (12.1-15.1) % Plt Count 256 (130-400) 10^3/c mm MPV 10.1 (7.4-10.4) fL Neut % (Auto) 85.2 % Lymph % (Auto) 9.9 % [place] % (Auto) 3.7 % Eos % (Auto) 0.6 % Baso % (Auto) 0.3 % Neut # (Auto) 7.59 (1.8-7.7) 10^3/u L Lymph # (Auto) 0.9 (0.8-4.8) 10^3/u L [place] # (Auto) 0.3 (0.2-0.9) 10^3/u L Eos # (Auto) 0.1 (0.0-0.8) 10^3/u L Baso # (Auto) 0.0 (0.0-0.1) 10^3/u L Nucleated RBC % (a uto) 0 % Nucleated RBCs # 0.0 /100WBC D-Dimer 2.48 H (0-0.59) ug/mIFE U Sodium 135 L (136-145) mmol/L Potassium 3.6 (3.5-5.1) mmol/L Chloride 105 (98-107) mmol/L Carbon Dioxide 21 L (22-29) mmol/L Anion Gap 12.6 (5-19) BUN 14 (6-20) mg/dL Creatinine 0.8 (0.7-1.2) mg/dL GFR Calculation 100.4 (90-130) mL/min Glucose 121 H (65-115) mg/dL Calculated Osmolal ity 282 L (285-295) mOsm/k g Calcium 8.7 (8.5-10.5) mg/dL Total Bilirubin 0.2 (0.15-1.2) mg/dL AST 8 (0-40) U/L ALT 13 (0-41) U/L Alkaline Phosphata se 161 H (40-130) IU/L Troponin T Baselin e (0-15) ng/L Troponin T 120 Min [place] (0-15) ng/L Delta Troponin T (0-10) ABS# NT-Pro-B Natriuret Pep 352 H (0-125) pg/mL Total Protein 6.9 (6.6-8.7) g/dL Albumin 2.5 L (3.5-5.2) g/dL Globulin 4.4 (1.3-4.6) g/dL Lipase 360 H (13-60) U/L 07/15/2007/15/ Range/Units 14:20 14:30 WBC (4.0-10.0) 10^3/ uL RBC (4.1-5.3) 10^6/u L Hgb (11.7-16.6) g/dL Hct (42.0-52.0) % MCV (80-94) fL MCH (28.0-34.0) pg MCHC (30.0-36.0) g/dL RDW (12.1-15.1) % Plt Count (130-400) 10^3/c mm MPV (7.4-10.4) fL Neut % (Auto) % Lymph % (Auto) % [place] % (Auto) % Eos % (Auto) % Baso % (Auto) % Neut # (Auto) (1.8-7.7) 10^3/u L Lymph # (Auto) (0.8-4.8) 10^3/u L [place] # (Auto) (0.2-0.9) 10^3/u L Eos # (Auto) (0.0-0.8) 10^3/u L Baso # (Auto) (0.0-0.1) 10^3/u L Nucleated RBC % (a uto) % Nucleated RBCs # /100WBC D-Dimer (0-0.59) ug/mIFE U Sodium (136-145) mmol/L Potassium (3.5-5.1) mmol/L Chloride (98-107) mmol/L Carbon Dioxide (22-29) mmol/L Anion Gap (5-19) BUN (6-20) mg/dL Creatinine (0.7-1.2) mg/dL GFR Calculation (90-130) mL/min Glucose (65-115) mg/dL Calculated Osmolal ity (285-295) mOsm/k g Calcium (8.5-10.5) mg/dL Total Bilirubin (0.15-1.2) mg/dL AST (0-40) U/L ALT (0-41) U/L Alkaline Phosphata se (40-130) IU/L Troponin T Baselin e 21 H (0-15) ng/L Troponin T 120 Min [place] 20.16 H (0-15) ng/L Delta Troponin T -0.84 L (0-10) ABS# NT-Pro-B Natriuret Pep (0-125) pg/mL Total Protein (6.6-8.7) g/dL Albumin (3.5-5.2) g/dL Globulin (1.3-4.6) g/dL Lipase (13-60) U/L Imaging Data^: Other CT: Attestation: I personally reviewed and interpreted this imaging study as follows: Radiologist's impression: [address] [address] [address] Scan Report Signed Patient: Maicol Reid #: [id number] : 1965Acct#:[id number] Age/Sex: 55 / MADM Date: 07/15/20 Loc: ERRoom/Bed: Attending Dr: Ordering Provider/Ordering MD: Obdulio Vick MD, [facility] [place] Date of Service: 07/15/20 Procedure(s): CT angio chest w abd pel w con Accession Number(s): [id number] Report Number: [id number] PROCEDURE INFORMATION: Exam: CT Angiography Chest With Contrast Exam date and time: 07/15/2020 3:49 PM Age: 55 years old Clinical indication: Abdominal pain; Epigastric; Chest pain; Prior surgery; Surgery date: 6+ months; Surgery type: Multiple; Patient HX: Paraplegic PT C/O central cp w n/v and HX of pancreatitis; Additional info: Chest pain radiating to his back, between shoulder blades TECHNIQUE: Imaging protocol: Computed tomographic angiography of the chest with intravenous contrast. 3D rendering (Not supervised by radiologist): MIP and/or 3D reconstructed images were created by the technologist. Radiation optimization: All CT scans at this facility use at least one of these dose optimization techniques: automated exposure control; mA and/or kV adjustment per patient size (includes targeted exams where dose is matched to clinical indication); or iterative reconstruction. Contrast material: OMNI 350; Contrast volume: 95 ml; Contrast route: INTRAVENOUS (IV); COMPARISON: CTA Chest-Pulmonary Emb [id number] 10/22/2016 8:35 AM RADIATION DOSE METRICS: Total DLP (mGy-cm): 1123.91 FINDINGS: Pulmonary arteries: Normal. No pulmonary emboli. Aorta: Unremarkable. No aortic aneurysm. No aortic dissection. Lungs: Unremarkable. No consolidation. No masses. There is subpleural atelectasis of the dependent portions of the lungs. Pleural space: Unremarkable. No pneumothorax. No pleural effusion. Heart: Unremarkable. No cardiomegaly. No pericardial effusion. Lymph nodes: Unremarkable. No enlarged lymph nodes. Bones/joints: Unremarkable. No acute fracture. Soft tissues: Unremarkable. IMPRESSION: No acute findings. PROCEDURE INFORMATION: Exam: CT Abdomen And Pelvis With Contrast Exam date and time: 07/15/2020 3:49 PM Age: 55 years old Clinical indication: Abdominal pain; Epigastric; Chest pain; Prior surgery; Surgery date: 6+ months; Surgery type: Multiple; Patient HX: Paraplegic PT C/O central cp w n/v and HX of pancreatitis; Additional info: Chest pain radiating to his back, between shoulder blades TECHNIQUE: Imaging protocol: Computed tomography of the abdomen and pelvis with intravenous contrast. Radiation optimization: All CT scans at this facility use at least one of these dose optimization techniques: automated exposure control; mA and/or kV adjustment per patient size (includes targeted exams where dose is matched to clinical indication); or iterative reconstruction. Contrast material: OMNI 350; Contrast volume: 95 ml; Contrast route: INTRAVENOUS (IV); COMPARISON: CTA Chest-Pulmonary Emb [id number] 10/22/2016 8:35 AM RADIATION DOSE METRICS: Total DLP (mGy-cm): 1123.91 FINDINGS: Tubes, catheters and devices: A suprapubic catheter is present. Mediastinal space: A small hiatal hernia is present. Liver: Unremarkable.No mass. Gallbladder and bile ducts: Multiple calcified gallstones are present. There is no common bile duct dilation. Pancreas: The head of the pancreas is enlarged and there is haziness of the fat adjacent to the head of the pancreas concerning for acute pancreatitis. Spleen: Normal. No splenomegaly. Adrenals: Normal. No mass. Kidneys and ureters: There is no evidence of hydronephrosis. There is no evidence of renal calcifications. Stomach and bowel: There is no evidence of intestinal perforation or obstruction. There is no evidence of colitis/diverticulitis. Appendix: No evidence of appendicitis. Intraperitoneal space: Unremarkable. No free air. No significant fluid collection. Vasculature: An inferior vena cava filter lies in appropriate position. There is an aortic stent graft within an aortic aneurysm that measures 5.9 by 8.5 cm. No endoleak. Lymph nodes: Unremarkable.No enlarged lymph nodes. Urinary bladder: There is nonspecific bladder wall thickening. This may be related to incomplete distention. Reproductive: Unremarkable as visualized. Bones/joints: Osteopenia in the pelvis with sclerosis of the remaining ischial tuberosities is unchanged in appearance. There has been partial resection of the sacrum and ischial tuberosities. Soft tissues: There is a left ostomy site with peristomal hernia. Bilateral decubitus ulcers are unchanged in appearance. Other findings: No fluid collection or abscess. CT/CT angio chest w abd pel w con IMPRESSION: 1. The head of the pancreas is enlarged and there is haziness of the fat adjacent to the head of the pancreas concerning for acute pancreatitis. No pseudocyst. 2. Unchanged aortic aneurysm and stent graft. No endoleak. 3. Unchanged decubitus ulcer with postoperative changes. 4. Cholelithiasis. The gallbladder is distended with no duct dilatation. No definite cholecystitis. 5. Unchanged left peristomal hernia. Radiation Dose CTDIVOL = (mGy): DLP = 1123.91~1123.91 (mGy-cm) Dictated By:Ni Zelaya Signed By:Fatoumata Zelaya Date/Time:07/15/201655 DD/ 55 Discharge Plan Discharge Patient Disposition: Admitted As Inpatient Admit Provider: Lorna Fenton Clinical Impression: Acute pancreatitis Condition: Stable Interventions: ED Discharge Assessment Last Done: 07/15/20 20:41 ED Charges Last Done: 07/15/20 20:41 Coding Level of Care Code ED [employer] Technician for Chg Fwd Exam Comprehensive
[2020-07-15] MEDS: ondansetron 2 mg/ML SDV 2 mL 4 MG IVP ×3 (14:23→21:52)
[2020-07-15] MEDS: morphine 4 mg/mL SDV 1 mL IVP (14:26)
[2020-07-15 14:44] LABS: Basophils % 0.3 %; Eosinophils # 0.1 10^3/uL (0.0-0.8); Eosinophils % 0.6 %; Hematocrit 33.6 % (42.0-52.0); Hemoglobin 10.7 g/dL (11.7-16.6); Lymphocytes # 0.9 10^3/uL (0.8-4.8); Lymphocytes % 9.9 %; Mean Corpuscular HGB Conc 31.8 g/dL (30.0-36.0); Mean Corpuscular Hemoglobin 27.6 pg (28.0-34.0); Mean Corpuscular Volume 86.8 fL (80-94); Mean Platelet Volume 10.1 fL (7.4-10.4); Monocytes # 0.3 10^3/uL (0.2-0.9); Monocytes % 3.7 %; Neutrophils # 7.59 10^3/uL (1.8-7.7); Neutrophils % 85.2 %; Nucleated Red Blood Cells % 0 %; Platelet Count 256 10^3/cmm (130-400); Red Blood Count 3.87 10^6/uL (4.1-5.3); White Blood Count 8.9 10^3/uL (4.0-10.0)
--- NOTE | 2020-07-15 14:50 | PC.NURSE ---
Pt resting in bed at this time with spouse at bedside. Pt had an episode of emesis but denies any further needs.
[2020-07-15] MEDS: fentaNYL 50 mcg/mL INJ 2mL IVP (15:02)
[2020-07-15 15:06] LABS: D Dimer 2.48 ug/mIFEU (0-0.59)
[2020-07-15 15:19] LABS: Troponin(5th) Baseline 21 ng/L (0-15)
--- NOTE | 2020-07-15 15:23 | CTR_ITS ---
PROCEDURE INFORMATION: Exam: CT Angiography Chest With Contrast Exam date and time: 07/15/2020 3:49 PM Age: 55 years old Clinical indication: Abdominal pain; Epigastric; Chest pain; Prior surgery; Surgery date: 6+ months; Surgery type: Multiple; Patient HX: Paraplegic PT C/O central cp w n/v and HX of pancreatitis; Additional info: Chest pain radiating to his back, between shoulder blades TECHNIQUE: Imaging protocol: Computed tomographic angiography of the chest with intravenous contrast. 3D rendering (Not supervised by radiologist): MIP and/or 3D reconstructed images were created by the technologist. Radiation optimization: All CT scans at this facility use at least one of these dose optimization techniques: automated exposure control; mA and/or kV adjustment per patient size (includes targeted exams where dose is matched to clinical indication); or iterative reconstruction. Contrast material: OMNI 350; Contrast volume: 95 ml; Contrast route: INTRAVENOUS (IV); COMPARISON: CTA Chest-Pulmonary Emb [id number] 10/22/2016 8:35 AM RADIATION DOSE METRICS: Total DLP (mGy-cm): 1123.91 FINDINGS: Pulmonary arteries: Normal. No pulmonary emboli. Aorta: Unremarkable. No aortic aneurysm. No aortic dissection. Lungs: Unremarkable. No consolidation. No masses. There is subpleural atelectasis of the dependent portions of the lungs. Pleural space: Unremarkable. No pneumothorax. No pleural effusion. Heart: Unremarkable. No cardiomegaly. No pericardial effusion. Lymph nodes: Unremarkable. No enlarged lymph nodes. Bones/joints: Unremarkable. No acute fracture. Soft tissues: Unremarkable. IMPRESSION: No acute findings. PROCEDURE INFORMATION: Exam: CT Abdomen And Pelvis With Contrast Exam date and time: 07/15/2020 3:49 PM Age: 55 years old Clinical indication: Abdominal pain; Epigastric; Chest pain; Prior surgery; Surgery date: 6+ months; Surgery type: Multiple; Patient HX: Paraplegic PT C/O central cp w n/v and HX of pancreatitis; Additional info: Chest pain radiating to his back, between shoulder blades TECHNIQUE: Imaging protocol: Computed tomography of the abdomen and pelvis with intravenous contrast. Radiation optimization: All CT scans at this facility use at least one of these dose optimization techniques: automated exposure control; mA and/or kV adjustment per patient size (includes targeted exams where dose is matched to clinical indication); or iterative reconstruction. Contrast material: OMNI 350; Contrast volume: 95 ml; Contrast route: INTRAVENOUS (IV); COMPARISON: CTA Chest-Pulmonary Emb [id number] 10/22/2016 8:35 AM RADIATION DOSE METRICS: Total DLP (mGy-cm): 1123.91 FINDINGS: Tubes, catheters and devices: A suprapubic catheter is present. Mediastinal space: A small hiatal hernia is present. Liver: Unremarkable.No mass. Gallbladder and bile ducts: Multiple calcified gallstones are present. There is no common bile duct dilation. Pancreas: The head of the pancreas is enlarged and there is haziness of the fat adjacent to the head of the pancreas concerning for acute pancreatitis. Spleen: Normal. No splenomegaly. Adrenals: Normal. No mass. Kidneys and ureters: There is no evidence of hydronephrosis. There is no evidence of renal calcifications. Stomach and bowel: There is no evidence of intestinal perforation or obstruction. There is no evidence of colitis/diverticulitis. Appendix: No evidence of appendicitis. Intraperitoneal space: Unremarkable. No free air. No significant fluid collection. Vasculature: An inferior vena cava filter lies in appropriate position. There is an aortic stent graft within an aortic aneurysm that measures 5.9 by 8.5 cm. No endoleak. Lymph nodes: Unremarkable.No enlarged lymph nodes. Urinary bladder: There is nonspecific bladder wall thickening. This may be related to incomplete distention. Reproductive: Unremarkable as visualized. Bones/joints: Osteopenia in the pelvis with sclerosis of the remaining ischial tuberosities is unchanged in appearance. There has been partial resection of the sacrum and ischial tuberosities. Soft tissues: There is a left ostomy site with peristomal hernia. Bilateral decubitus ulcers are unchanged in appearance. Other findings: No fluid collection or abscess. CT/CT angio chest w abd pel w con IMPRESSION: 1. The head of the pancreas is enlarged and there is haziness of the fat adjacent to the head of the pancreas concerning for acute pancreatitis. No pseudocyst. 2. Unchanged aortic aneurysm and stent graft. No endoleak. 3. Unchanged decubitus ulcer with postoperative changes. 4. Cholelithiasis. The gallbladder is distended with no duct dilatation. No definite cholecystitis. 5. Unchanged left peristomal hernia. Radiation Dose CTDIVOL = (mGy): DLP = 1123.91~1123.91 (mGy-cm)
[2020-07-15 15:29] LABS: Alanine Aminotransferase 13 U/L (0-41); Albumin Level 2.5 g/dL (3.5-5.2); Alkaline Phosphatase 161 IU/L (40-130); Anion Gap 12.6 (5-19); Aspartate Amino Transferase 8 U/L (0-40); Blood Urea Nitrogen 14 mg/dL (6-20); Calcium 8.7 mg/dL (8.5-10.5); Carbon Dioxide 21 mmol/L (22-29); Chloride 105 mmol/L (98-107); Globulin 4.4 g/dL (1.3-4.6); Glomerular Filtration Rate 100.4 mL/min (90-130); Glucose 121 mg/dL (65-115); NT Pro B Type Natriuretic Pept 352 pg/mL (0-125); Osmolality Calculated 282 mOsm/kg (285-295); Potassium 3.6 mmol/L (3.5-5.1); Sodium 135 mmol/L (136-145); Total Bilirubin 0.2 mg/dL (0.15-1.2); Total Protein 6.9 g/dL (6.6-8.7)
[2020-07-15 15:38] LABS: Lipase 360 U/L (13-60)
[2020-07-15] MEDS: iohexol 350 mg/mL 100 mL Btl IV (16:19)
[2020-07-15 17:04] LABS: Troponin 5 2HR 20.16 ng/L (0-15)
[2020-07-15 17:06] LABS: Troponin 5 2HR Delta -0.84 ABS# (0-10)
[2020-07-15] MEDS: HYDROmorphone 1 mg/mL INJ 1 mL 0.5 MG IVP (18:41)
--- NOTE | 2020-07-15 19:59 | PM.HP ---
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 At the [facility] patient had incision and drainage of scrotal abscess, there was no evidence of Christiano's gangrene, he had erosion of urethral erosion into the scrotum which was identified on cystoscopy, status post suprapubic catheter, imaging was also concerning for osteomyelitis of sacrum, he was evaluated by infectious disease, PICC line was placed 06/21/2020, he was discharged home on doxycycline and Zosyn every 8 hour, he was instructed to go to the [place] for diversion if fistula does not seal in 1 to 2 months, recently his suprapubic catheter has been replaced by Dr. Gomez 2 days ago. Patient is stating that his symptoms started about 3 days ago, he start experiencing intractable nausea vomiting, symptoms were associated with epigastric discomfort which he is describing as severe burning sensation. He has not noticed any fever, headaches, neck pain. He has been changing his sacral wound dressing every day, a lot of purulent drainage has been noted, suprapubic catheter draining without any issues. No active bleeding. Diagnostics in the ER revealed acute pancreatitis, high D-dimer, CTA negative for PE, lipase 360, positive gallstones, requested gallbladder ultrasound, I received multiple doses of antiemetics in the ER, received fentanyl 50 mg IV, morphine 4 mg, Zofran 4 mg twice, I would start him on dextrose LR maintenance rate At the time my evaluation he was experiencing emesis, bilious content, abdominal pain 8/10, colostomy bag with feculent material, patient is endorsing adequate output via colostomy. Review of Systems Const: Reports: chills, body aches and malaise; Denies: fever(s) Eyes: Denies: change in vision ENMT: Denies: throat pain Card: Reports: chest pain Resp: Denies: dyspnea GI: Reports: abdominal pain, nausea and vomiting : Denies: flank pain Musc: Reports: back pain, limited range of motion, decrease in muscle mass and deformity; Denies: neck pain or joint redness Skin/Breast: Reports: non-healing lesions, lesions, dry skin and nail changes Neuro: Denies: headache(s) Psych: Reports: anxiety and irritability Endo: Denies: polyuria Justice/Lymph: Denies: easy bruising All/Imm: Denies: urticaria Medications/Allergies Home Medications Medication Instructions Recorded Confirmed Last Taken Type apixaban 2.5 mg tablet 2.5 mg PO BID 10/17/19 07/15/20 07/15/20 History levothyroxine 88 mcg tablet 88 mcg PO DAILY 10/17/19 07/15/20 07/15/20 History docusate sodium 100 mg capsule 100 mg PO BID PRN 03/28/20 07/15/20 05/11/20 History omeprazole 20 mg capsule,delayed 20 mg PO DAILY 03/28/20 07/15/20 07/15/20 History release senna leaf extract 10 ml PO BID PRN #237 ml 05/13/20 07/15/20 07/14/20 Rx doxycycline hyclate 100 mg capsule 100 mg PO BID cap 07/11/20 07/15/20 07/15/20 History oxycodone 10 mg tablet 10 - 15 mg PO QID PRN 30 Days #120 07/11/20 07/15/20 07/15/20 10:00 Rx tab 10 mg piperacillin-tazobactam 4.5 gram 4.5 gm IVP Q8H 07/11/20 07/15/20 07/15/20 08:00 History intravenous solution tizanidine 4 mg tablet 4 mg PO TID PRN #90 tab 07/11/20 07/15/20 07/14/20 Rx oxybutynin chloride 5 mg tablet 5 mg PO BID #60 tab 07/13/20 07/15/20 Unknown Rx Heparin Flush-0 See Rx Instructions .ROUTE .COMPLEX 07/15/20 07/15/20 Unknown History magnesium 1 tab PO DAILY 07/15/20 07/15/20 Unknown History multivitamin [Multiple Vitamins] 1 tab PO DAILY 07/15/20 07/15/20 Unknown History sodium chloride 0.9 % See Rx Instructions .ROUTE .COMPLEX 07/15/20 07/15/20 Unknown History zonisamide [Zonegran] 400 mg PO BEDTIME 07/15/20 07/15/20 07/14/20 History Allergies Allergy/AdvReac Type Severity Reaction Status Date / Time cefepime Allergy Unknown Unknown Verified 07/11/20 10:25 lactose Allergy Unknown Unknown Verified 07/11/20 10:25 aspirin Allergy ALGY-Anaphy Verified 07/11/20 10:25 laxis meropenem Allergy SWELLING/ Verified 07/11/20 10:25 HIVES cefixime AdvReac Unknown Verified 07/11/20 10:25 vancomycin AdvReac ADR-Itching Verified 07/11/20 10:25 PFSH Acute PFSH: Medical History Accidental overdose Cholelithiasis Chronic abdominal pain Chronic indwelling [place] catheter Chronic pain of lower extremity, bilateral Decubitus ulcer Encounter for long-term opiate analgesic use Foot amputation status Bilateral forefoot amputation History of amputation of toe (~02/2015) LEFT FOOT/ TOES RIGHT FOOT TOES History of uric acid staghorn calculus 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 Long-term use of high-risk medication Neurogenic bladder Parastomal hernia Periurethral abscess Phantom pain Restless leg syndrome Tobacco use disorder Surgical History Hx of resection of large bowel (~01/2015) My colon S/P abdominal aortic aneurysm repair Family History Unknown Anesthesia complication Denies family history of Bleeding disorder Social History Smoking and tobacco status: current every day smoker cigars Alcohol intake: current Alcohol intake frequency: holidays/special occasions only Adopted: Yes Lives independently: Yes Household members: spouse Marital status: Current occupational status: disabled History of recent travel: No Vitals/I&O/Wt Last Vital Signs Temp 98.2 F 07/15/20 13:34 Pulse 77 07/15/20 19:33 Resp 18 07/15/20 19:33 BP 139/80 07/15/20 19:33 Pulse Ox 98 07/15/20 19:33 Weight last 48 hrs Weight 68.039 kg Physical Exam Narrative: EXAM NARRATIVE: Middle-aged male When entered the room he was in distress secondary to emesis He was experiencing bilious emesis, Abdominal pain 8/10, tender epigastric area, Colostomy bag draining feculent material Suprapubic catheter draining clear urine Sacral ulcer stage IV, dressing is soaked with purulent drainage Lower extremity muscle mass loss, contracture, dry skin without edema Variable S1-S2, tachycardia Clinically looks dehydrated No acute respiratory distress Awake alert oriented x3 GCS 15 Irritable mood Reyes and luz elena's sign negative Data : 07/15/20 14:20 07/15/20 14:20 A&P Assessment and plan (1) Periurethral abscess: Status: Acute (2) Decubitus ulcer: Status: Chronic (3) Acute pancreatitis: Status: Acute (4) Cholelithiasis: Status: Acute (5) Osteomyelitis: Status: Acute (6) Hypokalemia: Status: Acute Additional A&P Information Acute pancreatitis Afebrile, no signs of sepsis, CT abdomen revealed cholelithiasis without cholecystitis High lipase Bilirubin normal, normal transaminases, Will obtain ultrasound gallbladder to rule out cholecystitis, However CT abdomen is not revealing distended gallbladder or wall thickening, I do suspect antibiotics as well for this episode of pancreatitis, he was discharged on doxycycline and Zosyn N.p.o. D5 LR maintenance rate Dilaudid for analgesia Monitor for signs of pancreatic abscess/necrosis, currently afebrile no organ failure Osteomyelitis of sacral area I would continue Zosyn along linezolid he has been reported to have allergy to vancomycin(which I think could be controlled with Benadryl), for now continue linezolid and Zosyn Obtain blood culture Stage IV sacral ulcer, dressing soaked with purulent drainage no active bleeding Periurethral abscess status post incision and drainage Status post suprapubic catheter placement Following up with Dr. Gomez, Dr. Gomez has scheduled him to be evaluated in 2 days, monitoring fistula repair History of recurrent UTIs, currently not septic, No hydronephrosis on CT abdomen/pelvis, creatinine normal Suprapubic catheter draining clear urine, catheter was changed 2 days ago I have updated Dr. Gomez about this admission, (he was planning for reassessment of urethra on 07/19/2020) Iron deficiency anemia: Hemoglobin stable, no active bleeding On last visit he was Hemoccult positive Hypokalemia: Repleted Atypical chest pain: Negative delta troponin, EKG without ischemic or infarctive changes, most likely epigastric discomfort was secondary to pancreatitis, monitor overnight CODE STATUS: Full code N.p.o. DVT prophylaxis: He cannot take p.o. medication at this point I would use Lovenox for DVT prophylaxis, at home he was taking Eliquis 2.5 mg twice a day, kindly switch him back to Eliquis once he is able to tolerate diet Attestations Medical Necessity Statement*: Anticipating stay in the hospital cross more than 2 midnights currently need management for acute pancreatitis with continuation of IV antibiotics for osteomyelitis of sacral Time Spent in Patient Care: (>than 50% of time spent in counselling and/or direct pt care on unit). 35 minutes Coding Level of Care Code Acute Tangible Personal Property Appraiser for [facility] Fwd Diagnoses Periurethral abscess N34.0 Decubitus ulcer L89.90 Acute pancreatitis K85.90 Cholelithiasis K80.20 Osteomyelitis M86.9 Hypokalemia E87.6
[2020-07-15] MEDS: HYDROmorphone 1 mg/mL INJ 1 mL 2 MG IVP (21:51)
[2020-07-15] MEDS: dextrose 5%-lactated ringers 1,000 ML 100 ML IV (23:07)
[2020-07-15] MEDS: lidocaine 1% 5 ML in potassium chloride premix 100 ML 25 ML IV (23:07)
[2020-07-15] MEDS: enoxaparin 40 mg/0.4 mL Syringe SUBCUT (23:10)
[2020-07-15] MEDS: piperacillin-tazobactam 4.5 GM in sodium chloride 0.9% (plus) 50 ML IV (23:11)
[2020-07-16] VITALS (13 sets, daily range): BP systolic 137–154; BP diastolic 68–97; PULSE 63–76; RESP 16–20; TEMP 36.6–36.8; O2SAT 95–100
[2020-07-16] MEDS: HYDROmorphone 1 mg/mL INJ 1 mL 2 MG IVP ×5 (02:57→21:18)
[2020-07-16] MEDS: linezolid premix 600 MG/300 ML PREMIX 300 MG IV ×2 (03:17→14:04)
[2020-07-16 05:49] LABS: Basophils % 0.2 %; Eosinophils % 0.2 %; Hematocrit 33.5 % (42.0-52.0); Hemoglobin 10.6 g/dL (11.7-16.6); Lymphocytes # 1.1 10^3/uL (0.8-4.8); Lymphocytes % 10.8 %; Mean Corpuscular HGB Conc 31.6 g/dL (30.0-36.0); Mean Corpuscular Hemoglobin 27.6 pg (28.0-34.0); Mean Corpuscular Volume 87.2 fL (80-94); Mean Platelet Volume 10.3 fL (7.4-10.4); Monocytes # 0.5 10^3/uL (0.2-0.9); Monocytes % 4.4 %; Neutrophils # 8.55 10^3/uL (1.8-7.7); Neutrophils % 84.2 %; Nucleated Red Blood Cells % 0 %; Platelet Count 258 10^3/cmm (130-400); Red Blood Count 3.84 10^6/uL (4.1-5.3); Red Cell Distribution Width 21.9 % (12.1-15.1); White Blood Count 10.2 10^3/uL (4.0-10.0)
[2020-07-16 06:13] LABS: Alanine Aminotransferase 12 U/L (0-41); Albumin Level 2.3 g/dL (3.5-5.2); Alkaline Phosphatase 145 IU/L (40-130); Anion Gap 9.5 (5-19); Aspartate Amino Transferase 9 U/L (0-40); Blood Urea Nitrogen 12 mg/dL (6-20); Calcium 8.7 mg/dL (8.5-10.5); Carbon Dioxide 22 mmol/L (22-29); Chloride 106 mmol/L (98-107); Globulin 4.6 g/dL (1.3-4.6); Glomerular Filtration Rate 117.1 mL/min (90-130); Glucose 155 mg/dL (65-115); Osmolality Calculated 281 mOsm/kg (285-295); Potassium 3.5 mmol/L (3.5-5.1); Sodium 134 mmol/L (136-145); Total Bilirubin 0.2 mg/dL (0.15-1.2); Total Protein 6.9 g/dL (6.6-8.7)
[2020-07-16 06:24] LABS: Lipase 685 U/L (13-60)
[2020-07-16] MEDS: piperacillin-tazobactam 4.5 GM in sodium chloride 0.9% (plus) 50 ML IV ×3 (06:36→21:19)
[2020-07-16] MEDS: dextrose 5%-lactated ringers 1,000 ML 100 ML IV ×2 (08:12→21:22)
--- NOTE | 2020-07-16 09:42 | PC.CHAP ---
Pastoral Care Encounter/Spiritual Assessment Type of Contact [] Declined meat stocker visit [] Patient/Family/Request visit [] Outpatient visit [] Follow-up visit [] Physician referral [] Code/Alert [x] Routine visit [] Staff referral [] Actively dying [] Patient sleeping [] Family support [] [] Out of room [] Palliative care [] [] Receiving care in room [] Pre-surgical visit [] Trauma [] Long length of stay [] ICU visit [] Other: Relational/Emotional Strength [] Patient feels connected with others/family/visitors/staff [] Distress [] Loneliness/isolation [] Abandonment Spirituality of Patient [] Person of Ivelisse [] Attends Christian of their Ivelisse [] Believes in Prayer [] Reads Bible or Cheondoism materials [] There are Spiritual issues to be addressed Rn Transitional Interventions [x] Prayer [] Active listening [x] Non-anxious presence [] Spiritual/emotional support [] Crisis/trauma care [] Spiritual counseling [] Bereavement support [] Provided bereavement packet [] Provided Bible/devotional materials [] Provided toy/stuffed animal, coloring book to patient or family member [] Provided Communion [] Anointing/[place] [] Salvation [x] Completed spiritual assessment [] Other: Impact on Illness or Injury [] Angry [] Fearful [] Anxious [] Often cries [] Exhaustion [] Unable to work [] Unable to attend mandaen [] Unable to walk/stand [] Unable to read [] Unable to drive [] Unable to eat/drink [] Unable to sleep [] Unable to be with family [] Patient intubated [] Other: Summary patient not feeling stronger. patient kind of down Time spent with patient 5 min
--- NOTE | 2020-07-16 10:55 | PC.RESP ---
SMOKING CESSATION INFORMATION SENT TO PATIENT.
[2020-07-16] MEDS: ondansetron 2 mg/ML SDV 2 mL 4 MG IVP (12:52)
--- NOTE | 2020-07-16 14:38 | US_ITS ---
WS: [id number] TESTICULAR ULTRASOUND HISTORY: assess for any abscess COMPARISON: None available. Evaluation is limited due to patient's condition. TECHNIQUE: Real-time and color Doppler imaging or utilized to perform a testicular ultrasound. Right testicle: 3.1 cm x 1.9 cm x 1.7 cm. Normal size and echogenicity. No mass or torsion. Normal color Doppler is present throughout. Systolic and diastolic velocities are both present. Diffuse scrotal wall thickening and edema. No focal abscess. Right epididymis: Normal epididymis with no increased vascularity. Left testicle: 3.2 cm x 2.0 cm x 1.7 cm. Normal size and echogenicity. No mass or torsion. Normal color Doppler is present throughout. Systolic and diastolic velocities are both present. No significant hydrocele. There is a large inflammatory collection surrounding the LEFT testicle whic h is probably the epididymis. Favor this is acute epididymitis. No scrotal wall abscess is identified although there is marked thickening and edema present. US/US scrotum [id number] IMPRESSION: 1. Significant, acute hypervascular process in the LEFT scrotum which is proba radha severe LEFT epididymitis. 2. Diffuse scrotal wall thickening. No scrotal wall abscess identified. 3. No testicular torsion.
--- NOTE | 2020-07-16 19:21 | P.PN_ITS ---
Subjective Subjective: Interval history: Pain reports is little bit better when he gets pain medications. At the time of the visit at about 8.5 out of 10. Reports pain is in a band across his mid abdomen. Has no appetite. Vitals/I&O/Wt Last Vital Signs Temp 98.2 F 07/16/20 16:00 Pulse 76 07/16/20 16:00 Resp 18 07/16/20 16:58 BP 137/79 07/16/20 16:00 Pulse Ox 100 07/16/20 16:00 07/16/20 07/16/20 07/16/20 06:59 14:59 22:59 Intake Total 350 / 350 958.333 / 958.333 350 / 1308.333 Balance 350 / 350 958.333 / 958.333 350 / 1308.333 Weight last 48 hrs Weight 68.039 kg Physical Exam Const: COMMON NORMALS: no acute distress and patient oriented x3 OTHER: Paraplegic HENMT: COMMON NORMALS: oropharynx normal Neck/C-Spine: COMMON NORMALS: no JVD Resp: COMMON NORMALS: normal respiratory effort and clear to auscultation bilaterally AUSCULTATION: clear to auscultation bilaterally Cardio: COMMON NORMALS: no JVD, regular rhythm, S1 normal heart sound present, S2 normal heart sound present and No murmurs present (Cardio) RHYTHM: regular rhythm HEART SOUNDS: S1 normal heart sound present and S2 normal heart sound present GI: COMMON NORMALS: Normal to inspection, nondistended, normoactive bowel sounds present, Soft to palpation and non-tender PALPATION: Yes Soft to palpation : OTHER: Minimal scrotal erythema, no significant swelling, no purulent drainage. Posterior scrotum small opening where the drain was placed previously, no purulent discharge. Very posterior/perineum is eroded with subcutaneous/fat tissue exposure. No necrosis or purulent drainage. Extremity: COMMON NORMALS: no joint enlargement and no pedal edema OTHER: Distal lower extremity amputations Neuro: COMMON NORMALS: patient oriented x3 and moves all extremities Skin: GENERAL SKIN EXAM: dry skin WOUNDS: Yes wounds noted (Very extensive pressure ulcers over multiple areas of posterior pelvis, sacrum, hips, with exposure of muscle tissue as well as bone, without areas of significant necrosis, no purulent discharge) Data : 07/16/20 05:00 07/16/20 05:00 A&P Assessment and plan (1) Acute pancreatitis: Rise of lipase this morning. Still having pain. Continue bowel rest, supportive care. Gallbladder ultrasound has been reportedly requested, but I do not see it done. Will reorder. Status: Acute Qualifiers: Acute pancreatitis complication: no infection or necrosis Pancreatitis type: unspecified pancreatitis type Qualified Code(s): K85.90 - Acute panc reatitis without necrosis or infection, unspecified (2) Periurethral abscess: Previously scrotal abscess requiring I&D, suprapubic catheter placement last month. Currently scrotum mildly erythematous, no swelling noted. No purulent discharge. Ultrasound obtained. Appears to show acute hypervascular process in left scrotum probably severe left epididymitis. At this time continue broad-spectrum IV antibiotics. Follow-up cultures. We will scheduled for outpatient evaluation with Dr. Gomez on the of progress of healing of urethral fistula. Depending on his progress, if he is not improving enough in time for the procedure would reach out to urology again given epididymitis to see if this is something that he may benefit from being performed during the same hospitalization. Status: Acute (3) Decubitus ulcer: Ulcers are quite extensive, with muscle tissue, bone exposure, however, no significant necrosis to require debridement, no purulent discharge. Wound care orders will be continued with silver sorb, ABD pads. Continue repositioning. Add protein supplementation after diet resumed. We will need to reestablish follow-up with wound care clinic. Status: Chronic (4) Cholelithiasis: Requested additional evaluation by gallbladder ultrasound. On CT no signs of cholecystitis. Has had no signs of cholangitis. Status: Acute (5) Osteomyelitis: Currently continuing on Zosyn, linezolid. Status: Acute (6) Hypokalemia: Replaced Status: Acute Additional A&P Information Iron deficiency anemia: Hemoglobin stable, no active bleeding On last visit he was Hemoccult positive Atypical chest pain: Negative delta troponin, EKG without ischemic or infarctive changes, most likely epigastric discomfort was secondary to pancreatitis, monitor. CT chest with contrast without acute findings. Aortic aneurysm noted on CT abdomen, unchanged, no endoleak. Cholelithiasis. Pancreatitis. Unchanged left parastomal hernia. CODE STATUS: Full code N.p.o. DVT prophylaxis: He cannot take p.o. medication at this point I would use Lovenox for DVT prophylaxis, at home he was taking Eliquis 2.5 mg twice a day, kindly switch him back to Eliquis once he is able to tolerate diet Attestations Medical Necessity Statement*: Continue admission for assessment and management of acute pancreatitis. Coding Level of Care Code Acute Deputy District Customs Director for [facility] Fwd Diagnoses Acute pancreatitis K85.90 Acute pancreatitis complication: no infection or necrosis Pancreatitis type: unspecified pancreatitis type Periurethral abscess N34.0 Decubitus ulcer L89.90 Cholelithiasis K80.20 Osteomyelitis M86.9 Hypokalemia E87.6
[2020-07-16] MEDS: enoxaparin 40 mg/0.4 mL Syringe SUBCUT (21:21)
[2020-07-17] VITALS (11 sets, daily range): BP systolic 127–163; BP diastolic 68–83; PULSE 62–93; RESP 14–18; TEMP 36.5–36.9; O2SAT 96–100
[2020-07-17] MEDS: linezolid premix 600 MG/300 ML PREMIX 300 MG IV ×2 (01:47→17:06)
[2020-07-17] MEDS: HYDROmorphone 1 mg/mL INJ 1 mL 2 MG IVP (01:48)
[2020-07-17] MEDS: ondansetron 2 mg/ML SDV 2 mL 4 MG IVP (01:50)
[2020-07-17] MEDS: piperacillin-tazobactam 4.5 GM in sodium chloride 0.9% (plus) 50 ML IV ×3 (04:56→21:46)
[2020-07-17 05:39] LABS: Basophils # 0.1 10^3/uL (0.0-0.1); Basophils % 0.8 %; Eosinophils # 0.4 10^3/uL (0.0-0.8); Eosinophils % 4.6 %; Hematocrit 30.9 % (42.0-52.0); Hemoglobin 9.7 g/dL (11.7-16.6); Lymphocytes # 1.5 10^3/uL (0.8-4.8); Lymphocytes % 19.5 %; Mean Corpuscular HGB Conc 31.4 g/dL (30.0-36.0); Mean Corpuscular Hemoglobin 28.1 pg (28.0-34.0); Mean Corpuscular Volume 89.6 fL (80-94); Mean Platelet Volume 9.9 fL (7.4-10.4); Monocytes # 0.5 10^3/uL (0.2-0.9); Neutrophils # 5.27 10^3/uL (1.8-7.7); Neutrophils % 67.8 %; Nucleated Red Blood Cells % 0 %; Platelet Count 213 10^3/cmm (130-400); Red Blood Count 3.45 10^6/uL (4.1-5.3); Red Cell Distribution Width 22.2 % (12.1-15.1); White Blood Count 7.8 10^3/uL (4.0-10.0)
[2020-07-17 06:22] LABS: Alanine Aminotransferase 11 U/L (0-41); Albumin Level 2.2 g/dL (3.5-5.2); Alkaline Phosphatase 129 IU/L (40-130); Anion Gap 8.3 (5-19); Aspartate Amino Transferase 9 U/L (0-40); Blood Urea Nitrogen 8 mg/dL (6-20); Calcium 8.4 mg/dL (8.5-10.5); Carbon Dioxide 24 mmol/L (22-29); Chloride 109 mmol/L (98-107); Globulin 4.1 g/dL (1.3-4.6); Glomerular Filtration Rate 139.9 mL/min (90-130); Glucose 86 mg/dL (65-115); Osmolality Calculated 284 mOsm/kg (285-295); Potassium 3.3 mmol/L (3.5-5.1); Sodium 138 mmol/L (136-145); Total Bilirubin 0.2 mg/dL (0.15-1.2); Total Protein 6.3 g/dL (6.6-8.7)
[2020-07-17 06:38] LABS: Creatinine Clr Calc Pharmacy 131.5839; Lipase 361 U/L (13-60)
--- NOTE | 2020-07-17 08:24 | PM.PN ---
Subjective Subjective: Interval history: Pain reports is little bit better when he gets pain medications. At the time of the visit at about 8.5 out of 10. Reports pain is in a band across his mid abdomen. Has no appetite. Vitals/I&O/Wt Last Vital Signs Temp 98 F 07/17/20 07:57 Pulse 70 07/17/20 07:57 Resp 18 07/17/20 07:57 BP 127/68 07/17/20 07:57 Pulse Ox 99 07/17/20 07:57 07/16/20 07/17/20 07/17/20 22:59 06:59 14:59 Intake Total 1350 / 2308.333 50 / 2358.333 Output Total 400 / 400 Balance 950 / 1908.333 50 / 1958.333 Weight last 48 hrs Weight 68.039 kg Data : 07/17/20 05:01 07/17/20 05:01 A&P Assessment and plan (1) Abdominal pain: Status: Acute (2) Acute pancreatitis: Rise of lipase this morning. Status: Acute Qualifiers: Acute pancreatitis complication: no infection or necrosis Pancreatitis type: unspecified pancreatitis type Qualified Code(s): K85.90 - Acute pancreatitis without necrosis or infection, unspecified (3) Cholelithiasis: Status: Acute (4) Periurethral abscess: Previously scrotal abscess requiring I&D, suprapubic catheter placement last month at [facility]. Currently scrotum mildly erythematous, no swelling noted. No purulent discharge. Ultrasound obtained. Appears to show acute hypervascular process in left scrotum probably severe left epididymitis. At this time continue broad-spectrum IV antibiotics. No cultures sent from the ER on this admission. We will send urine culture and blood cultures. Patient is scheduled to see Dr. Gomez on as an outpatient to monitor for urethral fistula healing. If patient remains in the hospital will most likely consult Dr. Gomez for further treatment given epididymitis to see if this is something that he may benefit from being performed during the same hospitalization. Continue with suprapubic catheter for now. Status: Acute (5) Decubitus ulcer: Ulcers are quite extensive, with muscle tissue, bone exposure, however, no significant necrosis to require debridement, no purulent discharge. Wound care orders will be continued with silver sorb, ABD pads. Continue repositioning. Add protein supplementation after diet resumed. We will need to reestablish follow-up with wound care clinic. Status: Chronic (6) Osteomyelitis: Currently continuing on Zosyn, linezolid. Status: Acute (7) Hypokalemia: Replaced Status: Acute (8) Iron deficiency anemia: Status: Acute (9) Hx of abdominal aortic aneurysm: Status: Acute (10) Protein-energy malnutrition: Status: Acute Additional A&P Information Abdominal pain: Most likely secondary to acute pancreatitis. Given his history of mesenteric ischemia in the past cannot rule that out. Patient is extremely tender in right upper quadrant and hypochondrium which is out of proportion for his pancreatitis. CT scan discussed in detail with Dr. Todd. She states patient does not have any ascites, bowel thickening chances of ischemia are less. Will add lactate to morning labs. Abdominal ultrasound suggestive of hydropic gallbladder. Will do MRCP. On review of labs alkaline phosphatase was elevated on admission and trending down to normal level. It is quite possible that patient had a gallstone which he passed leading to transient pancreatitis. We will advance her diet to clear liquid diet. Will advance further depending on how he tolerates. Zofran as needed. Protonix twice daily for now. 1 mg IV every 6 hours as needed for pain Iron deficiency anemia: Hemoglobin stable, no active bleeding On last visit he was Hemoccult positive. Check Iron panel. Will start on iron supplementation accordingly. Periurethral abscess/left epididymitis/decubitus ulcer/sacral osteomyelitis: Will request documents from [facility] including the cultures and ID documentation. Culture results from the past had Klebsiella, E. coli, Pseudomonas in urine with Proteus and Enterococcus in February. Patient was discharged on Zosyn every 8 hourly IV through PICC line and oral doxycycline. Most likely patient requires further follow-up as an outpatient both with ID and wound care. We will consult ID. Patient has a follow-up appointment with Dr. Gomez on July 19 for further evaluation and monitoring of urethral fistula. If patient is still here we will consult Dr. Gomez. For now continue the Zosyn and linezolid which was started on admission. Severe protein energy malnutrition: Replete electrolytes. Patient is at high risk of developing refeeding syndrome. Continue to monitor magnesium and phosphorus levels as well. Will replete accordingly. History of DVT: Patient is paraplegic. At home on Eliquis 2.5 mg twice daily. Also has an IVC filter which was reseen on the CTA. For now was switched over to Lovenox at prophylactic dose. We will continue as patient already has IVC filter. Atypical chest pain: Negative delta troponin, EKG without ischemic or infarctive changes, most likely epigastric discomfort was secondary to pancreatitis, monitor. CT chest with contrast without acute findings. Aortic aneurysm noted on CT abdomen, unchanged, no endoleak. Cholelithiasis. Pancreatitis. Unchanged left parastomal hernia. CODE STATUS: Full code Clear liquid diet. DVT prophylaxis: Lovenox for DVT prophylaxis. Discharge planning: If patient is able to tolerate diet well most likely will discharge home with current home health. Patient would most likely require continued follow-up as an outpatient with urology, ID, wound care. Attestations Medical Necessity Statement*: Patient requires further hospitalization for management of acute pancreatitis leading to poor oral intake, extensive periurethral abscess, sacral osteomyelitis, protein energy malnutrition. Time Spent in Patient Care: Greater than 35 minutes (>than 50% of time spent in counselling and/or direct pt care on unit). Coding Level of Care Code Acute Woods Overseer for Chg Fwd Diagnoses Abdominal pain R10.9 Acute pancreatitis K85.90 Acute pancreatitis complication: no infection or necrosis Pancreatitis type: unspecified pancreatitis type Cholelithiasis K80.20 Periurethral abscess N34.0 Decubitus ulcer L89.90 Osteomyelitis M86.9 Hypokalemia E87.6 Iron deficiency anemia D50.9 Hx of abdominal aortic aneurysm Z86.79 Protein-energy malnutrition E46
[2020-07-17 09:17] LABS: Procalcitonin 0.08 ng/mL (0-0.5)
[2020-07-17] MEDS: dextrose 5%-lactated ringers 1,000 ML 100 ML IV ×2 (09:23→14:08)
[2020-07-17 09:37] LABS: Iron 68 ug/dL (59-158)
[2020-07-17 09:40] LABS: Magnesium 1.3 mg/dL (1.7-2.3); Phosphorus 2.1 mg/dL (2.5-4.5)
--- NOTE | 2020-07-17 09:46 | MR_ITS ---
WS: [id number] MRCP (MAGNETIC RESONANCE CHOLANGIOPANCREATOGRAPHY) HISTORY: pancreatitis, gall stones COMPARISON: 07/15/2020 TECHNIQUE: Multiple sequences are performed to evaluate the intra and extrahepatic ducts. This study is limited by motion. Gallbladder is moderately distended. Patient has known cholelithiasi s. There is no common bile duct dilatation. The common bile duct is normal size measuring 5 mm. There is no fluid adjacent to the gallbladder or wall thickening. Pancreas was better evaluated on the CT from 07/15/2020. Pancreatic duct is not dilated. Patient is status post endovascular repair of a large abdominal aortic aneurysm. No periaortic hemato ma. Mild dilatation of the RIGHT colon at the level of the anastomotic sutures. MR/MR MRCP [id number] IMPRESSION: 1. Mildly hydropic gallbladder with stones. No evidence for acute cholecystiti s. 2. Normal common bile duct. 3. Ectatic dilated loop of colon in the RIGHT abdomen near the anastomotic sut ures. No obstructive site is identified.
[2020-07-17 09:51] LABS: Percent Saturation 71.5 % (20-50); Total Iron Binding Capacity 95 mcg/dl; Unsaturated Iron Binding 27 ug/dL (112-347)
[2020-07-17] MEDS: magnesium sulfate premix 2 GM/50 ML PIGGYBACK IV (10:41)
[2020-07-17] MEDS: pantoprazole 40 mg SDV IVP ×2 (10:41→21:31)
[2020-07-17] MEDS: iron sucrose 200 MG in sodium chloride 0.9% (100 ml) 100 ML 220 MG IV (10:43)
[2020-07-17 10:50] LABS: Lactate (Lactic Acid level) 0.5 mmol/L (0.5-2.2)
[2020-07-17] MEDS: HYDROmorphone 1 mg/mL INJ 1 mL IVP ×3 (10:53→22:52)
[2020-07-17 11:46] LABS: Bilirubin Urine Neg (Negative); Blood Urine 3+ (Negative); Glucose Urine UA Norm (Normal); Ketones Urine Negative (Negative); Leukocyte Esterase Urine 2+ (Negative); Nitrate Urine Negative (Negative); Protein Urine Neg (Negative); Specific Gravity, Urine 1.015 (1.005-1.030); Sulfosalicylic Acid Urine Positive (Negative); Urine Appearance Cloudy (CLEAR); Urine Color Yellow (Yellow); Urobilinogen Urine Norm (Negative); pH Urine 9 (5-7)
[2020-07-17 11:49] LABS: Bacteria Urine 2+ /hpf; RBC Urine 15-25 /hpf (0-2); Squamous Epithelial Cell Urine 0-4 /hpf (0-5); WBC Urine 25-40 /hpf (0-5)
[2020-07-17 11:53] LABS: Add Urine Culture? Yes
--- NOTE | 2020-07-17 19:29 | US_ITS ---
WS: [id number] RIGHT UPPER QUADRANT ULTRASOUND HISTORY: Perihepatic due to pancreatitis. COMPARISON: 07/15/2020 CT. Liver: 14.2 cm in length. Normal size liver. No bile duct dilatation or mass. Gallbladder: Normally distended gallbladder. No wall thickening or pericholecystic fluid. There are s everal stones present in the gallbladder. May be chronic hydrops. CBD: 0.5 cm Pancreas: Not visualized. Right kidney: 10.7 cm in length. Normal size and echogenicity. No hydronephrosis or mass. Aorta and IVC: Abdominal aortic aneurysm is noted and previously described. Patient has an endovascul ar graft present. No ascites. US/US abdomen limited [id number] IMPRESSION: 1. Hydropic gallbladder with stones. No pericholecystic fluid and no gallbladd er wall thickening. No duct dilatation. 2. No ascites identified. 3. Known aortic aneurysm status post endovascular grafting.
--- NOTE | 2020-07-17 19:38 | P.CONIM_ITS ---
Providers/Reason For Consult Consulting Physican/Specialty*: Tiarra Ontiveros MD/Infectious Disease Reason for Consult*: Osteomyelitis sacrum Attending Physician: Joe Celis MD Primary Care Provider: Jacoby Jon DO History of Present Illness History of Present Illness Maicol Reid is a 55 year old male with a complex past medical history. 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 He had bowel infarction requiring colectomy and colostomy, amputation of all toes, neurogenic bladder, chronic cystitis, nephrolithiasis for which he follows with Dr. Gomez. Other issues include multiply infected stage IV decubitus ulcers with polymicrobial organisms including E. coli, Proteus, Enterococcus, Klebsiella, Pseudomonas and MRSA. He is noted to have had osteomyelitis of the right and left ischium dating at least back to 2014. Also has a history of chronic DVT for which he is on Eliquis. Previous treatment for the above osteomyelitis has included imipenem and Zyvox for 6 weeks in August 2015. Follow-up bone scan in October 2015 revealed persistent osteo in bilateral ischial tuberosities and inferior pubic rami. He follows with infectious disease Dr. Easton in [facility]. He has previously also followed with wound care for ulceration over posterior right leg. He is known to have chronic lower extremity lymphedema and has been on lymphedema wraps. He reestablished care with urology after 3 years in March 2020 due to malfunction of Shore catheter. Also reported some difficuly with change in catheters since beginning of the year with leaking around the catheter. He has had admissions at [facility] multiple times for SBO, recently readmitted June 04 after overdosing on oxycodone accidentally. Admission course on this hospitalization was notable for development of scrotal cellulitis, and imaging revealing multiple perineal abscesses. He was eventually transferred to [facility] in [place] where he remained admitted until June 23. He underwent cystoscopy, incision and drainage of periurethral abscesses and placement of a suprapubic catheter on 06/07/2020 by urologist at [place]. Operative findings included urethral erosion into the scrotum identified on cystoscopy and I&D of scrotal abscess. Christiano's gangrene was eventually excluded. It was recommended to him that if his fistulization between the urethra and the scrotum does not seal off within 1 to 2 months to consider referral to [facility] for diverting procedure. He was seen by infectious disease on this visit and eventually discharged on Zosyn and doxycycline reportedly for sacral osteomyelitis. PICC line placed on June 21. On a recent visit with Dr. Gomez on July 13, he had continued to report leakage through the urethra. Volume of leakage estimated to be 50% of the total volume. He was planned for reassessment of the urethra as an outpatient. Now currently admitted on July 15 for epigastric discomfort and found to have acute pancreatitis and cholelithiasis. MRCP without evidence of any obstructing stones at this present time. Overall appears to be improving with conservative management. ID service is consulted due to history of recurrent osteomyelitis including one recently and perineal abscesses and recent infection. On admission note there is mention of increased soakage of sacral wounds. Blood culture negative to date. Review of Systems General: Reports: 10 or more systems reviewed and unremarkable except in HPI and below Const: Denies: fever(s), chills or body aches Eyes: Denies: change in vision, blurry vision or photophobia ENMT: Reports: hoarseness; Denies: throat pain, enlarged tonsils, odynophagia or nasal congestion Card: Denies: chest pain, palpitations, irregular heart rhythm, edema, swelling of feet/ankles, lightheadedness, pre-syncope, dyspnea on exertion or orthopnea Resp: Denies: dyspnea, productive cough, non-productive cough, wheezing, stridor, pain on inspiration, change in phlegm color, hemoptysis or chest congestion GI: Denies: abdominal pain, nausea, vomiting, hematemesis, coffee ground emesis, dysphagia, heartburn, diarrhea, constipation, GI cramping, change in stool character, hematochezia or melena : Denies: flank pain, dysuria, urinary frequency, urinary urgency, urinary hesitancy or hematuria Musc: Denies: neck pain, back pain, extremity pain, joint swelling, joint warmth or deformity Neuro: Denies: headache(s), numbness in extremities, weakness in extremities, sensory changes, difficulty walking, frequent falls, dizziness, vertigo, behavioral changes, Slurred speech present or seizure-like activity Psych: Denies: anxiety, depression, suicidal ideation or homicidal ideation Endo: Denies: polyuria, polydipsia, tired all the time, cold intolerance or hot flashes Justice/Lymph: Denies: easy bruising or easy bleeding Meds/Allergies Home Medications and Allergies Home Medications Medication Instructions Recorded Confirmed Last Taken Type apixaban 2.5 mg tablet 2.5 mg PO BID 10/17/19 07/15/20 07/15/20 History levothyroxine 88 mcg tablet 88 mcg PO DAILY 10/17/19 07/15/20 07/15/20 History docusate sodium 100 mg capsule 100 mg PO BID PRN 03/28/20 07/15/20 05/11/20 History omeprazole 20 mg capsule,delayed 20 mg PO DAILY 03/28/20 07/15/20 07/15/20 History release senna leaf extract 10 ml PO BID PRN #237 ml 05/13/20 07/15/20 07/14/20 Rx doxycycline hyclate 100 mg capsule 100 mg PO BID cap 07/11/20 07/15/20 07/15/20 History oxycodone 10 mg tablet 10 - 15 mg PO QID PRN 30 Days #120 07/11/20 07/15/20 07/15/20 10:00 Rx tab 10 mg piperacillin-tazobactam 4.5 gram 4.5 gm IVP Q8H 07/11/20 07/15/20 07/15/20 08:00 History intravenous solution tizanidine 4 mg tablet 4 mg PO TID PRN #90 tab 07/11/20 07/15/20 07/14/20 Rx oxybutynin chloride 5 mg tablet 5 mg PO BID #60 tab 07/13/20 07/15/20 Unknown Rx Heparin Flush-0 See Rx Instructions .ROUTE .COMPLEX 07/15/20 07/15/20 Unknown History magnesium 1 tab PO DAILY 07/15/20 07/15/20 Unknown History multivitamin [Multiple Vitamins] 1 tab PO DAILY 07/15/20 07/15/20 Unknown History sodium chloride 0.9 % See Rx Instructions .ROUTE .COMPLEX 07/15/20 07/15/20 Unknown History zonisamide [Zonegran] 400 mg PO BEDTIME 07/15/20 07/15/20 07/14/20 History Allergies Allergy/AdvReac Type Severity Reaction Status Date / Time cefepime Allergy Unknown Unknown Verified 07/11/20 10:25 lactose Allergy Unknown Unknown Verified 07/11/20 10:25 aspirin Allergy ALGY-Anaphy Verified 07/11/20 10:25 laxis meropenem Allergy SWELLING/ Verified 07/11/20 10:25 HIVES cefixime AdvReac Unknown Verified 07/11/20 10:25 vancomycin AdvReac ADR-Itching Verified 07/11/20 10:25 Current Medications Current Medications Generic Name Dose Route Start Last Admin Trade Name Freq PRN Reason Stop Dose Admin Enoxaparin Sodium 40 mg 07/15/20 21:13 07/16/20 21:21 Lovenox SUBCUT 40 mg Q24H FUENTES Administration Hydromorphone HCl 1 mg 07/17/20 08:54 07/17/20 17:26 Dilaudid Inj IVP 1 mg Q6H PRN Administration [employer]UNGER Piperacillin Sod/Tazobactam 50 mls @ 12.5 mls/hr 07/15/20 21:30 07/17/20 14:09 Sod 4.5 gm/ Sodium Chloride IV 12.5 mls/hr Q8H FUENTES Administration Protocol Linezolid 600 mg in 300 mls @ 300 mls/hr 07/15/20 22:00 07/17/20 17:06 Zyvox Premix IV 300 mls/hr Q12H FUENTES Administration Protocol Dextrose/Lactated Ringer's 1,000 mls @ 75 mls/hr 07/15/20 21:13 07/17/20 14:08 Dextrose 5%-Lactated Ringers IV 100 mls/hr .[id number] FUENTES Administration Iron Sucrose 200 mg/ Sodium 110 mls @ 220 mls/hr 07/17/20 10:00 07/17/20 10:43 Chloride IV 07/21/20 10:29 220 mls/hr Q24H FUENTES Administration Ondansetron HCl 4 mg 07/15/20 21:13 07/17/20 01:50 Zofran IVP 4 mg Q6H PRN Administration NAUSEA AND VOMITING Pantoprazole Sodium 40 mg 07/17/20 09:30 07/17/20 10:41 Protonix IVP 40 mg Q12H FUENTES Administration PFSH Acute PFSH: Medical History Accidental overdose Cholelithiasis Chronic abdominal pain Chronic indwelling Shore catheter Suprapubic catheter placed 06/07 [facility] after incision and drainage of uretheral abscess Chronic pain of lower extremity, bilateral Decubitus ulcer Encounter for long-term opiate analgesic use Foot amputation status 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 Long-term use of high-risk medication Neurogenic bladder Parastomal hernia Periurethral abscess Phantom pain Restless leg syndrome Tobacco use disorder Surgical History Abscess of scrotum Debridement/erosion of urethra History of amputation of toe (~02/2015) LEFT FOOT/ TOES RIGHT FOOT TOES Hx of resection of large bowel (~01/2015) My colon -- colostomy present S/P abdominal aortic aneurysm repair S/P PICC central line placement PICC line placement for sacral osteomyelitis, placed 06/21/2020 Suprapubic catheter Family History Unknown Anesthesia complication Denies family history of Bleeding disorder Social History Smoking and tobacco status: current every day smoker cigars Alcohol intake: current Alcohol intake frequency: holidays/special occasions only Adopted: Yes Lives independently: Yes Household members: spouse Marital status: Current occupational status: disabled History of recent travel: No Vitals/I&O/Wt Last Vital Signs Temp 97.9 F 07/17/20 19:25 Pulse 64 07/17/20 19:25 Resp 18 07/17/20 19:25 BP 136/80 07/17/20 19:25 Pulse Ox 100 07/17/20 19:25 07/17/20 07/17/20 07/17/20 06:59 14:59 22:59 Intake Total 350 / 2658.333 1525 / 1525 Output Total 350 / 350 350 / 700 Balance 350 / 2258.333 1175 / 1175 -350 / 825 Physical Exam Narrative: EXAM NARRATIVE: GENERAL: Awake, alert, oriented, in no acute distress. [] HEENT: Normocephalic, atraumatic, PERRLA. [] CHEST: Clear to auscultation bilaterally. [] CVS: S1, S2 normal. No murmur, rubs, gallops. Peripheral pulses palpable. [] ABDOMEN: Soft, nontender. Nondistended. Bowel sounds heard. Colostomy left lower quadrant [] NEUROVASCULAR: Awake, alert. Paraplegic, at baseline [] EXTREMITIES: Paraplegic at baseline, sacral decubitus ulcers with dressing in place [] Data Micro: Micro: Microbiology 07/17/20 10:17 Blood Culture - Pr eliminary Blood SPECIMEN COLLE KATHERINE 07/17/20 10:20 Blood Culture - Pr eliminary Blood SPECIMEN [facility] Imaging^: CT Abd/Pel: Radiologist's impression: Date of Service: 06/07/20 Procedure(s): CT abdomen pelvis wo con [id number] IMPRESSION: 1. Low perineal incompletely included collections of fluid in gas are suspicious for peroneal or scrotal abscess. Findings raises the possibility of underlying condition of necrotizing fasciitis Suspected small amount of hyperdense material or contrast media is unclear as to the origin and enterocutaneous or entero-soft tissue fistulous communication of previously administered bowel contrast is not excluded. 2. Interval development of diffuse abdominal wall, pelvic superficial soft tissue and proximal by stranding which could reflect edema related anasarca versus infection origin of cellulitis. 3. Segment of moderate to prominent gas distended bowel transversely in the upper abdomen possibly containing focal short segment of peristalsis. Abnormal narrowing is less likely consideration as this finding was not demonstrated on the recent CT comparison. 4. [place] of multiple bowel segments low within the pelvis with multiple collections of fluid and gas which are difficult to ascertain as origin of location and could not be confirmed as intraluminal within bowel. 5. Peristomal hernia with development of wall thickening of portions of bowel incorporated within the stoma which could be secondary to enteritis, infectious origin versus development of incarceration or strangulated bowel. 6. Development of bilateral hydronephrosis and ureterectasis to the level of the pelvis inflammatory process. 7. Prominent bladder wall thickening and prominent collection of debris and gas within the bladder which could be catheter related although the integrity of the superior bladder is in question and findings could reflect enterovesical or vesical- enteric or vesical-peritoneal fistulous communication. 8. Likely surgical absence of the lower portion of the sacrum with superficial soft tissue thickening and decubitus changes of the posterior low pelvis. The extent of involvement and soft tissue destruction extends to the posterior bone margin of the posterior diastatic symphysis and the posterior acetabular iliac bones with underlying sclerosis suspicious for osteomyelitis. 9. Aneurysmal dilatation of [place] abdominal aorta is similar. 10. Right intrarenal calculus. 11. Cholelithiasis. Date of Service: 07/15/20 Procedure(s): CT angio chest w abd pel w con IMPRESSION: 1. The head of the pancreas is enlarged and there is haziness of the fat adjacent to the head of the pancreas concerning for acute pancreatitis. No pseudocyst. 2. Unchanged aortic aneurysm and stent graft. No endoleak. 3. Unchanged decubitus ulcer with postoperative changes. 4. Cholelithiasis. The gallbladder is distended with no duct dilatation. No definite cholecystitis. 5. Unchanged left peristomal hernia. Urinary bladder: There is nonspecific bladder wall thickening. This may be related to incomplete distention. Other Data: Other data: Urine Culture Final 06/09/20 Organism 1 Klebsiella pneumoniae [place] Count 60,000 - 70,000 CFU/ml Organism 2 Escherichia coli [place] Count 60,000 - 70,000 CFU/ml Organism 3 Pseudomonas aeruginosa [place] Count 40,000 - 50,000 CFU/ml Kleb pneum E coli P aerugino M.I.C. RX M.I.C. RX M.I.C. RX --------- ------ --------- ------ --------- ------ * Amikacin <=16 S <=16 S <= 16 S * Amoxicillin/Clavulanate <=8/4 S <=8/4 S * Ampicillin >16 R >16 R * Ampicillin/Sulbactam <=8/4 S >16/8 R * Aztreonam <=4 S <=4 S 16 I * Cefepime <=8 S <=8 S >16 R * Ceftriaxone <=1 S <=1 S * Cefuroxime <=4 S <=4 S * Ciprofloxacin <=1 S <=1 S >2 R * Gentamicin <=2 S <=2 S 8 I * Imipenem <=1 S <=1 S 2 S * Levofloxacin <=2 S <=2 S >4 R * Nitrofurantoin 64 I <=32 S * Tetracycline <=4 S <=4 S * Tobramycin <=4 S * Trimethoprim/Sulfamethoxazole <=2/38 S <=2/38 S * Piperacillin/Tazobactam <=16 S <=16 S <=16 S Urine Culture Final 05/14/20-1000 Organism 1 Proteus mirabilis esbl [place] Count 30,000 - 40,000 CFU/ml Organism 2 Pseudomonas aeruginosa [place] Count 10,000 - 20,000 CFU/ml CRITICAL RESULT YES/NO: YES CRITICAL CALLED BY: JF TO AND READ BACK BY: LAMAR DATE: 05/14/20 TIME: 999 Promiresb P briannao M.I.C. RX M.I.C. RX --------- ------ --------- ------ * Amikacin <=16 S 32 I * Amoxicillin/Clavulanate 16/8 I * Ampicillin >16 R * Ampicillin/Sulbactam 16/8 I * Aztreonam >16 R >16 R * Cefepime >16 R >16 R * Ceftriaxone >32 R * Cefuroxime >16 R * Ciprofloxacin <=1 S >2 R * Gentamicin 4 S >8 R * Imipenem <=1 S * Levofloxacin <=2 S >4 R * Nitrofurantoin >64 R * Tetracycline >8 R * Tobramycin <=4 S * Trimethoprim/Sulfamethoxazole >2/38 R * Piperacillin/Tazobactam <=16 S 32 S Urine Culture Final 03/19/20-1610 Organism 1 Proteus mirabilis [place] Count 80,000 - 90,000 CFU/ml Organism 2 Alcaligenes faecalis [place] Count 20,000 - 30,000 CFU/ml Organism 3 Enterococcus faecalis [place] Count 10,000 - 20,000 CFU/ml P mirabili Alc faecal E faecalis M.I.C. RX M.I.C. RX M.I.C. RX --------- ------ --------- ------ --------- ------ * Amikacin <=16 S <=16 S * Amoxicillin/Clavulanate <=8/4 S * Ampicillin <=8 S <=2 S * Ampicillin/Sulbactam <=8/4 S * Aztreonam 16 I >16 R * Cefepime <=8 S <=8 S * Ceftriaxone <=1 S <=1 S * Cefuroxime >16 R * Ciprofloxacin <=1 S <=1 S <=1 S * Gentamicin <=2 S <=2 S * Imipenem <=1 S * Levofloxacin <=2 S <=2 S <=1 S * Linezolid 2 S * Nitrofurantoin >64 R <=32 S * Penicillin 2 S * Tetracycline >8 R <=4 S * Tobramycin <=4 S <=4 S * Trimethoprim/Sulfamethoxazole <=2/38 S <=2/38 S Vancomycin 2 S Daptomycin 1 S A&P Assessment and plan (1) Acute pancreatitis: Status: Acute Qualifiers: Acute pancreatitis complication: no infection or necrosis Pancreatitis type: unspecified pancreatitis type Qualified Code(s): K85.90 - Acute pancreatitis without necrosis or infection, unspecified (2) Neurogenic bladder: Status: Acute (3) Periurethral abscess: Status: Acute (4) Urethral fistula: Status: Acute (5) Colostomy in place: Status: Acute (6) Perineal abscess: Status: Acute (7) Chronic osteomyelitis of sacrum: Status: Acute Additional A&P Information 55 year old male with complicated PMH as above in HPI. Active infectious issues include chronic sacral osteomyelitis and perineal periurethral fistulization with perineal abscess and cellulitis recently # Chronic sacral osteomyelitis Per review of notes it appears patient is currently on a prolonged antibiotic course since June 21 with Zosyn and doxycycline for what appears to be sacral osteomyelitis. Per further notes review this appears to be pre-existing at least since 2014. Please Obtain recent infectious disease notes and culture results from hospital stay at [facility] to confirm indication and duration of abx. most recent outpatient notes would be appreciated as well. As such, the treatment of osteomyelitis in patients with stage IV sacral pressure ulcers is controversial. Many patients with chronically exposed bone do not have evidence of osteomyelitis when biopsied, and CT or MR imaging may not accurately distinguish osteomyelitis from bone remodeling. The goal of therapy should be local wound care and assessment for the potential of wound closure. If the wound can be closed , appropriate antibiotic therapy for 6 weeks is reasonable. There is insufficent data to support antibiotic durations of >6 weeks in this setting. If the wound will not be closed, there is no clear evidence supporting a role for prolonged antibiotic therapy. (Osteomyelitis Complicating Sacral Pressure Ulcers: Whether or Not to Treat With Antibiotic Therapy. Clinical Infectious Diseases, Volume 68, Issue 2, 05 October 2018) Antibiotics are certainly warranted in the patient's case due to recent complicated perineal infection. #Periurethral fistulization into the scrotum, resulting abscesses for which patient was transferred to [facility] and underwent cystoscopy, incision and drainage of periurethral abscesses and placement of a suprapubic catheter on 06/07/2020. Currently improving, on systemic abx. Can continue zosyn and doxycycline, discontinue linezolid. Planned for cytsoscopy with Dr. Gomez as oupatient to follow up on serial improvement and closure of fistula. If still persistent, patient may need divert ing urinary procedures. Per last CT from 06/07, fistulization to bowel loops could not be excluded conclusively, however as of the most recent pelvis CT, this finding has not been mentioned. Will discuss scans with radiology. 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
[2020-07-17] MEDS: enoxaparin 40 mg/0.4 mL Syringe SUBCUT (21:31)
[2020-07-18] VITALS (14 sets, daily range): BP systolic 109–151; BP diastolic 6–85; PULSE 67–101; RESP 16–18; TEMP 36.4–37.1; O2SAT 96–100
[2020-07-18] MEDS: dextrose 5%-lactated ringers 1,000 ML 75 ML IV ×2 (01:18→14:52)
[2020-07-18] MEDS: linezolid premix 600 MG/300 ML PREMIX 300 MG IV ×2 (04:24→22:28)
[2020-07-18] MEDS: piperacillin-tazobactam 4.5 GM in sodium chloride 0.9% (plus) 50 ML IV ×2 (04:25→23:52)
--- NOTE | 2020-07-18 04:38 | ECG_ITS ---
[facility] Test Date: 2020-07-18 Pat Name: Maicol Reid Department: Room: 261 Gender: Male [employer] Operator: : 1965 Requested By: Tiarra Ontiveros Order Number: [id number] Reading MD: Measurements Intervals [place] Rate: 79 P: 58 MA: 156 QRS: 70 QRSD: 106 T: 55 QT: 393 QTc: 451 Interpretive Statements SINUS RHYTHM LOW QRS VOLTAGE IN EXTREMITY LEADS [QRS DEFLECTION < 0.5 mV IN LIMB LEADS] WARNING: DATA QUALITY MAY AFFECT INTERPRETATION Compared to ECG 07/15/2020 13:39:40 Low QRS voltage now present Right-axis deviation no longer present [email or web address]
[2020-07-18 05:34] LABS: Basophils % 0.7 %; Eosinophils # 0.5 10^3/uL (0.0-0.8); Eosinophils % 8.6 %; Hematocrit 28.9 % (42.0-52.0); Hemoglobin 9.2 g/dL (11.7-16.6); Lymphocytes # 1.3 10^3/uL (0.8-4.8); Lymphocytes % 22.7 %; Mean Corpuscular HGB Conc 31.8 g/dL (30.0-36.0); Mean Corpuscular Hemoglobin 27.7 pg (28.0-34.0); Mean Platelet Volume 10.3 fL (7.4-10.4); Monocytes # 0.3 10^3/uL (0.2-0.9); Neutrophils # 3.52 10^3/uL (1.8-7.7); Neutrophils % 62.8 %; Nucleated Red Blood Cells % 0 %; Platelet Count 184 10^3/cmm (130-400); Red Blood Count 3.32 10^6/uL (4.1-5.3); Red Cell Distribution Width 21.8 % (12.1-15.1); White Blood Count 5.6 10^3/uL (4.0-10.0)
[2020-07-18 05:41] LABS: Troponin(5th) Baseline 18 ng/L (0-15)
[2020-07-18 05:47] LABS: Alanine Aminotransferase 11 U/L (0-41); Albumin Level 2.1 g/dL (3.5-5.2); Alkaline Phosphatase 124 IU/L (40-130); Anion Gap 10.4 (5-19); Aspartate Amino Transferase 9 U/L (0-40); Blood Urea Nitrogen 4 mg/dL (6-20); Calcium 7.7 mg/dL (8.5-10.5); Carbon Dioxide 22 mmol/L (22-29); Chloride 107 mmol/L (98-107); Globulin 3.7 g/dL (1.3-4.6); Glomerular Filtration Rate 139.9 mL/min (90-130); Glucose 92 mg/dL (65-115); Osmolality Calculated 279 mOsm/kg (285-295); Potassium 3.4 mmol/L (3.5-5.1); Sodium 136 mmol/L (136-145); Total Bilirubin 0.2 mg/dL (0.15-1.2); Total Protein 5.8 g/dL (6.6-8.7)
[2020-07-18 05:48] LABS: Magnesium 1.8 mg/dL (1.7-2.3); Phosphorus 2.6 mg/dL (2.5-4.5)
[2020-07-18 05:59] LABS: Lipase 411 U/L (13-60)
[2020-07-18] MEDS: HYDROmorphone 1 mg/mL INJ 1 mL IVP ×3 (06:56→22:34)
[2020-07-18 07:19] LABS: Troponin 5 2HR 19.61 ng/L (0-15); Troponin 5 2HR Delta 1.61 ABS# (0-10)
--- NOTE | 2020-07-18 08:35 | P.PN_ITS ---
Subjective Subjective: Interval history: No acute events overnight. Patient states he is able to tolerate clear liquid diet with minimal nausea. He continues to have retrosternal and epigastric pain. States right now it is 03/30. Discussed with him in detail regarding the MRCP results. Vitals/I&O/Wt Last Vital Signs Temp 98.6 F 07/18/20 08:00 Pulse 70 07/18/20 07:46 Resp 17 07/18/20 07:46 BP 131/65 07/18/20 07:46 Pulse Ox 99 07/18/20 07:46 07/17/20 07/18/20 07/18/20 22:59 06:59 14:59 Intake Total 410 / 1935 1050 / 2985 Output Total 350 / 700 400 / 1100 Balance 60 / 1235 650 / 1885 Weight last 48 hrs Weight 64.592 kg Physical Exam Narrative: EXAM NARRATIVE: General: No acute distress, AO x3, thin HEENT: PERRLA, pupils bilaterally equal and reactive Chest: Normal vesicular breath sounds, no added sounds, equal good air entry bilaterally CVS: S1-S2 regular, no murmurs, no tachycardia, no gallops, no rubs Abdomen: Soft, tenderness present in right upper quadrant, no organomegaly, bowel sounds present, colostomy bag present without any sign of purulent discharge. Ostomy site appears healthy and pink. Suprapubic catheter present without any sign of extravasation. Neuro: No focal deficits, no facial deformity, AO x3, power 5/5 in all limbs Skin: Extensive pressure ulcer over multiple areas in posterior pelvic, sacrum, hips with exposure of muscle tissue as well as bone without any significant areas of necrosis or purulent discharge. Minimal scrotal erythema without any significant swelling or purulent discharge, posterior scrotum small opening with a drain was placed previously. Data : 07/18/20 04:39 07/18/20 04:39 Micro: Microbiology 07/17/20 10:17 Blood Culture - Preliminary Blood SPECIMEN COLLECTED 07/17/20 10:20 Blood Culture - Preliminary Blood SPECIMEN COLLECTED A&P Assessment and plan (1) Abdominal pain: Status: Acute (2) Acute pancreatitis: Rise of lipase this morning. Status: Acute Qualifiers: Acute pancreatitis complication: no infection or necrosis Pancreatitis type: unspecified pancreatitis type Qualified Code(s): K85.90 - Acute pancreatitis without necrosis or infection, unspecified (3) Cholelithiasis: Status: Acute (4) Periurethral abscess: Status: Acute (5) Decubitus ulcer: Ulcers are quite extensive, with muscle tissue, bone exposure, however, no significant necrosis to require debridement, no purulent discharge. Wound care orders will be continued with silver sorb, ABD pads. Continue repositioning. Add protein supplementation after diet resumed. We will need to reestablish follow-up with wound care clinic. Status: Chronic (6) Osteomyelitis: Currently continuing on Zosyn, linezolid. Status: Acute (7) Hypokalemia: Replaced Status: Acute (8) Iron deficiency anemia: Status: Acute (9) Hx of abdominal aortic aneurysm: Status: Acute (10) Protein-energy malnutrition: Status: Acute Additional A&P Information Abdominal pain: Most likely secondary to acute pancreatitis. CT scan discussed in detail with Dr. Todd. She states patient does not have any ascites, bowel thickening chances of ischemia are less. Will add lactate to morning labs. Abdominal ultrasound suggestive of hydropic gallbladder. MRCP results appreciated negative for any biliary duct obstruction. On review of labs alkaline phosphatase was elevated on admission and trending down to normal level. It is quite possible that patient had a gallstone which he passed leading to transient pancreatitis. Continue clear liquid diet. Will advance further depending on how he tolerates. Zofran as needed. Protonix twice daily for now. 1 mg IV every 6 hours as needed for pain We will consult surgery for further assistance. Iron deficiency anemia: Hemoglobin stable, no active bleeding On last visit he was Hemoccult positive. Iron supplementation of 200 mg daily for next 5 days. Periurethral abscess/left epididymitis/decubitus ulcer/sacral osteomyelitis: Will request documents from [facility] including the cultures and ID d ocumentation. Culture results from the past had Klebsiella, E. coli, Pseudomonas in urine with Proteus and Enterococcus in February. Patient was discharged on Zosyn every 8 hourly IV through PICC line and oral doxycycline. As per the patient he needs to continue treatment for 6 weeks. Most likely patient requires further follow-up as an outpatient both with ID and wound care. We will consult ID. Patient has a follow-up appointment with Dr. Gomez on July 19 for further evaluation and monitoring of urethral fistula. If patient is still here we will consult Dr. Gomez. For now continue with suprapubic catheterization. For now continue the Zosyn and linezolid which was started on admission. We will request documents from [facility] regarding culture results, ID notes, discharge summary. Severe protein energy malnutrition: Replete electrolytes. Patient is at high risk of developing refeeding syndrome. Continue to monitor magnesium and phosphorus levels as well. Will replete accordingly. History of DVT: Patient is paraplegic. At home on Eliquis 2.5 mg twice daily. Also has an IVC filter which was reseen on the CTA. For now was switched over to Lovenox at prophylactic dose. We will continue as patient already has IVC filter. If patient continues to tolerate oral diet well will switch over to home dose of Eliquis tomorrow. Atypical chest pain: Negative delta troponin, EKG without ischemic or infarctive changes, most likely epigastric discomfort was secondary to pancreatitis, monitor. CT chest with contrast without acute findings. Aortic aneurysm noted on CT abdomen, unchanged, no endoleak. Cholelithiasis. Pancreatitis. Unchanged left parastomal hernia. CODE STATUS: Full code Clear liquid diet. DVT prophylaxis: Lovenox for DVT prophylaxis. Discharge planning: If patient is able to tolerate diet well most likely will discharge home with current home health. Patient would most likely require continued follow-up as an outpatient with urology, ID, wound care. Attestations Medical Necessity Statement*: Patient needs further hospitalization for management of acute pancreatitis, poor oral intake, healing periurethral abscess because of urethral scrotal fistulization, extensive decubitus ulcer. Time Spent in Patient Care: Greater than 35 minutes (>than 50% of time spent in counselling and/or direct pt care on unit) . 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
--- NOTE | 2020-07-18 08:44 | PM.CONSULT ---
Providers/Reason For Consult Consulting Physican/Specialty*: General Surgery Gokul Skinner MD Reason for Consult*: Epigastric and chest pain with vomiting. Attending Physician: Joe Celis MD Primary Care Provider: Jacoby Jon DO History of Present Illness History of Present Illness Maicol Reid is a 55 year old male with a complicated medical history who says that he started having some chest discomfort over the weekend. He describes this as a burning sensation and his significant other had given him some antacids but he said it continued to worsen. He does not ever recall having problems with heartburn in the past. He started having some epigastric pain and had some bilious vomiting over the weekend and eventually came to the hospital for evaluation. A CAT scan showed an enlarged pancreatic head with some haziness in the area concerning for acute pancreatitis. He did have mild elevation of his lipase. He has a history of an aortic aneurysm repair but the graft showed no leak. He is known to have cholelithiasis but there was no evidence of cholecystitis. This was confirmed on an ultrasound as well as an MRCP. The patient denies any particular food intolerances and does not have postprandial pain in general. In short, it is difficult to say that he has any kind of an ongoing history of biliary colic. Fortunately at the moment, he says he is feeling better. He is no longer having any vomiting and tolerated his breakfast so far. His colostomy continues to function. Review of Systems General: Reports: 10 or more systems reviewed and unremarkable except in HPI and below Const: Denies: fever(s) Card: Reports: chest pain ( Burning ) GI: Reports: abdominal pain, nausea and vomiting; Denies: change in bowel habits : Reports: other (Patient still urinating through the urethra despite suprapubic tube --Dr. Gomez to evaluate tomorrow) Meds/Allergies Home Medications and Allergies Home Medications Medication Instructions Recorded Confirmed Last Taken Type apixaban 2.5 mg tablet 2.5 mg PO BID 10/17/19 07/15/20 07/15/20 History levothyroxine 88 mcg tablet 88 mcg PO DAILY 10/17/19 07/15/20 07/15/20 History docusate sodium 100 mg capsule 100 mg PO BID PRN 03/28/20 07/15/20 05/11/20 History omeprazole 20 mg capsule,delayed 20 mg PO DAILY 03/28/20 07/15/20 07/15/20 History release senna leaf extract 10 ml PO BID PRN #237 ml 05/13/20 07/15/20 07/14/20 Rx doxycycline hyclate 100 mg capsule 100 mg PO BID cap 07/11/20 07/15/20 07/15/20 History oxycodone 10 mg tablet 10 - 15 mg PO QID PRN 30 Days #120 07/11/20 07/15/20 07/15/20 10:00 Rx tab 10 mg piperacillin-tazobactam 4.5 gram 4.5 gm IVP Q8H 07/11/20 07/15/20 07/15/20 08:00 History intravenous solution tizanidine 4 mg tablet 4 mg PO TID PRN #90 tab 07/11/20 07/15/20 07/14/20 Rx oxybutynin chloride 5 mg tablet 5 mg PO BID #60 tab 07/13/20 07/15/20 Unknown Rx Heparin Flush-0 See Rx Instructions .ROUTE .COMPLEX 07/15/20 07/15/20 Unknown History magnesium 1 tab PO DAILY 07/15/20 07/15/20 Unknown History multivitamin [Multiple Vitamins] 1 tab PO DAILY 07/15/20 07/15/20 Unknown History sodium chloride 0.9 % See Rx Instructions .ROUTE .COMPLEX 07/15/20 07/15/20 Unknown History zonisamide [Zonegran] 400 mg PO BEDTIME 07/15/20 07/15/20 07/14/20 History Allergies Allergy/AdvReac Type Severity Reaction Status Date / Time cefepime Allergy Unknown Unknown Verified 07/11/20 10:25 lactose Allergy Unknown Unknown Verified 07/11/20 10:25 aspirin Allergy ALGY-Anaphy Verified 07/11/20 10:25 laxis meropenem Allergy SWELLING/ Verified 07/11/20 10:25 HIVES cefixime AdvReac Unknown Verified 07/11/20 10:25 vancomycin AdvReac ADR-Itching Verified 07/11/20 10:25 Current Medications Current Medications Generic Name Dose Route Start Last Admin Trade Name Freq PRN Reason Stop Dose Admin Enoxaparin Sodium 40 mg 07/15/20 21:13 07/17/20 21:31 Lovenox SUBCUT 40 mg Q24H FUENTES Administration Hydromorphone HCl 1 mg 07/17/20 22:34 07/18/20 06:56 Dilaudid Inj IVP 1 mg Q4H PRN Administration PAIN Piperacillin Sod/Tazobactam 50 mls @ 12.5 mls/hr 07/15/20 21:30 07/18/20 04:25 Sod 4.5 gm/ Sodium Chloride IV 12.5 mls/hr Q8H FUENTES Administration Protocol Linezolid 600 mg in 300 mls @ 300 mls/hr 07/15/20 22:00 07/18/20 04:24 Zyvox Premix IV 300 mls/hr Q12H FUENTES Administration Protocol Dextrose/Lactated Ringer's 1,000 mls @ 75 mls/hr 07/15/20 21:13 07/18/20 01:18 Dextrose 5%-Lactated Ringers IV 75 mls/hr .[id number] FUENTES Administration Iron Sucrose 200 mg/ Sodium 110 mls @ 220 mls/hr 07/17/20 10:00 07/17/20 10:43 Chloride IV 07/21/20 10:29 220 mls/hr Q24H FUENTES Administration Ondansetron HCl 4 mg 07/15/20 21:13 07/17/20 01:50 Zofran IVP 4 mg Q6H PRN Administration NAUSEA AND VOMITING Pantoprazole Sodium 40 mg 07/17/20 09:30 07/17/20 21:31 Protonix IVP 40 mg Q12H FUENTES Administration PFSH Acute PFSH: Medical History (Updated 07/18/20 @ 09:03 by Gokul Skinner MD) Accidental overdose Cholelithiasis Chronic abdominal pain Chronic indwelling Shore catheter Suprapubic catheter placed 06/07 [facility] after incision and drainage of uretheral abscess Chronic pain of lower extremity, bilateral Decubitus ulcer Encounter for long-term opiate analgesic use Foot amputation status 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 Long-term use of high-risk medication Neurogenic bladder Parastomal hernia Periurethral abscess Phantom pain Restless leg syndrome Tobacco use disorder Surgical History (Updated 07/18/20 @ 09:11 by Gokul Skinner MD) Abscess of scrotum Debridement/erosion of urethra History of amputation of toe (~02/2015) LEFT FOOT/ TOES RIGHT FOOT TOES Hx of resection of large bowel (~01/2015) My colon -- colostomy present S/P abdominal aortic aneurysm repair S/P PICC central line placement PICC line placement for sacral osteomyelitis, placed 06/21/2020 Suprapubic catheter Family History Unknown Anesthesia complication Denies family history of Bleeding disorder Social History Smoking and tobacco status: current every day smoker cigars Alcohol intake: current Alcohol intake frequency: holidays/special occasions only Adopted: Yes Lives independently: Yes Household members: spouse Marital status: Current occupational status: disabled History of recent travel: No Vitals/I&O/Wt Last Vital Signs Temp 98.6 F 07/18/20 08:00 Pulse 70 07/18/20 07:46 Resp 17 07/18/20 07:46 BP 131/65 07/18/20 07:46 Pulse Ox 99 07/18/20 07:46 07/17/20 07/18/20 07/18/20 22:59 06:59 14:59 Intake Total 410 / 2985 1050 / 2985 Output Total 350 / 1100 400 / 1100 Balance 60 / 1885 650 / 1885 Weight last 48 hrs Weight 142 lb 6.4 oz Physical Exam Narrative: EXAM NARRATIVE: The patient was encountered in his hospital room. He does not appear to be in any distress this morning. He just got done eating breakfast. His pupils are equal. No carotid bruits are heard. The lungs are clear anteriorly. The heart is regular. The abdomen has a wide scar all the way down the midline. There is a colostomy in the left lower quadrant and a suprapubic tube towards the right side of the suprapubic area. Bowel sounds are present. He has scattered abdominal tenderness but certainly no evidence of peritonitis. Wilkins's sign is negative. No obvious masses are palpated. The patient has partial amputation of both feet. Neurologically he can move all limbs to command. Data Labs: Other Labs: Laboratory Tests 07/18/20 04:39 Total Bilirubin 0.2 AST 9 ALT 11 Alkaline Phosphata se 124 Laboratory Tests 07/18/20 04:39 Lipase 411 H Micro: Micro: Microbiology 07/17/20 10:17 Blood Culture - Pr eliminary Blood SPECIMEN [facility] 07/17/20 10:20 Blood Culture - Pr eliminary Blood SPECIMEN [facility] Imaging^: CT Abd/Pel: Radiologist's impression: CT abdomen/pelvis 07/15/2020 IMPRESSION: 1. The head of the pancreas is enlarged and there is haziness of the fat adjacent to the head of the pancreas concerning for acute pancreatitis. No pseudocyst. 2. Unchanged aortic aneurysm and stent graft. No endoleak. 3. Unchanged decubitus ulcer with postoperative changes. 4. Cholelithiasis. The gallbladder is distended with no duct dilatation. No definite cholecystitis. 5. Unchanged left peristomal hernia. MRI: Radiologist's impression: MRCP 07/17/2020 IMPRESSION: 1. Mildly hydropic gallbladder with stones. No evidence for acute cholecystitis. 2. Normal common bile duct. 3. Ectatic dilated loop of colon in the RIGHT abdomen near the anastomotic sutures. No obstructive site is identified. US: Radiologist's impression: Abdominal ultrasound 07/17/2020 IMPRESSION: 1. Hydropic gallbladder with stones. No pericholecystic fluid and no gallbladder wall thickening. No duct dilatation. 2. No ascites identified. 3. Known aortic aneurysm status post endovascular grafting. A&P Assessment and plan (1) Epigastric pain: It sounds like this particular pain has improved. With the evidence of a least mild pancreatitis involving the pancreatic head, this is certainly in the differential. Other considerations include gastritis or, more unlikely in my opinion, biliary colic. Check H. pylori antibody. Continue with antacid therapy. The patient does have an ongoing history of chronic abdominal pains. He certainly has good reasons for adhesions from all with his previous involved abdominal procedures. Status: Acute (2) Nausea and vomiting: This is also somewhat of a chronic problem for the patient but is currently improved. He has not noticed any food intolerances but does have intermittent episodes of vomiting at home and has for a long time. Status: Acute (3) Acute pancreatitis: As mentioned above, with CAT scan evidence of pancreatitis in addition to a mildly elevated lipase, this is certainly consistent with acute pancreatitis. Etiology is somewhat uncertain, however. There does not appear to be any obvious recent evidence of a passed gallstone. Status: Acute Qualifiers: Acute pancreatitis complication: no infection or necrosis Pancreatitis type: unspecified pancreatitis type Qualified Code(s): K85.90 - Acute pancreatitis without necrosis or infection, unspecified Consult Attestations Medical Necessity Statement: See admitting service's notation. Coding Level of Care Code Acute Internship for [facility] Diagnoses Epigastric pain R10.13 Nausea and vomiting R11.2 Acute pancreatitis K85.90 Acute pancreatitis complication: no infection or necrosis Pancreatitis type: unspecified pancreatitis type
[2020-07-18 09:41] LABS: H. Pylori IgG Antibody Negative (Negative)
[2020-07-18] MEDS: potassium chloride premix 100 ML 25 MEQ IV ×2 (10:18→15:52)
[2020-07-18] MEDS: pantoprazole 40 mg SDV IVP ×2 (10:19→22:34)
[2020-07-18] MEDS: levothyroxine 100 mcg SDV 44 MCG IVP (11:01)
--- NOTE | 2020-07-18 11:20 | PC.SOCIAL ---
IMM Update Pg. 2 of IMM updated. Initialed, dated, and timed and placed in chart. Copy provided.
[2020-07-18 12:04] LABS: Troponin 5 6HR 11.75 ng/L (0-15)
--- NOTE | 2020-07-18 14:01 | PC.NURSE ---
[facility] medical records from [facility]. Medical records put in patient's chart.
--- NOTE | 2020-07-18 14:02 | USCV_ITS ---
FranklinMaicol don Age: 55 Gender: M : 1965 Exam Date: 07/18/2020 15:20 Ordering Phys: Joe Celis MD Technologist: Gino Queen Exam Location: [facility] [place]_ Indication: SWELLING PROCEDURES: Venous duplex imaging was performed in only the right upper extremity. The following venous structures were evaluated: internal jugular vein, subclavian vein, axillary vein, and brachial veins. In addition, the basilic vein, cephalic vein, radial vein, and ulnar vein. Serial compression, augmentation maneuvers, and spectral Doppler flow evaluation were performed. FINDINGS: There is a PICC line present. There appears to be thrmobus noted in the right basilic vein and also the basilic extending to forearm. All other veins examined appear free of thrombus at this time. CONCLUSIONS Acute right basilic vein thrombosis. Thrombosis is noted associated with the PICC line. Dr. Korina Todd DO (Electronically Signed) Final Date: 18 July 2020 16:31 S
[2020-07-18] MEDS: enoxaparin 60 mg/0.6 mL Syringe SUBCUT (19:46)
--- NOTE | 2020-07-18 19:50 | P.PN_ITS ---
Subjective Subjective: Interval history: no acute overnight events. UE duplex showed thrombosis around Picc line Medications: Reviewed: Yes Vitals/I&O/Wt Last Vital Signs Temp 97.5 F L 07/18/20 16:00 Pulse 77 07/18/20 16:00 Resp 18 07/18/20 16:07 BP 122/76 07/18/20 16:00 Pulse Ox 97 07/18/20 16:07 07/18/20 07/18/20 07/18/20 06:59 14:59 22:59 Intake Total 1050 / 2985 2059 720 / 2780 Output Total 400 / 1100 350 / 350 Balance 650 / 1885 2059 370 / 2430 Weight last 48 hrs Weight 64.592 kg Physical Exam Narrative: EXAM NARRATIVE: GENERAL: Awake, alert, oriented, in no acute distress. [] HEENT: Normocephalic, atraumatic, PERRLA. [] CHEST: Clear to auscultation bilaterally. [] CVS: S1, S2 normal. No murmur, rubs, gallops. Peripheral pulses palpable. [] ABDOMEN: Soft, nontender. Nondistended. Bowel sounds heard. Colostomy left lower quadrant [] NEUROVASCULAR: Awake, alert. Paraplegic, at baseline [] EXTREMITIES: Paraplegic at baseline, sacral decubitus ulcers with dressing in place [] Data : 07/18/20 04:39 07/19/20 05:32 Micro: Microbiology 07/17/20 10:45 Urine Culture - Final Urine,Voided Yeast 07/17/20 10:17 Blood Culture - Preliminary Blood NEGATIVE TO DATE 07/17/20 10:20 Blood Culture - Preliminary Blood NEGATIVE TO DATE A&P Assessment and plan (1) Acute pancreatitis: Status: Acute Qualifiers: Acute pancreatitis complication: no infection or necrosis Pancreatitis type: unspecified pancreatitis type Qualified Code(s): K85.90 - Acute pancreatitis without necrosis or infection, unspecified (2) Neurogenic bladder: Status: Acute (3) Periurethral abscess: Status: Acute (4) Urethral fistula: Status: Acute (5) Colostomy in place: Status: Acute (6) Perineal abscess: Status: Acute (7) Chronic osteomyelitis of sacrum: Status: Acute Additional A&P Information 55 year old male with complicated PMH as above in HPI. Active infectious issues include chronic sacral osteomyelitis and perineal periurethral fistulization with perineal abscess and cellulitis recently # Chronic sacral osteomyelitis Per review of notes it appears patient is currently on a prolonged antibiotic course since June 21 with Zosyn and doxycycline for what appears to be sacral osteomyelitis. Per further notes review this appears to be pre-existing at least since 2014. Please Obtain recent infectious disease notes and culture results from hospital stay at [facility] to confirm indication and duration of abx. most recent outpatient notes would be appreciated as well. As such, the treatment of osteomyelitis in patients with stage IV sacral pressure ulcers is controversial. Many patients with chronically exposed bone do not have evidence of osteomyelitis when biopsied, and CT or MR imaging may not accurately distinguish osteomyelitis from bone remodeling. The goal of therapy should be local wound care and assessment for the potential of wound closure. If the wound can be closed , appropriate antibiotic therapy for 6 weeks is reasonable. There is insufficent data to support antibiotic durations of >6 weeks in this setting. If the wound will not be closed, there is no clear evidence supporting a role for prolonged antibiotic therapy. (Osteomyelitis Complicating Sacral Pressure Ulcers: Whether or Not to Treat With Antibiotic Therapy. Clinical Infectious Diseases, Volume 68, Issue 2, 05 October 2018) Antibiotics are certainly warranted in the patient's case due to recent complicated perineal infection. #Periurethral fistulization into the scrotum, resulting abscesses for which patient was transferred to [facility] and underwent cystoscopy, incision and drainage of periurethral abscesses and placement of a suprapubic catheter on 06/07/2020. Currently improving, on systemic abx. Can continue zosyn and doxycycline, discontinue linezolid. Planned for cytsoscopy with Dr. Gomez as oupatient to follow up on serial improvement and closure of fistula. If still persistent, patient may need diverting urinary procedures. Per last CT from 06/07, fistulization to bowel loops could not be excluded conclusively, however as of the most recent pelvis CT, this finding has not been mentioned. Planned for cytsoscopic assessment with Dr. 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
[2020-07-18] MEDS: iron sucrose 200 MG in sodium chloride 0.9% (100 ml) 100 ML 220 MG IV (21:44)
[2020-07-19] VITALS (12 sets, daily range): BP systolic 96–128; BP diastolic 61–81; PULSE 44–95; RESP 16–20; TEMP 36.5–36.9; O2SAT 99–100
[2020-07-19] MEDS: piperacillin-tazobactam 4.5 GM in sodium chloride 0.9% (plus) 50 ML IV (05:37)
[2020-07-19] MEDS: enoxaparin 60 mg/0.6 mL Syringe SUBCUT ×2 (05:40→20:00)
[2020-07-19 06:11] LABS: Magnesium 1.6 mg/dL (1.7-2.3); Phosphorus 2.2 mg/dL (2.5-4.5)
[2020-07-19 06:12] LABS: Alanine Aminotransferase 11 U/L (0-41); Albumin Level 2.1 g/dL (3.5-5.2); Alkaline Phosphatase 126 IU/L (40-130); Anion Gap 8.9 (5-19); Aspartate Amino Transferase 8 U/L (0-40); Blood Urea Nitrogen 3 mg/dL (6-20); Calcium 7.9 mg/dL (8.5-10.5); Carbon Dioxide 20 mmol/L (22-29); Chloride 108 mmol/L (98-107); Globulin 3.8 g/dL (1.3-4.6); Glomerular Filtration Rate 139.9 mL/min (90-130); Glucose 87 mg/dL (65-115); Osmolality Calculated 272 mOsm/kg (285-295); Potassium 3.9 mmol/L (3.5-5.1); Sodium 133 mmol/L (136-145); Total Bilirubin 0.2 mg/dL (0.15-1.2); Total Protein 5.9 g/dL (6.6-8.7)
[2020-07-19] MEDS: HYDROmorphone 1 mg/mL INJ 1 mL IVP (06:12)
[2020-07-19] MEDS: dextrose 5%-lactated ringers 1,000 ML 75 ML IV (06:25)
--- NOTE | 2020-07-19 07:30 | PM.PN ---
Subjective Subjective: Interval history: no acute overnight events, remains hemodynamically stable, afebrile Medications: Reviewed: Yes Vitals/I&O/Wt Last Vital Signs Temp 98.4 F 07/19/20 20:00 Pulse 44 L 07/19/20 20:00 Resp 18 07/19/20 20:00 BP 117/72 07/19/20 20:00 Pulse Ox 100 07/19/20 20:00 07/19/20 07/19/20 07/20/20 14:59 22:59 06:59 Intake Total 960 / 960 240 / 1200 Output Total 400 / 400 Balance 560 / 560 240 / 800 Weight last 48 hrs Weight 66.497 kg Weight 64.592 kg Physical Exam Narrative: EXAM NARRATIVE: GEN: Awake, alert and oriented, no acute distress CVS: S1S2 N RS: CTA B/L Abd: Soft, nt/nd , bs+ COLOR WEIGHER: no focal neuro deficits EXT: Right arm swelling, unchanged since last exam, ulcers noted over lower back, back of left upper thigh and scrotum posteriorly. No current signs of active cellulitis Data : 07/20/20 04:57 07/20/20 04:57 Micro: Microbiology 07/17/20 10:45 Urine Culture - Final Urine,Voided Kaylen tropicalis A&P Assessment and plan (1) Acute pancreatitis: Status: Acute Qualifiers: Acute pancreatitis complication: no infection or necrosis Pancreatitis type: unspecified pancreatitis type Qualified Code(s): K85.90 - Acute pancreatitis without necrosis or infection, unspecified (2) Neurogenic bladder: Status: Acute (3) Periurethral abscess: Status: Acute (4) Urethral fistula: Status: Acute (5) Colostomy in place: Status: Acute (6) Perineal abscess: Status: Acute (7) Chronic osteomyelitis of sacrum: Status: Acute Additional A&P Information 55 year old male with complicated PMH as above in HPI. Active infectious issues include chronic sacral osteomyelitis and perineal periurethral fistulization with perineal abscess and cellulitis recently # chronic sacral osteomyelitis Per review of notes it appears patient is currently on a prolonged antibiotic course since mid May ~06/07 for complex perineal infection and also sacral osteomyelitis. He has received rx with Zosyn and doxycycline till date Cx data from [facility] N/A, however [place] [facility] [place] Pseudomonas (zosyn-S), e.coli and Klebsiella pneumonaie. Per further notes review sacral osteomyelitis has been chronic at least since 2014, patient reports being treated with 4-5 rounds of different combinations of iv antibiotics for the same. Also follows with wound care clinic at [place], previously wound vac has been attempted for closure, however this could not stay in place due to diffcult positioning over the sacrum. At this point, patient has completed 6 weeks of systemic abx therapy for osteomyelitis. As such, the treatment of osteomyelitis in patients with stage IV sacral pressure ulcers is challenging. CT or MR imaging may not accurately distinguish osteomyelitis from bone remodeling, therefore not relaible indicators of ongoing bone destruction. There is insufficent data to support antibiotic durations of >6 weeks in this setting. The goal of therapy should be local wound care and assessment for the potential of wound closure. He may need intermittent short courses of abx for surrounding skin cellulitis for which he remains at risk due to skin breakdown. (Osteomyelitis Complicating Sacral Pressure Ulcers: Whether or Not to Treat With Antibiotic Therapy. Clinical Infectious Diseases, Volume 68, Issue 2, 05 October 2018) #Periurethral fistulization into the scrotum, resulting abscesses for which patient was transferred to [facility] and underwent cystoscopy, incision and drainage of periurethral abscesses and placement of a suprapubic catheter on 06/07/2020. He has been on rx with Zosyn and doxycycline as above with improvement. Most recent CT with interval resolution of abscesses. Note made of left epididymitis noted on US scrotum Can continue zosyn and doxycycline while awaiting cystoscopy with Dr. Gomez tomorrow Currently urine cx without any bacterial growth (marked as voided urine), but shows Kaylen tropicalis. There is some intertrigo noted as well. Start Fluconazole 200mg x 7 days for the same. PICC line discontinued due to thrombosis. Based on OR findings tomorrow, will plan to discontinue systemic abx vs transition to oral abx on discharge. 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
--- NOTE | 2020-07-19 07:33 | PM.PN ---
Subjective Subjective: Interval history: The patient says he is doing better. He still feels like his abdomen is little bit tight but his colostomy continues to function and he is tolerating oral liquids. Vitals/I&O/Wt Last Vital Signs Temp 98.0 F 07/19/20 04:00 Pulse 91 07/19/20 04:00 Resp 18 07/19/20 06:12 BP 117/70 07/19/20 04:00 Pulse Ox 100 07/19/20 04:00 07/18/20 07/19/20 07/19/20 22:59 06:59 14:59 Intake Total 720 / 3880 1050 / 3880 Output Total 350 / 425 75 / 425 Balance 370 / 3455 975 / 3455 Weight last 48 hrs Weight 142 lb 6.4 oz Physical Exam Narrative: EXAM NARRATIVE: Not much change in the abdominal exam today. Data : 07/18/20 04:39 07/19/20 05:32 Micro: Microbiology 07/17/20 10:45 Urine Culture - Final Urine,Voided Yeast 07/17/20 10:17 Blood Culture - Preliminary Blood NEGATIVE TO DATE 07/17/20 10:20 Blood Culture - Preliminary Blood NEGATIVE TO DATE Laboratory Tests 07/18/20 04:39 H. pylori IgG Antibody Negative A&P Assessment and plan (1) Epigastric pain: It sounds like this particular pain has improved. With the evidence of a least mild pancreatitis involving the pancreatic head, this is certainly in the differential. Other considerations include gastritis or, more unlikely in my opinion, biliary colic. H. pylori antibody is negative. Continue with antacid therapy. The patient does have an ongoing history of chronic abdominal pains. He certainly has good reasons for adhesions from all with his previous involved abdominal procedures. Status: Acute (2) Nausea and vomiting: This is also somewhat of a chronic problem for the patient but is currently improved. He has not noticed any food intolerances but does have intermittent episodes of vomiting at home and has for a long time. Status: Acute (3) Acute pancreatitis: As mentioned above, with CAT scan evidence of pancreatitis in addition to a mildly elevated lipase, this is certainly consistent with acute pancreatitis. Etiology is somewhat uncertain, however. There does not appear to be any obvious recent evidence of a passed gallstone. Status: Acute Qualifiers: Acute pancreatitis complication: no infection or necrosis Pancreatitis type: unspecified pancreatitis type Qualified Code(s): K85.90 - Acute pancreatitis without necrosis or infection, unspecified Attestations Medical Necessity Statement*: See admitting service's notation. 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
--- NOTE | 2020-07-19 10:48 | P.PN_ITS ---
Subjective Subjective: Interval history: No acute events overnight. Has remained hemodynamically stable and afebrile. He is tolerating full liquid diet well. Does complain of feeling bandlike tightness after having his meals. Denies of having any nausea or vomiting. Vitals/I&O/Wt Last Vital Signs Temp 97.9 F 07/19/20 10:12 Pulse 81 07/19/20 10:12 Resp 16 07/19/20 10:12 BP 116/72 07/19/20 10:12 Pulse Ox 100 07/19/20 07:57 07/18/20 07/19/20 07/19/20 22:59 06:59 14:59 Intake Total 720 / 2830 1050 / 3880 480 / 480 Output Total 350 / 350 75 / 425 100 / 100 Balance 370 / 2480 975 / 3455 380 / 380 Weight last 48 hrs Weight 66.497 kg Weight 64.592 kg Physical Exam Narrative: EXAM NARRATIVE: General: No acute distress, AO x3, thin HEENT: PERRLA, pupils bilaterally equal and reactive Chest: Normal vesicular breath sounds, no added sounds, equal good air entry bilaterally CVS: S1-S2 regular, no murmurs, no tachycardia, no gallops, no rubs Abdomen: Soft, tenderness present in right upper quadrant, no organomegaly, bowel sounds present, colostomy bag present without any sign of purulent discharge. Ostomy site appears healthy and pink. Suprapubic catheter present without any sign of extravasation. Neuro: No focal deficits, no facial deformity, AO x3, power 5/5 in all limbs Skin: Extensive pressure ulcer over multiple areas in posterior pelvic, sacrum, hips with exposure of muscle tissue as well as bone without any significant areas of necrosis or purulent discharge. Minimal scrotal erythema without any significant swelling or purulent discharge, posterior scrotum small opening with a drain was placed previously. Data : 07/18/20 04:39 07/19/20 05:32 Micro: Microbiology 07/17/20 10:45 Urine Culture - Final Urine,Voided Yeast 07/17/20 10:17 Blood Culture - Preliminary Blood NEGATIVE TO DATE 07/17/20 10:20 Blood Culture - Preliminary Blood NEGATIVE TO DATE A&P Assessment and plan (1) Acute pancreatitis: Rise of lipase this morning. Status: Acute Qualifiers: Acute pancreatitis complication: no infection or necrosis Pancreatitis type: unspecified pancreatitis type Qualified Code(s): K85.90 - Acute p ancreatitis without necrosis or infection, unspecified (2) Neurogenic bladder: Status: Acute (3) Periurethral abscess: Status: Acute (4) Urethral fistula: Status: Acute (5) Colostomy in place: Status: Acute (6) Perineal abscess: Status: Acute (7) Chronic osteomyelitis of sacrum: Status: Acute (8) Acute thrombosis of right basilic vein: Status: Acute Additional A&P Information Abdominal pain: Most likely secondary to acute pancreatitis. Pain resolving. CT scan discussed in detail with Dr. Todd. She states patient does not have any ascites, bowel thickening chances of ischemia are less. Will add lactate to morning labs. Abdominal ultrasound suggestive of hydropic gallbladder. MRCP results appreciated negative for any biliary duct obstruction. On review of labs alkaline phosphatase was elevated on admission and trending down to normal level. It is quite possible that patient had a gallstone which he passed leading to transient pancreatitis. Continue with full liquid diet. Zofran as needed. Protonix twice daily for now. Dilaudid 0.5 mg IV every 8-hour as needed for pain scale 6-10. Restart on his home oxycodone 10 mg 4 times daily as needed. Greatly appreciate surgery recommendations. Iron deficiency anemia: Hemoglobin stable, no active bleeding On last visit he was Hemoccult positive. Iron supplementation of 200 mg daily for next 5 days. Day 3/5 today. Periurethral abscess/left epididymitis/decubitus ulcer/sacral osteomyelitis: Will request documents from [facility] including the cultures and ID documentation. Culture results from the past had Klebsiella, E. coli, Pseudomonas in urine with Proteus and Enterococcus in February. Patient was discharged on Zosyn every 8 hourly IV through PICC line and oral doxycycline. As per the patient he needs to continue treatment for 6 weeks. Most likely patient requires further follow-up as an outpatient both with ID and wound care. Patient has a follow-up appointment with Dr. Gomez on July 19 for further evaluation and monitoring of urethral fistula. If patient is still here we will consult Dr. Goemz. For now continue with suprapubic catheterization. Records from [facility] appreciated. Case discussed with Dr. Gomez. He will see the patient today and then plan for cystoscopy accordingly. Case discussed with Dr. Ontiveros from ID. Plan to switch back to doxycycline and continue Zosyn for now. Most likely patient can be switched over to oral a ntibiotics and patient will follow up with ID clinic as an outpatient. Acute right basilic vein/axillary vein thrombosis: History of DVT: Patient at home is on Eliquis 2.5 mg twice daily and also has an IVC filter because of which he was switched over to Lovenox at prophylactic dose on admission. Doppler studies done yesterday suggestive of DVT. Remove PICC line. Patient started on full dose Lovenox yesterday we will transition over to Eliquis 10 mg twice daily for 7 days followed by 5 mg twice daily. For now keep on Lovenox for possible procedure tomorrow. Severe protein energy malnutrition: Replete electrolytes. Patient is at high risk of developing refeeding syndrome. Continue to monitor magnesium and phosphorus levels as well. Will replete accordingly. Atypical chest pain: Negative delta troponin, EKG without ischemic or infarctive changes, most likely epigastric discomfort was secondary to pancreatitis, monitor. CT chest with contrast without acute findings. Aortic aneurysm noted on CT abdomen, unchanged, no endoleak. Cholelithiasis. Pancreatitis. Unchanged left parastomal hernia. CODE STATUS: Full code Clear liquid diet. DVT prophylaxis: Lovenox for DVT prophylaxis. Discharge planning: Most likely can discharge patient after his urology procedure with advised to follow-up as an outpatient with wound clinic, ID clinic, Dr. Gomez on full liquid diet was advised to eventually advance gradually. Attestations Medical Necessity Statement*: Patient needs further hospitalization for management of acute pancreatitis, acute right upper limb DVT, evaluation for urethral scrotal fistulization, periurethral cellulitis and osteomyelitis. Time Spent in Patient Care: Greater than 35 minutes (>than 50% of time spent in counselling and/or direct pt care on unit) . 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
--- NOTE | 2020-07-19 11:12 | PC.NURSE ---
IV to left forearm was infiltrated, edema noted to left arm, IV discontinued tip intact, PICC line to right arm discontinued per physician orders, placed in trendelenburg position per physician orders, held pressure, vitals stable as documented, unable to obtain new IV access, notified ER nurse who attempted X4 and also unable to obtain IV access, attempted to notify Dr. Celis no answer at this time.
--- NOTE | 2020-07-19 11:40 | PC.NURSE ---
Dr. Celis notified of inablility to place IV line, new orders received for approval to place IV line to right forearm below the PICC line discontinuation site.
[2020-07-19] MEDS: oxyCODONE 5 mg IR Tab/Cap 10 MG PO ×2 (12:14→18:21)
--- NOTE | 2020-07-19 15:42 | P.CONIM_ITS ---
Providers/Reason For Consult Consulting Physican/Specialty*: Urology/Gomez Reason for Consult*: Neurogenic bladder/ recent scrotal abscess associated with chronic jameson Attending Physician: Joe Celis MD Primary Care Provider: Jacoby Jon DO History of Present Illness History of Present Illness Maicol Reid is a 55 year old male who recently was discovered to have a scrotal abscess, urethral erosion, and emergency suprapubic tube placement at [facility]. He is about 6 weeks out now from the suprapubic tube placement and is due for his first change. Surgical intervention at [facility] included drainage of scrotal abscess and suprapubic tube placement after discovery of urethral erosion. The incision for the scrotal abscess has healed without ongoing drainage. Plan was to perform a cystoscopy and suprapubic tube change on 07/19/2020 but on 07/15/2020 he was admitted through the emergency department for clinical picture consistent with pancreatitis. He has recovered well from that and there are tentative plans for discharge soon in order to avoid the difficulties of this paraplegic gentleman having to be brought back to the hospital the question was asked whether or not this could be done prior to his discharge. Current issues include persistent leakage through the urethra of urine despite the suprapubic tube. Does have a history of hyperactivity of the bladder and previously used oxybutynin but that was stopped after he developed constipated related bowel obstruction and has not been started. The hope will be to place a larger tube in the mechanism of decreased outlet resistance hopefully reduce the urethral leakage which has become a real problem for him. Can also consider overactive bladder medicine retry with focus on preventing constipation as well. Review of Systems Narrative: Constitutional: No current fever chills. Does have significant malaise. HEENT: No acute change in vision change in hearing difficulty swallowing Neck: Good range of motion Cardiovascular: Has had chest pain the part of his admission symptoms but was apparently not felt to be related to acute cardiac condition. Respiratory: No shortness of breath wheezing or hemoptysis GI: Severe epigastric and bilateral upper abdominal pain extending into the chest with associated nausea and vomiting. That has improved substantially since his admission. : Suprapubic tube is working well. Still having some what sounds to be urgency type incontinence. Neurologic: Paraplegia Skin: Multiple decubiti with deep extension into the muscle and down to the bone. Hematologic lymphatic: No lymph node enlargement. No abnormal bleeding. Psych: Depressed Lymphatic: denies lymphadenopathy Meds/Allergies Home Medications and Allergies Home Medications Medication Instructions Recorded Confirmed Last Taken Type levothyroxine 88 mcg tablet 88 mcg PO DAILY 10/17/19 07/15/20 07/15/20 History docusate sodium 100 mg capsule 100 mg PO BID PRN 03/28/20 07/15/20 05/11/20 History senna leaf extract 10 ml PO BID PRN #237 ml 05/13/20 07/15/20 07/14/20 Rx oxycodone 10 mg tablet 10 - 15 mg PO QID PRN 30 Days #120 07/11/20 07/15/20 07/15/20 10:00 Rx tab 10 mg tizanidine 4 mg tablet 4 mg PO TID PRN #90 tab 07/11/20 07/15/20 07/14/20 Rx oxybutynin chloride 5 mg tablet 5 mg PO BID #60 tab 07/13/20 07/15/20 Unknown Rx Multiple Vitamins 1 tab PO DAILY 07/15/20 07/15/20 Unknown History Zonegran 400 mg PO BEDTIME 07/15/20 07/15/20 07/14/20 History Lactobacillus rhamnosus GG 1 cap PO DAILY #30 cap 07/21/20 Unknown Rx [Culturelle] apixaban [Eliquis DVT-PE Treat 30D See Rx Instructions .ROUTE 07/21/20 Unknown Rx Start] .COMPLEX #74 each doxycycline hyclate 100 mg PO BID 7 Days #14 cap 07/21/20 07/15/20 07/15/20 Rx ferrous fumarate 325 mg PO BID #30 tab 07/21/20 Unknown Rx fluconazole 200 mg PO DAILY #7 tab 07/21/20 Unknown Rx levofloxacin 500 mg PO DAILY 7 Days #7 tab 07/21/20 Unknown Rx magnesium oxide 400 mg PO BID #30 tab 07/21/20 Unknown Rx pantoprazole [Protonix] 40 mg PO DAILY 28 Days #30 tab 07/21/20 Unknown Rx Allergies Allergy/AdvReac Type Severity Reaction Status Date / Time cefepime Allergy Unknown Unknown Verified 07/11/20 10:25 lactose Allergy Unknown Unknown Verified 07/11/20 10:25 aspirin Allergy ALGY-Anaphy Verified 07/11/20 10:25 laxis meropenem Allergy SWELLING/ Verified 07/11/20 10:25 HIVES cefixime AdvReac Unknown Verified 07/11/20 10:25 vancomycin AdvReac ADR-Itching Verified 07/11/20 10:25 Current Medications Current Medications Generic Name Dose Route Start Last Admin Trade Name Freq PRN Reason Stop Dose Admin Enoxaparin Sodium 60 mg 07/18/20 17:00 07/19/20 05:40 Lovenox SUBCUT 60 mg Q12H FUENTES Administration Piperacillin Sod/Tazobactam 50 mls @ 12.5 mls/hr 07/15/20 21:30 07/19/20 05:37 Sod 4.5 gm/ Sodium Chloride IV 12.5 mls/hr Q8H FUENTES Administration Protocol Dextrose/Lactated Ringer's 1,000 mls @ 50 mls/hr 07/15/20 21:13 07/19/20 06:25 Dextrose 5%-Lactated Ringers IV 75 mls/hr .Q20H FUENTES Administration Iron Sucrose 200 mg/ Sodium 110 mls @ 220 mls/hr 07/17/20 10:00 07/18/20 21:44 Chloride IV 07/21/20 21:29 220 mls/hr Q24H FUENTES Administration Ondansetron HCl 4 mg 07/15/20 21:13 07/17/20 01:50 Zofran IVP 4 mg Q6H PRN Administration NAUSEA AND VOMITING Oxycodone HCl 10 mg 07/19/20 10:47 07/19/20 12:14 Oxycodone Ir PO 10 mg QID PRN Administration MODERATE pain Pantoprazole Sodium 40 mg 07/17/20 09:30 07/18/20 22:34 Protonix IVP 40 mg Q12H FUENTES Administration PFSH Acute PFSH: Medical History Accidental overdose Cholelithiasis Chronic abdominal pain Chronic indwelling Jameson catheter Suprapubic catheter placed 06/07 [facility] after incision and drainage of uretheral abscess Chronic pain of lower extremity, bilateral Decubitus ulcer Encounter for long-term opiate analgesic use Foot amputation status 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 Long-term use of high-risk medication Neurogenic bladder Parastomal hernia Periurethral abscess Phantom pain Restless leg syndrome Tobacco use disorder Surgical History Abscess of scrotum Debridement/erosion of urethra History of amputation of toe (~02/2015) LEFT FOOT/ TOES RIGHT FOOT TOES Hx of resection of large bowel (~01/2015) My colon -- colostomy present S/P abdominal aortic aneurysm repair S/P PICC central line placement PICC line placement for sacral osteomyelitis, placed 06/21/2020 Suprapubic catheter Family History Unknown Anesthesia complication Denies family history of Bleeding disorder Social History Smoking and tobacco status: current every day smoker cigars Alcohol intake: current Alcohol intake frequency: holidays/special occasions only Adopted: Yes Lives independently: Yes Household members: spouse Marital status: Current occupational status: disabled History of recent travel: No Vitals/I&O/Wt Last Vital Signs Temp 98.1 F 07/19/20 14:58 Pulse 95 07/19/20 14:58 Resp 18 07/19/20 14:58 BP 117/81 07/19/20 14:58 Pulse Ox 100 07/19/20 14:58 07/19/20 07/19/20 07/19/20 06:59 14:59 22:59 Intake Total 1050 / 3880 960 / 960 Output Total 75 / 425 400 / 400 Balance 975 / 3455 560 / 560 Weight last 48 hrs Weight 146 lb 9.6 oz Weight 142 lb 6.4 oz Physical Exam Const: COMMON NORMALS: no acute distress, alert and well nourished GENERAL APPEARANCE: well kempt and well developed ORIENTATION/CONSCIOUSNESS: not confused HENMT: COMMON NORMALS: normocephalic and atraumatic HEAD & SCALP: normocephalic and atraumatic Eye: COMMON NORMALS: conjunctivae normal and no scleral icterus CONJUNCTIVA: Yes conjunctivae normal OTHER: corrective lens Neck/C-Spine: COMMON NORMALS: full ROM Lymph: LYMPHATIC: no lymphadenopathy noted Resp: COMMON NORMALS: normal respiratory effort EFFORT & INSPECTION: No labored and No Actively coughing Cardio: COMMON NORMALS: regular rate and regular rhythm RATE: regular rate RHYTHM: regular rhythm GI: OTHER: Suprapubic tube in place. Site healthy. Colostomy functioning. Well healed midline abdominal incision. : MALE GROIN/PERINEUM EXAM: No ecchymosis and No inguinal lymphadenopathy PENIS: circumcised MEATUS: hypospadias (Catheter induced to benavidez) SCROTUM: No scrotal swelling and No scrotal mass TESTES: Yes atrophic testicle OTHER: Urethral meatal erosion to benavidez. Scrotum benign with closure of the previous I&D site. testicular atrophy Extremity: NARRATIVE EXTREMITY EXAM: Partially amputated feet bilaterally Neuro: SENSORIUM/ORIENTATION: Yes alert Psych: COMMON NORMALS: mental status grossly normal and Normal thought process present APPEARANCE: Yes grossly normal and Yes well kempt ATTITUDE: Yes calm and Yes engaged MOOD & AFFECT: Yes depressed mood THOUGHT PROCESS: Normal thought process present Skin: NARRATIVE SKIN EXAM: multiple decubiti on buttocks Data Micro: Micro: Microbiology 07/17/20 10:45 Urine Culture - Fi nal Urine,Voided Yeast Other Data: Other data: Previous CT scans, recent US and outside records from [facility] A&P Assessment and plan (1) Chronic indwelling Jameson catheter: Converted from urethral to suprapubic tube location in May at [facility] when was found to have a urethral erosion. We will plan for cystoscopy and suprapubic tube change tomorrow as time is available in the operating room. Status: Acute (2) Periurethral abscess: SP I&D. Appears resolved on PE Status: Acute (3) Neurogenic bladder: Secondary to paraplegia status Status: Acute (4) Urgency incontinence: Despite SP tube, still with at times severe leakage. Prior OAB meds helped but severe constipation ensued. Will increase SP tube size at change. Consider retry of OAB meds with preemptive focus on bowel program to prevent constipation Status: Acute Consult Attestations Medical Necessity Statement: see attending Coding Level of Care Code Acute Sheet Metal Technician for Chg Fwd Exam Detailed Diagnoses Chronic indwelling Jameson catheter Z97.8 Periurethral abscess N34.0 Neurogenic bladder N31.9 Urgency incontinence N39.41
--- NOTE | 2020-07-19 17:00 | PC.NURSE ---
Dr. Ceils notified that patient still does not have an IV. ICU to be called.
--- NOTE | 2020-07-19 18:00 | PC.NURSE ---
Called ICU and Elle EVANS came up and placed a 20 in patient's right forearm.
[2020-07-19] MEDS: oxybutynin 5 mg Tablet PO (18:21)
[2020-07-19] MEDS: doxycycline 100 mg Tablet PO (18:21)
[2020-07-19] MEDS: magnesium oxide 400 mg tablet PO (18:21)
--- NOTE | 2020-07-19 18:56 | PC.NURSE ---
Dr. Celis want the patient to get a one time dose of Lovenox 60mg at this time and then Zosyn and Iron. Patient still need his consent signed for surgery tomorrow. Patient is A&Ox3. Report to Chadd EVANS at this time.
--- NOTE | 2020-07-19 19:11 | PC.NURSE ---
ICU Nurse Note: Called to room for IV start request after multiple failed attempts. Successfully started a 20-gauge IV in the right forearm with one attempt. The IV flushes and has great blood return; pt denies any discomfort with flushing. Dressing applied and dated; IV site wrapped with coban dressing. Pt complains of skin irritation of the entire right arm, but otherwise tolerated the IV insertion well. Primary nurse updated.
[2020-07-19] MEDS: piperacillin-tazobactam 3.375 GM in sodium chloride 0.9% (plus) 50 ML IV (20:00)
[2020-07-19] MEDS: iron sucrose 200 MG in sodium chloride 0.9% (100 ml) 100 ML 220 MG IV (23:09)
[2020-07-19] MEDS: pantoprazole 40 mg SDV IVP (23:09)
[2020-07-19] MEDS: zonisamide 100 MG Capsule 400 MG PO (23:09)
[2020-07-19] MEDS: oxyCODONE 5 mg IR Tab/Cap 15 MG PO (23:19)
[2020-07-20] VITALS (18 sets, daily range): BP systolic 103–135; BP diastolic 62–84; PULSE 54–86; RESP 16–20; TEMP 36.3–36.9; O2SAT 94–100
[2020-07-20] MEDS: piperacillin-tazobactam 3.375 GM in sodium chloride 0.9% (plus) 50 ML IV ×3 (03:49→20:59)
[2020-07-20] MEDS: HYDROmorphone 1 mg/mL INJ 1 mL 0.5 MG IVP (04:40)
[2020-07-20 05:34] LABS: Basophils % 0.3 %; Eosinophils # 1.7 10^3/uL (0.0-0.8); Eosinophils % 18.9 %; Hemoglobin 11.2 g/dL (11.7-16.6); Lymphocytes # 1.1 10^3/uL (0.8-4.8); Lymphocytes % 11.5 %; Mean Corpuscular HGB Conc 31.1 g/dL (30.0-36.0); Mean Platelet Volume 10.2 fL (7.4-10.4); Monocytes # 0.3 10^3/uL (0.2-0.9); Monocytes % 3.4 %; Neutrophils # 6.04 10^3/uL (1.8-7.7); Neutrophils % 65.5 %; Nucleated Red Blood Cells % 0 %; Platelet Count 211 10^3/cmm (130-400); Red Cell Distribution Width 21.5 % (12.1-15.1); White Blood Count 9.2 10^3/uL (4.0-10.0)
[2020-07-20] MEDS: dextrose 5%-lactated ringers 1,000 ML 75 ML IV ×2 (05:55→17:05)
--- NOTE | 2020-07-20 06:16 | PC.NURSE ---
Patient had slept on and off through the night. Patient mainly controlled pain through meditation with some ocular care aide. Patient appeared to be in good spirits.
[2020-07-20 06:23] LABS: Alanine Aminotransferase 11 U/L (0-41); Albumin Level 2.1 g/dL (3.5-5.2); Alkaline Phosphatase 133 IU/L (40-130); Aspartate Amino Transferase 11 U/L (0-40); Blood Urea Nitrogen 3 mg/dL (6-20); Calcium 7.9 mg/dL (8.5-10.5); Carbon Dioxide 18 mmol/L (22-29); Chloride 110 mmol/L (98-107); Globulin 3.8 g/dL (1.3-4.6); Glomerular Filtration Rate 117.1 mL/min (90-130); Glucose 103 mg/dL (65-115); Osmolality Calculated 281 mOsm/kg (285-295); Sodium 137 mmol/L (136-145); Total Bilirubin 0.2 mg/dL (0.15-1.2); Total Protein 5.9 g/dL (6.6-8.7)
[2020-07-20 08:01] LABS: Magnesium 1.5 mg/dL (1.7-2.3); Phosphorus 2.1 mg/dL (2.5-4.5)
--- NOTE | 2020-07-20 09:12 | PM.PN ---
Subjective Subjective: Interval history: The patient has no complaints this morning. He would like to try some soft food. Vitals/I&O/Wt Last Vital Signs Temp 98.3 F 07/20/20 07:16 Pulse 86 07/20/20 07:16 Resp 18 07/20/20 07:16 BP 106/70 07/20/20 07:16 Pulse Ox 100 07/20/20 07:16 07/19/20 07/20/20 07/20/20 22:59 06:59 14:59 Intake Total 1240 / 2250 50 / 2250 Output Total 250 / 790 140 / 790 Balance 990 / 1460 -90 / 1460 Weight last 48 hrs Weight 151 lb 8 oz Weight 146 lb 9.6 oz Physical Exam Narrative: EXAM NARRATIVE: Bowel sounds are present. No significant tenderness on exam. Data : 07/20/20 04:57 07/20/20 04:57 Micro: Microbiology 07/17/20 10:45 Urine Culture - Final Urine,Voided Kaylen tropicalis A&P Assessment and plan (1) Epigastric pain: It sounds like this particular pain has improved. With the evidence of a least mild pancreatitis involving the pancreatic head, this is certainly in the differential. Other considerations include gastritis or, more unlikely in my opinion, biliary colic. H. pylori antibody is negative. Continue with antacid therapy. The patient does have an ongoing history of chronic abdominal pains. He certainly has good reasons for adhesions from all with his previous involved abdominal procedures. Status: Acute (2) Nausea and vomiting: This is also somewhat of a chronic problem for the patient but is currently improved. He has not noticed any food intolerances but does have intermittent episodes of vomiting at home and has for a long time. Advance to soft diet. Status: Acute (3) Acute pancreatitis: As mentioned above, with CAT scan evidence of pancreatitis in addition to a mildly elevated lipase, this is certainly consistent with acute pancreatitis. Etiology is somewhat uncertain, however. There does not appear to be any obvious recent evidence of a passed gallstone. Status: Acute Qualifiers: Acute pancreatitis complication: no infection or necrosis Pancreatitis type: unspecified pancreatitis type Qualified Code(s): K85.90 - Acute pancreatitis without necrosis or infection, unspecified Attestations Medical Necessity Statement*: See admitting service's notation. Coding Level of Care Code Acute Granulating Machine Operator for Chg Fwd Diagnoses Epigastric pain R10.13 Nausea and vomiting R11.2 Acute pancreatitis K85.90 Acute pancreatitis complication: no infection or necrosis Pancreatitis type: unspecified pancreatitis type
[2020-07-20] MEDS: oxyCODONE IR 30 mg Tablet 15 MG PO ×2 (10:11→21:56)
[2020-07-20] MEDS: oxybutynin 5 mg Tablet PO ×2 (10:11→17:02)
[2020-07-20] MEDS: magnesium oxide 400 mg tablet PO ×2 (10:13→17:03)
[2020-07-20] MEDS: doxycycline 100 mg Tablet PO ×2 (10:14→17:03)
[2020-07-20] MEDS: levothyroxine 88 mcg Tablet PO (10:14)
[2020-07-20] MEDS: magnesium sulfate premix 2 GM/50 ML PIGGYBACK IV (10:15)
--- NOTE | 2020-07-20 11:26 | P.PN_ITS ---
Subjective Subjective: Interval history: No acute events overnight. Patient is tolerating full liquid diet well. Denies any nausea, vomiting, headache. Patient is due to be taken to the OR today for cystoscopy with Dr. Gomez. He has remained afebrile and hemodynamically stable. Medications: Reviewed: Yes Vitals/I&O/Wt Last Vital Signs Temp 98.3 F 07/20/20 07:16 Pulse 86 07/20/20 07:16 Resp 18 07/20/20 10:11 BP 106/70 07/20/20 07:16 Pulse Ox 98 07/20/20 10:11 07/19/20 07/20/20 07/20/20 22:59 06:59 14:59 Intake Total 1240 / 2200 50 / 2250 Output Total 250 / 650 140 / 790 Balance 990 / 1550 -90 / 1460 Weight last 48 hrs Weight 68.719 kg Weight 66.497 kg Physical Exam Narrative: EXAM NARRATIVE: General: No acute distress, AO x3, thin HEENT: PERRLA, pupils bilaterally equal and reactive Chest: Normal vesicular breath sounds, no added sounds, equal good air entry bilaterally CVS: S1-S2 regular, no murmurs, no tachycardia, no gallops, no rubs Abdomen: Soft, tenderness present in right upper quadrant, no organomegaly, bowel sounds present, colostomy bag present without any sign of purulent discharge. Ostomy site appears healthy and pink. Suprapubic catheter present without any sign of extravasation. Neuro: No focal deficits, no facial deformity, AO x3, power 5/5 in all limbs Skin: Extensive pressure ulcer over multiple areas in posterior pelvic, sacrum, hips with exposure of muscle tissue as well as bone without any significant areas of necrosis or purulent discharge. Minimal scrotal erythema without any significant swelling or purulent discharge, posterior scrotum small opening with a drain was placed previously. Data : 07/20/20 04:57 07/20/20 04:57 Micro: Microbiology 07/17/20 10:45 Urine Culture - Final Urine,Voided Kaylen tropicalis A&P Assessment and plan (1) Acute pancreatitis: Rise of lipase this morning. Status: Acute Qualifiers: Acute pancreatitis complication: no infection or necrosis Pancreatitis type: unspecified pancreatitis type Qualified Code(s): K85.90 - Acute pancreatitis without necrosis or infection, unspecified (2) Neurogenic bladder: Status: Acute (3) Periurethral abscess: Status: Acute (4) Urethral fistula: Status: Acute (5) Colostomy in place: Status: Acute (6) Perineal abscess: Status: Acute (7) Chronic osteomyelitis of sacrum: Status: Acute Additional A&P Information Abdominal pain: Most likely secondary to acute pancreatitis. Pain resolving. CT scan discussed in detail with Dr. Todd. She states patient does not have any ascites, bowel thickening chances of ischemia are less. Will add lactate to morning labs. Abdominal ultrasound suggestive of hydropic gallbladder. MRCP results appreciated negative for any biliary duct obstruction. On review of labs alkaline phosphatase was elevated on admission and trending down to normal level. It is quite possible that patient had a gallstone which he passed leading to transient pancreatitis. After the procedure advance to GI soft diet. Zofran as needed. Protonix twice daily for now. Dilaudid 0.5 mg IV every 8-hour as needed for pain scale 6-10. Restart on his home oxycodone 15 mg 4 times daily as needed. Greatly appreciate surgery recommendations. Iron deficiency anemia: Hemoglobin stable, no active bleeding On last visit he was Hemoccult positive. Iron supplementation of 200 mg daily for next 5 days. Day 4/5 today. Periurethral abscess/left epididymitis/decubitus ulcer/sacral osteomyelitis: Will request documents from [facility] including the cultures and ID documentation. Culture results from the past had Klebsiella, E. coli, Pseudomonas in urine with Proteus and Enterococcus in February. Patient was discharged on Zosyn every 8 hourly IV through PICC line and oral doxycycline. As per the patient he needs to continue treatment for 6 weeks. Most likely patient requires further follow-up as an outpatient both with ID and wound care. Records from [facility] appreciated. Case discussed with Dr. Gomez. To undergo cystoscopy today. Case discussed with Dr. Ontiveros from ID. Patient has finished 6 weeks course of antibiotics burst of doxycycline and Zosyn. Patient would most likely be discharged on oral antibiotics including doxycycline and levofloxacin for next 3 weeks till seen by ID in the clinic. Urine culture for now growing Kaylen. Have asked micro lab for sensitivities. For now start patient on Diflucan 100 mg oral once daily for 7 days. Acute right basilic vein/axillary vein thrombosis: History of DVT: PICC line removed yesterday. Post procedure we will start patient on Eliquis 10 mg twice daily for 7 days followed by 5 mg twice daily. Severe protein energy malnutrition: Replete electrolytes. Patient is at high risk of developing refeeding syndrome. Continue to monitor magnesium and phosphorus levels as well. Will replete accordingly. Atypical chest pain: Negative delta troponin, EKG without ischemic or infarctive changes, most likely epigastric discomfort was secondary to pancreatitis, monitor. CT chest with contrast without acute findings. Aortic aneurysm noted on CT abdomen, unchanged, no endoleak. Cholelithiasis. Pancreatitis. Unchanged left parastomal hernia. CODE STATUS: Full code Clear liquid diet. DVT prophylaxis: Lovenox for DVT prophylaxis. Discharge planning: Most likely can discharge patient after his urology procedure with advised to follow-up as an outpatient with wound clinic, ID clinic, Dr. Gomez on full liquid diet was advised to eventually advance g radually. Attestations Medical Necessity Statement*: Patient requires further hospitalization for management of periurethral abscess, urethral scrotal fistula, right basilic vein and axillary vein thrombosis, pancreatitis. Time Spent in Patient Care: Greater than 35 minutes (>than 50% of time spent in counselling and/or direct pt care on unit) . Coding Level of Care Code Acute Personnel Research Psychologist for Chg Fwd Diagnoses Acute pancreatitis K85.90 Acute pancreatitis complication: no infection or necrosis Pancreatitis type: unspecified pancreatitis type Neurogenic bladder N31.9 Periurethral abscess N34.0 Urethral fistula N36.[address] Z93.3 Perineal abscess L02.215 Chronic osteomyelitis of sacrum M86.68
--- NOTE | 2020-07-20 11:31 | SUR.PREOP ---
patient stated that he felt wet. Me and another nurse rolled him to the side to change chux pads underneath him. Patients dressings on buttocks wounds were saturated with pus like drainage, removed current dressings. ABD and 4x4 gauze applied to wounds with foam tape, pt gown changed and new chux placed under patient.
--- NOTE | 2020-07-20 11:34 | ANES.PREANE2 ---
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 Proposed Procedure: Operation Date: 07/20/20 11:50 Proposed Procedures p Cystoscopy, change of suprapubic tube(Not Applicable) - Malik Gomez MD Familial anesthetic complications: None Was Beta Ana Laura taken within 24 hours: N/A Last intake: Intake NPO Last Liquid Date 07/20/20 Last Liquid Time 00:01 Social: Social History: Tobacco and No alcohol Exam: Pre-Anes Outpt Exam: alert, oriented x 3, clear to auscultation bilaterally and regular rate & rhythm Airway: Cervical ROM: WNL MP: 3 Dentition: Other (missing) Pulmonary: Comments: smoker CV/HEM: CV/HEM: Anemia and DVT GI: Comments: acute pancreatitis w/ chest pain Neuropsych: Comments: 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 emobolization shower (spinal cord shock/ishcemia) Anesthetic Plan: ASA status: 3 Anesthesia: General Other: MAC if able Risk of > 500 ml blood loss (7ml/kg in children): No Meds/Allergies Current Medications: Current Medications Generic Name Dose Route Start Last Admin Trade Name Freq PRN Reason Stop Dose Admin Doxycycline Monohy drate 100 mg 07/19/20 18:00 07/20/20 10:14 Vibramycin PO 100 mg BID FUENTES Administration Protocol Dextrose/Lactated Ringer's 1,000 mls @ 50 ml s/hr 07/15/20 21:13 07/20/20 05:55 Dextrose 5%-Lact ated Ringers IV 75 mls/hr .Q20H FUENTES Administration Iron Sucrose 200 m g/ Sodium 110 mls @ 220 mls /hr 07/17/20 10:00 07/19/20 23:09 Chloride IV 220 mls/hr Q24H FUENTES Administration Piperacillin Sod/T azobactam 50 mls @ 12.5 mls /hr 07/19/20 20:00 07/20/20 03:49 Sod 3.375 gm/ So dium Chloride IV 12.5 mls/hr Q8H FUENTES Administration Protocol Levothyroxine Sodi um 88 mcg 07/20/20 09:00 07/20/20 10:14 Synthroid PO 88 mcg DAILY FUENTES Administration Magnesium Oxide 400 mg 07/19/20 18:00 07/20/20 10:13 Magox PO 400 mg BID FUENTES Administration Ondansetron HCl 4 mg 07/15/20 21:13 07/17/20 01:50 Zofran IVP 4 mg Q6H PRN Administration NAUSEA AND VOMITI NG Oxybutynin Chlorid e 5 mg 07/19/20 18:00 07/20/20 10:11 Ditropan PO 5 mg BID FUENTES Administration Oxycodone HCl 15 mg 07/20/20 09:08 07/20/20 10:11 Oxycodone Ir PO 15 mg QID PRN Administration MODERATE pain Pantoprazole Sodiu m 40 mg 07/17/20 09:30 07/19/20 23:09 Protonix IVP 40 mg Q12H FUENTES Administration Zonisamide 400 mg 07/19/20 21:00 07/19/20 23:09 Zonegran PO 400 mg BEDTIME FUENTES Administration PFSH Anesthesia PFSH: Medical History Accidental overdose Cholelithiasis Chronic abdominal pain Chronic indwelling Shore catheter Suprapubic catheter placed 06/07 [facility] after incision and drainage of uretheral abscess Chronic pain of lower extremity, bilateral Decubitus ulcer Encounter for long-term opiate analgesic use Foot amputation status 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 Long-term use of high-risk medication Neurogenic bladder Parastomal hernia Periurethral abscess Phantom pain Restless leg syndrome Tobacco use disorder Surgical History Abscess of scrotum Debridement/erosion of urethra History of amputation of toe (~02/2015) LEFT FOOT/ TOES RIGHT FOOT TOES Hx of resection of large bowel (~01/2015) My colon -- colostomy present S/P abdominal aortic aneurysm repair S/P PICC central line placement PICC line placement for sacral osteomyelitis, placed 06/21/2020 Suprapubic catheter Family History Unknown Anesthesia complication Denies family history of Bleeding disorder Social History Smoking and tobacco status: current every day smoker cigars Alcohol intake: current Alcohol intake frequency: holidays/special occasions only Adopted: Yes Lives independently: Yes Household members: spouse Marital status: Current occupational status: disabled History of recent travel: No Data Anesthesia CBC & Chem 7: 07/20/20 04:57 07/20/20 04:57 Other Labs: Laboratory Results - last 48 hr 07/18/20 07/19/20 07/19/20 11:07 05:32 05:32 WBC RBC Hgb Hct MCV MCH MCHC RDW Plt Count MPV Neut % (Auto) Lymph % (Auto) [place] % (Auto) Eos % (Auto) Baso % (Auto) Neut # (Auto) Lymph # (Auto) [place] # (Auto) Eos # (Auto) Baso # (Auto) Nucleated RBC % (auto) Nucleated RBCs # Sodium 133 L Potassium 3.9 Chloride 108 H Carbon Dioxide 20 L Anion Gap 8.9 BUN 3 L Creatinine 0.6 L GFR Calculation 139.9 H Glucose 87 Calculated Osmolality 272 L Calcium 7.9 L Phosphorus 2.2 L Magnesium 1.6 L Total Bilirubin 0.2 AST 8 ALT 11 Alkaline Phosphatase 126 Troponin T Hi Sens 6Hr 11.75 Troponin T Hi Sens 6Hr Delta -6.25 L Total Protein 5.9 L Albumin 2.1 L Globulin 3.8 07/20/20 07/20/20 07/20/20 04:57 04:57 04:57 WBC 9.2 RBC 4.00 L Hgb 11.2 L Hct 36.0 L MCV 90.0 MCH 28.0 MCHC 31.1 RDW 21.5 H Plt Count 211 MPV 10.2 Neut % (Auto) 65.5 Lymph % (Auto) 11.5 [place] % (Auto) 3.4 Eos % (Auto) 18.9 Baso % (Auto) 0.3 Neut # (Auto) 6.04 Lymph # (Auto) 1.1 [place] # (Auto) 0.3 Eos # (Auto) 1.7 H Baso # (Auto) 0.0 Nucleated RBC % (auto) 0 Nucleated RBCs # 0.0 Sodium 137 Potassium 4.0 Chloride 110 H Carbon Dioxide 18 L Anion Gap 13.0 BUN 3 L Creatinine 0.7 GFR Calculation 117.1 Glucose 103 Calculated Osmolality 281 L Calcium 7.9 L Phosphorus 2.1 L Magnesium 1.5 L Total Bilirubin 0.2 AST 11 ALT 11 Alkaline Phosphatase 133 H Troponin T Hi Sens 6Hr Troponin T Hi Sens 6Hr Delta Total Protein 5.9 L Albumin 2.1 L Globulin 3.8 Micro: Microbiology 07/17/20 10:45 Urine Culture - Final Urine,Voided Kaylen tropicalis Cardiac Studies: No Data to Display
[2020-07-20] MEDS: sodium chloride 0.9% 1,000 ML 30 ML IV (11:45)
--- NOTE | 2020-07-20 11:55 | PC.SOCIAL ---
IMM Update. Pg. 2 of IMM updated. Initialed, dated, and timed, and placed in chart. Copy provided to patient.
--- NOTE | 2020-07-20 12:05 | PC.CHAP ---
Pastoral Care Encounter/Spiritual Assessment Type of Contact [] Declined silk winding machine operator visit [] Patient/Family/Request visit [] Outpatient visit [xx] Follow-up visit [] Physician referral [] Code/Alert [xx] Routine visit [] Staff referral [] Actively dying [] Patient sleeping [] Family support [] [] Out of room [] Palliative care [] [] Receiving care in room [] Pre-surgical visit [] Trauma [xx] Long length of stay [] ICU visit [] Other: Relational/Emotional Strength [xx] Patient feels connected with others/family/visitors/staff [] Distress [] Loneliness/isolation [] Abandonment Spirituality of Patient [] Person of Ivelisse [] Attends Hindu of their Ivelisse [xx] Believes in Prayer [] Reads Bible or Mormonism materials [] There are Spiritual issues to be addressed Mold Maintenance Technician Interventions [xx] Prayer [xx] Active listening [xx] Non-anxious presence [] Spiritual/emotional support [] Crisis/trauma care [] Spiritual counseling [] Bereavement support [] Provided bereavement packet [] Provided Bible/devotional materials [] Provided toy/stuffed animal, coloring book to patient or family member [] Provided Communion [] Anointing/[place] [] Salvation [xx] Completed spiritual assessment [] Other: Impact on Illness or Injury [] Angry [] Fearful [] Anxious [] Often cries [] Exhaustion [] Unable to work [] Unable to attend druze [] Unable to walk/stand [] Unable to read [] Unable to drive [] Unable to eat/drink [] Unable to sleep [] Unable to be with family [] Patient intubated [] Other: Summary This was a follow-up visit due to length of stay. Pt had surgery but expects to be discharged tomorrow. Time spent with patient 5 Mold Maintenance Technician Guillermina Ramirez
--- NOTE | 2020-07-20 12:50 | PM.OP ---
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 Tight bulbar/membranous urethral stricture passable only with 7 [place] flexible ureteroscope 2. What appears to be a blind passage at the previous erosion site near the membranous urethra on the right side posteriorly 3. 20 [place] suprapubic tube changed to a 22 [place] suprapubic tube with good function and position confirmed via cystoscopy Condition: stable Disposition: PACU Brief History: Maicol is a very unfortunate 55-year-old white male paraplegic who was recently discovered to have a scrotal abscess secondary to a urethral erosion. He was treated at [facility] while I was out of town. A suprapubic tube was placed. He is due now for his first suprapubic tube placement and it was recommended that he have a cystoscopy at the same time to evaluate the urethral status. The scrotal abscess drainage site has healed and has had no more significant drainage and there is no evidence of any active infection in the scrotum currently. Procedure: After routine preoperative evaluation examination obtaining of informed consent and negative Covid test he was taken to the operating suite on 07/20/2020 where general anesthesia was administered without difficulty after appropriate timeout was performed, SCDs confirmed to be functioning, preoperative antibiotics administered, beta-juan protocol confirmed. Prepped and draped in usual sterile fashion pain careful attention to avoiding pressure points and using extensive padding of his lower extremities due to his reduced flexibility. 21 [place] cystoscope was advanced into the urethra into the bulbar urethra but at that point a tight urethral stricture was noted through the membranous urethra. There was what appeared to be a blind passage to the right and posterior urethra in that same area that was probably the previous erosion site. With pressure placed on the scrotum there was no drainage or fluid transfer. The scrotum did not increase in size as this exam conducted. At this point it was decided to pass a flexible ureteroscope to be able to look inside the bladder and the scope was passed through the narrowed area into the bladder where the previous suprapubic tube was identified. There was a lot of sediment in the bladder and this was irrigated through the suprapubic tube self. The old suprapubic tube which had been prepped into the field partially was then deflated and removed by the nursing staff and I passed a new 22 [place] Shore catheter into easily through the suprapubic tract with its position confirmed via cystoscopy. The balloon was inflated with 10 cc and the catheter was confirmed to be functioning well. Irrigation was conducted as well for the remaining sediment removal. The suprapubic site was dressed sterilely and the procedure completed. Awakened in the operating room and returned to the recovery room in stable condition. PLANS: 1. From a urologic perspective he is capable of going back to his preadmission location/home if okay from a hospitalist perspective. I will need to see him back in approximately 1 month for suprapubic tube change.
--- NOTE | 2020-07-20 13:11 | SUR.PHASEI ---
PT RESTING QUIETLY WITH GOOD RESP NOTED PT AWAKES AND VERBALIZED (ARE WE DONE, IM COLD) WARM BLANKETS X 3 TO PT VSS. SATS 100% ON 8LMASK
--- NOTE | 2020-07-20 13:23 | SUR.PHASEI ---
SUPRA PUBIC CATHETER DRAINING RICARDA WITH LIGHT PINK TINGED URINE PATENT TO BAG IN SMALL AMT AND IN TUBING.
--- NOTE | 2020-07-20 13:35 | SUR.PHASEI ---
1330 PT OUT OF PHASE 1 HOLDING PT FOR FLOOR NURSE TO TAKE REPORT. PT SLEEPING QUIETLY. VSS.
[2020-07-20] MEDS: pantoprazole 40 mg SDV IVP (16:54)
[2020-07-20] MEDS: fluconazole premix 200 MG/100 ML PREMIX 100 MG IV (16:54)
[2020-07-20] MEDS: phosphorus 250 mg Tablet PO ×2 (17:04→18:34)
[2020-07-20] MEDS: apixaban 5 mg Tablet 10 MG PO (17:22)
[2020-07-20] MEDS: zonisamide 100 MG Capsule 400 MG PO (20:58)
[2020-07-21] VITALS (7 sets, daily range): BP systolic 91–116; BP diastolic 48–70; PULSE 66–89; RESP 18–22; TEMP 36.6–37.4; O2SAT 92–100
[2020-07-21] MEDS: iron sucrose 200 MG in sodium chloride 0.9% (100 ml) 100 ML 220 MG IV (01:42)
[2020-07-21 04:15] LABS: Basophils % 0.2 %; Eosinophils # 1.5 10^3/uL (0.0-0.8); Hematocrit 31.2 % (42.0-52.0); Hemoglobin 9.5 g/dL (11.7-16.6); Lymphocytes # 0.7 10^3/uL (0.8-4.8); Lymphocytes % 7.2 %; Mean Corpuscular HGB Conc 30.4 g/dL (30.0-36.0); Mean Corpuscular Hemoglobin 27.9 pg (28.0-34.0); Mean Corpuscular Volume 91.5 fL (80-94); Mean Platelet Volume 10.7 fL (7.4-10.4); Monocytes # 0.2 10^3/uL (0.2-0.9); Monocytes % 2.4 %; Neutrophils % 74.8 %; Nucleated Red Blood Cells % 0 %; Platelet Count 166 10^3/cmm (130-400); Red Blood Count 3.41 10^6/uL (4.1-5.3); Red Cell Distribution Width 21.3 % (12.1-15.1); White Blood Count 10.2 10^3/uL (4.0-10.0)
[2020-07-21] MEDS: pantoprazole 40 mg SDV IVP (04:33)
[2020-07-21] MEDS: piperacillin-tazobactam 3.375 GM in sodium chloride 0.9% (plus) 50 ML IV (04:34)
[2020-07-21 04:53] LABS: Alanine Aminotransferase 12 U/L (0-41); Albumin Level 1.8 g/dL (3.5-5.2); Alkaline Phosphatase 123 IU/L (40-130); Blood Urea Nitrogen 2 mg/dL (6-20); Calcium 7.7 mg/dL (8.5-10.5); Carbon Dioxide 17 mmol/L (22-29); Chloride 111 mmol/L (98-107); Globulin 3.6 g/dL (1.3-4.6); Glomerular Filtration Rate 117.1 mL/min (90-130); Glucose 97 mg/dL (65-115); Osmolality Calculated 278 mOsm/kg (285-295); Sodium 136 mmol/L (136-145); Total Bilirubin 0.2 mg/dL (0.15-1.2); Total Protein 5.4 g/dL (6.6-8.7)
[2020-07-21 04:54] LABS: Anion Gap 12.2 (5-19); Aspartate Amino Transferase 16 U/L (0-40); Potassium 4.2 mmol/L (3.5-5.1)
[2020-07-21 05:04] LABS: Magnesium 1.7 mg/dL (1.7-2.3); Phosphorus 1.9 mg/dL (2.5-4.5)
[2020-07-21 06:26] LABS: Erythrocyte Sedimentation Rate 12 mm/hr (0-10)
--- NOTE | 2020-07-21 07:16 | NUR.SHIFT ---
Patient had a good night with minimal complaints. Patient appeared eager to be discharged.
[2020-07-21] MEDS: oxyCODONE IR 30 mg Tablet 15 MG PO ×2 (08:20→13:01)
[2020-07-21] MEDS: phosphorus 250 mg Tablet PO (08:21)
[2020-07-21] MEDS: levothyroxine 88 mcg Tablet PO (08:21)
[2020-07-21] MEDS: doxycycline 100 mg Tablet PO (08:21)
[2020-07-21] MEDS: magnesium oxide 400 mg tablet PO (08:21)
--- NOTE | 2020-07-21 08:25 | ANE.PACU2 ---
Inpatient post-anesthesia follow up: Airway intact: Yes Vital signs: Temperature 97.9 F Pulse Rate [Monito r] 83 Pulse Rate 78 Respiratory Rate 18 Blood Pressure [Le ft Arm] 126/75 Blood Pressure 114/70 Pulse Oximetry 92 Oxygen Delivery Me thod [Rate & Room Air Delivery Changed T o] Oxygen Delivery Me thod [ Room Air Current Rate & Del clyde] Oxygen Delivery Me thod Room Air Oxygen Flow Rate [ Current Rate 1 & Delivery] Oxygen Flow Rate 8 Fraction of Inspir ed Oxygen Hydration adequate: Yes Nausea and vomiting: No Pain level: 1 Mental status: Baseline
[2020-07-21] MEDS: oxybutynin 5 mg Tablet PO (09:00)
[2020-07-21] MEDS: apixaban 5 mg Tablet 10 MG PO (09:00)
--- NOTE | 2020-07-21 10:43 | PM.PN ---
Subjective Subjective: Interval history: The patient says esophagitis going well. He still has some abdominal tightness after eating but no significant pain, etc. Vitals/I&O/Wt Last Vital Signs Temp 97.9 F 07/21/20 07:29 Pulse 78 07/21/20 07:29 Resp 22 H 07/21/20 08:20 BP 114/70 07/21/20 07:29 Pulse Ox 99 07/21/20 08:20 07/20/20 07/21/20 07/21/20 22:59 06:59 14:59 Intake Total 1037.5 / 2217.5 50 / 2217.5 240 / 240 Balance 1037.5 / 2217.5 50 / 2217.5 240 / 240 Weight last 48 hrs Weight 159 lb 1 oz Weight 151 lb 8 oz Physical Exam Narrative: EXAM NARRATIVE: Abdominal exam remains about the same. Urinary Catheter Management^: Suprapubic: Cath Placed During This Visit: yes, but has since been removed by the nurse Reason for Continuing Indwelling Catheter: Chronic Indwelling Urinary Catheter on Admission Urinary Catheter Date of Insertion: 07/20/20 Urinary Catheter Time of Insertion: 12:43 Date Urinary Catheter Removed: 07/20/20 Time Urinary Catheter Discontinued: 12:40 Data : 07/21/20 03:03 07/21/20 03:03 Micro: Microbiology 07/20/20 09:24 MRSA Culture - Final Nose A&P Assessment and plan (1) Epigastric pain: The patient currently denies any pain. With the evidence of a least mild pancreatitis involving the pancreatic head on his presentation CT, this was certainly in the differential. Other considerations include gastritis or, more unlikely in my opinion, biliary colic. H. pylori antibody is negative. Continue with antacid therapy. The patient does have an ongoing history of chronic abdominal pains. He certainly has good reasons for adhesions from all with his previous involved abdominal procedures. Status: Acute (2) Nausea and vomiting: This is also somewhat of a chronic problem for the patient but is currently improved. He has not noticed any food intolerances but does have intermittent episodes of vomiting at home and has for a long time. Tolerating a soft diet. Status: Acute (3) Acute pancreatitis: As mentioned above, with CAT scan evidence of pancreatitis in addition to a mildly elevated lipase on presentation, this is certainly consistent with a presentation of acute pancreatitis. Etiology is somewhat uncertain, however. There does not appear to be any obvious recent evidence of a passed gallstone. Status: Acute Qualifiers: Acute pancreatitis complication: no infection or necrosis Pancreatitis type: unspecified pancreatitis type Qualified Code(s): K85.90 - Acute pancreatitis without necrosis or infection, unspecified Attestations Medical Necessity Statement*: See admitting service's notation. Coding Level of Care Code Acute Secondary Art Teacher for [facility] Diagnoses Epigastric pain R10.13 Nausea and vomiting R11.2 Acute pancreatitis K85.90 Acute pancreatitis complication: no infection or necrosis Pancreatitis type: unspecified pancreatitis type
--- NOTE | 2020-07-21 10:49 | PM.DCS ---
Discharge Providers Date of Admission: 07/15/20 19:38 Date of Discharge: July 21, 2020 Attending Provider at Admission: Lorna Fenton MD Attending Provider at Discharge: Joe Celis MD Consults: Surgery: Dr. Skinner Urology: Dr. Gomez ID: Dr. Ontiveros Primary Care Provider: Jacoby Jon DO Diagnoses at Discharge Discharge Diagnosis (1) Epigastric pain: Status: Acute (2) Nausea and vomiting: Status: Acute (3) Acute pancreatitis: Status: Acute Qualifiers: Acute pancreatitis complication: no infection or necrosis Pancreatitis type: unspecified pancreatitis type Qualified Code(s): K85.90 - Acute pancreatitis without necrosis or infection, unspecified (4) Urethral fistula: Status: Acute (5) Perineal abscess: Status: Acute (6) Chronic osteomyelitis of sacrum: Status: Acute (7) Acute thrombosis of right basilic vein: Status: Acute (8) Iron deficiency anemia: Status: Acute (9) Chronic indwelling Shore catheter: Status: Acute Permanent problem details: Suprapubic catheter placed 06/[facility] after incision and drainage of urethral abscess Reason for Visit Reason for Visit: [place] [employer] Course Discharge Summary: Maicol Reid is a 55 year old male with a complex past medical history. 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 He had bowel infarction requiring colectomy and colostomy, amputation of all toes, neurogenic bladder, chronic cystitis, nephrolithiasis for which he follows with Dr. Gomez. Other issues include multiply infected stage IV decubitus ulcers with polymicrobial organisms including E. coli, Proteus, Enterococcus, Klebsiella, Pseudomonas and MRSA. He is noted to have had osteomyelitis of the right and left ischium dating at least back to 2014. Also has a history of chronic DVT for which he is on Eliquis. Previous treatment for the above osteomyelitis has included imipenem and Zyvox for 6 weeks in August 2015. Follow-up bone scan in October 2015 revealed persistent osteo in bilateral ischial tuberosities and inferior pubic rami. He follows with infectious disease Dr. Easton in [facility]. He has previously also followed with wound care for ulceration over posterior right leg. He is known to have chronic lower extremity lymphedema and has been on lymphedema wraps. He reestablished care with urology after 3 years in March 2020 due to malfunction of Shore catheter. Also reported some difficuly with change in catheters since beginning of the year with leaking around the catheter. He has had admissions at [facility] multiple times for SBO, recently readmitted June 04 after overdosing on oxycodone accidentally. Admission course on this hospitalization was notable for development of scrotal cellulitis, and imaging revealing multiple perineal abscesses. He was eventually transferred to [facility] in [place] where he remained admitted until June 23. He underwent cystoscopy, incision and drainage of periurethral abscesses and placement of a suprapubic catheter on 06/07/2020 by urologist at [place]. Operative findings included urethral erosion into the scrotum identified on cystoscopy and I&D of scrotal abscess. Christiano's gangrene was eventually excluded. It was recommended to him that if his fistulization between the urethra and the scrotum does not seal off within 1 to 2 months to consider referral to [facility] for diverting procedure. He was seen by infectious disease on this visit and eventually discharged on Zosyn and doxycycline reportedly for sacral osteomyelitis. PICC line placed on June 21. On a recent visit with Dr. Gomez on July 13, he had continued to report leakage through the urethra. Volume of leakage estimated to be 50% of the total volume. He was planned for reassessment of the urethra as an outpatient. Now currently admitted on July 15 for epigastric discomfort and found to have acute pancreatitis and cholelithiasis. He was admitted to the hospital and started on conservative treatment. On admission he had high D-dimer CT was negative for PE lipase [address] 60. [address] abdomen was consistent with acute pancreatitis and negative for any other acute intra-abdominal pathology. MRCP without evidence of any obstructing stones at this present time. On review of CT scan with radiology it was negative for any signs of bowel ischemia with negative lactate. He was treated conservatively and was gradually advanced on his diet and is currently tolerating GI soft diet well. Surgery was also consulted for the management. Urology was consulted and patient underwent cystoscopy with suprapubic tube change on July 20. He was also found to have tight bulbar/membranous urethral stricture. He is advised to follow-up with Dr. Gomez in 1 month for further evaluation of healing of scrotal urethral fistula. He is to continue on suprapubic catheter till then. On admission patient had a PICC line through which he has been getting antibiotics at home including Zosyn and oral doxycycline. During admission his right arm seemed to have more swelling as compared to left for which Doppler studies were done and was consistent with an acute thrombosis of the right basilic vein going up to axillary vein from the PICC line tip. PICC line was removed and patient was started on full dose Lovenox which was transitioned over to Eliquis. He supposed to be on Eliquis 10 mg twice daily for 5 more days followed by 5 mg twice daily. ID service was consulted due to history of recurrent osteomyelitis including recent perianal abscess with consistently continuing increased soakage of sacral wounds along with recent discharge from [facility] in which he had urethral scrotal fistulization. As patient has finished his 6 weeks of IV antibiotics he was transitioned over to oral doxycycline and levofloxacin for 7 more days. He is continued on antibiotics because of recent suprapubic catheter change/cystoscopy and evidence of some epididymitis on the CT scan. During hospitalization his urine culture was consistent with Kaylen tropicalis for which he was started on fluconazole and is to finish a 7-day course. He has been discharged hemodynamically stable condition with advised to follow-up with Dr. Gomez in 1 month, follow-up with wound clinic for further dressing changes, follow-up with ID clinic onset appointment. He is advised to take Eliquis 10 mg twice daily for 7 days followed by 5 mg twice daily. He is also supposed to take GI soft diet for next 1 week and then advance gradually as tolerated. He is also supposed to take doxycycline levofloxacin for next 7 days along with fluconazole 200 mg daily for next 7 days. He is also being discharged home on iron supplementation, magnesium supplementation. He is supposed to follow-up with his primary care provider within next 2 weeks with a repeat CBC and CMP. Physical Exam Narrative: EXAM NARRATIVE: General: No acute distress, AO x3, thin HEENT: PERRLA, pupils bilaterally equal and reactive Chest: Normal vesicular breath sounds, no added sounds, equal good air entry bilaterally CVS: S1-S2 regular, no murmurs, no tachycardia, no gallops, no rubs Abdomen: Soft, tenderness present in right upper quadrant, no organomegaly, bowel sounds present, colostomy bag present without any sign of purulent discharge. Ostomy site appears healthy and pink. Suprapubic catheter present without any sign of extravasation. Neuro: No focal deficits, no facial deformity, AO x3, power 5/5 in all limbs Skin: Extensive pressure ulcer over multiple areas in posterior pelvic, sacrum, hips with exposure of muscle tissue as well as bone without any significant areas of necrosis or purulent discharge. Minimal scrotal erythema without any significant swelling or purulent discharge, posterior scrotum small opening with a drain was placed previously. Urinary Catheter Management^: Suprapubic: Cath Placed During This Visit: yes, but has since been removed by the nurse Reason for Continuing Indwelling Catheter: Chronic Indwelling Urinary Catheter on Admission Urinary Catheter Date of Insertion: 07/20/20 Urinary Catheter Time of Insertion: 12:43 Date Urinary Catheter Removed: 07/20/20 Time Urinary Catheter Discontinued: 12:40 Discharge Data Data Completed and Pending: Completed Studies During Hospitalization Category Date Time Status CT angio chest w abd pel w con Stat Cat Scan 07/15/20 15:23 Completed MR MRCP [id number] Rou rafael MRI 07/17/20 09:46 Completed US abdomen limite d [id number] Routine Ultrasound 07/17/20 19:29 Completed US scrotum [id number] Routine Ultrasound 07/16/20 14:38 Completed US venous duplex upper extremity RT [CV venous duplex Ultrasound 07/18/20 14:02 [place] [id number]] Rout ine Pending at discharge Category Date Time Status Blood Culture Sta t Lab 07/17/20 10:17 Results Labs from last 24 hours 07/21/20 07/21/20 07/21/20 03:03 03:03 03:03 WBC 10.2 H RBC 3.41 L Hgb 9.5 L Hct 31.2 L MCV 91.5 MCH 27.9 L MCHC 30.4 RDW 21.3 H Plt Count 166 MPV 10.7 H Neut % (Auto) 74.8 Lymph % (Auto) 7.2 [place] % (Auto) 2.4 Eos % (Auto) 15.0 Baso % (Auto) 0.2 Neut # (Auto) 7.60 Lymph # (Auto) 0.7 L [place] # (Auto) 0.2 Eos # (Auto) 1.5 H Baso # (Auto) 0.0 Nucleated RBC % (a uto) 0 Nucleated RBCs # 0.0 ESR Sodium 136 Potassium 4.2 Chloride 111 H Carbon Dioxide 17 L Anion Gap 12.2 BUN 2 L Creatinine 0.7 GFR Calculation 117.1 Glucose 97 Calculated Osmolal ity 278 L Calcium 7.7 L Phosphorus 1.9 L Magnesium 1.7 Total Bilirubin 0.2 AST 16 ALT 12 Alkaline Phosphata se 123 Total Protein 5.4 L Albumin 1.8 L Globulin 3.6 07/21/20 03:03 WBC RBC Hgb Hct MCV MCH MCHC RDW Plt Count MPV Neut % (Auto) Lymph % (Auto) [place] % (Auto) Eos % (Auto) Baso % (Auto) Neut # (Auto) Lymph # (Auto) [place] # (Auto) Eos # (Auto) Baso # (Auto) Nucleated RBC % (a uto) Nucleated RBCs # ESR 12 H Sodium Potassium Chloride Carbon Dioxide Anion Gap BUN Creatinine GFR Calculation Glucose Calculated Osmolal ity Calcium Phosphorus Magnesium Total Bilirubin AST ALT Alkaline Phosphata se Total Protein Albumin Globulin Vitals: Last Vital Signs Temp 97.9 F 07/21/20 07:29 Pulse 78 07/21/20 07:29 Resp 22 H 07/21/20 08:20 BP 114/70 07/21/20 07:29 Pulse Ox 99 07/21/20 08:20 Discharge Plan Discharge Patient Disposition: Home Health Service Condition: Stable Prescriptions: New magnesium oxide 400 mg (241.3 mg magnesium) Tablet 400 mg PO BID Qty: 30 RF: 0 levofloxacin 500 mg tablet 500 mg PO DAILY 7 Days Qty: 7 RF: 0 fluconazole 200 mg tablet 200 mg PO DAILY Qty: 7 RF: 0 Eliquis DVT-PE Treat 30D Start 5 mg (74 tabs) tablets,dose pack See Rx Instructions .ROUTE .COMPLEX Qty: 74 RF: 0 ferrous fumarate 325 mg (106 mg iron) tablet 325 mg PO BID Qty: 30 RF: 0 Protonix 40 mg tablet,delayed release (DR/EC) 40 mg PO DAILY 28 Days Qty: 30 RF: 0 Culturelle 10 billion cell capsule 1 cap PO DAILY Qty: 30 RF: 0 Continued oxycodone 10 mg tablet 10 - 15 mg PO QID PRN (Reason: pain) 30 Days Qty: 120 RF: 0 tizanidine 4 mg tablet 4 mg PO TID PRN (Reason: muscle spasticity) Qty: 90 RF: 1 levothyroxine 88 mcg tablet 88 mcg PO DAILY RF: 0 docusate sodium [Colace] 100 mg capsule 100 mg PO BID PRN (Reason: Constipation) RF: 0 oxybutynin chloride 5 mg tablet 5 mg PO BID Qty: 60 RF: 3 senna leaf extract 176 mg/5 mL syrup 10 ml PO BID PRN (Reason: constipation) Qty: 237 RF: 0 Zonegran 100 mg capsule 400 mg PO BEDTIME RF: 0 Multiple Vitamins Tablet 1 tab PO DAILY RF: 0 doxycycline hyclate 100 mg capsule 100 mg PO BID 7 Days Qty: 14 RF: 0 Discontinued piperacillin-tazobactam 4.5 gram recon soln 4.5 gm IVP Q8H RF: 0 Eliquis 2.5 mg tablet 2.5 mg PO BID RF: 0 omeprazole 20 mg capsule,delayed release(DR/EC) 20 mg PO DAILY RF: 0 sodium chloride 0.9 % Piggyback See Rx Instructions .ROUTE .COMPLEX RF: 0 Heparin Flush-0 See Rx Instructions .ROUTE .COMPLEX RF: 0 magnesium 1 tab PO DAILY RF: 0 Discharge Orders: Discharge Order (Routine); Ordered 07/21/20 Ordered By: Joe Celis Referrals: Malik Gomez MD [Physician] - 1 month (Dr. Gomez's office will call you on Thursday with an appointment. If you do not hear from them please call [phone].) Tiarra Ontiveros MD [Hospitalist] - 08/07/20 12:26 pm Jacoby Jon DO [Primary Care Provider] - 2 weeks WOUND CARE CLINIC, [Staff Physician] - 7-10 days (Please call your wound care provider in [facility] and schedule an appointment. ) Discharge Diet: Advance as tolerated and Full LIquid Discharge Activity: Resume usual activity Patient Instructions: Fluconazole (By mouth), Levofloxacin (By mouth), Pantoprazole (By mouth), Magnesium Oxide (By mouth), Probiotic (By mouth), Ascorbic Acid/Cyanocobalamin/Ferrous Fumarate (By mouth), Apixaban (By mouth) Activity Restrictions/Additional Instructions: follow-up with Dr. Gomez in 1 month, follow-up with wound clinic for further dressing changes, follow-up with ID clinic onset appointment. He is advised to take Eliquis 10 mg twice daily for 7 days followed by 5 mg twice daily. He is also supposed to take GI soft diet for next 1 week and then advance gradually as tolerated. He is also supposed to take doxycycline levofloxacin for next 7 days along with fluconazole 200 mg daily for next 7 days. He is also being discharged home on iron supplementation, magnesium supplementation. He is supposed to follow-up with his primary care provider within next 2 weeks with a repeat CBC and CMP. Discharge Attestations Time Spent in Discharge Care*: greater than 30 min Specific Discharge Activities: Specific discharge activities: educating patient, discussing with pcp/other providers, discussing with rehabilitation caseworker/social workers/dc planners, documenting/other paperwork and evaluating patient/reviewing data Status at Discharge: Cognitive status at discharge: cognitively intact, Behavioral status at discharge: cooperative, Functional status at discharge: wheelchair bound Overall status at discharge: patient is back to baseline Quality Metrics Clinical Quality Measures During this hospital stay, did patient experience: VTE Contraindication to Overlap Therapy: Overlap therapy prescribed VTE Discharge Education: Education about anticoagulant therapy/Care Notes given Deep Vein Thrombosis/Pulmonary Embolism Present on Admission: Yes and None Coding Level of Care Code 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
--- NOTE | 2020-07-21 11:25 | PC.NURSE ---
PRESCRIPTIONS THIS NURSE CALLED IN PATIENT'S PRESCRIPTIONS TO [facility].
[2020-07-21] MEDS: fluconazole 100 mg Tablet 200 MG PO (13:01)
== END 2020-07-21 17:04 | disposition home health service (06) | DRG 438 ==
LOC: ER 14:13 → MEDSURG 20:15
PROVIDERS: Family Medicine; Internal Medicine; Student in an Organized Health Care Education/Training Program; Surgery; Urology; Admitting Provider Internal Medicine; PCP Internal Medicine; Visit Provider Student in an Organized Health Care Education/Training Program
PROC: 0TJB8ZZ Inspection of Bladder, Via Natural or Artificial Opening Endoscopic (ICD-10-PCS; CPT 52000; principal; 2020-07-20 11:50)
PROC: 0T29X0Z Change Drainage Device in Ureter, External Approach (ICD-10-PCS; 2020-07-20 11:50)
DX: K85.90 Acute pancreatitis without necrosis or infection, unspecified (principal); L89.154 Pressure ulcer of sacral region, stage 4; E43 Unspecified severe protein-calorie malnutrition; G82.20 Paraplegia, unspecified; M46.28 Osteomyelitis of vertebra, sacral and sacrococcygeal region; K94.09 Other complications of colostomy; I82.621 Acute embolism and thrombosis of deep veins of right upper extremity; N34.0 Urethral abscess; Z86.718 Personal history of other venous thrombosis and embolism; Z79.01 Long term (current) use of anticoagulants; Z95.828 Presence of other vascular implants and grafts; N31.2 Flaccid neuropathic bladder, not elsewhere classified; N39.498 Other specified urinary incontinence; Z93.6 Other artificial openings of urinary tract status; Z93.3 Colostomy status; K80.20 Calculus of gallbladder without cholecystitis without obstruction; G89.29 Other chronic pain; M79.605 Pain in left leg; M79.604 Pain in right leg; Z89.422 Acquired absence of other left toe(s); Z89.421 Acquired absence of other right toe(s); G25.81 Restless legs syndrome; F17.210 Nicotine dependence, cigarettes, uncomplicated; Z79.891 Long term (current) use of opiate analgesic; N35.912 Unspecified bulbous urethral stricture, male; M79.89 Other specified soft tissue disorders; Z68.24 Body mass index [BMI] 24.0-24.9, adult; N45.1 Epididymitis; D50.9 Iron deficiency anemia, unspecified; E87.6 Hypokalemia; I71.4 Abdominal aortic aneurysm, without rupture
CPT/HCPCS: 12345; 36415; 36592; 71275; 74177; 74181; 76705; 76870; 80053; 81001; 83540; 83550; 83605; 83690; 83735; 83880; 84100; 84145; 84484; 85025; 85378; 85651; 86677; 87040; 87086; 87106; 87635; 87641; 93005; 93971; 94664; 96372; 96375; 99283; C9113; J1170; J1450; J1650; J1756; J2020; J2250; J2270; J2370; J2405; J2543; J2704; J2710; J3010; J3475; J3480; J3490; J7030; Q9967

== ENCOUNTER 2020-08-07 18:59 | Outpatient (CLI) | payer MEDICARE, MEDICAID, SELFPAY ==
[2020-08-07 19:30] LABS: Basophils # 0.1 10^3/uL (0.0-0.1); Basophils % 0.8 %; Eosinophils # 0.3 10^3/uL (0.0-0.8); Eosinophils % 4.1 %; Hemoglobin 8.2 g/dL (11.7-16.6); Lymphocytes % 12.4 %; Mean Corpuscular HGB Conc 31.5 g/dL (30.0-36.0); Mean Corpuscular Hemoglobin 28.6 pg (28.0-34.0); Mean Corpuscular Volume 90.6 fL (80-94); Monocytes # 0.4 10^3/uL (0.2-0.9); Monocytes % 4.8 %; Neutrophils # 6.18 10^3/uL (1.8-7.7); Neutrophils % 77.6 %; Nucleated Red Blood Cells % 0 %; Platelet Count 511 10^3/cmm (130-400); Red Blood Count 2.87 10^6/uL (4.1-5.3); Red Cell Distribution Width 17.9 % (12.1-15.1)
[2020-08-07 19:41] LABS: Alanine Aminotransferase 7 U/L (0-41); Albumin Level 2.1 g/dL (3.5-5.2); Alkaline Phosphatase 133 IU/L (40-130); Anion Gap 11.4 (5-19); Aspartate Amino Transferase 7 U/L (0-40); Blood Urea Nitrogen 10 mg/dL (6-20); Calcium 7.8 mg/dL (8.5-10.5); Carbon Dioxide 23 mmol/L (22-29); Chloride 98 mmol/L (98-107); Globulin 4.2 g/dL (1.3-4.6); Glomerular Filtration Rate 139.9 mL/min (90-130); Glucose 143 mg/dL (65-115); Osmolality Calculated 268 mOsm/kg (285-295); Potassium 4.4 mmol/L (3.5-5.1); Sodium 128 mmol/L (136-145); Total Bilirubin 0.2 mg/dL (0.15-1.2); Total Protein 6.3 g/dL (6.6-8.7)
[2020-08-07 21:09] LABS: Estmated Average Glucose 82; Hemoglobin A1C 4.5 % (4.0-6.0)
== END 2020-08-07 19:00 | disposition home or self-care (01) ==
LOC: LAB 19:02
PROVIDERS: PCP Internal Medicine; Visit Provider Internal Medicine Infectious Disease
DX: N49.2 Inflammatory disorders of scrotum (principal)
CPT/HCPCS: 80053; 83036; 85025

== ENCOUNTER → 2020-09-06 10:19 | Outpatient (BNVA) | payer MEDICARE, MEDICAID, SELFPAY | PROVIDERS: PCP Internal Medicine; Visit Provider Anesthesiology | DX: G89.29 Other chronic pain (principal); M54.5 Low back pain; M53.3 Sacrococcygeal disorders, not elsewhere classified; G54.6 Phantom limb syndrome with pain; R10.9 Unspecified abdominal pain; Z79.899 Other long term (current) drug therapy; Z79.891 Long term (current) use of opiate analgesic | CPT/HCPCS: 99214 ==

== ENCOUNTER 2020-09-23 15:52 | Emergency (ER) | payer MEDICARE, MEDICAID, SELFPAY ==
[2020-09-23 15:56] VITALS: BP 81/55; PULSE 72; RESP 16; TEMP 36.9; O2SAT 98; BMI 22.8
[2020-09-23 16:45] VITALS: BP 105/75; PULSE 77; RESP 15; O2SAT 98
[2020-09-23 17:12] LABS: Basophils % 0.3 %; Eosinophils # 0.1 10^3/uL (0.0-0.8); Eosinophils % 0.5 %; Hematocrit 26.9 % (42.0-52.0); Hemoglobin 7.8 g/dL (11.7-16.6); Lymphocytes % 8.6 %; Mean Corpuscular Hemoglobin 26.7 pg (28.0-34.0); Mean Corpuscular Volume 92.1 fL (80-94); Mean Platelet Volume 8.9 fL (7.4-10.4); Monocytes # 0.5 10^3/uL (0.2-0.9); Neutrophils # 9.93 10^3/uL (1.8-7.7); Neutrophils % 86.2 %; Nucleated Red Blood Cells % 0 %; Platelet Count 464 10^3/cmm (130-400); Red Blood Count 2.92 10^6/uL (4.1-5.3); Red Cell Distribution Width 16.7 % (12.1-15.1); White Blood Count 11.5 10^3/uL (4.0-10.0)
--- NOTE | 2020-09-23 17:15 | CTR_ITS ---
PROCEDURE INFORMATION: Exam: CT Abdomen And Pelvis With Contrast Exam date and time: 09/23/2020 6:15 PM Age: 55 years old Clinical indication: Abdominal pain; Generalized; Prior surgery; Surgery date: 6+ months; Surgery type: Aaa, colostomy, bowel, suprapubic cath; Patient HX: C/O abd pain and constipation; Additional info: Constipation, abdominal pain TECHNIQUE: Imaging protocol: Computed tomography of the abdomen and pelvis with intravenous contrast. Radiation optimization: All CT scans at this facility use at least one of these dose optimization techniques: automated exposure control; mA and/or kV adjustment per patient size (includes targeted exams where dose is matched to clinical indication); or iterative reconstruction. Contrast material: OMNI 300; Contrast volume: 95 ml; Contrast route: INTRAVENOUS (IV); COMPARISON: CT abdomen pelvis wo con [id number] 06/07/2020 4:00 AM RADIATION DOSE METRICS: Total DLP (mGy-cm): 380.75 Findings: There is some atelectasis in the right lung base. There are degenerative changes of the spine. There is dislocation of the right hip posteriorly and superiorly with fragmentation of the femoral head. There is fluid within the joint space as well as some air. There is an overlying soft tissue ulcer. There are degenerative changes involving the left hip with overlying posterior soft tissue ulceration. There is diastasis of the symphysis pubis. There is no liver mass. There is no intrahepatic biliary dilatation. Gallstones layer within the gallbladder near the gallbladder neck. The pancreas is unremarkable. The spleen is unremarkable. There is no adrenal mass. There is no hydronephrosis. There are no renal calculi. There is no perinephric stranding. There is no renal mass. Again noted is stent graft repair involving the distal abdominal aorta. There appears to be normal enhancement of the graft. No definite endoleak is seen. The again noted is marked dilatation noted of the abdominal aorta measuring 10.3 cm in maximal transverse diameter. An IVC filter is in place. Small retroperitoneal lymph nodes are present. There is no mesenteric adenopathy. The stomach is decompressed. There is no gastric wall thickening. Again noted is the left-sided ostomy with parastomal hernia. No evidence for bowel obstruction is seen. There is some questionable bowel wall thickening of the bowel loops within the pelvis. Within the pelvis: The appendix is not visualized to advantage. However, there is no CT evidence for acute appendicitis. A suprapubic tube is seen within the bladder with marked bladder wall thickening. Small lymph nodes are seen within the pelvis. Small inguinal lymph nodes are present. There are postop changes of the rectosigmoid. CT/CT abdomen pelvis w con* [id number] IMPRESSION: 1. Left-sided ostomy. No evidence for bowel obstruction. Again noted is the peristomal hernia. 2. Questionable thickening of the bowel loops within the pelvis which could represent a mild enteritis. 3. Again noted is the large abdominal aortic aneurysm measuring approximately 10.2 cm in transverse diameter with stent graft repair. No definite endoleak is seen. 4. Suprapubic tube in place with bladder wall thickening. 5. Dislocation of the right hip with fluid and air within the joint space and an overlying soft tissue ulceration. There are degenerative changes of the left hip with overlying posterior soft tissue ulceration. 6. Cholelithiasis. Radiation Dose CTDIVOL = (mGy): DLP = 380.75 (mGy-cm)
[2020-09-23 17:27] LABS: Alanine Aminotransferase 11 U/L (0-41); Albumin Level 1.8 g/dL (3.5-5.2); Alkaline Phosphatase 268 IU/L (40-130); Anion Gap 13.4 (5-19); Aspartate Amino Transferase 9 U/L (0-40); Blood Urea Nitrogen 14 mg/dL (6-20); Calcium 8.3 mg/dL (8.5-10.5); Carbon Dioxide 26 mmol/L (22-29); Chloride 92 mmol/L (98-107); Globulin 5.9 g/dL (1.3-4.6); Glomerular Filtration Rate 139.9 mL/min (90-130); Glucose 144 mg/dL (65-115); Lactic Sepsis W/Reflex 1.5 mmol/L (0.5-2.2); Lipase 44 U/L (13-60); Osmolality Calculated 267 mOsm/kg (285-295); Potassium 4.4 mmol/L (3.5-5.1); Sodium 127 mmol/L (136-145); Total Bilirubin 0.2 mg/dL (0.15-1.2); Total Protein 7.7 g/dL (6.6-8.7)
[2020-09-23] MEDS: sodium chloride 0.9% 1,000 ML 999 ML IV (17:50)
--- NOTE | 2020-09-23 17:56 | PC.PHAR ---
pts states lasix was dced about 2 weeks ago-pts also states the pt has oxybutynin but hasnt started taking it
[2020-09-23] MEDS: iohexol 300 mg/mL 100 mL Btl IV (18:38)
[2020-09-23 18:48] LABS: Urine Appearance Hazy (CLEAR); Urine Color Yellow (Yellow)
[2020-09-23 18:49] LABS: Add Urine Microscopic? YES; Bilirubin Urine Neg (Negative); Blood Urine 2+ (Negative); Glucose Urine UA Norm (Normal); Ketones Urine Negative (Negative); Leukocyte Esterase Urine 2+ (Negative); Nitrate Urine Negative (Negative); Protein Urine Trace (Negative); Urobilinogen Urine Norm (Negative); pH Urine 6.5 (5-7)
[2020-09-23 18:51] LABS: Bacteria Urine 2+ /hpf; RBC Urine 15-25 /hpf (0-2); Squamous Epithelial Cell Urine 0-4 /hpf (0-5); WBC Urine 80-100 /hpf (0-5)
[2020-09-23 18:52] LABS: Add Urine Culture? Yes
[2020-09-23 19:04] VITALS: BP 90/58; PULSE 74; RESP 18; O2SAT 93
[2020-09-23 19:28] VITALS: BP 101/58; PULSE 81; RESP 17; O2SAT 100
--- NOTE | 2020-09-23 20:26 | W.ED.ABDPA2 ---
HPI - Abdominal Pain General: Chief Complaint: Abdominal Pain Stated Complaint: LOW ABD PAIN Time Seen by Provider: 09/23/20 16:48 Source: patient Mode of arrival: ambulatory Limitations: no limitations History of Present Illness: HPI narrative: Patient is a 55-year-old male who has a remote history of an abdominal aneurysm with subsequent bowel ischemia and paraplegia. From the ischemia he has a left-sided colostomy and a suprapubic. He says that for the last 5 weeks he has had generalized abdominal pain. He also believes he is constipated because he only has liquid stool in his colostomy bag and he has vomiting after eating any meals. He is only able to take liquids. He denies any fever. Because the symptoms are ongoing he wants to be evaluated. He is scheduled to obtain a PICC line tomorrow for IV antibiotics due to sacral osteomyelitis. MD elicited complaint: abdominal pain Onset (ago): week(s) (5) Pain Consistency: constant Location: Diffuse Quality: aching Radiation: none Exacerbating factors: eating Relieving factors: nothing Associated Symptoms: Reports anorexia, change in bowel habits, change in stool character, constipation, loose stools, nausea and vomiting; Denies chills, coffee ground emesis, GI cramping, diarrhea, dyspepsia, dysuria, excessive flatus, fever(s), heartburn, hematochezia, hematuria, hematemesis, fecal incontinence, melena, poor appetite and syncope Review of Systems General: Reports: 10 or more systems reviewed and unremarkable except in HPI and below Const: Denies: fever(s) or chills Eyes: Denies: change in vision or blurry vision ENMT: Denies: throat pain, enlarged tonsils, odynophagia, hoarseness, mouth pain or swelling of lips/tongue Card: Denies: syncope Resp: Denies: dyspnea, productive cough or non-productive cough GI: Reports: nausea, vomiting, constipation, change in bowel habits and change in stool character; Denies: hematemesis, coffee ground emesis, heartburn, diarrhea, GI cramping, excessive flatus, fecal incontinence, hematochezia or melena : Denies: dysuria or hematuria Musc: Denies: neck pain, back pain or extremity swelling Skin/Breast: Denies: rash, pruritus or erythema Neuro: Denies: headache(s), numbness in extremities or weakness in extremities Endo: Denies: polyuria, polydipsia or tired all the time PFSH ED PFSH: Medical History Accidental overdose Cholelithiasis Chronic abdominal pain Chronic indwelling Shore catheter Suprapubic catheter placed 06/07 [facility] after incision and drainage of urethral abscess Chronic pain of lower extremity, bilateral Decubitus ulcer Encounter for long-term opiate analgesic use Foot amputation status 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 Long-term use of high-risk medication Neurogenic bladder Parastomal hernia Periurethral abscess Phantom pain Restless leg syndrome Tobacco use disorder Urinary retention Surgical History Abscess of scrotum Debridement/erosion of urethra History of amputation of toe (~02/2015) LEFT FOOT/ TOES RIGHT FOOT TOES Hx of resection of large bowel (~01/2015) My colon -- colostomy present S/P abdominal aortic aneurysm repair S/P PICC central line placement PICC line placement for sacral osteomyelitis, placed 06/21/2020 Suprapubic catheter Family History Unknown Anesthesia complication Denies family history of Bleeding disorder Social History Smoking and tobacco status: former smoker Alcohol intake: current Alcohol intake frequency: holidays/special occasions only Adopted: Yes Lives independently: Yes Household members: spouse Marital status: Current occupational status: disabled History of recent travel: No Physical Exam Const: COMMON NORMALS: no acute distress, average body habitus, patient oriented x3, no limitations, healthy appearing, alert and well nourished HENMT: COMMON NORMALS: normocephalic, atraumatic and moist oral mucous membranes HEAD & SCALP: normocephalic and atraumatic Neck/C-Spine: COMMON NORMALS: no meningeal signs and no JVD Resp: COMMON NORMALS: normal respiratory effort, No retractions, No use of accessory muscles, clear to auscultation bilaterally and percussion normal AUSCULTATION: clear to auscultation bilaterally PERCUSSION: percussion normal Cardio: COMMON NORMALS: no JVD, regular rate, regular rhythm, S1 normal heart sound present, S2 normal heart sound present, No gallops present (Cardio), No clicks present (Cardio), No murmurs present (Cardio), No rub (Cardio) and Peripheral pulses 2+ throughout RATE: regular rate RHYTHM: regular rhythm HEART SOUNDS: S1 normal heart sound present and S2 normal heart sound present PERIPHERAL PULSES: Peripheral pulses 2+ throughout GI: COMMON NORMALS: Soft to palpation, No hepatosplenomegaly present, no masses and no bruits INSPECTION: Yes incision Inspection of incision: healing well (healed midline incision.) PALPATION: Yes Soft to palpation, Yes Tenderness to palpation present (GI), Yes Guarding due to palpation present (GI), No Rigid due to palpation and Yes No hepatosplenomegaly present OTHER: left sided colostomy, functioning well with brown liquid stool in the bag. urostomy functioning well Extremity: COMMON NORMALS: normal to inspection, full ROM, capillary refill normal, no calf tenderness and no pedal edema Neuro: COMMON NORMALS: patient oriented x3 SENSORIUM/ORIENTATION: Yes alert MENINGEAL SIGNS: Yes no meningeal signs Skin: COMMON NORMALS: no rashes or lesions noted, no wounds, turgor normal, no jaundice, no petechiae and no mottling GENERAL SKIN EXAM: no rashes or lesions noted and turgor normal Course Reevaluation(s): Reevaluation #1: Discussed his lab and imaging findings with him, no signs of constipation on imaging, however he appears to have enteritis as well as a UTI. He will be given a dose of IV antibiotic in the ED and discharged home since his symptoms have been on for several weeks. Also discussed his right hip findings, but it appears this is not new and he is getting a PICC line tomorrow for IV antibiotics. Patient and his voiced understanding and all questions answered. Time: 20:26 Vital Signs: Vital signs: Vital Signs Temperature 98.4 F 09/23/20 15:56 Pulse Rate 106 H 09/23/20 21:51 Respiratory Rate 17 09/23/20 21:51 Blood Pressure 85/61 09/23/20 21:51 Pulse Oximetry 99 09/23/20 21:51 MDM - Abdominal Pain MDM Narrative: Medical decision making narrative: 55-year-old male who presented with a 5 week history of abdominal pain, nausea and vomiting. Evaluation in the ED does not reveal any cause for his symptoms. however he has a UTI and enteritis. He is discharged home on oral augmentin for the UTI. He has taken augmentin in the past with no adverse reaction according to the patient and his . He is to f/u tomorrow for a PICC line as scheduled so he can get IV antibiotics for osteomyelitis which is also seen today in the ED. Medical Records: Attestation: I reviewed the patient's medical records. Lab Data: Attestation: I reviewed the patient's lab results. Labs: Lab Results 09/23/20 09/23/20 09/23/20 Range/Units 17:00 17:00 17:00 WBC 11.5 H (4.0-10.0) 10^3/ uL RBC 2.92 L (4.1-5.3) 10^6/u L Hgb 7.8 L (11.7-16.6) g/dL Hct 26.9 L (42.0-52.0) % MCV 92.1 (80-94) fL MCH 26.7 L (28.0-34.0) pg MCHC 29.0 L (30.0-36.0) g/dL RDW 16.7 H (12.1-15.1) % Plt Count 464 H (130-400) 10^3/c mm MPV 8.9 (7.4-10.4) fL Neut % (Auto) 86.2 % Lymph % (Auto) 8.6 % Schoolcraft % (Auto) 4.0 % Eos % (Auto) 0.5 % Baso % (Auto) 0.3 % Neut # (Auto) 9.93 H (1.8-7.7) 10^3/u L Lymph # (Auto) 1.0 (0.8-4.8) 10^3/u L Schoolcraft # (Auto) 0.5 (0.2-0.9) 10^3/u L Eos # (Auto) 0.1 (0.0-0.8) 10^3/u L Baso # (Auto) 0.0 (0.0-0.1) 10^3/u L Nucleated RBC % (a uto) 0 % Nucleated RBCs # 0.0 /100WBC Sodium 127 L (136-145) mmol/L Potassium 4.4 (3.5-5.1) mmol/L Chloride 92 L (98-107) mmol/L Carbon Dioxide 26 (22-29) mmol/L Anion Gap 13.4 (5-19) BUN 14 (6-20) mg/dL Creatinine 0.6 L (0.7-1.2) mg/dL GFR Calculation 139.9 H (90-130) mL/min Glucose 144 H (65-115) mg/dL Calculated Osmolal ity 267 L (285-295) mOsm/k g Lactic Acid 1.5 (0.5-2.2) mmol/L Calcium 8.3 L (8.5-10.5) mg/dL Total Bilirubin 0.2 (0.15-1.2) mg/dL AST 9 (0-40) U/L ALT 11 (0-41) U/L Alkaline Phosphata se 268 H (40-130) IU/L Total Protein 7.7 (6.6-8.7) g/dL Albumin 1.8 L (3.5-5.2) g/dL Globulin 5.9 H (1.3-4.6) g/dL Lipase 44 (13-60) U/L Urine Color (Yellow) Urine Appearance (CLEAR) Urine pH (5-7) Ur Specific Gravit y (1.005-1.030) Urine Protein (Negative) Urine Glucose (UA) (Normal) Urine Ketones (Negative) Urine Blood (Negative) Urine Nitrate (Negative) Urine Bilirubin (Negative) Urine Urobilinogen (Negative) mg/dL Ur Leukocyte Jimena ase (Negative) Urine RBC (0-2) /hpf Urine WBC (0-5) /hpf Ur Squamous Epith Cells (0-5) /hpf Amorphous Sediment Urine Bacteria (NONE) /hpf 09/23/20 Range/Units 18:12 WBC (4.0-10.0) 10^3/ uL RBC (4.1-5.3) 10^6/u L Hgb (11.7-16.6) g/dL Hct (42.0-52.0) % MCV (80-94) fL MCH (28.0-34.0) pg MCHC (30.0-36.0) g/dL RDW (12.1-15.1) % Plt Count (130-400) 10^3/c mm MPV (7.4-10.4) fL Neut % (Auto) % Lymph % (Auto) % Schoolcraft % (Auto) % Eos % (Auto) % Baso % (Auto) % Neut # (Auto) (1.8-7.7) 10^3/u L Lymph # (Auto) (0.8-4.8) 10^3/u L Schoolcraft # (Auto) (0.2-0.9) 10^3/u L Eos # (Auto) (0.0-0.8) 10^3/u L Baso # (Auto) (0.0-0.1) 10^3/u L Nucleated RBC % (a uto) % Nucleated RBCs # /100WBC Sodium (136-145) mmol/L Potassium (3.5-5.1) mmol/L Chloride (98-107) mmol/L Carbon Dioxide (22-29) mmol/L Anion Gap (5-19) BUN (6-20) mg/dL Creatinine (0.7-1.2) mg/dL GFR Calculation (90-130) mL/min Glucose (65-115) mg/dL Calculated Osmolal ity (285-295) mOsm/k g Lactic Acid (0.5-2.2) mmol/L Calcium (8.5-10.5) mg/dL Total Bilirubin (0.15-1.2) mg/dL AST (0-40) U/L ALT (0-41) U/L Alkaline Phosphata se (40-130) IU/L Total Protein (6.6-8.7) g/dL Albumin (3.5-5.2) g/dL Globulin (1.3-4.6) g/dL Lipase (13-60) U/L Urine Color Yellow (Yellow) Urine Appearance Hazy A (CLEAR) Urine pH 6.5 (5-7) Ur Specific Gravit y 1.010 (1.005-1.030) Urine Protein Trace (Negative) Urine Glucose (UA) Norm (Normal) Urine Ketones Negative (Negative) Urine Blood 2+ H (Negative) Urine Nitrate Negative (Negative) Urine Bilirubin Neg (Negative) Urine Urobilinogen Norm (Negative) mg/dL Ur Leukocyte Jimena ase 2+ H (Negative) Urine RBC 15-25 H (0-2) /hpf Urine WBC 80-100 H (0-5) /hpf Ur Squamous Epith Cells 0-4 H (0-5) /hpf Amorphous Sediment Not Reportable Urine Bacteria 2+ H (NONE) /hpf Imaging Data ^: CT Abd/Pel: Radiologist's impression: [address] [address] [address] Scan Report Signed Patient: Maicol Reid #: [id number] : 1965[id number] Age/Sex: 55 / MADM Date: 09/23/20 Loc: ERRoom/Bed: Attending Dr: Ordering Provider/Ordering MD: Obdulio Vick MD, [facility] Date of Service: 09/23/20 Procedure(s): CT abdomen pelvis w con* [id number] Accession Number(s): [id number] Report Number: [id number] PROCEDURE INFORMATION: Exam: CT Abdomen And Pelvis With Contrast Exam date and time: 09/23/2020 6:15 PM Age: 55 years old Clinical indication: Abdominal pain; Generalized; Prior surgery; Surgery date: 6+ months; Surgery type: Aaa, colostomy, bowel, suprapubic cath; Patient HX: C/O abd pain and constipation; Additional info: Constipation, abdominal pain TECHNIQUE: Imaging protocol: Computed tomography of the abdomen and pelvis with intravenous contrast. Radiation optimization: All CT scans at this facility use at least one of these dose optimization techniques: automated exposure control; mA and/or kV adjustment per patient size (includes targeted exams where dose is matched to clinical indication); or iterative reconstruction. Contrast material: OMNI 300; Contrast volume: 95 ml; Contrast route: INTRAVENOUS (IV); COMPARISON: CT abdomen pelvis wo con [id number] 06/07/2020 4:00 AM RADIATION DOSE METRICS: Total DLP (mGy-cm): 380.75 Findings: There is some atelectasis in the right lung base. There are degenerative changes of the spine. There is dislocation of the right hip posteriorly and superiorly with fragmentation of the femoral head. There is fluid within the joint space as well as some air. There is an overlying soft tissue ulcer. There are degenerative changes involving the left hip with overlying posterior soft tissue ulceration. There is diastasis of the symphysis pubis. There is no liver mass. There is no intrahepatic biliary dilatation. Gallstones layer within the gallbladder near the gallbladder neck. The pancreas is unremarkable. The spleen is unremarkable. There is no adrenal mass. There is no hydronephrosis. There are no renal calculi. There is no perinephric stranding. There is no renal mass. Again noted is stent graft repair involving the distal abdominal aorta. There appears to be normal enhancement of the graft. No definite endoleak is seen. The again noted is marked dilatation noted of the abdominal aorta measuring 10.3 cm in maximal transverse diameter. An IVC filter is in place. Small retroperitoneal lymph nodes are present. There is no mesenteric adenopathy. The stomach is decompressed. There is no gastric wall thickening. Again noted is the left-sided ostomy with parastomal hernia. No evidence for bowel obstruction is seen. There is some questionable bowel wall thickening of the bowel loops within the pelvis. Within the pelvis: The appendix is not visualized to advantage. However, there is no CT evidence for acute appendicitis. A suprapubic tube is seen within the bladder with marked bladder wall thickening. Small lymph nodes are seen within the pelvis. Small inguinal lymph nodes are present. There are postop changes of the rectosigmoid. CT/CT abdomen pelvis w con* [id number] IMPRESSION: 1. Left-sided ostomy. No evidence for bowel obstruction. Again noted is the peristomal hernia. 2. Questionable thickening of the bowel loops within the pelvis which could represent a mild enteritis. 3. Again noted is the large abdominal aortic aneurysm measuring approximately 10.2 cm in transverse diameter with stent graft repair. No definite endoleak is seen. 4. Suprapubic tube in place with bladder wall thickening. 5. Dislocation of the right hip with fluid and air within the joint space and an overlying soft tissue ulceration. There are degenerative changes of the left hip with overlying posterior soft tissue ulceration. 6. Cholelithiasis. Radiation Dose CTDIVOL = (mGy): DLP = 380.75 (mGy-cm) Dictated By:Jose Carlos Ayala MD Signed By:Jose Carlos Ayalaigned Date/Time:09/23/201921 DD/ 21 Discharge Plan Discharge Patient Disposition: Home Clinical Impression: Cystitis, Hx of abdominal aortic aneurysm, Enteritis, Chronic osteomyelitis of sacrum Hip dislocation, right Qualifiers: Encounter type: sequela Qualified Code(s): S73.004S - Unspecified dislocation of right hip, sequela Condition: Stable Prescriptions: New Augmentin 875-125 mg tablet 1 tab PO BID Qty: 14 RF: 0 Continued promethazine 25 mg tablet 25 mg PO TID PRN (Reason: Nausea And Vomiting) RF: 0 levothyroxine 88 mcg tablet 88 mcg PO DAILY@10 RF: 0 oxybutynin chloride 5 mg tablet 5 mg PO BID Qty: 60 RF: 3 oxycodone 10 mg tablet 10 - 15 mg PO QID PRN (Reason: pain) 30 Days Qty: 120 RF: 0 tizanidine 4 mg tablet 4 mg PO TID PRN (Reason: muscle spasticity) Qty: 90 RF: 1 sertraline [Zoloft] 25 mg tablet 25 mg PO DAILY@22 RF: 0 pantoprazole 20 mg tablet,delayed release (DR/EC) 20 mg PO DAILY@10 RF: 0 docusate sodium 100 mg Capsule 200 mg PO BID@ RF: 0 gentamicin 0.1 % ointment See Rx Instructions .ROUTE .COMPLEX RF: 0 Eliquis 5 mg tablet 5 mg PO BID@,22 RF: 0 Zonegran 100 mg capsule 400 mg PO DAILY@22 RF: 0 magnesium oxide 400 mg (241.3 mg magnesium) tablet 400 mg PO BID@,22 RF: 0 multivitamin [Multiple Vitamins] Tablet 1 tab PO DAILY@10 RF: 0 Discharge Orders: Discharge ED (Routine); Ordered 09/23/20 Ordered By: Obdulio Vick Referrals: Jacoby Jon DO [Primary Care Provider] - 1-3 days Discharge Diet: Usual diet Discharge Activity: Resume usual activity Patient Instructions: Urinary Tract Infection in Men (ED) Activity Restrictions/Additional Instructions: Return for any new or worsening symptoms. Follow-up with your primary care provider within 3 days. Take the medication as prescribed. Follow-up for your PICC line tomorrow as ordered. Coding Level of Care Code ED Conciliator for Allan Blanco
[2020-09-23] MEDS: levofloxacin-dextrose 5 % 500 MG/100 ML PREMIX 100 MG IV (20:47)
[2020-09-23 20:50] VITALS: BP 98/63; PULSE 104; RESP 18; O2SAT 100
[2020-09-23 21:51] VITALS: BP 85/61; PULSE 106; RESP 17; O2SAT 99
--- NOTE | 2020-09-23 22:02 | PC.NURSE ---
[employer] contact for transportation home : #[phone]
== END 2020-09-23 21:51 | disposition home or self-care (01) ==
PROVIDERS: Physician Assistant; Emergency Provider Family Medicine; PCP Internal Medicine
DX: N30.90 Cystitis, unspecified without hematuria (principal); K52.9 Noninfective gastroenteritis and colitis, unspecified; M46.28 Osteomyelitis of vertebra, sacral and sacrococcygeal region; S73.004A Unspecified dislocation of right hip, initial encounter; Z79.01 Long term (current) use of anticoagulants; Z87.891 Personal history of nicotine dependence; X58.XXXA Exposure to other specified factors, initial encounter
CPT/HCPCS: 12345; 74177; 80053; 81001; 83605; 83690; 85025; 87086; 96365; 99283; J1956; J7030; Q9967

== ENCOUNTER → 2020-09-27 12:39 | Day surgery (SDC) | payer MEDICARE, MEDICAID, SELFPAY ==
[2020-09-27 13:02] VITALS: BMI 26.6
[2020-09-27 13:08] VITALS: BP 69/49; PULSE 77; RESP 18; TEMP 36.5; O2SAT 100
--- NOTE | 2020-09-27 13:35 | PC.NURSE ---
Pt arrived to receive Venofer @ 1300. Dr notified at 1315 of low BP, N/V, weakness, dizziness. Dr advised pt to go to ER and not continue with Venofer. Pt escorted to ER via WC with spouse and all personal belongings. Report given to charge nurse Keiko.
== END | disposition home or self-care (01) ==
PROVIDERS: PCP Internal Medicine; Visit Provider Internal Medicine
DX: D50.9 Iron deficiency anemia, unspecified (principal)

== ENCOUNTER 2020-09-27 13:27 | Inpatient (IN) | payer MEDICARE, MEDICAID, SELFPAY ==
[2020-09-27] VITALS (14 sets, daily range): BP systolic 67–92; BP diastolic 42–54; PULSE 68–96; RESP 12–29; TEMP 36.6–37; O2SAT 96–100; BMI 21.2
--- NOTE | 2020-09-27 13:39 | XR_ITS ---
WS: [id number] PORTABLE CHEST HISTORY: dyspnea/cough COMPARISON: None available. RIGHT PICC line with tip in the distal SVC. Lungs are clear and well expanded. No pleural effusion or pneumothorax. Cardiac size: Normal. Mediastinum/Aorta: Mild atherosclerosis aorta. No osseous abnormality seen. IVC filter noted in the RIGHT upper abdomen. Cholelithiasis. XR/XR chest 1V portable [id number] IMPRESSION: 1. No pneumonia. 2. Normal pulmonary vasculature.
--- NOTE | 2020-09-27 13:40 | ECG_ITS ---
[facility] Test Date: 2020-09-27 Pat Name: Maicol Reid Department: Room: Gender: Male [employer] Physical Therapist: : 1965 Requested By: Ryan Naik Order Number: [id number] Veronika MD: Rody Corbin M.D. Measurements Intervals [place] Rate: 78 P: 58 IL: 161 QRS: 81 QRSD: 101 T: 50 QT: 370 QTc: 423 Interpretive Statements SINUS RHYTHM WITH OCCASIONAL SUPRAVENTRICULAR PREMATURE COMPLEXES Compared to ECG 07/18/2020 05:37:31 No significant changes Electronically Signed On 09-27-2020 20:42:01 OPERATIONS SUPPORT COORDINATOR by Rody Corbin M.D. [id number]
--- NOTE | 2020-09-27 13:56 | ED_ITS ---
HPI - General Adult General: Chief complaint: General Medical Stated complaint: LOW BP/ NAUSEA/VOMITING/ WEAKNESS Time Seen by Provider: 09/27/20 13:30 History of Present Illness: HPI narrative: 55-year-old male presents to the emergency room complaining of nausea and weakness. He was brought over here from outpatients he was getting get an iron infusion blood pressure was found to be low. 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 Patient has a history of osteomyelitis to skin breakdown in the pelvic area. He is on antibiotics. He is also on Eliquis. He denies any hematochezia melena hematemesis or coffee-ground emesis denies any abdominal pain or chest pain Onset (ago): hour(s) Radiation: non-radiation Severity: moderate Associated symptoms: Reports decreased appetite, malaise, nausea and weakness; Deny chest pain, confusion, cough, diaphoresis, dyspnea, fevers/chills, headache(s), rash, palpitations, seizures, short of breath, syncope or vomiting Treatments prior to arrival: none Review of Systems Const: Reports: malaise; Denies: diaphoresis ENMT: Denies: throat pain, ear or mastoid pain, nasal discharge or nasal congestion Card: Denies: chest pain, palpitations or syncope Resp: Denies: dyspnea GI: Reports: nausea; Denies: vomiting : Denies: flank pain, dysuria, urinary frequency or urinary urgency Skin/Breast: Denies: rash Neuro: Denies: headache(s) [facility] ED PFSH: Medical History Accidental overdose Cholelithiasis Chronic abdominal pain Chronic indwelling Shore catheter Suprapubic catheter placed 06/07 [facility] after incision and drainage of urethral abscess Chronic pain of lower extremity, bilateral Decubitus ulcer Encounter for long-term opiate analgesic use Foot amputation status 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 Long-term use of high-risk medication Neurogenic bladder Parastomal hernia Periurethral abscess Phantom pain Restless leg syndrome Tobacco use disorder Urinary retention Surgical History Abscess of scrotum Debridement/erosion of urethra History of amputation of toe (~02/2015) LEFT FOOT/ TOES RIGHT FOOT TOES Hx of resection of large bowel (~01/2015) My colon -- colostomy present S/P abdominal aortic aneurysm repair S/P PICC central line placement PICC line placement for sacral osteomyelitis, placed 06/21/2020 Suprapubic catheter Family History Unknown Anesthesia complication Denies family history of Bleeding disorder Social History Smoking and tobacco status: former smoker Alcohol intake: current Alcohol intake frequency: holidays/special occasions only Adopted: Yes Lives independently: Yes Household members: spouse Marital status: Current occupational status: disabled History of recent travel: No Physical Exam Const: COMMON NORMALS: no acute distress GENERAL APPEARANCE: cooperative and comfortable ORIENTATION/CONSCIOUSNESS: Yes awake, Yes oriented to person, Yes oriented to place and Yes oriented to time HENMT: COMMON NORMALS: normocephalic, atraumatic and hearing grossly normal bilaterally HEAD & SCALP: normocephalic and atraumatic Neck/C-Spine: COMMON NORMALS: no JVD Resp: COMMON NORMALS: normal respiratory effort, No retractions, No use of accessory muscles and clear to auscultation bilaterally AUSCULTATION: clear to auscultation bilaterally Cardio: COMMON NORMALS: no JVD, regular rate, regular rhythm and No murmurs present (Cardio) RATE: regular rate RHYTHM: regular rhythm GI: COMMON NORMALS: Soft to palpation and No hepatosplenomegaly present AUSCULTATION: Yes normoactive bowel sounds PALPATION: Yes Soft to palpation, No Tenderness to palpation present (GI), No Guarding due to palpation present (GI) and Yes No hepatosplenomegaly present OTHER: Colostomy present in the left lower quadrant Extremity: COMMON NORMALS: normal to inspection, capillary refill normal, no clubbing, cyanosis or edema, no calf tenderness and no pedal edema Neuro: SENSORIUM/ORIENTATION: Yes oriented to person, Yes oriented to place and Yes oriented to time Skin: COMMON NORMALS: no rashes or lesions noted GENERAL SKIN EXAM: no rashes or lesions noted Course Vital Signs: Vital signs: Vital Signs Temperature 97.6 F 09/29/20 04:40 Pulse Rate 90 09/29/20 04:40 Respiratory Rate 18 09/29/20 04:40 Blood Pressure 136/90 09/29/20 04:40 Pulse Oximetry 100 09/29/20 04:40 MDM - General Adult MDM Narrative: Medical decision making narrative: Severe symptomatic anemia. Discussed with hospitalist will go ahead and admit we have ordered blood for transfusion will need to continue antibiotics for his osteomyelitis. Lab Data: Labs: Lab Results 09/27/20 09/27/20 09/27/20 Range/Units 14:38 16:23 16:23 WBC 11.1 H (4.0-10.0) 10^3/ uL RBC 1.98 L (4.1-5.3) 10^6/u L Hgb 5.3 L* (11.7-16.6) g/dL Hct 18.1 L* (42.0-52.0) % MCV 91.4 (80-94) fL MCH 26.8 L (28.0-34.0) pg MCHC 29.3 L (30.0-36.0) g/dL RDW 17.3 H (12.1-15.1) % Plt Count 439 H (130-400) 10^3/c mm MPV 8.7 (7.4-10.4) fL Neut % (Auto) 90.2 % Lymph % (Auto) 5.0 % [place] % (Auto) 3.5 % Eos % (Auto) 0.5 % Baso % (Auto) 0.3 % Neut # (Auto) 10.03 H (1.8-7.7) 10^3/u L Lymph # (Auto) 0.6 L (0.8-4.8) 10^3/u L [place] # (Auto) 0.4 (0.2-0.9) 10^3/u L Eos # (Auto) 0.1 (0.0-0.8) 10^3/u L Baso # (Auto) 0.0 (0.0-0.1) 10^3/u L Nucleated RBC % (a uto) 0 % Nucleated RBCs # 0.0 /100WBC Sodium 129 L (136-145) mmol/L Potassium 3.4 L (3.5-5.1) mmol/L Chloride 99 (98-107) mmol/L Carbon Dioxide 24 (22-29) mmol/L Anion Gap 9.4 (5-19) BUN 15 (6-20) mg/dL Creatinine 0.5 L (0.7-1.2) mg/dL GFR Calculation 172.6 H (90-130) mL/min Glucose 132 H (65-115) mg/dL Calculated Osmolal ity 271 L (285-295) mOsm/k g Calcium 7.2 L (8.5-10.5) mg/dL Total Bilirubin 0.2 (0.15-1.2) mg/dL AST 5 (0-40) U/L ALT < 5 (0-41) U/L Alkaline Phosphata se 183 H (40-130) IU/L Troponin T Baselin e (0-15) ng/L Total Protein 5.3 L (6.6-8.7) g/dL Albumin 1.5 L (3.5-5.2) g/dL Globulin 3.8 (1.3-4.6) g/dL Urine Color Yellow (Yellow) Urine Appearance Cloudy (CLEAR) Urine pH 5 (5-7) Ur Specific Gravit y 1.015 (1.005-1.030) Urine Protein Trace (Negative) Urine Glucose (UA) Norm (Normal) Urine Ketones Negative (Negative) Urine Blood 3+ H (Negative) Urine Nitrate Negative (Negative) Urine Bilirubin Neg (Negative) Urine Urobilinogen Norm (Negative) mg/dL Ur Leukocyte Jimena ase Trace H (Negative) Urine RBC 0-4 H (0-2) /hpf Urine WBC 80-100 H (0-5) /hpf Ur Squamous Epith Cells 5-10 H (0-5) /hpf Amorphous Sediment Not Reportable Urine Bacteria 2+ H (NONE) /hpf 09/27/20 Range/Units 16:23 WBC (4.0-10.0) 10^3/ uL RBC (4.1-5.3) 10^6/u L Hgb (11.7-16.6) g/dL Hct (42.0-52.0) % MCV (80-94) fL MCH (28.0-34.0) pg MCHC (30.0-36.0) g/dL RDW (12.1-15.1) % Plt Count (130-400) 10^3/c mm MPV (7.4-10.4) fL Neut % (Auto) % Lymph % (Auto) % [place] % (Auto) % Eos % (Auto) % Baso % (Auto) % Neut # (Auto) (1.8-7.7) 10^3/u L Lymph # (Auto) (0.8-4.8) 10^3/u L [place] # (Auto) (0.2-0.9) 10^3/u L Eos # (Auto) (0.0-0.8) 10^3/u L Baso # (Auto) (0.0-0.1) 10^3/u L Nucleated RBC % (a uto) % Nucleated RBCs # /100WBC Sodium (136-145) mmol/L Potassium (3.5-5.1) mmol/L Chloride (98-107) mmol/L Carbon Dioxide (22-29) mmol/L Anion Gap (5-19) BUN (6-20) mg/dL Creatinine (0.7-1.2) mg/dL GFR Calculation (90-130) mL/min Glucose (65-115) mg/dL Calculated Osmolal ity (285-295) mOsm/k g Calcium (8.5-10.5) mg/dL Total Bilirubin (0.15-1.2) mg/dL AST (0-40) U/L ALT (0-41) U/L Alkaline Phosphata se (40-130) IU/L Troponin T Baselin e 27 H (0-15) ng/L Total Protein (6.6-8.7) g/dL Albumin (3.5-5.2) g/dL Globulin (1.3-4.6) g/dL Urine Color (Yellow) Urine Appearance (CLEAR) Urine pH (5-7) Ur Specific Gravit y (1.005-1.030) Urine Protein (Negative) Urine Glucose (UA) (Normal) Urine Ketones (Negative) Urine Blood (Negative) Urine Nitrate (Negative) Urine Bilirubin (Negative) Urine Urobilinogen (Negative) mg/dL Ur Leukocyte Jimena ase (Negative) Urine RBC (0-2) /hpf Urine WBC (0-5) /hpf Ur Squamous Epith Cells (0-5) /hpf Amorphous Sediment Urine Bacteria (NONE) /hpf Discharge Plan Discharge Patient Disposition: Admitted As Inpatient Admit Provider: Juan Jones Clinical Impression: Acute blood loss anemia, Chronic osteomyelitis of sacrum, Long-term use of high-risk medication Condition: Stable Coding Level of Care Code ED Photographic Equipment Technician for Chg Fwd Exam Comprehensive
[2020-09-27] MEDS: sodium chloride 0.9% 1,000 ML 999 ML IV (14:33)
[2020-09-27 15:04] LABS: Urine Appearance Cloudy (CLEAR); Urine Color Yellow (Yellow); pH Urine 5 (5-7)
[2020-09-27 15:05] LABS: Add Urine Microscopic? YES; Bilirubin Urine Neg (Negative); Blood Urine 3+ (Negative); Glucose Urine UA Norm (Normal); Ketones Urine Negative (Negative); Leukocyte Esterase Urine Trace (Negative); Nitrate Urine Negative (Negative); Protein Urine Trace (Negative); Specific Gravity, Urine 1.015 (1.005-1.030); Urobilinogen Urine Norm (Negative)
[2020-09-27 15:14] LABS: RBC Urine 0-4 /hpf (0-2); WBC Urine 80-100 /hpf (0-5)
[2020-09-27 15:19] LABS: Add Urine Culture? Yes; Bacteria Urine 2+ /hpf
--- NOTE | 2020-09-27 15:40 | ECG_ITS ---
[facility] Test Date: 2020-09-27 Pat Name: Maicol Reid Department: Room: Gender: Male Carpet Inspector: : 1965 Requested By: Ryan Naik Order Number: [id number] Veronika MD: Rody Corbin M.D. Measurements Intervals [place] Rate: 75 P: 58 CT: 162 QRS: 89 QRSD: 102 T: 52 QT: 393 QTc: 440 Interpretive Statements SINUS RHYTHM WITH FREQUENT SUPRAVENTRICULAR PREMATURE COMPLEXES LOW QRS VOLTAGE IN EXTREMITY LEADS [QRS DEFLECTION < 0.5 mV IN LIMB LEADS] ABNORMAL RHYTHM ECG Compared to ECG 09/27/2020 14:03:46 Low QRS voltage now present Electronically Signed On 09-27-2020 20:56:12 MACADAM RAKER by Rody Corbin M.D. [id number]
--- NOTE | 2020-09-27 15:42 | PC.NURSE ---
EKG done at 1540 and shown to ER doctor
[2020-09-27 16:36] LABS: Basophils % 0.3 %; Eosinophils # 0.1 10^3/uL (0.0-0.8); Eosinophils % 0.5 %; Lymphocytes # 0.6 10^3/uL (0.8-4.8); Mean Corpuscular HGB Conc 29.3 g/dL (30.0-36.0); Mean Corpuscular Hemoglobin 26.8 pg (28.0-34.0); Mean Corpuscular Volume 91.4 fL (80-94); Mean Platelet Volume 8.7 fL (7.4-10.4); Monocytes # 0.4 10^3/uL (0.2-0.9); Monocytes % 3.5 %; Neutrophils # 10.03 10^3/uL (1.8-7.7); Neutrophils % 90.2 %; Nucleated Red Blood Cells % 0 %; Platelet Count 439 10^3/cmm (130-400); Red Blood Count 1.98 10^6/uL (4.1-5.3); Red Cell Distribution Width 17.3 % (12.1-15.1); White Blood Count 11.1 10^3/uL (4.0-10.0)
[2020-09-27 16:59] LABS: Alanine Aminotransferase < 5 U/L (0-41); Albumin Level 1.5 g/dL (3.5-5.2); Alkaline Phosphatase 183 IU/L (40-130); Anion Gap 9.4 (5-19); Aspartate Amino Transferase 5 U/L (0-40); Blood Urea Nitrogen 15 mg/dL (6-20); Calcium 7.2 mg/dL (8.5-10.5); Carbon Dioxide 24 mmol/L (22-29); Chloride 99 mmol/L (98-107); Globulin 3.8 g/dL (1.3-4.6); Glomerular Filtration Rate 172.6 mL/min (90-130); Glucose 132 mg/dL (65-115); Osmolality Calculated 271 mOsm/kg (285-295); Potassium 3.4 mmol/L (3.5-5.1); Sodium 129 mmol/L (136-145); Total Bilirubin 0.2 mg/dL (0.15-1.2); Total Protein 5.3 g/dL (6.6-8.7)
[2020-09-27 17:05] LABS: Troponin(5th) Baseline 27 ng/L (0-15)
[2020-09-27 17:13] LABS: Hematocrit 18.1 % (42.0-52.0); Hemoglobin 5.3 g/dL (11.7-16.6)
[2020-09-27] MEDS: ciprofloxacin 400 MG/200 ML PREMIX 200 MG IV (18:23)
[2020-09-27 18:30] LABS: Troponin 5 2HR 25.52 ng/L (0-15)
[2020-09-27 18:33] LABS: Troponin 5 2HR Delta -1.48 ABS# (0-10)
--- NOTE | 2020-09-27 18:37 | PM.HP ---
Providers/Chief Complaint Admitting Physician: Juan Jones MD Primary Care Provider: Jacoby Jon DO Chief Complaint: LOW BP/ NAUSEA/VOMITING/ WEAKNESS History of Present Illness 55 year old male with a complex past medical history. 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 He had bowel infarction requiring colectomy and colostomy, amputation of all toes, neurogenic bladder, chronic cystitis, nephrolithiasis for which he follows with Dr. Gomez. Other issues include multiply infected stage IV decubitus ulcers with polymicrobial organisms including E. coli, Proteus, Enterococcus, Klebsiella, Pseudomonas and MRSA. He is noted to have had osteomyelitis of the right and left ischium dating at least back to 2014. Also has a history of chronic DVT for which he is on Eliquis. Previous treatment for the above osteomyelitis has included imipenem and Zyvox for 6 weeks in August 2015. Follow-up bone scan in October 2015 revealed persistent osteo in bilateral ischial tuberosities and inferior pubic rami. He follows with infectious disease Dr. Easton in [facility]. And he currently on Daptomycin as well as aztreonam (09/24/2020) for 6 weeks. He has previously also followed with wound care for ulceration over posterior right leg. He is known to have chronic lower extremity lymphedema and has been on lymphedema wraps. Came in with c/o dizziness. Upon arrival in the ER: He was worked up for Dizziness : CBC : WBC : 11, H/H: 5.3/18, Na: 129, k : 3.4, BUN/SCR: 15/0.5 Troponin : Baseline : 27, 2H : 25, Delta 2H : -1.48 Xray chest :No pneumonia. Normal pulmonary vasculature. EKG : SINUS RHYTHM WITH FREQUENT SUPRAVENTRICULAR PREMATURE COMPLEXES. Review of Systems Const: Denies: fever(s), chills, body aches, change in appetite or diaphoresis Card: Denies: palpitations, edema, swelling of feet/ankles, dyspnea on exertion, orthopnea or leg pain with exertion Resp: Denies: dyspnea, productive cough, wheezing or pain on inspiration GI: Denies: abdominal pain, nausea, vomiting, diarrhea or constipation : Denies: flank pain or difficulty urinating Musc: Denies: back pain, extremity pain or extremity swelling Neuro: Denies: headache(s), difficulty walking or confusion Medications/Allergies Home Medications Medication Instructions Recorded Confirmed Last Taken Type levothyroxine 88 mcg tablet 88 mcg PO DAILY@10/17/19 09/27/20 09/27/20 History multivitamin [Multiple Vitamins] 1 tab PO DAILY@07/15/20 09/27/20 09/27/20 History sertraline 25 mg tablet 25 mg PO DAILY@08/21/20 09/27/20 09/26/20 History oxycodone 10 mg tablet 10 - 15 mg PO QID PRN 30 Days #120 09/06/20 09/27/20 09/27/20 Rx tab tizanidine 4 mg tablet 4 mg PO TID PRN #90 tab 09/06/20 09/27/20 09/27/20 Rx promethazine 25 mg tablet 25 mg PO TID PRN 09/17/20 09/27/20 09/27/20 History Eliquis 5 mg PO BID@09/23/20 09/27/20 09/27/20 History docusate sodium 200 mg PO BID@09/23/20 09/27/20 09/27/20 History gentamicin See Rx Instructions .ROUTE .COMPLEX 09/23/20 09/27/20 09/23/20 History out of medication magnesium oxide 400 mg PO BID@09/23/20 09/27/20 09/27/20 History pantoprazole 20 mg PO DAILY@09/23/20 09/27/20 09/27/20 History zonisamide [Zonegran] 400 mg PO DAILY@09/23/20 09/27/20 09/26/20 History aztreonam 2 g IM Q8H 09/27/20 09/27/20 09/27/20 History daptomycin 500 mg IV Q24H 09/27/20 09/27/20 09/26/20 History ondansetron HCl [Zofran] 8 mg PO Q8H PRN 09/27/20 09/27/20 Unknown History Allergies Allergy/AdvReac Type Severity Reaction Status Date / Time cefepime Allergy Unknown Unknown Verified 09/27/20 13:46 aspirin Allergy ALGY-Anaphy Verified 09/27/20 13:46 laxis meropenem Allergy SWELLING/ Verified 09/27/20 13:46 HIVES cefixime AdvReac Unknown Verified 09/27/20 13:46 vancomycin AdvReac ADR-Itching Verified 09/27/20 13:46 PFSH Acute PFSH: Medical History Accidental overdose Cholelithiasis Chronic abdominal pain Chronic indwelling Shore catheter Suprapubic catheter placed 06/07 [facility] after incision and drainage of urethral abscess Chronic pain of lower extremity, bilateral Decubitus ulcer Encounter for long-term opiate analgesic use Foot amputation status 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 Long-term use of high-risk medication Neurogenic bladder Parastomal hernia Periurethral abscess Phantom pain Restless leg syndrome Tobacco use disorder Urinary retention Surgical History Abscess of scrotum Debridement/erosion of urethra History of amputation of toe (~02/2015) LEFT FOOT/ TOES RIGHT FOOT TOES Hx of resection of large bowel (~01/2015) My colon -- colostomy present S/P abdominal aortic aneurysm repair S/P PICC central line placement PICC line placement for sacral osteomyelitis, placed 06/21/2020 Suprapubic catheter Family History Unknown Anesthesia complication Denies family history of Bleeding disorder Social History Smoking and tobacco status: former smoker Alcohol intake: current Alcohol intake frequency: holidays/special occasions only Adopted: Yes Lives independently: Yes Household members: spouse Marital status: Current occupational status: disabled History of recent travel: No Vitals/I&O/Wt Last Vital Signs Temp 98.6 F 09/27/20 13:40 Pulse 71 09/27/20 18:20 Resp 12 09/27/20 18:20 BP 79/48 09/27/20 18:20 Pulse Ox 99 09/27/20 18:20 Weight last 48 hrs Weight 63.503 kg Physical Exam Narrative: EXAM NARRATIVE: EXAM NARRATIVE: General: No acute distress, AO x3, thin HEENT: PERRLA, pupils bilaterally equal and reactive Chest: Normal vesicular breath sounds, no added sounds, equal good air entry bilaterally CVS: S1-S2 regular, no murmurs, no tachycardia, no gallops, no rubs Abdomen: Soft, tenderness present in right upper quadrant, no organomegaly, bowel sounds present, colostomy bag present without any sign of purulent discharge. Ostomy site appears healthy and pink. Suprapubic catheter present without any sign of extravasation. Neuro: No focal deficits, no facial deformity, AO x3, power 5/5 in all limbs Skin: Extensive pressure ulcer over multiple areas in posterior pelvic, sacrum, hips with exposure of muscle tissue as well as bone without any significant areas of necrosis or purulent discharge. Minimal scrotal erythema without any significant swelling or purulent discharge, posterior scrotum small opening with a drain was placed previously. Data : 09/27/20 16:23 09/27/20 16:23 Micro: Microbiology 09/27/20 17:46 Blood Culture - Preliminary Blood SPECIMEN COLLECTED 09/27/20 17:58 Blood Culture - Preliminary Blood SPECIMEN COLLECTED A&P Assessment and plan (1) Anemia: Normocytic Anemia Likely ACD Anemia Panel Plan is to transfuse 2uS PRBC Monitor CBC Status: Acute (2) Chronic osteomyelitis of sacrum: Currently on Daptomycin and Aztreonam for 6 weeks Status: Acute (3) Neurogenic bladder: Status: Acute (4) Acute thrombosis of right basilic vein: Eliquis on Hold for now Will resume Eliquis on Discharge. Status: Acute (5) Hx of abdominal aortic aneurysm: Status: Acute (6) Colostomy in place: Status: Acute (7) Phantom pain: Status: Chronic Additional A&P Information Code Status :Full code Disposition : Home Anticipated Discharge : In 2 Days Attestations Medical Necessity Statement*: Patient needs to be in [facility]opital for the management of severe symptomatic anemia Coding Level of Care Code Acute Ball Machine Operator for g Fwd Diagnoses Anemia D64.9 Chronic osteomyelitis of sacrum M86.68 Neurogenic bladder N31.9 Acute thrombosis of right basilic vein I82.611 Hx of abdominal aortic aneurysm Z86.[address] Z93.3 Phantom pain G54.6
--- NOTE | 2020-09-27 19:40 | ECG_ITS ---
[facility] Test Date: 2020-09-28 Pat Name: Maicol Reid Department: Room: 255 Gender: Male Meter And Service Line Inspector: : 1965 Requested By: Ryan Naik Order Number: [id number] Veronika MD: Efra Mcgovern M.D. Measurements Intervals [place] Rate: 90 P: 63 MO: 157 QRS: 81 QRSD: 96 T: 51 QT: 339 QTc: 415 Interpretive Statements SINUS RHYTHM WITH FREQUENT SUPRAVENTRICULAR PREMATURE COMPLEXES IN A BIGEMINAL PATTERN ABNORMAL RHYTHM ECG INTERPRETATION BASED ON A DEFAULT AGE OF 40 YEARS Compared to ECG 09/27/2020 15:37:55 No significant changes Electronically Signed On 09-28-2020 17:24:35 DITCHING MACHINE ENGINEER by Efra Mcgovern M.D. [id number]
[2020-09-27] MEDS: oxyCODONE 5 mg IR Tab/Cap 10 MG PO (20:45)
[2020-09-27] MEDS: sertraline 50 mg Tablet 25 MG PO (20:46)
[2020-09-27] MEDS: docusate sodium 100 mg Capsule 200 MG PO (20:46)
[2020-09-27] MEDS: DAPTOmycin 500 MG in sodium chloride 0.9% (100 ml) 100 ML 100 MG IV (20:48)
[2020-09-27] MEDS: D5-NS 0.45% + KCL 20 mEq 20 MEQ/1,000 ML BAG 100 MEQ IV (20:48)
[2020-09-27 23:34] LABS: Troponin 5 6HR 26.98 ng/L (0-15)
[2020-09-27 23:36] LABS: Troponin 5 6HR Delta -0.02 ng/L (0-12)
[2020-09-28] VITALS (12 sets, daily range): BP systolic 81–133; BP diastolic 48–87; PULSE 47–116; RESP 16–18; TEMP 36.4–37.1; O2SAT 97–100
--- NOTE | 2020-09-28 00:15 | PC.SOCIAL ---
PRBC First unit of PRBC started. Stayed with patient for first 15minutes, no signs/symptoms of reaction. Patient tolerating well at this time. Will continue to monitor.
[2020-09-28] MEDS: sodium chloride 0.9% (100 ml) 100 ML ×2 (04:33→16:30)
[2020-09-28 05:08] LABS: Basophils # 0.1 10^3/uL (0.0-0.1); Basophils % 0.5 %; Eosinophils # 0.2 10^3/uL (0.0-0.8); Eosinophils % 1.4 %; Hematocrit 24.4 % (42.0-52.0); Hemoglobin 7.4 g/dL (11.7-16.6); Lymphocytes # 0.8 10^3/uL (0.8-4.8); Lymphocytes % 6.9 %; Mean Corpuscular HGB Conc 30.3 g/dL (30.0-36.0); Mean Corpuscular Hemoglobin 27.4 pg (28.0-34.0); Mean Corpuscular Volume 90.4 fL (80-94); Mean Platelet Volume 8.9 fL (7.4-10.4); Monocytes # 0.5 10^3/uL (0.2-0.9); Monocytes % 4.5 %; Neutrophils # 9.46 10^3/uL (1.8-7.7); Neutrophils % 86.1 %; Nucleated Red Blood Cells % 0 %; Platelet Count 455 10^3/cmm (130-400); Red Cell Distribution Width 15.8 % (12.1-15.1)
[2020-09-28 05:36] LABS: Alanine Aminotransferase < 5 U/L (0-41); Albumin Level 1.3 g/dL (3.5-5.2); Alkaline Phosphatase 175 IU/L (40-130); Anion Gap 10.5 (5-19); Aspartate Amino Transferase 5 U/L (0-40); Blood Urea Nitrogen 15 mg/dL (6-20); Calcium 7.7 mg/dL (8.5-10.5); Carbon Dioxide 23 mmol/L (22-29); Chloride 102 mmol/L (98-107); Creatine Phosphokinase 7 U/L (39-308); Globulin 4.8 g/dL (1.3-4.6); Glomerular Filtration Rate 172.6 mL/min (90-130); Glucose 94 mg/dL (65-115); Osmolality Calculated 275 mOsm/kg (285-295); Potassium 3.5 mmol/L (3.5-5.1); Sodium 132 mmol/L (136-145); Total Bilirubin 0.2 mg/dL (0.15-1.2); Total Protein 6.1 g/dL (6.6-8.7)
[2020-09-28] MEDS: ondansetron 2 mg/ML SDV 2 mL 4 MG IVP ×3 (06:04→20:45)
--- NOTE | 2020-09-28 09:41 | P.PN_ITS ---
Subjective Subjective: Interval history: No acute event overnight.Vitals and labs have been reviewed. S/P 2 U PRBC . Due for 1 more Unit PRBC Today Have remained afebrile. Medications: Reviewed: Yes Vitals/I&O/Wt Last Vital Signs Temp 97.8 F 09/28/20 08:00 Pulse 87 09/28/20 08:00 Resp 16 09/28/20 08:00 BP 101/66 09/28/20 08:00 Pulse Ox 99 09/28/20 08:00 09/27/20 09/28/20 09/28/20 22:59 06:59 14:59 Intake Total 100 / 100 350 / 450 350 / 350 Output Total 300 / 300 Balance 100 / 100 50 / 150 350 / 350 Weight last 48 hrs Weight 63.503 kg Physical Exam Narrative: EXAM NARRATIVE: Narrative EXAM NARRATIVE: EXAM NARRATIVE: General: No acute distress, AO x3, thin HEENT: PERRLA, pupils bilaterally equal and reactive Chest: Normal vesicular breath sounds, no added sounds, equal good air entry b ilaterally CVS: S1-S2 regular, no murmurs, no tachycardia, no gallops, no rubs Abdomen: Soft, tenderness present in right upper quadrant, no organomegaly, bowel sounds present, colostomy bag present without any sign of purulent discharge. Ostomy site appears healthy and pink. Suprapubic catheter present without any sign of extravasation. Neuro: No focal deficits, no facial deformity, AO x3, power 5/5 in all limbs Skin: Extensive pressure ulcer over multiple areas in posterior pelvic, sacrum, hips with exposure of muscle tissue as well as bone without any significant areas of necrosis or purulent discharge. Minimal scrotal erythema without any significant swelling or purulent discharge, posterior scrotum small opening with a drain was placed previously. Data : 09/28/20 04:22 09/28/20 04:22 Micro: Microbiology 09/27/20 17:42 Occult Blood (FIT) - Final Stool - Duodenal Aspirate 09/27/20 17:46 Blood Culture - Preliminary Blood SPECIMEN COLLECTED 09/27/20 17:58 Blood Culture - Preliminary Blood SPECIMEN COLLECTED A&P Assessment and plan (1) Anemia: Normocytic Anemia Likely ACD Anemia Panel S/P 3 uS PRBC Monitor CBC Status: Acute (2) Chronic osteomyelitis of sacrum: Currently on Daptomycin and Aztreonam for 6 weeks Status: Acute (3) Neurogenic bladder: Status: Acute (4) Acute thrombosis of right basilic vein: Eliquis on Hold for now Will resume Eliquis on Discharge. Status: Acute (5) Hx of abdominal aortic aneurysm: Status: Acute (6) Colostomy in place: Status: Acute (7) Phantom pain: Status: Chronic Additional A&P Information Code Status :Full code Disposition : Home Anticipated Discharge : In 2 Days Attestations Medical Necessity Statement*: Patient needs to be in hospital for the management of severe symptomatic anemia Coding Level of Care Code Acute Aerial Planting And Cultivation Manager for g Fwd Diagnoses Anemia D64.9 Chronic osteomyelitis of sacrum M86.68 Neurogenic bladder N31.9 Acute thrombosis of right basilic vein I82.611 Hx of abdominal aortic aneurysm Z86.[address] Z93.3 Phantom pain G54.6
[2020-09-28] MEDS: levothyroxine 88 mcg Tablet PO (10:03)
[2020-09-28] MEDS: docusate sodium 100 mg Capsule 200 MG PO ×2 (10:03→21:55)
[2020-09-28] MEDS: pantoprazole DR 40 mg Tablet PO (10:03)
[2020-09-28] MEDS: oxyCODONE 5 mg IR Tab/Cap 10 MG PO ×2 (10:05→16:28)
--- NOTE | 2020-09-28 12:39 | PC.CHAP ---
Pastoral Care Encounter/Spiritual Assessment Type of Contact [] Declined personnel analyst visit [] Patient/Family/Request visit [] Outpatient visit [] Follow-up visit [] Physician referral [] Code/Alert [] Routine visit [] Staff referral [] Actively dying [] Patient sleeping [] Family support [] [] Out of room [] Palliative care [] [] Receiving care in room [] Pre-surgical visit [] Trauma [] Long length of stay [] ICU visit [] Other: Relational/Emotional Strength [] Patient feels connected with others/family/visitors/staff [] Distress [] Loneliness/isolation [] Abandonment Spirituality of Patient [] Person of Ivelisse [] Attends Evangelical of their Ivelisse [] Believes in Prayer [] Reads Bible or Synagogue materials [] There are Spiritual issues to be addressed Orthoptist Interventions [] Prayer [] Active listening [] Non-anxious presence [] Spiritual/emotional support [] Crisis/trauma care [] Spiritual counseling [] Bereavement support [] Provided bereavement packet [] Provided Bible/devotional materials [] Provided toy/stuffed animal, coloring book to patient or family member [] Provided Communion [] Anointing/[place] [] Salvation [] Completed spiritual assessment [] Other: Impact on Illness or Injury [] Angry [] Fearful [] Anxious [] Often cries [] Exhaustion [] Unable to work [] Unable to attend cheondoism [] Unable to walk/stand [] Unable to read [] Unable to drive [] Unable to eat/drink [] Unable to sleep [] Unable to be with family [] Patient intubated [] Other: Summary No personnel analyst visit as patient is in isolation. Time spent with patient
[2020-09-28] MEDS: DAPTOmycin 500 MG in sodium chloride 0.9% (100 ml) 100 ML 100 MG IV (17:37)
[2020-09-28] MEDS: sertraline 50 mg Tablet 25 MG PO (21:55)
--- NOTE | 2020-09-28 23:07 | PC.NURSE ---
PT RESTING IN BED. PT DENIES PAIN. PT DID C/O N/V. RN GAVE PRN ZOFRAN. WILL CONTINUE TO MONITOR.
[2020-09-29] VITALS (9 sets, daily range): BP systolic 118–136; BP diastolic 80–90; PULSE 90–102; RESP 17–18; TEMP 36.2–36.7; O2SAT 97–100
--- NOTE | 2020-09-29 03:09 | PC.NURSE ---
PT HAS HAD AN UNEVENTFUL NIGHT. PT DENIES PAIN. WILL CONTINUE TO MONITOR.
[2020-09-29] MEDS: oxyCODONE 5 mg IR Tab/Cap 10 MG PO ×2 (04:24→10:28)
[2020-09-29 04:48] LABS: Basophils # 0.1 10^3/uL (0.0-0.1); Basophils % 0.8 %; Eosinophils # 0.2 10^3/uL (0.0-0.8); Eosinophils % 2.4 %; Lymphocytes # 0.7 10^3/uL (0.8-4.8); Lymphocytes % 8.1 %; Mean Corpuscular HGB Conc 32.4 g/dL (30.0-36.0); Mean Corpuscular Hemoglobin 28.4 pg (28.0-34.0); Mean Corpuscular Volume 87.6 fL (80-94); Mean Platelet Volume 8.6 fL (7.4-10.4); Monocytes # 0.4 10^3/uL (0.2-0.9); Monocytes % 4.7 %; Neutrophils # 7.03 10^3/uL (1.8-7.7); Neutrophils % 83.3 %; Nucleated Red Blood Cells % 0 %; Platelet Count 483 10^3/cmm (130-400); Red Blood Count 3.88 10^6/uL (4.1-5.3); White Blood Count 8.4 10^3/uL (4.0-10.0)
[2020-09-29 05:08] LABS: Alanine Aminotransferase < 5 U/L (0-41); Albumin Level 1.4 g/dL (3.5-5.2); Alkaline Phosphatase 157 IU/L (40-130); Anion Gap 8.2 (5-19); Aspartate Amino Transferase 5 U/L (0-40); Blood Urea Nitrogen 13 mg/dL (6-20); Calcium 7.5 mg/dL (8.5-10.5); Carbon Dioxide 23 mmol/L (22-29); Chloride 104 mmol/L (98-107); Globulin 4.9 g/dL (1.3-4.6); Glomerular Filtration Rate 172.6 mL/min (90-130); Glucose 84 mg/dL (65-115); Osmolality Calculated 273 mOsm/kg (285-295); Potassium 3.2 mmol/L (3.5-5.1); Sodium 132 mmol/L (136-145); Total Bilirubin 0.2 mg/dL (0.15-1.2); Total Protein 6.3 g/dL (6.6-8.7)
[2020-09-29] MEDS: ondansetron 2 mg/ML SDV 2 mL 4 MG IVP (09:47)
[2020-09-29] MEDS: docusate sodium 100 mg Capsule 200 MG PO (10:27)
[2020-09-29] MEDS: pantoprazole DR 40 mg Tablet PO (10:28)
[2020-09-29] MEDS: levothyroxine 88 mcg Tablet PO (10:28)
--- NOTE | 2020-09-29 15:40 | PM.DCS ---
Discharge Providers Date of Admission: 09/27/20 17:26 Date of Discharge: September 29, 2020 Attending Provider at Admission: Juan Jones MD Attending Provider at Discharge: Juan Jones MD Primary Care Provider: Jacoby Jon DO Diagnoses at Discharge Discharge Diagnosis (1) Anemia: Status: Chronic (2) Chronic osteomyelitis of sacrum: Status: Chronic (3) Neurogenic bladder: Status: Chronic (4) Acute thrombosis of right basilic vein: Status: Acute (5) Hx of abdominal aortic aneurysm: Status: Acute Permanent problem details: 2014-is now 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 (6) Colostomy in place: Status: Chronic (7) Phantom pain: Status: Chronic Reason for Visit Reason for Visit: LOW BP/ NAUSEA/VOMITING/ WEAKNESS Hospital Course Hospital Course 55 year old male with a complex past medical history. 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 He had bowel infarction requiring colectomy and colostomy, amputation of all toes, neurogenic bladder, chronic cystitis, nephrolithiasis for which he follows with Dr. Gomez. Other issues include multiply infected stage IV decubitus ulcers with polymicrobial organisms including E. coli, Proteus, Enterococcus, Klebsiella, Pseudomonas and MRSA. He is noted to have had osteomyelitis of the right and left ischium dating at least back to 2014. Also has a history of chronic DVT for which he is on Eliquis. Previous treatment for the above osteomyelitis has included imipenem and Zyvox for 6 weeks in August 2015. Follow-up bone scan in October 2015 revealed persistent osteo in bilateral ischial tuberosities and inferior pubic rami. He follows with infectious disease Dr. Easton in [facility]. And he currently on Daptomycin as well as aztreonam (09/24/2020) for 6 weeks. He has previously also followed with wound care for ulceration over posterior right leg. He is known to have chronic lower extremity lymphedema and has been on lymphedema wraps. Came in with c/o dizziness he was admitted for the management of severe symptomatic anemia of chronic disease as his H/H on admission was 5.3/18. He was transfused 3 U PRBC during the hospital stay and post transfusion his H/H has remained stable.At the time of discharge his H/H ( ) was stable. He will continue to follow his PCP and I.D Physician as outpatient. Physical Exam Narrative: EXAM NARRATIVE: EXAM NARRATIVE: Narrative EXAM NARRATIVE: EXAM NARRATIVE: General: No acute distress, AO x3, thin HEENT: PERRLA, pupils bilaterally equal and reactive Chest: Normal vesicular breath sounds, no added sounds, equal good air entry bilaterally CVS: S1-S2 regular, no murmurs, no tachycardia, no gallops, no rubs Abdomen: Soft, tenderness present in right upper quadrant, no organomegaly, bowel sounds present, colostomy bag present without any sign of purulent discharge. Ostomy site appears healthy and pink. Suprapubic catheter present without any sign of extravasation. Neuro: No focal deficits, no facial deformity, AO x3, power 5/5 in all limbs Skin: Extensive pressure ulcer over multiple areas in posterior pelvic, sacrum, hips with exposure of muscle tissue as well as bone without any significant areas of necrosis or purulent discharge. Minimal scrotal erythema without any significant swelling or purulent discharge, posterior scrotum small opening with a drain was placed previously. Discharge Data Data Completed and Pending: Completed Studies During Hospitalization Category Date Time Status XR chest 1V mitchell ble [id number] Stat Exams 09/27/20 13:39 Completed Pending at discharge Category Date Time Status Blood Culture Sta t Lab 09/27/20 17:46 Results Labs from last 24 hours 09/29/20 09/29/20 09/27/20 04:04 04:04 17:46 WBC 8.4 RBC 3.88 L Hgb 11.0 L D Hct 34.0 L D MCV 87.6 MCH 28.4 MCHC 32.4 D RDW 16.0 H Plt Count 483 H MPV 8.6 Neut % (Auto) 83.3 Lymph % (Auto) 8.1 Mccreary % (Auto) 4.7 Eos % (Auto) 2.4 Baso % (Auto) 0.8 Neut # (Auto) 7.03 Lymph # (Auto) 0.7 L Mccreary # (Auto) 0.4 Eos # (Auto) 0.2 Baso # (Auto) 0.1 Nucleated RBC % (a uto) 0 Nucleated RBCs # 0.0 Sodium 132 L Potassium 3.2 L Chloride 104 Carbon Dioxide 23 Anion Gap 8.2 BUN 13 Creatinine 0.5 L GFR Calculation 172.6 H Glucose 84 Calculated Osmolal ity 273 L Calcium 7.5 L Total Bilirubin 0.2 AST 5 ALT < 5 Alkaline Phosphata se 157 H Total Protein 6.3 L Albumin 1.4 L Globulin 4.9 H Blood Type O Negative Rho(D) Type Negative Antibody Screen Negative Crossmatch See Detail Vitals: Last Vital Signs Temp 97.3 F L 09/29/20 11:41 Pulse 102 H 09/29/20 11:41 Resp 18 09/29/20 11:41 BP 125/80 09/29/20 11:41 Pulse Ox 99 09/29/20 11:41 Discharge Plan Discharge Patient Disposition: Home Condition: Stable Prescriptions: Continued promethazine 25 mg tablet 25 mg PO TID PRN (Reason: Nausea And Vomiting) RF: 0 levothyroxine 88 mcg tablet 88 mcg PO DAILY@10 RF: 0 oxycodone 10 mg tablet 10 - 15 mg PO QID PRN (Reason: pain) 30 Days Qty: 120 RF: 0 tizanidine 4 mg tablet 4 mg PO TID PRN (Reason: muscle spasticity) Qty: 90 RF: 1 sertraline [Zoloft] 25 mg tablet 25 mg PO DAILY@22 RF: 0 pantoprazole 20 mg tablet,delayed release (DR/EC) 20 mg PO DAILY@ RF: 0 docusate sodium 100 mg Capsule 200 mg PO BID@ RF: 0 gentamicin 0.1 % ointment See Rx Instructions .ROUTE .COMPLEX RF: 0 Eliquis 5 mg tablet 5 mg PO BID@ RF: 0 zonisamide [Zonegran] 100 mg capsule 400 mg PO DAILY@ RF: 0 magnesium oxide 400 mg (241.3 mg magnesium) tablet 400 mg PO BID@ RF: 0 ondansetron HCl 8 mg Tablet 8 mg PO Q8H PRN (Reason: Nausea) RF: 0 aztreonam 2 gram Recon Soln 2 g IM Q8H RF: 0 daptomycin 500 mg Recon Soln 500 mg IV Q24H RF: 0 multivitamin [Multiple Vitamins] Tablet 1 tab PO DAILY@10 RF: 0 Discharge Orders: Discharge Order (Routine); Ordered 09/29/20 Ordered By: Juan Jones Discharge Diet: Regular Discharge Activity: Wheelchair as instructed Patient Instructions: Urinary Tract Infection in Men (GEN), Anemia (GEN) Discharge Attestations Time Spent in Discharge Care*: less than 30 min Specific Discharge Activities: educating patient, educating and/or supporting family/caregiver, discussing with director of casework department/social workers/dc planners, documenting/other paperwork and evaluating patient/reviewing data Status at Discharge: Cognitive status at discharge: cognitively intact, Behavioral status at discharge: cooperative, Quality Metrics Clinical Quality Measures During this hospital stay, did patient experience: None Coding Level of Care Code Acute Title Clerk for Geng Fwd Diagnoses Anemia D64.9 Chronic osteomyelitis of sacrum M86.68 Neurogenic bladder N31.9 Acute thrombosis of right basilic vein I82.611 Hx of abdominal aortic aneurysm Z86.[address] Z93.3 Phantom pain G54.6
== END 2020-09-29 16:32 | disposition home or self-care (01) | DRG 811 ==
LOC: ER 17:52 → MEDSURG 18:28
PROVIDERS: Admitting Provider Internal Medicine; Emergency Provider Family Medicine; PCP Internal Medicine; Visit Provider Internal Medicine
DX: D64.9 Anemia, unspecified (principal); L89.154 Pressure ulcer of sacral region, stage 4; G95.19 Other vascular myelopathies; L89.623 Pressure ulcer of left heel, stage 3; G82.21 Paraplegia, complete; I82.509 Chronic embolism and thrombosis of unspecified deep veins of unspecified lower extremity; I82.611 Acute embolism and thrombosis of superficial veins of right upper extremity; M46.28 Osteomyelitis of vertebra, sacral and sacrococcygeal region; Z90.49 Acquired absence of other specified parts of digestive tract; Z93.3 Colostomy status; Z89.432 Acquired absence of left foot; Z89.431 Acquired absence of right foot; N31.9 Neuromuscular dysfunction of bladder, unspecified; N30.20 Other chronic cystitis without hematuria; Z87.442 Personal history of urinary calculi; Z86.14 Personal history of Methicillin resistant Staphylococcus aureus infection; Z96.0 Presence of urogenital implants; G89.29 Other chronic pain; Z79.01 Long term (current) use of anticoagulants; Z79.891 Long term (current) use of opiate analgesic; I89.0 Lymphedema, not elsewhere classified; K80.20 Calculus of gallbladder without cholecystitis without obstruction; Z79.899 Other long term (current) drug therapy; Z87.891 Personal history of nicotine dependence; G25.81 Restless legs syndrome
CPT/HCPCS: 12345; 36415; 36430; 36592; 71045; 80053; 81001; 82274; 82550; 84484; 85025; 86850; 86900; 86920; 87040; 87086; 93005; 99282; J0744; J0878; J2405; J3490; J7030; P9016

== ENCOUNTER 2020-10-03 16:57 | Inpatient (IN) | payer MEDICARE, MEDICAID, SELFPAY ==
[2020-10-03] VITALS (7 sets, daily range): BP systolic 95–116; BP diastolic 72–85; PULSE 112–122; RESP 14–21; TEMP 36.4–36.9; O2SAT 98–100; BMI 20.5
--- NOTE | 2020-10-03 17:15 | W.ED.ABDPA2 ---
Documented by User: Ryan Rivera DO 10/05/20 13:43 HPI - Abdominal Pain General: Chief Complaint: Abdominal Pain Stated Complaint: BLEEDING INTO COLOSTOMY/ ABDOMINAL PAIN Time Seen by Provider: 10/03/20 17:01 History of Present Illness: HPI narrative: 55-year-old male who was recently hospitalized for GI bleed. He returns today with cristino blood pooling in the colostomy bag. He states he had this 2 days ago and then it recurred again. He has not generalized abdominal discomfort. He has been lightheaded dizzy and weak. He has not had any vomiting or diarrhea. 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 MD elicited complaint: abdominal pain Pertinent past history: other (Bowel ischemia with resection) Onset (ago): day(s) Pain Consistency: constant Location: Diffuse Severity: severe Quality: cramping Radiation: none Migration to: no migration Exacerbating factors: nothing Relieving factors: nothing Associated Symptoms: Reports anorexia, bloating, change in bowel habits, change in stool character, GI cramping, diarrhea, nausea and poor appetite; Denies belching, chills, coffee ground emesis, constipation, dyspepsia, dysuria, excessive flatus, fever(s), heartburn, hematochezia, hematuria, hematemesis, fecal incontinence, loose stools, melena, syncope and vomiting Review of Systems Const: Denies: fever(s) or chills ENMT: Denies: throat pain, ear or mastoid pain, nasal discharge or nasal congestion Card: Denies: syncope Resp: Denies: dyspnea, productive cough or non-productive cough GI: Reports: nausea, diarrhea, bloating, GI cramping, change in bowel habits and change in stool character; Denies: vomiting, hematemesis, coffee ground emesis, heartburn, constipation, belching, excessive flatus, fecal incontinence, hematochezia or melena : Denies: dysuria or hematuria Skin/Breast: Denies: rash or pruritus PFS ED PFSH: Medical History Acute thrombosis of right basilic vein (~06/2020) related to PICC line Anemia Cholelithiasis Chronic abdominal pain 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 Chronic pain of lower extremity, bilateral Colostomy in place Decubitus ulcer Encounter for long-term opiate analgesic use Foot amputation status Bilateral forefoot amputation History of DVT (deep vein thrombosis) History of pancreatitis (~06/2020) History of uric acid staghorn calculus Hx of abdominal aortic aneurysm 2015-is now 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 Hypothyroidism Long-term use of high-risk medication Neurogenic bladder 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 Parastomal hernia Periurethral abscess Phantom pain Restless leg syndrome Tobacco use disorder Urinary retention Surgical History Abscess of scrotum (~05/2020) Debridement/erosion of urethra History of amputation of toe (~02/2015) LEFT FOOT/ TOES RIGHT FOOT TOES Hx of resection of large bowel (~01/2015) My colon -- colostomy present S/P abdominal aortic aneurysm repair S/P PICC central line placement placed 09/09-10/11 for IV antibiotics Suprapubic catheter Family History Unknown Anesthesia complication Denies family history of Bleeding disorder Social History Smoking and tobacco status: former smoker Alcohol intake: current Alcohol intake frequency: holidays/special occasions only Adopted: Yes Lives independently: Yes Household members: spouse Marital status: Current occupational status: disabled History of recent travel: No Physical Exam Const: COMMON NORMALS: no acute distress GENERAL APPEARANCE: cooperative and comfortable ORIENTATION/CONSCIOUSNESS: Yes awake, Yes oriented to person, Yes oriented to place and Yes oriented to time HENMT: COMMON NORMALS: normocephalic, atraumatic and hearing grossly normal bilaterally HEAD & SCALP: normocephalic and atraumatic Neck/C-Spine: COMMON NORMALS: no JVD Resp: COMMON NORMALS: normal respiratory effort, No retractions, No use of accessory muscles and clear to auscultation bilaterally AUSCULTATION: clear to auscultation bilaterally Cardio: COMMON NORMALS: no JVD, regular rate, regular rhythm and No murmurs present (Cardio) RATE: regular rate RHYTHM: regular rhythm GI: COMMON NORMALS: Soft to palpation and No hepatosplenomegaly present AUSCULTATION: Yes Hypoactive bowel sounds present PALPATION: Yes Soft to palpation, Yes Tenderness to palpation present (GI) (Diffuse upper abdominal tenderness), No Guarding due to palpation present (GI) and Yes No hepatosplenomegaly present Extremity: COMMON NORMALS: normal to inspection, capillary refill normal, no clubbing, cyanosis or edema, no calf tenderness and no pedal edema Neuro: SENSORIUM/ORIENTATION: Yes oriented to person, Yes oriented to place and Yes oriented to time Skin: COMMON NORMALS: no rashes or lesions noted GENERAL SKIN EXAM: no rashes or lesions noted Course Vital Signs: Vital signs: Vital Signs Temperature 97.9 F 10/04/20 06:00 Pulse Rate 114 H 10/04/20 16:31 Respiratory Rate 23 H 10/04/20 16:31 Blood Pressure 71/46 10/04/20 16:31 Pulse Oximetry 95 10/04/20 16:31 MDM - Abdominal Pain MDM Narrative: Medical decision making narrative: Turned over to Dr. Bhatt at change of shift see please see his notes for final diagnosis and disposition Lab Data: Labs: Lab Results 10/03/20 10/03/20 10/03/20 Range/Units 17:35 17:35 17:38 WBC (4.0-10.0) 10^3/ uL RBC (4.1-5.3) 10^6/u L Hgb (11.7-16.6) g/dL Hct (42.0-52.0) % MCV (80-94) fL MCH (28.0-34.0) pg MCHC (30.0-36.0) g/dL RDW (12.1-15.1) % Plt Count (130-400) 10^3/c mm MPV (7.4-10.4) fL Neut % (Auto) % Lymph % (Auto) % [place] % (Auto) % Eos % (Auto) % Baso % (Auto) % Neut # (Auto) (1.8-7.7) 10^3/u L Lymph # (Auto) (0.8-4.8) 10^3/u L [place] # (Auto) (0.2-0.9) 10^3/u L Eos # (Auto) (0.0-0.8) 10^3/u L Baso # (Auto) (0.0-0.1) 10^3/u L Nucleated RBC % (a uto) % Nucleated RBCs # /100WBC PT 24.90 H (12.1-14.9) SECO NDS INR 2.16 H (0.8-1.2) APTT 52.9 H (23.9-36.7) SECO NDS Fibrinogen 278 (174-498) mg/dL Sodium (136-145) mmol/L Potassium (3.5-5.1) mmol/L Chloride (98-107) mmol/L Carbon Dioxide (22-29) mmol/L Anion Gap (5-19) BUN (6-20) mg/dL Creatinine (0.7-1.2) mg/dL GFR Calculation (90-130) mL/min Glucose (65-115) mg/dL Calculated Osmolal ity (285-295) mOsm/k g Lactate (0.5-2.2) mmol/L Calcium (8.5-10.5) mg/dL Total Bilirubin (0.15-1.2) mg/dL AST (0-40) U/L ALT (0-41) U/L Alkaline Phosphata se (40-130) IU/L Lactate Dehydrogen ase (135-225) U/L Total Protein (6.6-8.7) g/dL Albumin (3.5-5.2) g/dL Globulin (1.3-4.6) g/dL Urine Color Yellow (Yellow) Urine Appearance Cloudy (CLEAR) Urine pH 5 (5-7) Ur Specific Gravit y 1.025 (1.005-1.030) Urine Protein Trace (Negative) Urine Glucose (UA) Norm (Normal) Urine Ketones 1+ H (Negative) Urine Blood 2+ H (Negative) Urine Nitrate Negative (Negative) Urine Bilirubin 2+ H (Negative) Urine Urobilinogen Norm (Negative) mg/dL Ur Leukocyte Jimena ase 2+ H (Negative) Urine RBC 10-15 H (0-2) /hpf Urine WBC 15-25 H (0-5) /hpf Ur Squamous Epith Cells 0-4 H (0-5) /hpf Amorphous Sediment Not Reportable Urine Bacteria 3+ H (NONE) /hpf Urine Yeast 4+ H /hpf Blood Type Rho(D) Type Antibody Screen Crossmatch 10/03/20 10/03/20 10/03/20 Range/Units 17:40 17:40 17:40 WBC 20.5 H (4.0-10.0) 10^3/ uL RBC 2.93 L (4.1-5.3) 10^6/u L Hgb 8.4 L (11.7-16.6) g/dL Hct 27.2 L (42.0-52.0) % MCV 92.8 (80-94) fL MCH 28.7 (28.0-34.0) pg MCHC 30.9 (30.0-36.0) g/dL RDW 18.6 H (12.1-15.1) % Plt Count 502 H (130-400) 10^3/c mm MPV 8.9 (7.4-10.4) fL Neut % (Auto) 91.7 % Lymph % (Auto) 4.7 % [place] % (Auto) 2.4 % Eos % (Auto) 0.0 % Baso % (Auto) 0.1 % Neut # (Auto) 18.79 H (1.8-7.7) 10^3/u L Lymph # (Auto) 1.0 (0.8-4.8) 10^3/u L [place] # (Auto) 0.5 (0.2-0.9) 10^3/u L Eos # (Auto) 0.0 (0.0-0.8) 10^3/u L Baso # (Auto) 0.0 (0.0-0.1) 10^3/u L Nucleated RBC % (a uto) 0 % Nucleated RBCs # 0.0 /100WBC PT (12.1-14.9) SECO NDS INR (0.8-1.2) APTT (23.9-36.7) SECO NDS Fibrinogen (174-498) mg/dL Sodium 127 L (136-145) mmol/L Potassium 3.9 (3.5-5.1) mmol/L Chloride 95 L (98-107) mmol/L Carbon Dioxide 18 L (22-29) mmol/L Anion Gap 17.9 (5-19) BUN 57 H (6-20) mg/dL Creatinine 2.0 H (0.7-1.2) mg/dL GFR Calculation 34.9 L (90-130) mL/min Glucose 94 (65-115) mg/dL Calculated Osmolal ity 280 L (285-295) mOsm/k g Lactate (0.5-2.2) mmol/L Calcium 6.9 L (8.5-10.5) mg/dL Total Bilirubin 0.2 (0.15-1.2) mg/dL AST 6 (0-40) U/L ALT < 5 (0-41) U/L Alkaline Phosphata se 158 H (40-130) IU/L Lactate Dehydrogen ase (135-225) U/L Total Protein 6.6 (6.6-8.7) g/dL Albumin 1.9 L (3.5-5.2) g/dL Globulin 4.7 H (1.3-4.6) g/dL Urine Color (Yellow) Urine Appearance (CLEAR) Urine pH (5-7) Ur Specific Gravit y (1.005-1.030) Urine Protein (Negative) Urine Glucose (UA) (Normal) Urine Ketones (Negative) Urine Blood (Negative) Urine Nitrate (Negative) Urine Bilirubin (Negative) Urine Urobilinogen (Negative) mg/dL Ur Leukocyte Jimena ase (Negative) Urine RBC (0-2) /hpf Urine WBC (0-5) /hpf Ur Squamous Epith Cells (0-5) /hpf Amorphous Sediment Urine Bacteria (NONE) /hpf Urine Yeast /hpf Blood Type O Negative Rho(D) Type Negative Antibody Screen Negative Crossmatch See Detail 10/03/20 10/03/20 Range/Units 17:40 17:40 WBC (4.0-10.0) 10^3/ uL RBC (4.1-5.3) 10^6/u L Hgb (11.7-16.6) g/dL Hct (42.0-52.0) % MCV (80-94) fL MCH (28.0-34.0) pg MCHC (30.0-36.0) g/dL RDW (12.1-15.1) % Plt Count (130-400) 10^3/c mm MPV (7.4-10.4) fL Neut % (Auto) % Lymph % (Auto) % [place] % (Auto) % Eos % (Auto) % Baso % (Auto) % Neut # (Auto) (1.8-7.7) 10^3/u L Lymph # (Auto) (0.8-4.8) 10^3/u L [place] # (Auto) (0.2-0.9) 10^3/u L Eos # (Auto) (0.0-0.8) 10^3/u L Baso # (Auto) (0.0-0.1) 10^3/u L Nucleated RBC % (a uto) % Nucleated RBCs # /100WBC PT (12.1-14.9) SECO NDS INR (0.8-1.2) APTT (23.9-36.7) SECO NDS Fibrinogen (174-498) mg/dL Sodium (136-145) mmol/L Potassium (3.5-5.1) mmol/L Chloride (98-107) mmol/L Carbon Dioxide (22-29) mmol/L Anion Gap (5-19) BUN (6-20) mg/dL Creatinine (0.7-1.2) mg/dL GFR Calculation (90-130) mL/min Glucose (65-115) mg/dL Calculated Osmolal ity (285-295) mOsm/k g Lactate 0.8 (0.5-2.2) mmol/L Calcium (8.5-10.5) mg/dL Total Bilirubin (0.15-1.2) mg/dL AST (0-40) U/L ALT (0-41) U/L Alkaline Phosphata se (40-130) IU/L Lactate Dehydrogen ase 211 (135-225) U/L Total Protein (6.6-8.7) g/dL Albumin (3.5-5.2) g/dL Globulin (1.3-4.6) g/dL Urine Color (Yellow) Urine Appearance (CLEAR) Urine pH (5-7) Ur Specific Gravit y (1.005-1.030) Urine Protein (Negative) Urine Glucose (UA) (Normal) Urine Ketones (Negative) Urine Blood (Negative) Urine Nitrate (Negative) Urine Bilirubin (Negative) Urine Urobilinogen (Negative) mg/dL Ur Leukocyte Jimena ase (Negative) Urine RBC (0-2) /hpf Urine WBC (0-5) /hpf Ur Squamous Epith Cells (0-5) /hpf Amorphous Sediment Urine Bacteria (NONE) /hpf Urine Yeast /hpf Blood Type Rho(D) Type Antibody Screen Crossmatch Discharge Plan Discharge Patient Disposition: Admitted As Inpatient Admit Provider: Paola Villasenor Clinical Impression: Acute GI bleeding, Anemia, Acute cystitis Condition: Stable Coding Level of Care Code ED Donor Support Technician for Chg Fwd Documented by User: Troy Bhatt MD 10/03/20 21:32 HPI - Abdominal Pain General: Chief Complaint: Abdominal Pain Stated Complaint: BLEEDING INTO COLOSTOMY/ ABDOMINAL PAIN Time Seen by Provider: 10/03/20 17:01 PFSH ED PFSH: Medical History Acute thrombosis of right basilic vein (~06/2020) related to PICC line Anemia Cholelithiasis Chronic abdominal pain 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 Chronic pain of lower extremity, bilateral Colostomy in place Decubitus ulcer Encounter for long-term opiate analgesic use Foot amputation status Bilateral forefoot amputation History of DVT (deep vein thrombosis) History of pancreatitis (~06/2020) History of uric acid staghorn calculus 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 Hypothyroidism Long-term use of high-risk medication Neurogenic bladder 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 Parastomal hernia Periurethral abscess Phantom pain Restless leg syndrome Tobacco use disorder Urinary retention Surgical History Abscess of scrotum (~05/2020) Debridement/erosion of urethra History of amputation of toe (~02/2015) LEFT FOOT/ TOES RIGHT FOOT TOES Hx of resection of large bowel (~01/2015) My colon -- colostomy present S/P abdominal aortic aneurysm repair S/P PICC central line placement placed 09/09-10/11 for IV antibiotics Suprapubic catheter Family History Unknown Anesthesia complication Denies family history of Bleeding disorder Social History Smoking and tobacco status: former smoker Alcohol intake: current Alcohol intake frequency: holidays/special occasions only Adopted: Yes Lives independently: Yes Household members: spouse Marital status: Current occupational status: disabled History of recent travel: No Course Vital Signs: Vital signs: Vital Signs Temperature 97.9 F 10/04/20 06:00 Pulse Rate 114 H 10/04/20 16:31 Respiratory Rate 23 H 10/04/20 16:31 Blood Pressure 71/46 10/04/20 16:31 Pulse Oximetry 95 10/04/20 16:31 MDM - Abdominal Pain MDM Narrative: Medical decision making narrative: I took Maicol over from Dr. Oshea. He presents here with GI bleed. He does have red blood in his colostomy bag. Patient's hemoglobin here is 8 he is tachycardic and we will transfuse him 2 units at this time. His CT showed a endograft leak. I spoke to Dr. Oliveira of vascular surgery who is consulted I spoke to Dr. James as well with general surgery was consulted and spoke to the hospitalist who is admitting. Patient is hemodynamically stable and I do not believe we need to emergently reverse his Eliquis. We will continue to get blood products and monitor his hemoglobin. Will admit to the ICU as well. Lab Data: Labs: Lab Results 10/03/20 10/03/20 10/03/20 Range/Units 17:35 17:35 17:38 WBC (4.0-10.0) 10^3/ uL RBC (4.1-5.3) 10^6/u L Hgb (11.7-16.6) g/dL Hct (42.0-52.0) % MCV (80-94) fL MCH (28.0-34.0) pg MCHC (30.0-36.0) g/dL RDW (12.1-15.1) % Plt Count (130-400) 10^3/c mm MPV (7.4-10.4) fL Neut % (Auto) % Lymph % (Auto) % [place] % (Auto) % Eos % (Auto) % Baso % (Auto) % Neut # (Auto) (1.8-7.7) 10^3/u L Lymph # (Auto) (0.8-4.8) 10^3/u L [place] # (Auto) (0.2-0.9) 10^3/u L Eos # (Auto) (0.0-0.8) 10^3/u L Baso # (Auto) (0.0-0.1) 10^3/u L Nucleated RBC % (a uto) % Nucleated RBCs # /100WBC PT 24.90 H (12.1-14.9) SECO NDS INR 2.16 H (0.8-1.2) APTT 52.9 H (23.9-36.7) SECO NDS Fibrinogen 278 (174-498) mg/dL Sodium (136-145) mmol/L Potassium (3.5-5.1) mmol/L Chloride (98-107) mmol/L Carbon Dioxide (22-29) mmol/L Anion Gap (5-19) BUN (6-20) mg/dL Creatinine (0.7-1.2) mg/dL GFR Calculation (90-130) mL/min Glucose (65-115) mg/dL Calculated Osmolal ity (285-295) mOsm/k g Lactate (0.5-2.2) mmol/L Calcium (8.5-10.5) mg/dL Total Bilirubin (0.15-1.2) mg/dL AST (0-40) U/L ALT (0-41) U/L Alkaline Phosphata se (40-130) IU/L Lactate Dehydrogen ase (135-225) U/L Total Protein (6.6-8.7) g/dL Albumin (3.5-5.2) g/dL Globulin (1.3-4.6) g/dL Urine Color Yellow (Yellow) Urine Appearance Cloudy (CLEAR) Urine pH 5 (5-7) Ur Specific Gravit y 1.025 (1.005-1.030) Urine Protein Trace (Negative) Urine Glucose (UA) Norm (Normal) Urine Ketones 1+ H (Negative) Urine Blood 2+ H (Negative) Urine Nitrate Negative (Negative) Urine Bilirubin 2+ H (Negative) Urine Urobilinogen Norm (Negative) mg/dL Ur Leukocyte Jimena ase 2+ H (Negative) Urine RBC 10-15 H (0-2) /hpf Urine WBC 15-25 H (0-5) /hpf Ur Squamous Epith Cells 0-4 H (0-5) /hpf Amorphous Sediment Not Reportable Urine Bacteria 3+ H (NONE) /hpf Urine Yeast 4+ H /hpf Blood Type Rho(D) Type Antibody Screen Crossmatch 10/03/20 10/03/20 10/03/20 Range/Units 17:40 17:40 17:40 WBC 20.5 H (4.0-10.0) 10^3/ uL RBC 2.93 L (4.1-5.3) 10^6/u L Hgb 8.4 L (11.7-16.6) g/dL Hct 27.2 L (42.0-52.0) % MCV 92.8 (80-94) fL MCH 28.7 (28.0-34.0) pg MCHC 30.9 (30.0-36.0) g/dL RDW 18.6 H (12.1-15.1) % Plt Count 502 H (130-400) 10^3/c mm MPV 8.9 (7.4-10.4) fL Neut % (Auto) 91.7 % Lymph % (Auto) 4.7 % [place] % (Auto) 2.4 % Eos % (Auto) 0.0 % Baso % (Auto) 0.1 % Neut # (Auto) 18.79 H (1.8-7.7) 10^3/u L Lymph # (Auto) 1.0 (0.8-4.8) 10^3/u L [place] # (Auto) 0.5 (0.2-0.9) 10^3/u L Eos # (Auto) 0.0 (0.0-0.8) 10^3/u L Baso # (Auto) 0.0 (0.0-0.1) 10^3/u L Nucleated RBC % (a uto) 0 % Nucleated RBCs # 0.0 /100WBC PT (12.1-14.9) SECO NDS INR (0.8-1.2) APTT (23.9-36.7) SECO NDS Fibrinogen (174-498) mg/dL Sodium 127 L (136-145) mmol/L Potassium 3.9 (3.5-5.1) mmol/L Chloride 95 L (98-107) mmol/L Carbon Dioxide 18 L (22-29) mmol/L Anion Gap 17.9 (5-19) BUN 57 H (6-20) mg/dL Creatinine 2.0 H (0.7-1.2) mg/dL GFR Calculation 34.9 L (90-130) mL/min Glucose 94 (65-115) mg/dL Calculated Osmolal ity 280 L (285-295) mOsm/k g Lactate (0.5-2.2) mmol/L Calcium 6.9 L (8.5-10.5) mg/dL Total Bilirubin 0.2 (0.15-1.2) mg/dL AST 6 (0-40) U/L ALT < 5 (0-41) U/L Alkaline Phosphata se 158 H (40-130) IU/L Lactate Dehydrogen ase (135-225) U/L Total Protein 6.6 (6.6-8.7) g/dL Albumin 1.9 L (3.5-5.2) g/dL Globulin 4.7 H (1.3-4.6) g/dL Urine Color (Yellow) Urine Appearance (CLEAR) Urine pH (5-7) Ur Specific Gravit y (1.005-1.030) Urine Protein (Negative) Urine Glucose (UA) (Normal) Urine Ketones (Negative) Urine Blood (Negative) Urine Nitrate (Negative) Urine Bilirubin (Negative) Urine Urobilinogen (Negative) mg/dL Ur Leukocyte Jmiena ase (Negative) Urine RBC (0-2) /hpf Urine WBC (0-5) /hpf Ur Squamous Epith Cells (0-5) /hpf Amorphous Sediment Urine Bacteria (NONE) /hpf Urine Yeast /hpf Blood Type O Negative Rho(D) Type Negative Antibody Screen Negative Crossmatch See Detail 10/03/20 10/03/20 Range/Units 17:40 17:40 WBC (4.0-10.0) 10^3/ uL RBC (4.1-5.3) 10^6/u L Hgb (11.7-16.6) g/dL Hct (42.0-52.0) % MCV (80-94) fL MCH (28.0-34.0) pg MCHC (30.0-36.0) g/dL RDW (12.1-15.1) % Plt Count (130-400) 10^3/c mm MPV (7.4-10.4) fL Neut % (Auto) % Lymph % (Auto) % [place] % (Auto) % Eos % (Auto) % Baso % (Auto) % Neut # (Auto) (1.8-7.7) 10^3/u L Lymph # (Auto) (0.8-4.8) 10^3/u L [place] # (Auto) (0.2-0.9) 10^3/u L Eos # (Auto) (0.0-0.8) 10^3/u L Baso # (Auto) (0.0-0.1) 10^3/u L Nucleated RBC % (a uto) % Nucleated RBCs # /100WBC PT (12.1-14.9) SECO NDS INR (0.8-1.2) APTT (23.9-36.7) SECO NDS Fibrinogen (174-498) mg/dL Sodium (136-145) mmol/L Potassium (3.5-5.1) mmol/L Chloride (98-107) mmol/L Carbon Dioxide (22-29) mmol/L Anion Gap (5-19) BUN (6-20) mg/dL Creatinine (0.7-1.2) mg/dL GFR Calculation (90-130) mL/min Glucose (65-115) mg/dL Calculated Osmolal ity (285-295) mOsm/k g Lactate 0.8 (0.5-2.2) mmol/L Calcium (8.5-10.5) mg/dL Total Bilirubin (0.15-1.2) mg/dL AST (0-40) U/L ALT (0-41) U/L Alkaline Phosphata se (40-130) IU/L Lactate Dehydrogen ase 211 (135-225) U/L Total Protein (6.6-8.7) g/dL Albumin (3.5-5.2) g/dL Globulin (1.3-4.6) g/dL Urine Color (Yellow) Urine Appearance (CLEAR) Urine pH (5-7) Ur Specific Gravit y (1.005-1.030) Urine Protein (Negative) Urine Glucose (UA) (Normal) Urine Ketones (Negative) Urine Blood (Negative) Urine Nitrate (Negative) Urine Bilirubin (Negative) Urine Urobilinogen (Negative) mg/dL Ur Leukocyte Jimena ase (Negative) Urine RBC (0-2) /hpf Urine WBC (0-5) /hpf Ur Squamous Epith Cells (0-5) /hpf Amorphous Sediment Urine Bacteria (NONE) /hpf Urine Yeast /hpf Blood Type Rho(D) Type Antibody Screen Crossmatch Imaging Data ^: CT Abd/Pel: Attestation: I personally reviewed and interpreted this imaging study as follows: Radiologist's impression: [address] [address] [address] Scan Report Signed Patient: Maicol Reid Unit #: [id number] : 1965 Age/Sex: 55 / M ADM Date: 10/03/20 Loc: ER Room/Bed: Attending Dr: Ordering Provider/Ordering MD: Ryan Rivera DO Date of Service: 10/03/20 Procedure(s): CT abdomen pelvis w con* [id number] Accession Number(s): [id number] Report Number: [id number] PROCEDURE INFORMATION: Exam: CT Abdomen And Pelvis With Contrast Exam date and time: 10/03/2020 6:03 PM Age: 55 years old Clinical indication: Other: Blood in colostomy; Abdominal pain; Prior surgery; Surgery type: Colostomy, aaa, bowel, suprapubic cath; Additional info: Abd pain/gross hematochezia TECHNIQUE: Imaging protocol: Computed tomography of the abdomen and pelvis with intravenous contrast. Radiation optimization: All CT scans at this facility use at least one of these dose optimization techniques: automated exposure control; mA and/or kV adjustment per patient size (includes targeted exams where dose is matched to clinical indication); or iterative reconstruction. Contrast material: OMNI 300; Contrast volume: 95 ml; Contrast route: INTRAVENOUS (IV); COMPARISON: CT abdomen pelvis w con* [id number] 09/23/2020 6:28 PM RADIATION DOSE METRICS: Total DLP (mGy-cm): 494.27 FINDINGS: Lungs: Mild scattered ground-glass opacities in the right lower lobe. Liver: Normal. No mass. Gallbladder and bile ducts: Mildly distended gallbladder with multiple small calcified stones. No visible wall thickening. The bile ducts are normal. Pancreas: Normal. No ductal dilation. Spleen: Normal. No splenomegaly. Adrenal glands: Normal. No mass. Kidneys and ureters: Normal. No hydronephrosis. Stomach and bowel: Previous abdominal peroneal resection with a left lower quadrant colostomy. There is a large hernia associated with the colostomy stump containing loops of fluid distended small bowel, measuring up to 4.7 cm within the hernia. Mild distention the small bowel proximal to the hernia measuring up to 3.9 cm. Appendix: No evidence of appendicitis. Intraperitoneal space: Unremarkable. No free air. No significant fluid collection. Vasculature: IVC filter. Aorto bi-iliac stent. The abdominal aortic aneurysm has increased slightly in size measuring a maximum 10.9 cm. There is a 5.4 cm focal contrast leak at the proximal anchor of the endograft stent and faint contrast opacification of the hoopa abdominal aortic aneurysm. No evidence for aneurysm leak or rupture. Lymph nodes: Unremarkable. No enlarged lymph nodes. Urinary bladder: Suprapubic catheter in a decompressed urinary bladder. Reproductive: Unremarkable as visualized. Bones/joints: The coccyx and tip of the sacrum have been surgically resected. Partial resection of the posterior right acetabulum and resection of the inferior right pubic ramus. Soft tissues: Diffuse body wall edema. Large bilateral posterior decubitus ulcers overlying the ischial tuberosities with tracks extending into the bilateral hip joints. Gas and fluid within the bilateral hip joints. Posterosuperior dislocation of the right hip joint with partial destruction of the right femoral head. Small decubitus ulcer extending to the posterior distal sacrum. CT/CT abdomen pelvis w con* [id number] IMPRESSION: 1. Aorto bi-iliac stent with a new proximal endograft leak. There is contrast opacification of the hoopa abdominal aortic aneurysm which has increased slightly in size measuring 10.9 cm. No evidence for aneurysm leak or rupture. 2. Left lower quadrant colostomy with associated hernia containing partially obstructed loops of small bowel. 3. Large posterior decubitus ulcers which appear to communicate directly with the hip joints. Partial destruction of the right femoral head is consistent with osteomyelitis. 4. Small decubitus ulcer overlying the distal sacrum which has been partially resected. 5. Mild ground-glass opacities in the right lower lobe could represent asymmetric pulmonary edema or pneumonia. Critical Care Time Critical Care Time: Critical Care Time: Yes Total Critical Care Time: 35 Attestation: This case had a high probability of a clinically significant, sudden, or life threatening deterioration of this patient's condition which required my full and direct attention, intervention and personal management. Discharge Plan Discharge Patient Disposition: Admitted As Inpatient Admit Provider: Paola Villasenor Clinical Impression: Acute GI bleeding, Anemia, Acute cystitis Condition: Stable Coding Level of Care Code ED Donor Support Technician for Allan Blanco
[2020-10-03] MEDS: ondansetron 2 mg/ML SDV 2 mL 4 MG IVP (17:45)
[2020-10-03] MEDS: morphine 4 mg/mL SDV 1 mL IVP (17:45)
[2020-10-03] MEDS: iohexol 300 mg/mL 100 mL Btl IV (18:15)
[2020-10-03 18:16] LABS: Urine Appearance Cloudy (CLEAR); Urine Color Yellow (Yellow)
[2020-10-03 18:17] LABS: Add Urine Microscopic? YES; Bilirubin Urine 2+ (Negative); Blood Urine 2+ (Negative); Glucose Urine UA Norm (Normal); Ketones Urine 1+ (Negative); Leukocyte Esterase Urine 2+ (Negative); Nitrate Urine Negative (Negative); Protein Urine Trace (Negative); Specific Gravity, Urine 1.025 (1.005-1.030); Urobilinogen Urine Norm (Negative); pH Urine 5 (5-7)
[2020-10-03 18:21] LABS: Squamous Epithelial Cell Urine 0-4 /hpf (0-5); WBC Urine 15-25 /hpf (0-5)
[2020-10-03 18:22] LABS: Add Urine Culture? Yes; Bacteria Urine 3+ /hpf
[2020-10-03] MEDS: ciprofloxacin 400 MG/200 ML PREMIX 200 MG IV (18:36)
[2020-10-03 18:49] LABS: Lactate (Lactic Acid level) 0.8 mmol/L (0.5-2.2)
[2020-10-03 19:11] LABS: Basophils % 0.1 %; Hematocrit 27.2 % (42.0-52.0); Hemoglobin 8.4 g/dL (11.7-16.6); Lymphocytes % 4.7 %; Mean Corpuscular HGB Conc 30.9 g/dL (30.0-36.0); Mean Corpuscular Hemoglobin 28.7 pg (28.0-34.0); Mean Corpuscular Volume 92.8 fL (80-94); Mean Platelet Volume 8.9 fL (7.4-10.4); Monocytes # 0.5 10^3/uL (0.2-0.9); Monocytes % 2.4 %; Neutrophils # 18.79 10^3/uL (1.8-7.7); Neutrophils % 91.7 %; Nucleated Red Blood Cells % 0 %; Platelet Count 502 10^3/cmm (130-400); Red Blood Count 2.93 10^6/uL (4.1-5.3); Red Cell Distribution Width 18.6 % (12.1-15.1); White Blood Count 20.5 10^3/uL (4.0-10.0)
[2020-10-03 19:47] LABS: Alanine Aminotransferase < 5 U/L (0-41); Albumin Level 1.9 g/dL (3.5-5.2); Alkaline Phosphatase 158 IU/L (40-130); Anion Gap 17.9 (5-19); Aspartate Amino Transferase 6 U/L (0-40); Blood Urea Nitrogen 57 mg/dL (6-20); Calcium 6.9 mg/dL (8.5-10.5); Carbon Dioxide 18 mmol/L (22-29); Chloride 95 mmol/L (98-107); Globulin 4.7 g/dL (1.3-4.6); Glomerular Filtration Rate 34.9 mL/min (90-130); Glucose 94 mg/dL (65-115); Osmolality Calculated 280 mOsm/kg (285-295); Potassium 3.9 mmol/L (3.5-5.1); Sodium 127 mmol/L (136-145); Total Bilirubin 0.2 mg/dL (0.15-1.2); Total Protein 6.6 g/dL (6.6-8.7)
--- NOTE | 2020-10-03 20:27 | P.HP_ITS ---
Providers/Chief Complaint Primary Care Provider: Jacoby Jon DO Chief Complaint: BLEEDING INTO COLOSTOMY/ ABDOMINAL PAIN History of Present Illness Maicol Reid is a 55 year old male who presented to the emergency room with chief complaint of blood in his colostomy bag. He was recently hospitalized September 27 to September 29. At that time he had some nausea vomiting, generalized weakness and hypotension. He was found to be severely anemic with a hemoglobin around 5. He was transfused a total of 3 units of packed red blood cells with hemoglobin up to 11 at discharge. At that time he did not demonstrate evidence of any melena or gross blood per colostomy. Denied any coffee-ground emesis. Wingate to be anemia of chronic disease. He has had anemia frequently when here of varying degree. He has had a gradual drop from from the end of last year to the beginning of this year but recently has had a more precipitous drop. He stated that he felt okay when he went home but he was having some cramping abdominal pain. He continued to have some vomiting without coffee-ground or bright red blood. However he started to have a small amount of blood noted in his colostomy, initially bright red, a couple of days ago. It has progressively worsened since then and the volume. Has still been mixed with what look like stool but he does describe the stool being completely coated in blood. Now the output from the colostomy appears to be primarily dark blood. Denies any epigastric pain over the last few days. He is on a PPI once a day. Has had discomfort in both the left lower quadrant across to the right lower nilsa drant. No reported fever or chills. No significant cough. No other areas of bleeding. His Eliquis has been stopped last week when he previously was here with anemia so he has not had any since last week. He has never had anything like this previously. Mr. Reid has colostomy secondary to embolic complications from an aortic aneurysm repair in the past. He has multiple wounds and chronic osteomyelitis. Last fall he had a periurethral abscess and ultimately had a suprapubic catheter placed. Work-up in the emergency room today included confirmation of heme positive output from the colostomy. He also had evidence of an endoleak in the aortic graft identified on CT imaging. He has been tachycardic though blood pressures have been stable. Hemoglobin was down to 8.4 from 11 on September 29. Transfusion was initiated. ER physician discussed the case with Dr. James from surgery and Dr. Oliveira with vascular surgery. Both have agreed to see Mr. Reid in consultation. I will note that Mr. Reid has recently been started on daptomycin and aztreonam for treatment of his osteomyelitis and is currently on week 2 of 6 planned. He has a PICC line in the right upper extremity that was placed approximately 2 weeks ago. Review of Systems Const: Reports: change in weight and fatigue; Denies: fever(s), chills or change in appetite Eyes: Denies: change in vision ENMT: Denies: throat pain or nasal congestion Card: Denies: chest pain, palpitations or edema Resp: Reports: dyspnea; Denies: productive cough or non-productive cough GI: Reports: abdominal pain, nausea, vomiting, GI cramping, change in stool character and hematochezia : Reports: other (Still has urine passing from his urethral meatus, suprapubic catheter) Musc: Reports: back pain and muscle weakness Skin/Breast: Reports: dry skin and other (Multiple wounds, no recent worsening per ); Denies: rash or pruritus Neuro: Reports: dizziness and other (No recent new neurological changes); Denies: headache(s) Psych: Denies: anxiety or depression Justice/Lymph: Reports: purpura Medications/Allergies Home Medications Medication Instructions Recorded Confirmed Last Taken Type levothyroxine 88 mcg tablet 88 mcg PO DAILY@10/17/19 10/03/20 09/27/20 History multivitamin [Multiple Vitamins] 1 tab PO DAILY@07/15/20 10/03/20 09/27/20 History sertraline 25 mg tablet 25 mg PO DAILY@08/21/20 10/03/20 09/26/20 History oxycodone 10 mg tablet 10 - 15 mg PO QID PRN 30 Days #120 09/06/20 10/03/20 10/03/20 Rx tab tizanidine 4 mg tablet 4 mg PO TID PRN #90 tab 09/06/20 10/03/20 09/27/20 Rx promethazine 25 mg tablet 25 mg PO TID PRN 09/17/20 10/03/20 10/03/20 History Eliquis 5 mg PO BID@10,22 09/23/20 10/03/20 10/02/20 History docusate sodium 200 mg PO BID@10,09/23/20 10/03/20 10/03/20 History gentamicin See Rx Instructions .ROUTE .COMPLEX 09/23/20 10/03/20 10/02/20 History magnesium oxide 400 mg PO BID@10,22 09/23/20 10/03/20 09/27/20 History pantoprazole 20 mg PO DAILY@09/23/20 10/03/20 09/27/20 History zonisamide [Zonegran] 400 mg PO DAILY@09/23/20 10/03/20 09/26/20 History aztreonam 2 g IM Q8H 09/27/20 10/03/20 10/03/20 History daptomycin 500 mg IV Q24H 09/27/20 10/03/20 10/03/20 History ondansetron HCl 8 mg PO Q8H PRN 09/27/20 10/03/20 10/02/20 History Allergies Allergy/AdvReac Type Severity Reaction Status Date / Time cefepime Allergy Unknown Unknown Verified 09/27/20 13:46 aspirin Allergy ALGY-Anaphy Verified 09/27/20 13:46 laxis meropenem Allergy SWELLING/ Verified 09/27/20 13:46 HIVES cefixime AdvReac Unknown Verified 09/27/20 13:46 vancomycin AdvReac ADR-Itching Verified 09/27/20 13:46 PFSH Acute PFSH: Medical History (Updated 10/04/20 @ 05:48 by Paola Villasenor MD) Acute thrombosis of right basilic vein (~06/2020) related to PICC line Anemia Cholelithiasis Chronic abdominal pain 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 Chronic pain of lower extremity, bilateral Colostomy in place Decubitus ulcer Encounter for long-term opiate analgesic use Foot amputation status Bilateral forefoot amputation History of DVT (deep vein thrombosis) History of pancreatitis (~06/2020) History of uric acid staghorn calculus 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 Hypothyroidism Long-term use of high-risk medication Neurogenic bladder 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 Parastomal hernia Periurethral abscess Phantom pain Restless leg syndrome Tobacco use disorder Urinary retention Surgical History (Updated 10/04/20 @ 05:48 by Paola Villasenor MD) Abscess of scrotum (~05/2020) Debridement/erosion of urethra History of amputation of toe (~02/2015) LEFT FOOT/ TOES RIGHT FOOT TOES Hx of resection of large bowel (~01/2015) My colon -- colostomy present S/P abdominal aortic aneurysm repair S/P PICC central line placement placed 09/09-10/11 for IV antibiotics Suprapubic catheter Family History Unknown Anesthesia complication Denies family history of Bleeding disorder Social History Smoking and tobacco status: former smoker Alcohol intake: current Alcohol intake frequency: holidays/special occasions only Adopted: Yes Lives independently: Yes Household members: spouse Marital status: Current occupational status: disabled History of recent travel: No Vitals/I&O/Wt Last Vital Signs Temp 98.5 F 10/03/20 16:59 Pulse 122 H 10/03/20 19:32 Resp 18 10/03/20 19:32 BP 98/84 10/03/20 19:32 Pulse Ox 99 10/03/20 19:32 Weight last 48 hrs Weight 61.235 kg Data : 10/03/20 17:40 10/04/20 04:14 Micro: Microbiology 10/03/20 17:35 Occult Blood (FIT) - Final Stool A&P Assessment and plan (1) Acute GI bleeding: Sounds more lower tract with recent bright red blood transitioning to maroon-colored stools, no cristino melena. Has not had previous GI bleeding. Has been on Eliquis since June 2020 for basilic vein thrombosis and a prior history of DVT Status: Acute (2) Acute blood loss anemia: Symptomatic with shortness of breath and dizziness Status: Acute (3) Acute renal failure: I suspect that this is in part due to effective acute blood loss anemia but patient has recently been started on daptomycin so that is another potential possibility Status: Acute Qualifiers: Acute renal failure type: unspecified Qualified Code(s): N17.9 - Acute kidney failure, unspecified (4) Endoleak of aortic graft: Status: Acute (5) Abnormal urinalysis: Could potentially be suggestive of infection although with epithelial cells noted. Received a dose of Cipro in the emergency room Status: Acute (6) Chronic osteomyelitis of sacrum: As well as involving bilateral ischium Status: Chronic (7) Decubitus ulcer: Bilateral lower extremities posteriorly Status: Chronic Qualifiers: Pressure injury location: other site Pressure injury stage: stage 4 Qualified Code(s): L89.894 - Pressure ulcer of other site, stage 4 (8) Suprapubic catheter: In place secondary to periurethral abscess and urethral fistula occurring last fall, follows with Dr. Gomez locally Status: Chronic (9) Severe protein-calorie malnutrition: Status: Acute (10) Paraplegia: Status: Chronic Additional A&P Information Inpatient admission Will watch in the ICU at least initially given GI bleed and both acute and chronic comorbid conditions IV PPI, discussed with pharmacy Dr. James will see in the morning Clear liquids Continue transfusion, serial H&H Low volume IV fluids tonight Monitor output from suprapubic catheter Repeat electrolytes in the morning Vitamin K p.o. x1 dose Recheck INR in the morning Dr. Oliveira has been consulted in regards to the endoleak Continue daptomycin and aztreonam as prescribed by infectious disease though need to keep an eye on renal function Continue usual wound care with gentamicin topically Covid rapid antigen was negative, PCR test was sent out last evening Follow-up pending cultures and adjust antibiotic coverage accordingly Continue home levothyroxine for hypothyroidism and sertraline for depression Secondary to bilateral amputations, unable to place SCDs; pharmacological anticoagulation is contraindicated presently due to acute bleeding requiring transfusion Supportive care otherwise Plans were discussed with patient and his and both of them were given an opportunity to ask questions Attestations 2 Medical Necessity Statement*: Anticipated stay greater than 2 midnights and patient with multiple acute and chronic issues as noted above. Plans are as indicated. At high risk of rapid clinical decline up to and including the possibility of . Coding Level of Care Code Acute Aligner Typewriter for g Fwd Diagnoses Acute GI bleeding K92.2 Acute blood loss anemia D62 Acute renal failure N17.9 Acute renal failure type: unspecified Endoleak of aortic graft T82.330A Abnormal urinalysis R82.90 Chronic osteomyelitis of sacrum M86.68 Decubitus ulcer L89.894 Pressure injury location: other site Pressure injury stage: stage 4 Suprapubic catheter Z93.59 Severe protein-calorie malnutrition E43 Paraplegia G82.20
[2020-10-03 21:16] LABS: INR 2.16 (0.8-1.2)
[2020-10-03 21:17] LABS: Partial Thromboplastin Time 52.9 SECONDS (23.9-36.7)
[2020-10-03 23:03] LABS: Lactate Dehydrogenase 211 U/L (135-225)
[2020-10-03] MEDS: pantoprazole 40 mg SDV IVP (23:11)
[2020-10-03 23:57] LABS: Fibrinogen 278 mg/dL (174-498)
[2020-10-04] VITALS (43 sets, daily range): BP systolic 71–117; BP diastolic 46–86; PULSE 96–130; RESP 8–23; TEMP 36.3–36.6; O2SAT 90–100; BMI 20.5
[2020-10-04] MEDS: sodium chloride 0.9% 1,000 ML 75 ML IV ×2 (00:27→15:26)
[2020-10-04] MEDS: phytonadione (ADULT) 10 mg/mL Ampule 1 mL 5 MG PO (00:46)
[2020-10-04] MEDS: aztreonam 2,000 MG in sodium chloride 0.9% (plus) 100 ML 200 MG IV (00:48)
[2020-10-04] MEDS: morphine 4 mg/mL SDV 1 mL IVP ×3 (01:55→12:56)
[2020-10-04 05:07] LABS: Basophils % 0.2 %; Hematocrit 29.8 % (42.0-52.0); Hemoglobin 9.4 g/dL (11.7-16.6); Lymphocytes # 0.9 10^3/uL (0.8-4.8); Lymphocytes % 3.5 %; Mean Corpuscular HGB Conc 31.5 g/dL (30.0-36.0); Mean Corpuscular Hemoglobin 27.2 pg (28.0-34.0); Mean Corpuscular Volume 86.1 fL (80-94); Mean Platelet Volume 9.1 fL (7.4-10.4); Monocytes # 0.8 10^3/uL (0.2-0.9); Neutrophils # 23.25 10^3/uL (1.8-7.7); Neutrophils % 91.4 %; Nucleated Red Blood Cells % 0 %; Platelet Count 405 10^3/cmm (130-400); Red Blood Count 3.46 10^6/uL (4.1-5.3); Red Cell Distribution Width 18.9 % (12.1-15.1); White Blood Count 25.4 10^3/uL (4.0-10.0)
[2020-10-04 05:41] LABS: Alanine Aminotransferase < 5 U/L (0-41); Albumin Level 1.6 g/dL (3.5-5.2); Alkaline Phosphatase 130 IU/L (40-130); Anion Gap 18.2 (5-19); Aspartate Amino Transferase 5 U/L (0-40); Blood Urea Nitrogen 56 mg/dL (6-20); Calcium 6.8 mg/dL (8.5-10.5); Carbon Dioxide 17 mmol/L (22-29); Chloride 96 mmol/L (98-107); Globulin 4.2 g/dL (1.3-4.6); Glomerular Filtration Rate 34.9 mL/min (90-130); Glucose 112 mg/dL (65-115); Osmolality Calculated 280 mOsm/kg (285-295); Potassium 4.2 mmol/L (3.5-5.1); Sodium 127 mmol/L (136-145); Total Bilirubin 0.3 mg/dL (0.15-1.2); Total Protein 5.8 g/dL (6.6-8.7)
[2020-10-04 05:49] LABS: INR 2.28 (0.8-1.2)
[2020-10-04 05:50] LABS: Partial Thromboplastin Time 43.2 SECONDS (23.9-36.7)
--- NOTE | 2020-10-04 06:21 | P.CONIM_ITS ---
Providers/Reason For Consult Consulting Physican/Specialty*: Dr. Oliveira/cardiothoracic surgery. Reason for Consult*: Proximal endoleak status post EVAR. Attending Physician: Paola Villasenor MD Primary Care Provider: Jacoby Jon DO History of Present Illness History of Present Illness Maicol Reid is a 55 year old male with numerous medical problems including new endoleak approximately from his endovascular AAA repair. This endoleak was not present 10 days ago during her prior CT of the abdomen performed during admission for anemia [address] scan yesterday does reveal now this new endoleak and what appears to be some modest pressurization of a large AAA measuring approximately 10.9 cm. This is slightly increased from the prior study performed on September 23. Mr. Reid presents now again with anemia and now cristino evidence for lower GI bleed. He has numerous complicating factors related to a prior AAA repair in 2014 which is resulted in intestinal ischemia requiring subsequent colostomy as well as spinal cord ischemia with paraplegia. He has substantial deep pressure ulcers with evidence for right femoral head osteomyelitis for which he is currently on daptomycin and aztreonam through a right upper extremity PICC line. Currently on week 2 ofa planned 6 course of antibiotic therapy. He has been on Eliquis since last fall due to basilic vein thrombosis as well as a DVT. Current lab is significant for an INR of 2.2 with a PTT of 43.2. Presenting hemoglobin was 8.4. Presented to the emergency department last night with cristino blood in his colostomy bag. He had progressive degrees of anemia which has become more apparent and was more acute on this presentation. He did receive transfusion during his hospitalization approximate 2 weeks ago. He has received 2 units transfusion this admission. Of note and concerned that his Eliquis was stopped during his hospitalization approximate week and a half ago he had his coagulation profile is still substantially abnormal. Transfusion initiated upon presentation. He has also received vitamin K upon admission. Presenting urinalysis reveals 2+ leukocyte esterase with 15-25 white blood cells per high-powered field. 3+ bacteria is also noted. Review of Systems Const: Denies: fever(s), chills, change in appetite, change in weight, fatigue or night sweats Eyes: Denies: change in vision or blurry vision ENMT: Denies: odynophagia or hoarseness Card: Denies: chest pain, palpitations, irregular heart rhythm or edema Resp: Denies: dyspnea or productive cough GI: Reports: abdominal pain, nausea, vomiting, hematochezia and melena; Denies: dysphagia, heartburn or change in bowel habits : Denies: difficulty urinating, dysuria, urinary frequency, urinary urgency or urinary hesitancy Musc: Denies: extremity pain or extremity swelling Skin/Breast: Denies: rash Neuro: Denies: headache(s), numbness in extremities, weakness in extremities or sensory changes Psych: Denies: anxiety, depression or change in appetite Endo: Denies: polyuria, polydipsia or cold intolerance Justice/Lymph: Denies: easy bruising, easy bleeding, petechiae or enlarged lymph nodes Meds/Allergies Home Medications and Allergies Home Medications Medication Instructions Recorded Confirmed Last Taken Type levothyroxine 88 mcg tablet 88 mcg PO DAILY@10/17/19 10/03/20 09/27/20 History multivitamin [Multiple Vitamins] 1 tab PO DAILY@07/15/20 10/03/20 09/27/20 History sertraline 25 mg tablet 25 mg PO DAILY@08/21/20 10/03/20 09/26/20 History oxycodone 10 mg tablet 10 - 15 mg PO QID PRN 30 Days #120 09/06/20 10/03/20 10/03/20 Rx tab tizanidine 4 mg tablet 4 mg PO TID PRN #90 tab 09/06/20 10/03/20 09/27/20 Rx promethazine 25 mg tablet 25 mg PO TID PRN 09/17/20 10/03/20 10/03/20 History Eliquis 5 mg PO BID@09/23/20 10/03/20 10/02/20 History docusate sodium 200 mg PO BID@09/23/20 10/03/20 10/03/20 History gentamicin See Rx Instructions .ROUTE .COMPLEX 09/23/20 10/03/20 10/02/20 History magnesium oxide 400 mg PO BID@09/23/20 10/03/20 09/27/20 History pantoprazole 20 mg PO DAILY@09/23/20 10/03/20 09/27/20 History zonisamide [Zonegran] 400 mg PO DAILY@ 09/23/20 10/03/20 09/26/20 History aztreonam 2 g IM Q8H 09/27/20 10/03/20 10/03/20 History daptomycin 500 mg IV Q24H 09/27/20 10/03/20 10/03/20 History ondansetron HCl 8 mg PO Q8H PRN 09/27/20 10/03/20 10/02/20 History Allergies Allergy/AdvReac Type Severity Reaction Status Date / Time cefepime Allergy Unknown Unknown Verified 09/27/20 13:46 aspirin Allergy ALGY-Anaphy Verified 09/27/20 13:46 laxis meropenem Allergy SWELLING/ Verified 09/27/20 13:46 HIVES cefixime AdvReac Unknown Verified 09/27/20 13:46 vancomycin AdvReac ADR-Itching Verified 09/27/20 13:46 Current Medications Current Medications Generic Name Dose Route Start Last Admin Trade Name Freq PRN Reason Stop Dose Admin Aztreonam 2,000 mg/ Sodium 100 mls @ 200 mls/hr 10/04/20 00:00 10/04/20 00:48 Chloride IV 200 mls/hr Q8H FUENTES Administration Protocol Sodium Chloride 1,000 mls @ 75 mls/hr 10/03/20 23:24 10/04/20 00:27 Sodium Chloride 0.9% IV 75 mls/hr .[id number] FUENTES Administration Morphine Sulfate 4 mg 10/03/20 23:24 10/04/20 01:55 Morphine 4 Mg/Ml Sdv 1 Ml IVP 4 mg Q4H PRN Administration SEVERE PAIN Pantoprazole Sodium 40 mg 10/03/20 23:00 10/03/20 23:11 Pantoprazole 40 Mg Sdv IVP 10/05/20 09:01 40 mg BID FUENTES Administration PFSH Acute PFSH: Medical History Acute thrombosis of right basilic vein (~06/2020) related to PICC line Anemia Cholelithiasis Chronic abdominal pain 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 Chronic pain of lower extremity, bilateral Colostomy in place Decubitus ulcer Encounter for long-term opiate analgesic use Foot amputation status Bilateral forefoot amputation History of DVT (deep vein thrombosis) History of pancreatitis (~06/2020) History of uric acid staghorn calculus 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 Hypothyroidism Long-term use of high-risk medication Neurogenic bladder 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 Parastomal hernia Periurethral abscess Phantom pain Restless leg syndrome Tobacco use disorder Urinary retention Surgical History Abscess of scrotum (~05/2020) Debridement/erosion of urethra History of amputation of toe (~02/2015) LEFT FOOT/ TOES RIGHT FOOT TOES Hx of resection of large bowel (~01/2015) My colon -- colostomy present S/P abdominal aortic aneurysm repair S/P PICC central line placement placed 09/09-10/11 for IV antibiotics Suprapubic catheter Family History Unknown Anesthesia complication Denies family history of Bleeding disorder Social History Smoking and tobacco status: former smoker Alcohol intake: current Alcohol intake frequency: holidays/special occasions only Adopted: Yes Lives independently: Yes Household members: spouse Marital status: Current occupational status: disabled History of recent travel: No Vitals/I&O/Wt Last Vital Signs Temp 97.9 F 10/04/20 06:00 Pulse 117 H 10/04/20 06:15 Resp 9 L 10/04/20 06:15 BP 87/57 10/04/20 06:15 Pulse Ox 98 10/04/20 06:15 10/03/20 10/03/20 10/04/20 14:59 22:59 06:59 Intake Total 200 / 200 350 / 550 Balance 200 / 200 350 / 550 Weight last 48 hrs Weight 135 lb Weight 135 lb Physical Exam Const: COMMON NORMALS: patient oriented x3 GENERAL APPEARANCE: lethargic ORIENTATION/CONSCIOUSNESS: Yes lethargic HENMT: COMMON NORMALS: normocephalic HEAD & SCALP: normocephalic OTHER: Temporal wasting bilaterally Chest: COMMONS NORMALS: normal inspection of the chest Cardio: COMMON NORMALS: regular rhythm; negative for regular rate RATE: abnormal rate and tachycardic RHYTHM: regular rhythm GI: COMMON NORMALS: negative for Normal to inspection, nondistended, normoactive bowel sounds present, negative for Soft to palpation and negative for non-tender INSPECTION: Yes Abdominal wall edema and Yes abdominal distension AUSCULTATION: No Abdominal bruit PALPATION: No Soft to palpation PERCUSSION: abnormal to percussion RECTAL EXAM: Yes mass OTHER: Abdominal wall fullness and left upper quadrant tenderness without rebound. Parastomal hernia. Pulsatile abdomen Left lower quadrant ostomy bag in position. Suprapubic catheter in position. Dark bloody stool noted in colostomy bag. Large wide healed xiphoid to pubis midline scar. Extremity: COMMON NORMALS: negative for normal to inspection and negative for no clubbing, cyanosis or edema OTHER: All lower extremity edema. Bilateral transmetatarsal amputations. Neuro: COMMON NORMALS: patient oriented x3; negative for moves all extremities, negative for no focal motor deficits, negative for no sensory deficits noted and negative for gait normal SENSORIUM/ORIENTATION: Yes lethargic OTHER: Paraplegic. Data Micro: Micro: Microbiology 10/03/20 04:14 Blood Culture - Pr eliminary Blood [facility] 10/03/20 04:14 Blood Culture - Pr eliminary Blood [facility] 10/03/20 17:35 Occult Blood (FIT) - Final Stool A&P Assessment and plan (1) Endoleak post (EVAR) endovascular aneurysm repair: 55-year-old gentleman with multiple and complex medical problems including newly discovered proximal endoleak status post endovascular AAA repair approximately 5 years ago. This leak was not noted on study of September 23 but is new on recent CT of abdomen and pelvis from last night October 03. Patient has developed cristino lower GI hemorrhage. He had previously been on Eliquis though apparently this was reported to have been stopped during his last admission. His INR is over 2. Exam revealed a firm and somewhat pulsatile abdomen with left upper quadrant pain. Black tarry stool is in his colostomy bag. He has mildly tachycardic though systolic blood pressure is 110. I do not have a prior physical exam from this admission to refer to. The admitting physician is currently not on location. I have conferred with my hospitalist colleague, Dr. Mayes. I have recommended stat CT scan of the abdomen without contrast due to his renal insufficiency and recent contrast load, to assess as whether there may be further evidence of leak versus aneurysmal enlargement. Very difficult situation with this newly discovered endoleak, which I am concerned may potentially represent a possible infective process. He is currently under antibiotic treatment. We will await the results of the CAT scan which is currently being prepared. I have conferred with my staff radiology colleague concerning continued evaluations and a tagged red cell scan would be considered appropriate if indicated for assessment of possible infection at the level of the proximal end of the graft. Given the complexity of his medical problems, hostile abdomen, anticoagulated state, and significant urinary tract infection, our therapeutic options may be limited. Status: Acute Consult Attestations Medical Necessity Statement: 5 years status post EVAR for infrarenal AAA with endoleak Time Spent in Patient Care: Greater than 35 minutes Coding Level of Care Code Acute Managed Care Provider for Allan Blanco Diagnoses Endoleak post (EVAR) endovascular aneurysm repair T82.330A
--- NOTE | 2020-10-04 08:00 | US_ITS ---
WS: [id number] ULTRASOUND RENAL TECHNIQUE: Ultrasound examination of both kidneys. CLINICAL INFORMATION: iban COMPARISON: None. FINDINGS: RIGHT: Right kidney is normal in size and appearance. Echogenicity: Normal. Cortical thickness: 1.3 cm; Normal. Hydronephrosis: None. Perinephric fluid: None. Right kidney measures: 9.5 cm x 4.9 cm x 4.5 cm. LEFT: Left kidney is normal in size and appearance. Echogenicity: Normal. Cortical thickness: 1.4 cm; Normal. Hydronephrosis: None. Perinephric fluid: None. Left kidney measures: 9.1 cm x 4.9 cm x 5.1 cm. Normal visualized aorta. Shore catheter. US/US renal BI* [id number] IMPRESSION: Normal renal ultrasound.
--- NOTE | 2020-10-04 08:01 | USCV_ITS ---
Maicol Reid Age: 55 Gender: M : 1965 Exam Date: 10/04/2020 09:14 Ordering Phys: Maykel Gipson MD Technologist: Kwesi Silva [place] [facility] [place]: LEAKING AAA BP: / HR: Rhythm: Sinus Technical Quality: Very technically difficult study MEASUREMENTS (Male / Female) Normal Values FINDINGS Left Ventricle Right Ventricle Right Atrium Left Atrium Mitral Valve Aortic Valve Tricuspid Valve Pulmonic Valve Pericardium Aorta CONCLUSIONS 1. This is a technically very difficult and limited study. 2. Probably normal left ventricular systolic function. 3. No other interpretation possible based on this study. Rody Corbin MD (Electronically Signed) Final Date: 09 October 2020 07:36 S
--- NOTE | 2020-10-04 08:14 | USCV_ITS ---
Franklin Maicol Age: 55 Gender: M : 1965 Exam Date: 10/04/2020 08:51 Ordering Phys: Maykel Gipson MD Technologist: Kwesi Silva Exam Location: [facility] – [place] Indication: ENDOGRAFT LEAK HISTORY: AO GRAFT Diameter (cm) AP x Transverse x Length Velocity (cm/s) Waveform Prox Aorta: x x Mid Aorta: x x Distal Aorta: x x Right Iliac Prox: x x Left Iliac Prox: x x Stent Prox Landing 2.69 x 3.17 x 88.70 Aneurysmal Sac Max 5.10 x 7.25 x 7.74 77.20 Lt Lat Sac Dim 0.92 Rt Lat Sac Dim 3.94 Stent Dist Landing 2.08 x 2.54 x 39.70 Right Iliac Stent 1.23 x 1.43 x 27.50 Left Iliac Stent 1.41 x 1.26 x 26.60 Right Renal Art Left Renal Art FINDINGS: LARGE ANUER ABOVE LEVEL OF GRAFT LARGE HEMATOMA WITH LEAK FROM AO COULD NOT IMAGE RENAL ARTERIES CONCLUSIONS Aortic endograft with progressive endoleak. Enlarging aneurysm sac. Heterogenous hematoma in the aneurysm sac extending inferiorly also desribed on the concurrent CT. See CT report for better anatomic detail. Mark Street MD (Electronically Signed) Final Date: 04 October 2020 17:44 S
--- NOTE | 2020-10-04 08:14 | CT_ITS ---
WS: [id number] CT ABDOMEN PELVIS TECHNIQUE: Noncontrast CT of the abdomen and pelvis with coronal and sagittal reformatted images. CLINICAL INFORMATION: endograft leak COMPARISON: CT 10/03/2020 and 09/23/2020 June 07, 2020 DLP: 577.[address] scans at [facility] use at least one of these dose optimization techniques: automat ed exposure control; mA and/or kV adjustment per patient size (includes targeted exams where dose is matched to clinical indication); or iterative reconstruction. FINDINGS: Recent postoperative changes aortic endograft repair. No contrast administered today. Diffuse heterog eneous attenuation within the excluded aneurysm sac compatible with endoleak. This appears progressed since October 03, 2019 with increased blood products in the excluded aneurysm sac. Excluded aneurysm sac today measures appr oximately 8.0 x 10.1 x 14.5 cm. Measurements are unchanged since yesterday. This has progressed since September 23, 2019 where it measured approximately 6.7 x 9.2 x 10.9 CM. Ulceration along the left anterolateral aneurysm sac at the peristomal hernia. Lobulated sacral component along the inferior graft is unchanged since yesterday. No other significant changes since yesterday. Left lower quadrant colostomy with parastomal hernia. N o obstructive bowel loops. Large posterior decubitus ulcers with dedication communication to the hip joints and partial destruction right femoral head is unchanged compatible with osteomyelitis. Previou s partial resection of the distal sacrum. Associated decubitus ulcer of the distal sacrum. Diffuse leandro dy wall anasarca. Cholelithiasis. CT/CT abdomen pelvis wo con [id number] IMPRESSION: 1. Aortic biiliac endograft repair with progressive endograft leak. Increased attenuation residual contrast and blood products within the excluded aneurysm s ac. This appears progressed since yesterday. Excluded aneurysm sac is unchanged in size since yesterday. 2. Excluded aneurysm sac is significantly progressed in size since September 23, 2019. See measurements above. Findings are worrisome for progressive rapid end ograft leak. 3. Ulceration along the anterolateral aneurysm sac is unchanged. Lobulation al alejandro the inferior aneurysm sac is unchanged since yesterday. 4. No other significant changes since yesterday. Notified Maykel Gipson MD at 10/04/2020 9:29 AM.
[2020-10-04] MEDS: ondansetron 2 mg/ML SDV 2 mL 4 MG IVP (08:23)
--- NOTE | 2020-10-04 09:14 | PM.MISC ---
Miscellaneous Note Note: I have just conferred with my vascular colleague Dr. Keith Tejada in [facility]. No concerning Mr. Reid was reviewed. He has recommended tertiary referral with his preference being the [facility]. He feels a tertiary referral will be required due to the complexity of this current medical situation considering expertise requirements. I have spoken directly with Dr. Mayes immediately following my discussion with Dr. Tejada.
--- NOTE | 2020-10-04 09:15 | PC.NURSE ---
Pulsating mass ABD Notified Dr. Oliveira and Leonela of pulsating ABD mass at 0710. See stat order for CT.
[2020-10-04 09:49] LABS: Lactate (Lactic Acid level) 1.5 mmol/L (0.5-2.2)
[2020-10-04 09:49] LABS: Procalcitonin 1.01 ng/mL (0-0.5)
[2020-10-04 09:53] LABS: Hematocrit 27.7 % (42.0-52.0); Hemoglobin 8.9 g/dL (11.7-16.6)
[2020-10-04] MEDS: levothyroxine 88 mcg Tablet PO (09:57)
[2020-10-04] MEDS: docusate sodium 100 mg Capsule 200 MG PO (09:57)
[2020-10-04] MEDS: metroNIDAZOLE IV 500 MG/100 ML PREMIX 100 MG IV (09:58)
[2020-10-04 10:01] LABS: C Reactive Protein 81.2 mg/L (0.0-4.9)
[2020-10-04] MEDS: pantoprazole 40 mg SDV IVP (10:11)
[2020-10-04 10:37] LABS: Erythrocyte Sedimentation Rate 31 mm/hr (0-10)
[2020-10-04 11:59] LABS: Urea Nitrogen,Urine Random 355 mg/dL
[2020-10-04 12:05] LABS: Potassium, Radom Urine 33 mmol/L; Urine Creatinine 81 mg/dL (39-259)
[2020-10-04 12:07] LABS: Urine Random Chloride 13 mmol/L
[2020-10-04 12:16] LABS: Urine Random Sodium < 10 mmol/L
--- NOTE | 2020-10-04 12:17 | PC.NURSE ---
Attempted to call report to Miryam BURNETTE RN. Miryam reno nurse is on break and will call back.
[2020-10-04 13:08] LABS: SARS Covid-2 Antigen Negative (Negative)
--- NOTE | 2020-10-04 13:23 | PM.TDS ---
Transfer Summary Providers Date of Admission: 10/03/20 20:28 Date of Discharge: 10/04/20 Attending Provider at Admission: Paola Villasenor MD Attending Provider at Transfer: Maykel Gipson MD Primary Care Provider: Jacoby Jon DO Anticipated Date of Transfer: Anticipated date of transfer: 10/04/20 Receiving Facility & Provider: Receiving Provider: [] Receiving facility: [] Diagnoses at Discharge Discharge Diagnosis (1) Endoleak post (EVAR) endovascular aneurysm repair: Status: Acute Reason for Visit Reason for Visit: BLEEDING INTO COLOSTOMY/ ABDOMINAL PAIN Hospital Course Hospital Course This is a 55-year-old male with a past medical history of a large abdominal aortic aneurysm repair complicated by embolic phenomenon relating to complete paralysis of spinal cord, paraplegia, bowel infarction requiring colectomy and colostomy, amputation of bilateral lower extremities, neurogenic bladder, chronic cystitis, chronic history of DVT and recent basilic vein DVT on Eliquis, stopped due to GI bleeds recently on September 29, with 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 Aorto bi-iliac stent. The abdominal aortic aneurysm has increased slightly in size measuring a maximum 10.9 cm. There is a 5.4 cm focal contrast leak at the proximal anchor of the endograft stent and faint contrast opacification of the upper mattaponi abdominal aortic aneurysm. No evidence for aneurysm leak or rupture. Of note this leak was not noticed on her CT scan on September 23 patient was admitted gently 72 September 29, for GI bleed, Eliquis was stopped White blood cell count 25.4, hemoglobin 8.9, platelet count 405, ESR 31, CRP 81.2, pro-Jarad one Patient's INR was 2.2, hemoglobin was 5.9 Patient received 2 units PRBC, 1 unit FFP, hemoglobin on transfer 8.9 After discussion with cardiothoracic surgery, it was felt that patient would be better served in [facility] setting for repair of endovascular leak and or endograft infection Patient daptomycin and aztreonam were continued, for his osteomyelitis, Flagyl was added Patient on admission was hypotensive, requiring fluid boluses, requiring Levophed, MAP now greater than 65, is alert oriented x3, saturating in the high 90s on room air, abdomen is tight, tender, guarding. After discussion of the risks and benefits of transfer, morbidity and mortality associated, him and his family voiced understanding, all questions answered, agreed for transfer. Dr. Mandel from [facility] vascular surgery accepted transfer. For concerns for anemia, with maroon-colored stools, endograft leak. Likely multifactorial, slow GI bleed and or endograft leak. Received blood. Protonix. Currently on Levophed drip. For acute on chronic renal failure, likely secondary to blood loss, dehydration, receiving fluids and blood For chronic osteomyelitis of the sacrum, right femoral head, decubitus ulcers, on daptomycin and aztreonam Has a suprapubic catheter Severe protein calorie malnutrition Bilateral extremity above-knee amputation Rapid Covid negative, PCR sent out Has a history of periurethral abscess, status post debridement, and suprapubic catheter placement UA Chronic UTIs TS Data Data Completed and Pending: Completed Studies During Hospitalization Category Date Time Status CT abdomen pelvis w con* [id number] Stat Cat Scan 10/03/20 17:[address] abdomen pelvis wo con [id number] Stat Cat Scan 10/04/20 08:14 Completed US renal BI* [id number] Routine Ultrasound 10/04/20 08:00 Completed Pending at discharge Category Date Time Status ABO/Rh Type Routi ne Lab 10/03/20 17:40 Results Blood Culture Patricia rafael Lab 10/03/20 04:14 Results Complete Crossmat ch Routine Lab 10/03/20 17:40 Results Coronavirus Test [facility] Routi ne Lab 10/03/20 23:08 Received Frozen Plasma FZ <24 1st Cont Routi ne Lab 10/04/20 07:57 Results Hemoglobin and He matocrit Q4H Lab 10/04/20 12:46 Ordered Hemoglobin and He matocrit Q4H Lab 10/04/20 16:46 Ordered Hemoglobin and He matocrit Q4H Lab 10/04/20 20:46 Ordered Hemoglobin and He matocrit Q4H Lab 10/05/20 00:46 Ordered Hemoglobin and He matocrit Q4H Lab 10/05/20 04:46 Ordered Hemoglobin and He matocrit Q4H Lab 10/05/20 08:46 Ordered Hemoglobin and He matocrit Q4H Lab 10/05/20 12:46 Ordered Hemoglobin and He matocrit Q4H Lab 10/05/20 16:46 Ordered Leukocyte Reduced RBC Stat Lab 10/03/20 17:40 Results Osmolality Urine Stat Lab 10/04/20 10:50 Received Sputum Culture an d Gram Stain Stat Lab 10/04/20 07:57 Uncollected Type and Screen R outine Lab 10/03/20 17:40 Results Urea Nitrogen,Uri ne Random Routine Lab 10/04/20 10:50 Results Urine Culture Sta t Lab 10/03/20 17:35 Received Urine Eosinophils Routine Lab 10/04/20 10:50 Results CV duplex aorta 9 [id number] Stat Ultrasound 10/04/20 08:14 Taken CV echo limited 9 [id number] Routine Ultrasound 10/04/20 08:01 Taken Labs from last 24 hours 10/04/20 10/04/20 10/04/20 12:30 11:04 10:50 WBC RBC Hgb Hct MCV MCH MCHC RDW Plt Count MPV Neut % (Auto) Lymph % (Auto) Gregg % (Auto) Eos % (Auto) Baso % (Auto) Neut # (Auto) Lymph # (Auto) Gregg # (Auto) Eos # (Auto) Baso # (Auto) Nucleated RBC % (a uto) Nucleated RBCs # ESR PT INR APTT Fibrinogen Sodium Potassium Chloride Carbon Dioxide Anion Gap BUN Creatinine GFR Calculation Glucose Calculated Osmolal ity Lactate Calcium Total Bilirubin AST ALT Alkaline Phosphata se Lactate Dehydrogen ase C-Reactive Protein Total Protein Albumin Globulin Procalcitonin Urine Color Urine Appearance Urine pH Ur Specific Gravit y Urine Protein Urine Glucose (UA) Urine Ketones Urine Blood Urine Nitrate Urine Bilirubin Urine Urobilinogen Ur Leukocyte Jimena ase Urine RBC Urine WBC Ur Eosinophil Smea r Ur Squamous Epith Cells Amorphous Sediment Urine Bacteria Urine Yeast Urine Eosinophils Urine Osmolality Pending Ur Random Sodium Ur Random Potassiu m Ur Random Chloride Ur Random Urea Nit rogn Urine Creatinine Nasal/Oral COVID-1 9 PCR SARS-CoV-2 Ag (Rap id) Negative Cancelled Blood Type Rho(D) Type Antibody Screen Crossmatch 10/04/20 10/04/20 10/04/20 10:50 10:50 09:45 WBC RBC Hgb 8.9 L Hct 27.7 L MCV MCH MCHC RDW Plt Count MPV Neut % (Auto) Lymph % (Auto) Gregg % (Auto) Eos % (Auto) Baso % (Auto) Neut # (Auto) Lymph # (Auto) Gregg # (Auto) Eos # (Auto) Baso # (Auto) Nucleated RBC % (a uto) Nucleated RBCs # ESR PT INR APTT Fibrinogen Sodium Potassium Chloride Carbon Dioxide Anion Gap BUN Creatinine GFR Calculation Glucose Calculated Osmolal ity Lactate Calcium Total Bilirubin AST ALT Alkaline Phosphata se Lactate Dehydrogen ase C-Reactive Protein Total Protein Albumin Globulin Procalcitonin Urine Color Urine Appearance Urine pH Ur Specific Gravit y Urine Protein Urine Glucose (UA) Urine Ketones Urine Blood Urine Nitrate Urine Bilirubin Urine Urobilinogen Ur Leukocyte Jimena ase Urine RBC Urine WBC Ur Eosinophil Smea r Pending Ur Squamous Epith Cells Amorphous Sediment Urine Bacteria Urine Yeast Urine Eosinophils Pending Urine Osmolality Ur Random Sodium < 10 Ur Random Potassiu m 33 Ur Random Chloride 13 Ur Random Urea Nit rogn 355 Urine Creatinine 81 Nasal/Oral COVID-1 9 PCR SARS-CoV-2 Ag (Rap id) Blood Type Rho(D) Type Antibody Screen Crossmatch 10/04/20 10/04/20 10/04/20 09:09 07:57 04:14 WBC RBC Hgb Hct MCV MCH MCHC RDW Plt Count MPV Neut % (Auto) Lymph % (Auto) Gregg % (Auto) Eos % (Auto) Baso % (Auto) Neut # (Auto) Lymph # (Auto) Gregg # (Auto) Eos # (Auto) Baso # (Auto) Nucleated RBC % (a uto) Nucleated RBCs # ESR 31 H PT INR APTT Fibrinogen Sodium Potassium Chloride Carbon Dioxide Anion Gap BUN Creatinine GFR Calculation Glucose Calculated Osmolal ity Lactate 1.5 Calcium Total Bilirubin AST ALT Alkaline Phosphata se Lactate Dehydrogen ase C-Reactive Protein 81.2 H Total Protein Albumin Globulin Procalcitonin 1.01 H Urine Color Urine Appearance Urine pH Ur Specific Gravit y Urine Protein Urine Glucose (UA) Urine Ketones Urine Blood Urine Nitrate Urine Bilirubin Urine Urobilinogen Ur Leukocyte Jimena ase Urine RBC Urine WBC Ur Eosinophil Smea r Ur Squamous Epith Cells Amorphous Sediment Urine Bacteria Urine Yeast Urine Eosinophils Urine Osmolality Ur Random Sodium Ur Random Potassiu m Ur Random Chloride Ur Random Urea Nit rogn Urine Creatinine Nasal/Oral COVID-1 9 PCR SARS-CoV-2 Ag (Rap id) Blood Type Rho(D) Type Antibody Screen Crossmatch 10/04/20 10/04/20 10/04/20 04:14 04:14 04:14 WBC 25.4 H RBC 3.46 L Hgb 9.4 L Hct 29.8 L MCV 86.1 D MCH 27.2 L MCHC 31.5 RDW 18.9 H Plt Count 405 H MPV 9.1 Neut % (Auto) 91.4 Lymph % (Auto) 3.5 Gregg % (Auto) 3.0 Eos % (Auto) 0.0 Baso % (Auto) 0.2 Neut # (Auto) 23.25 H Lymph # (Auto) 0.9 Gregg # (Auto) 0.8 Eos # (Auto) 0.0 Baso # (Auto) 0.0 Nucleated RBC % (a uto) 0 Nucleated RBCs # 0.0 ESR PT 26.00 H INR 2.28 H APTT 43.2 H Fibrinogen Sodium 127 L Potassium 4.2 Chloride 96 L Carbon Dioxide 17 L Anion Gap 18.2 BUN 56 H Creatinine 2.0 H GFR Calculation 34.9 L Glucose 112 Calculated Osmolal ity 280 L Lactate Calcium 6.8 L Total Bilirubin 0.3 AST 5 ALT < 5 Alkaline Phosphata se 130 Lactate Dehydrogen ase C-Reactive Protein Total Protein 5.8 L Albumin 1.6 L Globulin 4.2 Procalcitonin Urine Color Urine Appearance Urine pH Ur Specific Gravit y Urine Protein Urine Glucose (UA) Urine Ketones Urine Blood Urine Nitrate Urine Bilirubin Urine Urobilinogen Ur Leukocyte Jimena ase Urine RBC Urine WBC Ur Eosinophil Smea r Ur Squamous Epith Cells Amorphous Sediment Urine Bacteria Urine Yeast Urine Eosinophils Urine Osmolality Ur Random Sodium Ur Random Potassiu m Ur Random Chloride Ur Random Urea Nit rogn Urine Creatinine Nasal/Oral COVID-1 9 PCR SARS-CoV-2 Ag (Rap id) Blood Type Rho(D) Type Antibody Screen Crossmatch 10/03/20 10/03/20 10/03/20 23:08 17:40 17:40 WBC RBC Hgb Hct MCV MCH MCHC RDW Plt Count MPV Neut % (Auto) Lymph % (Auto) Gregg % (Auto) Eos % (Auto) Baso % (Auto) Neut # (Auto) Lymph # (Auto) Gregg # (Auto) Eos # (Auto) Baso # (Auto) Nucleated RBC % (a uto) Nucleated RBCs # ESR PT INR APTT Fibrinogen Sodium Potassium Chloride Carbon Dioxide Anion Gap BUN Creatinine GFR Calculation Glucose Calculated Osmolal ity Lactate 0.8 Calcium Total Bilirubin AST ALT Alkaline Phosphata se Lactate Dehydrogen ase 211 C-Reactive Protein Total Protein Albumin Globulin Procalcitonin Urine Color Urine Appearance Urine pH Ur Specific Gravit y Urine Protein Urine Glucose (UA) Urine Ketones Urine Blood Urine Nitrate Urine Bilirubin Urine Urobilinogen Ur Leukocyte Jimena ase Urine RBC Urine WBC Ur Eosinophil Smea r Ur Squamous Epith Cells Amorphous Sediment Urine Bacteria Urine Yeast Urine Eosinophils Urine Osmolality Ur Random Sodium Ur Random Potassiu m Ur Random Chloride Ur Random Urea Nit rogn Urine Creatinine Nasal/Oral COVID-1 9 PCR Pending SARS-CoV-2 Ag (Rap id) Blood Type Rho(D) Type Antibody Screen Crossmatch 10/03/20 10/03/20 10/03/20 17:40 17:40 17:40 WBC 20.5 H RBC 2.93 L Hgb 8.4 L Hct 27.2 L MCV 92.8 MCH 28.7 MCHC 30.9 RDW 18.6 H Plt Count 502 H MPV 8.9 Neut % (Auto) 91.7 Lymph % (Auto) 4.7 Gregg % (Auto) 2.4 Eos % (Auto) 0.0 Baso % (Auto) 0.1 Neut # (Auto) 18.79 H Lymph # (Auto) 1.0 Gregg # (Auto) 0.5 Eos # (Auto) 0.0 Baso # (Auto) 0.0 Nucleated RBC % (a uto) 0 Nucleated RBCs # 0.0 ESR PT INR APTT Fibrinogen Sodium 127 L Potassium 3.9 Chloride 95 L Carbon Dioxide 18 L Anion Gap 17.9 BUN 57 H Creatinine 2.0 H GFR Calculation 34.9 L Glucose 94 Calculated Osmolal ity 280 L Lactate Calcium 6.9 L Total Bilirubin 0.2 AST 6 ALT < 5 Alkaline Phosphata se 158 H Lactate Dehydrogen ase C-Reactive Protein Total Protein 6.6 Albumin 1.9 L Globulin 4.7 H Procalcitonin Urine Color Urine Appearance Urine pH Ur Specific Gravit y Urine Protein Urine Glucose (UA) Urine Ketones Urine Blood Urine Nitrate Urine Bilirubin Urine Urobilinogen Ur Leukocyte Jimena ase Urine RBC Urine WBC Ur Eosinophil Smea r Ur Squamous Epith Cells Amorphous Sediment Urine Bacteria Urine Yeast Urine Eosinophils Urine Osmolality Ur Random Sodium Ur Random Potassiu m Ur Random Chloride Ur Random Urea Nit rogn Urine Creatinine Nasal/Oral COVID-1 9 PCR SARS-CoV-2 Ag (Rap id) Blood Type O Negative Rho(D) Type Negative Antibody Screen Negative Crossmatch See Detail 10/03/20 10/03/20 10/03/20 17:38 17:35 17:35 WBC RBC Hgb Hct MCV MCH MCHC RDW Plt Count MPV Neut % (Auto) Lymph % (Auto) Gregg % (Auto) Eos % (Auto) Baso % (Auto) Neut # (Auto) Lymph # (Auto) Gregg # (Auto) Eos # (Auto) Baso # (Auto) Nucleated RBC % (a uto) Nucleated RBCs # ESR PT 24.90 H INR 2.16 H APTT 52.9 H Fibrinogen 278 Sodium Potassium Chloride Carbon Dioxide Anion Gap BUN Creatinine GFR Calculation Glucose Calculated Osmolal ity Lactate Calcium Total Bilirubin AST ALT Alkaline Phosphata se Lactate Dehydrogen ase C-Reactive Protein Total Protein Albumin Globulin Procalcitonin Urine Color Yellow Urine Appearance Cloudy Urine pH 5 Ur Specific Gravit y 1.025 Urine Protein Trace Urine Glucose (UA) Norm Urine Ketones 1+ H Urine Blood 2+ H Urine Nitrate Negative Urine Bilirubin 2+ H Urine Urobilinogen Norm Ur Leukocyte Jimena ase 2+ H Urine RBC 10-15 H Urine WBC 15-25 H Ur Eosinophil Smea r Ur Squamous Epith Cells 0-4 H Amorphous Sediment Not Reportable Urine Bacteria 3+ H Urine Yeast 4+ H Urine Eosinophils Urine Osmolality Ur Random Sodium Ur Random Potassiu m Ur Random Chloride Ur Random Urea Nit rogn Urine Creatinine Nasal/Oral COVID-1 9 PCR SARS-CoV-2 Ag (Rap id) Blood Type Rho(D) Type Antibody Screen Crossmatch Vitals: Last Vital Signs Temp 97.9 F 10/04/20 06:00 Pulse 108 H 10/04/20 11:00 Resp 16 10/04/20 12:56 BP 78/64 10/04/20 11:00 Pulse Ox 100 10/04/20 12:56 TS Medications Medications Home Medications levothyroxine 88 mcg tablet 88 mcg PO DAILY@10/17/19 [History Confirmed 10/03/20] multivitamin [Multiple Vitamins] 1 tab PO DAILY@07/15/20 [History Confirmed 10/03/20] sertraline 25 mg tablet 25 mg PO DAILY@08/21/20 [History Confirmed 10/03/20] oxycodone 10 mg tablet 10 - 15 mg PO QID PRN 30 Days #120 tab 09/06/20 [Rx Confirmed 10/03/20] tizanidine 4 mg tablet 4 mg PO TID PRN #90 tab 09/06/20 [Rx Confirmed 10/03/20] promethazine 25 mg tablet 25 mg PO TID PRN 09/17/20 [History Confirmed 10/03/20] Eliquis 5 mg PO BID@09/23/20 [History Confirmed 10/03/20] docusate sodium 200 mg PO BID@09/23/20 [History Confirmed 10/03/20] gentamicin See Rx Instructions .ROUTE .COMPLEX 09/23/20 [History Confirmed 10/03/20] magnesium oxide 400 mg PO BID@09/23/20 [History Confirmed 10/03/20] pantoprazole 20 mg PO DAILY@09/23/20 [History Confirmed 10/03/20] zonisamide [Zonegran] 400 mg PO DAILY@09/23/20 [History Confirmed 10/03/20] aztreonam 2 g IM Q8H 09/27/20 [History Confirmed 10/03/20] daptomycin 500 mg IV Q24H 09/27/20 [History Confirmed 10/03/20] ondansetron HCl 8 mg PO Q8H PRN 09/27/20 [History Confirmed 10/03/20] Active Medications Acetaminophen (Acetaminophen 325 Mg Tablet) 650 mg PO Q6H PRN PRN Reason: MILD PAIN Daptomycin (Daptomycin 500 Mg Sdv) 500 mg IV Q24H [facility]; Protocol Docusate Sodium (Docusate Sodium 100 Mg Capsule) 200 mg PO BID@ [facility] Last Admin: 10/04/20 09:57 Dose: 200 mg Documented by: Gentamicin Sulfate (Gentamicin 0.1% Cream 15 Gm) 1 applic TOPICAL DAILY [facility] Sodium Chloride (Sodium Chloride 0.9%) 1,000 mls @ 100 mls/hr IV .Q10H [facility] Last Admin: 10/04/20 00:27 Dose: 75 mls/hr Documented by: Norepinephrine Bitartrate 4 mg (/ Dextrose) 254 mls @ 0 mls/hr IV .Q0M [facility]; Protocol Last Admin: 10/04/20 11:09 Dose: 5 mcg/min, 19.1 mls/hr Documented by: Metronidazole (Flagyl Iv) 500 mg in 100 mls @ 100 mls/hr IV Q6H [facility]; Protocol Last Admin: 10/04/20 09:58 Dose: 100 mls/hr Documented by: Aztreonam 2,000 mg/ Sodium (Chloride) 100 mls @ 200 mls/hr IV Q8H [facility]; Protocol Last Admin: 10/04/20 12:59 Dose: 200 mls/hr Documented by: Levothyroxine Sodium (Levothyroxine 88 Mcg Tablet) 88 mcg PO DAILY@10 [facility] Last Admin: 10/04/20 09:57 Dose: 88 mcg Documented by: Morphine Sulfate (Morphine 4 Mg/Ml Sdv 1 Ml) 4 mg IVP Q4H PRN PRN Reason: SEVERE PAIN Last Admin: 10/04/20 12:56 Dose: 4 mg Documented by: Ondansetron HCl (Ondansetron 2 Mg/Ml Sdv 2 Ml) 4 mg IVP Q6H PRN PRN Reason: NAUSEA AND VOMITING Last Admin: 10/04/20 08:23 Dose: 4 mg Documented by: Pantoprazole Sodium (Pantoprazole 40 Mg Sdv) 40 mg IVP BID [facility] Stop: 10/05/20 09:01 Last Admin: 10/04/20 10:11 Dose: 40 mg Documented by: Prochlorperazine (Prochlorperazine 25 Mg Supp) 25 mg VA Q12H PRN PRN Reason: NAUSEA AND VOMITING Sertraline HCl (Sertraline 50 Mg Tablet) 25 mg PO BEDTIME [facility] Zonisamide (Zonisamide 100 Mg Capsule) 400 mg PO DAILY@22 [facility] Discharge Plan Discharge Patient Disposition: Home Condition: Stable Prescriptions: No Action promethazine 25 mg tablet 25 mg PO TID PRN (Reason: Nausea And Vomiting) RF: 0 levothyroxine 88 mcg tablet 88 mcg PO DAILY@10 RF: 0 oxycodone 10 mg tablet 10 - 15 mg PO QID PRN (Reason: pain) 30 Days Qty: 120 RF: 0 tizanidine 4 mg tablet 4 mg PO TID PRN (Reason: muscle spasticity) Qty: 90 RF: 1 sertraline [Zoloft] 25 mg tablet 25 mg PO DAILY@22 RF: 0 pantoprazole 20 mg tablet,delayed release (DR/EC) 20 mg PO DAILY@10 RF: 0 docusate sodium 100 mg Capsule 200 mg PO BID@ RF: 0 gentamicin 0.1 % ointment See Rx Instructions .ROUTE .COMPLEX RF: 0 Eliquis 5 mg tablet 5 mg PO BID@ RF: 0 zonisamide [Zonegran] 100 mg capsule 400 mg PO DAILY@22 RF: 0 magnesium oxide 400 mg (241.3 mg magnesium) tablet 400 mg PO BID@ RF: 0 ondansetron HCl 8 mg Tablet 8 mg PO Q8H PRN (Reason: Nausea) RF: 0 aztreonam 2 gram Recon Soln 2 g IM Q8H RF: 0 daptomycin 500 mg Recon Soln 500 mg IV Q24H RF: 0 multivitamin [Multiple Vitamins] Tablet 1 tab PO DAILY@10 RF: 0 Referrals: Jacoby Jon DO [Primary Care Provider] - Transfer Attestations Time Spent in Transfer Care*: critical care time Critical Care Time (min): 120 Status at Transfer: Cognitive status at transfer: cognitively intact, Behavioral status at transfer: cooperative, Quality Metrics Clinical Quality Measures: During this hospital stay, did patient experience: None Coding Level of Care Code Acute Scallop Cutter for Allan Blanco Diagnoses Endoleak post (EVAR) endovascular aneurysm repair T82.330A
--- NOTE | 2020-10-04 14:00 | PC.NURSE ---
REPORT CALLED TO NICOLE HENDRICKS RN AT SURGICAL ICU @ [facility]. [phone]
[2020-10-04 14:08] LABS: Hematocrit 27.4 % (42.0-52.0); Hemoglobin 8.7 g/dL (11.7-16.6)
--- NOTE | 2020-10-04 16:04 | PC.NURSE ---
[facility] HERE TO TRANSPORT TO [place] FOR ENDOVASCULAR SURGERY. PT & BELONGINGS SENT WITH EMS. WISHED WELL. NOTIFIED NICOLE HENDRICKS RN @[facility] [phone] OF DEPARTURE FROM ICU.
--- NOTE | 2020-10-04 16:21 | PC.NURSE ---
Turning and wound care deferred due to unstable/leaking AAA. Patient being sent to for emergent surgery.
--- NOTE | 2020-10-04 16:22 | PC.NURSE ---
Multiple attempts made for peripheral IV's without success. Patient on Levophed.
[2020-10-04 23:31] LABS: Eosinophil Urine No Eosinophils Seen; Urine Eosinophil Count 0 (0-0)
[2020-10-05 05:46] LABS: Coronavirus Test Green County Not Detected
[2020-10-05 16:18] LABS: Osmolality Urine 387 mOsm/kg (50-1200)
--- NOTE | 2020-10-10 15:04 | PC.SOCIAL ---
Called [facility] to see if patient is still there since he was transferred from here. He is not a current patient. Called number listed for patient and answered. This nurse asked if he has returned home from hospital in [place] and indicates he on 10/07/2020. This nurse offered my sincere condolences and explained the reason for the call being that we had cultures return since he was discharged . understood and appreciates the call.
== END 2020-10-04 15:50 | disposition short-term general hospital (02) | DRG 314 ==
LOC: ER 21:29 → ICU 22:27
PROVIDERS: Family Medicine; Admitting Provider Hospitalist; Emergency Provider Emergency Medicine; PCP Internal Medicine; Visit Provider Family Medicine
DX: T82.330A Leakage of aortic (bifurcation) graft (replacement), initial encounter (principal); E43 Unspecified severe protein-calorie malnutrition; M46.28 Osteomyelitis of vertebra, sacral and sacrococcygeal region; D62 Acute posthemorrhagic anemia; G82.20 Paraplegia, unspecified; N17.9 Acute kidney failure, unspecified; Y71.1 Therapeutic (nonsurgical) and rehabilitative cardiovascular devices associated with adverse incidents; H05.20 Unspecified exophthalmos; Z93.3 Colostomy status; K43.5 Parastomal hernia without obstruction or gangrene; Z89.432 Acquired absence of left foot; Z89.431 Acquired absence of right foot; Z86.718 Personal history of other venous thrombosis and embolism; K80.20 Calculus of gallbladder without cholecystitis without obstruction; G89.29 Other chronic pain; E03.9 Hypothyroidism, unspecified; N31.9 Neuromuscular dysfunction of bladder, unspecified; G25.81 Restless legs syndrome; Z90.49 Acquired absence of other specified parts of digestive tract; Z79.891 Long term (current) use of opiate analgesic; Z79.01 Long term (current) use of anticoagulants; Z87.440 Personal history of urinary (tract) infections; E86.0 Dehydration; N18.9 Chronic kidney disease, unspecified; Z95.828 Presence of other vascular implants and grafts; Z68.20 Body mass index [BMI] 20.0-20.9, adult; Z96.0 Presence of urogenital implants; Z89.612 Acquired absence of left leg above knee; Z89.611 Acquired absence of right leg above knee
CPT/HCPCS: 12345; 36415; 36430; 74176; 74177; 76770; 80053; 81001; 82274; 82436; 82570; 83605; 83615; 83935; 84133; 84145; 84300; 84540; 85014; 85018; 85025; 85384; 85610; 85651; 85730; 85999; 86140; 86850; 86900; 86920; 87040; 87077; 87086; 87106; 87186; 87205; 87426; 87635; 93306; 93308; 93978; 99283; C9113; J0744; J2270; J2405; J3430; J3490; J7030; P9016; Q9967; S0030